=== PATIENT | female | born 1955 | race Caucasian/White ===

== ENCOUNTER 2017-11-10 15:31 | Inpatient (IN) | payer BC ==
[2017-11-10] MEDS ORDERED: SODIUM CHLORIDE 0.9% 1,000 ML IV STA (15:51)
[2017-11-10] MEDS ORDERED: DILTIAZEM 50 MG in SODIUM CHLORIDE 0.9% 40 ML IV ONE (15:51)
[2017-11-10 16:08] LABS: Basophils # (A) 0.1 k/uL (0-0.2); Basophils % (A) 1 %; Eosinophils # (A) 0.2 k/uL (0-0.7); Eosinophils % (A) 2 %; HCT 36.7 % (34.0-46.0); HGB 11.8 gm/dL (11.4-16.0); Lymphocytes # (A) 2.1 k/uL (1.0-4.8); Lymphocytes % (A) 18 %; MCH 27.8 pg (25.0-35.0); MCHC 32.2 g/dL (31.0-37.0); MCV 86.5 fL (80.0-100.0); Mean Platelet Volume 8.7; Monocytes # (A) 0.6 k/uL (0-1.0); Monocytes % (A) 5 %; Neutrophils # (A) 8.8 k/uL (1.3-7.7); Neutrophils % (A) 74 %; Platelet Count 275 k/uL (150-450); RBC 4.24 m/uL (3.80-5.40); RDW 13.4 % (11.5-15.5); WBC 11.8 k/uL (3.8-10.6)
[2017-11-10 16:17] LABS: ALT 16 U/L (9-52); AST 18 U/L (14-36); Alkaline Phosphatase 79 U/L (38-126); Anion Gap 14 mmol/L; Blood Urea Nitrogen 13 mg/dL (7-17); Calcium 9.1 mg/dL (8.4-10.2); Carbon Dioxide 27 mmol/L (22-30); Chloride 103 mmol/L (98-107); Glucose 111 mg/dL (74-99); Magnesium 1.6 mg/dL (1.6-2.3); Phosphorus 4.1 mg/dL (2.5-4.5); Potassium 4.7 mmol/L (3.5-5.1); Sodium 144 mmol/L (137-145); Total Bilirubin 0.8 mg/dL (0.2-1.3); Total Protein 6.3 g/dL (6.3-8.2)
[2017-11-10 16:22] LABS: INR 1.1 (<1.2); Partial Thromboplastin Time 25.4 sec (22.0-30.0); Prothrombin Time 10.4 sec (9.0-12.0)
[2017-11-10 16:25] LABS: Creatine Kinase 123 U/L (30-135)
[2017-11-10 16:38] LABS: Creatine Kinase MB 1.6 ng/mL (0.0-2.4); Troponin I <0.012 ng/mL (0.000-0.034)
[2017-11-10 17:22] LABS: Appearance,Urine Clear (Clear); Bacteria,Urine Rare /hpf; Bilirubin,Urine Negative (Negative); Blood,Urine Large (Negative); Color,Urine Yellow; Glucose,Urine (UA) Negative (Negative); Ketones,Urine Negative (Negative); Leukocyte Esterase,Urine Small (Negative); Mucus,Urine Rare /hpf; Nitrite,Urine Negative (Negative); Protein,Urine Trace (Negative); RBC,Urine 140 /hpf (0-5); Squamous Epithelial Cell,Urine 1 /hpf (0-4); WBC,Urine 7 /hpf (0-5)
--- NOTE | 2017-11-10 17:55 | ED ---
General Adult HPI - General Chief complaint: Arrhythmia/Palpitations Stated complaint: AFIB Time Seen by Provider: 11/10/17 15:47 Source: patient, RN notes reviewed, old records reviewed Mode of arrival: EMS Limitations: no limitations - History of Present Illness Initial comments: This is a 62-year-old female to the ER for evaluation of severe shortness breath palpitations, diaphoresis. Patient states she has history of atrial fibrillation states heart rate increased significantly just prior to arrival. Patient has positive nausea no vomiting no chest pain. Patient not taking medications as prescribed. No recent fevers no nausea vomiting or diarrhea. - Related Data Home Medications Medication Instructions Recorded Confirmed Albuterol Inhaler [Ventolin Hfa 2 puff INHALATION RT-Q4H PRN 11/10/17 11/10/17 Inhaler] Albuterol Nebulized [Ventolin 2.5 mg INHALATION RT-TID 11/10/17 11/10/17 Nebulized] Apixaban [Eliquis] 5 mg PO BID 11/10/17 11/10/17 Aspirin 81 mg PO DAILY 11/10/17 11/10/17 Budesonide/Formoterol Fumarate 2 puff INHALATION RT-BID 11/10/17 11/10/17 [Symbicort 160-4.5 Mcg Inhaler] Lisinopril [Prinivil] 5 mg PO DAILY 11/10/17 11/10/17 Methimazole [Tapazole] 2.5 mg PO SUMOTUWETHFR 11/10/17 11/10/17 Metoprolol Tartrate [Lopressor] 25 mg PO BID 11/10/17 11/10/17 Omeprazole [PriLOSEC] 20 mg PO DAILY 11/10/17 11/10/17 PARoxetine HCL [Paxil Cr] 25 mg PO DAILY 11/10/17 11/10/17 Pravastatin Sodium [Pravachol] 40 mg PO DAILY 11/10/17 11/10/17 Allergies Allergy/AdvReac Type Severity Reaction Status Date / Time ciprofloxacin [From Cipro] Allergy Rash/Hives Verified 11/10/17 15:54 Penicillins Allergy Rash/Hives Verified 11/10/17 15:54 Review of Systems ROS Statement: Those systems with pertinent positive or pertinent negative responses have been documented in the HPI. ROS Other: All systems not noted in ROS Statement are negative. Past Medical History Past Medical History: Atrial Fibrillation, Asthma, CVA/TIA, Hypertension, Thyroid Disorder History of Any Multi-Drug Resistant Organisms: None Reported Past Surgical History: Ablation, Cholecystectomy, Hysterectomy Past Psychological History: No Psychological Hx Reported Smoking Status: Never smoker Past Alcohol Use History: None Reported Past Drug Use History: None Reported General Exam Limitations: no limitations General appearance: alert, in no apparent distress, anxious Head exam: Present: atraumatic, normocephalic, normal inspection Eye exam: Present: normal appearance, PERRL, EOMI. Absent: scleral icterus, conjunctival injection, periorbital swelling ENT exam: Present: normal exam, mucous membranes moist Neck exam: Present: normal inspection. Absent: tenderness, meningismus, lymphadenopathy Respiratory exam: Present: normal lung sounds bilaterally. Absent: respiratory distress, wheezes, rales, rhonchi, stridor Cardiovascular Exam: Present: tachycardia, irregular rhythm, normal heart sounds. Absent: systolic murmur, diastolic murmur, rubs, gallop, clicks GI/Abdominal exam: Present: soft, normal bowel sounds. Absent: distended, tenderness, guarding, rebound, rigid Extremities exam: Present: normal inspection, full ROM, normal capillary refill. Absent: tenderness, pedal edema, joint swelling, calf tenderness Back exam: Present: normal inspection Neurological exam: Present: alert, oriented X3, CN II-XII intact Psychiatric exam: Present: normal affect, normal mood Skin exam: Present: warm, dry, intact, normal color. Absent: rash Course Vital Signs 11/10/17 11/10/17 11/10/17 15:33 17:24 18:35 Temperature 97.2 F L Pulse Rate 113 H 141 H 88 Respiratory 22 22 18 Rate Blood Pressure 146/84 135/89 132/74 O2 Sat by Pulse 98 92 L 95 Oximetry - Reevaluation(s) Reevaluation #1: 11/10/17 19:19 Unable to control patient's heart rate well here in the emergency room, patient heart rate fluctuation 77 of the 130s. EKG Findings - EKG Comments: EKG Findings:: EKG shows a flutter rate of 135 QRS 60 QTC 516 Medical Decision Making - Medical Decision Making 62 female the ER for evaluation of severe shortness of breath and palpitations, positive dehydration, patient for ablation with RVR, underlying hyperthyroid, will admit for rate control - Lab Data Result diagrams: 11/10/17 15:38 11/10/17 15:38 Lab Results 11/10/17 11/10/17 11/10/17 Range/Units 15:38 15:38 15:38 WBC 11.8 H (3.8-10.6) k/uL RBC 4.24 (3.80-5.40) m/uL Hgb 11.8 (11.4-16.0) gm/dL Hct 36.7 (34.0-46.0) % MCV 86.5 (80.0-100.0) fL MCH 27.8 (25.0-35.0) pg MCHC 32.2 (31.0-37.0) g/dL RDW 13.4 (11.5-15.5) % Plt Count 275 (150-450) k/uL Neutrophils % 74 % Lymphocytes % 18 % Monocytes % 5 % Eosinophils % 2 % Basophils % 1 % Neutrophils # 8.8 H (1.3-7.7) k/uL Lymphocytes # 2.1 (1.0-4.8) k/uL Monocytes # 0.6 (0-1.0) k/uL Eosinophils # 0.2 (0-0.7) k/uL Basophils # 0.1 (0-0.2) k/uL PT (9.0-12.0) sec INR (<1.2) APTT (22.0-30.0) sec Sodium 144 (137-145) mmol/L Potassium 4.7 (3.5-5.1) mmol/L Chloride 103 (98-107) mmol/L Carbon Dioxide 27 (22-30) mmol/L Anion Gap 14 mmol/L BUN 13 (7-17) mg/dL Creatinine 0.80 (0.52-1.04) mg/dL Est GFR (CKD-EPI)AfAm >90 (>60 ml/min/1.73 sqM) Est GFR (CKD-EPI)NonAf 80 (>60 ml/min/1.73 sqM) Glucose 111 H (74-99) mg/dL Plasma Lactic Acid Gordon (0.7-2.0) mmol/L Calcium 9.1 (8.4-10.2) mg/dL Phosphorus 4.1 (2.5-4.5) mg/dL Magnesium 1.6 (1.6-2.3) mg/dL Total Bilirubin 0.8 (0.2-1.3) mg/dL AST 18 (14-36) U/L ALT 16 (9-52) U/L Alkaline Phosphatase 79 (38-126) U/L Total Creatine Kinase 123 (30-135) U/L CK-MB (CK-2) 1.6 (0.0-2.4) ng/mL CK-MB (CK-2) Rel Index 1.3 Troponin I <0.012 (0.000-0.034) ng/mL Total Protein 6.3 (6.3-8.2) g/dL Albumin 4.0 (3.5-5.0) g/dL TSH 0.321 L (0.465-4.680) mIU/L Urine Color Urine Appearance (Clear) Urine pH (5.0-8.0) Ur Specific [place] (1.001-1.035) Urine Protein (Negative) Urine Glucose (UA) (Negative) Urine Ketones (Negative) Urine Blood (Negative) Urine Nitrite (Negative) Urine Bilirubin (Negative) Urine Urobilinogen (<2.0) mg/dL Ur Leukocyte Esterase (Negative) Urine RBC (0-5) /hpf Urine WBC (0-5) /hpf Ur Squamous Epith Cells (0-4) /hpf Urine Bacteria (None) /hpf Urine Mucus (None) /hpf 11/10/17 11/10/17 11/10/17 Range/Units 15:38 16:56 17:04 WBC (3.8-10.6) k/uL RBC (3.80-5.40) m/uL Hgb (11.4-16.0) gm/dL Hct (34.0-46.0) % MCV (80.0-100.0) fL MCH (25.0-35.0) pg MCHC (31.0-37.0) g/dL RDW (11.5-15.5) % Plt Count (150-450) k/uL Neutrophils % % Lymphocytes % % Monocytes % % Eosinophils % % Basophils % % Neutrophils # (1.3-7.7) k/uL Lymphocytes # (1.0-4.8) k/uL Monocytes # (0-1.0) k/uL Eosinophils # (0-0.7) k/uL Basophils # (0-0.2) k/uL PT 10.4 (9.0-12.0) sec INR 1.1 (<1.2) APTT 25.4 (22.0-30.0) sec Sodium (137-145) mmol/L Potassium (3.5-5.1) mmol/L Chloride (98-107) mmol/L Carbon Dioxide (22-30) mmol/L Anion Gap mmol/L BUN (7-17) mg/dL Creatinine (0.52-1.04) mg/dL Est GFR (CKD-EPI)AfAm (>60 ml/min/1.73 sqM) Est GFR (CKD-EPI)NonAf (>60 ml/min/1.73 sqM) Glucose (74-99) mg/dL Plasma Lactic Acid Gordon 1.0 (0.7-2.0) mmol/L Calcium (8.4-10.2) mg/dL Phosphorus (2.5-4.5) mg/dL Magnesium (1.6-2.3) mg/dL Total Bilirubin (0.2-1.3) mg/dL AST (14-36) U/L ALT (9-52) U/L Alkaline Phosphatase (38-126) U/L Total Creatine Kinase (30-135) U/L CK-MB (CK-2) (0.0-2.4) ng/mL CK-MB (CK-2) Rel Index Troponin I (0.000-0.034) ng/mL Total Protein (6.3-8.2) g/dL Albumin (3.5-5.0) g/dL TSH (0.465-4.680) mIU/L Urine Color Yellow Urine Appearance Clear (Clear) Urine pH 6.0 (5.0-8.0) Ur Specific [place] 1.020 (1.001-1.035) Urine Protein Trace H (Negative) Urine Glucose (UA) Negative (Negative) Urine Ketones Negative (Negative) Urine Blood Large H (Negative) Urine Nitrite Negative (Negative) Urine Bilirubin Negative (Negative) Urine Urobilinogen 4.0 (<2.0) mg/dL Ur Leukocyte Esterase Small H (Negative) Urine RBC 140 H (0-5) /hpf Urine WBC 7 H (0-5) /hpf Ur Squamous Epith Cells 1 (0-4) /hpf Urine Bacteria Rare H (None) /hpf Urine Mucus Rare H (None) /hpf Critical Care Time Critical Care Time: Yes Total Critical Care Time: 31 Disposition Clinical Impression: Atrial fibrillation, Atrial fibrillation with RVR, Hyperthyroidism Disposition: ADMITTED IP TO THIS HOSP Condition: Fair Is patient prescribed a controlled substance at d/c from ED?: No Referrals: Alicia Isaac MD [Primary Care Provider] - 1-2 days
[2017-11-10] MEDS ORDERED: NITROGLYCERIN SL TABS 0.4 MG TAB SUBLINGUAL PRN (19:16)
[2017-11-10] MEDS ORDERED: ALBUTEROL NEBULIZED 2.5 MG/3 ML INHALATION PRN (19:51)
[2017-11-10] MEDS: METOPROLOL TARTRATE 50 MG TAB PO SCH (20:34)
[2017-11-10] MEDS: APIXABAN 5 MG TAB PO SCH (20:41)
[2017-11-10] MEDS: SODIUM CHLORIDE 0.9% 1,000 ML IV SCH (20:41)
[2017-11-10] MEDS: ALBUTEROL NEBULIZED 2.5 MG/3 ML INHALATION SCH (20:43)
[2017-11-10] MEDS: SYMBICORT 160-4.5 MCG INHALER INHALATION SCH (20:44)
[2017-11-10 21:15] VITALS: BMI 44.9
[2017-11-10] MEDS: DILTIAZEM 50 MG in SODIUM CHLORIDE 0.9% 40 ML IV SCH (21:50)
[2017-11-10 22:09] LABS: Creatine Kinase 112 U/L (30-135)
[2017-11-10 22:18] LABS: T4, Free (Free Thyroxine) 1.12 ng/dL (0.78-2.19)
[2017-11-10 22:23] LABS: Creatine Kinase MB 1.7 ng/mL (0.0-2.4); Troponin I <0.012 ng/mL (0.000-0.034)
--- NOTE | 2017-11-10 23:18 | HP ---
HISTORY AND PHYSICAL DATE OF SERVICE: 11/10/2017 CHIEF COMPLAINTS: Shortness of breath and palpitations, diaphoresis. HISTORY OF PRESENT ILLNESS: This 62-year-old woman with a past medical history of multiple medical problems, including atrial fibrillation, asthma, CVA, hypertension, hyperthyroidism, being followed by Dr. 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 The patient apparently had shortness of breath. The patient was evaluated in Dr. Isaac's office and was found to have atrial fibrillation with fast ventricular rate. The patient was sent to [facility] and the patient started on Cardizem drip. The dose was increased to 10 mg/hour bases. Rate is still fluctuating. There is no history of any fever, rigors. No history of headache, loss of consciousness, seizures. PAST MEDICAL HISTORY: History of asthma, atrial fibrillation, CVA, hypertension, hyperthyroidism. MEDICATIONS PRIOR TO ADMISSION: Include: 1. Tapazole 2.5 mg on Wednesday, Wednesday, Wednesday, Wednesday, , Wednesday. 2. Lopressor 25 mg p.o. b.i.d. 3. Ventolin 2.5 t.i.d. 4. Pravachol 40 mg p.o. daily. 5. Prilosec 20 mg p.o. daily. 6. Prinivil 5 mg p.o. daily. 7. Eliquis 5 mg p.o. b.i.d. 8. Ventolin HFA 2 puffs q.4h p.r.n. 9. Paxil 25 mg p.o. daily. 10.Symbicort 160/4.5 two puffs b.i.d. 11.Aspirin 81 mg p.o. daily. ALLERGIES: CIPRO and PENICILLIN. FAMILY HISTORY: No history of heart disease, strokes in the family. SOCIAL HISTORY: No history of smoking. No history of alcohol intake. REVIEW OF SYSTEMS: ENT: No diminished hearing, diminished vision. CARDIOVASCULAR: No angina, palpitations. RESPIRATORY: As mentioned earlier. GI: As mentioned earlier. : No dysuria. NERVOUS: No numbness or weakness. ALLERGY/IMMUNOLOGY: No asthma or hay fever. MUSCULOSKELETAL: As mentioned earlier. HEMATOLOGY/ONCOLOGY: No history of anemia. ENDOCRINE: As mentioned earlier, hypothyroidism. CONSTITUTIONAL: As mentioned earlier. DERMATOLOGY: Negative. RHEUMATOLOGY: Negative. PSYCHIATRY: As mentioned earlier. PHYSICAL EXAMINATION: Alert and oriented x3. Pulse is 126, irregular; blood pressure is 119/70, respirations 18, temperature is normal, pulse ox 94% on 2L. HEENT: Conjunctivae normal. Oral mucosa moist. NECK: No jugular venous distention. No carotid bruits. No lymph node enlargement. CARDIOVASCULAR: S1, S2 irregular. No S3, S4. RESPIRATORY: Breath sounds diminished in the bases. A few scattered rhonchi. No crackles. ABDOMEN: Soft, nontender. No mass palpable. LEGS: No edema. No swelling. NERVOUS SYSTEM: Higher functions as mentioned earlier. Moves all 4 limbs. No focal motor or sensory deficits. LYMPHATIC: No lymphadenopathy in neck or axillae. SKIN: No ulcer, rash or bleeding. LABS: WBC 7.8, hemoglobin is 11.8. Glucose 111. The TSH is 0.321, free T4 is 1.12 and free T3 at 3.9. UA noted. ASSESSMENT: 1. Atrial fibrillation with fast ventricular rate. 2. History of atrial fibrillation, paroxysmal. 3. Hyperthyroidism. 4. History of asthma. 5. History of cerebrovascular accident/transient ischemic attack. 6. Hypertension. 7. History of atrial ablation. 8. History of cholecystectomy. 9. History of anxiety. RECOMMENDATIONS AND DISCUSSION: In this 62-year-old woman who presented with multiple complex medical issues, will monitor the patient closely. Continue the current medical management with Hayley otero, cardiology evaluation, 2D echo with Doppler. I would also recommend a D-dimer and if D-dimer is positive, also recommend a spiral CT scan, CT angio. Otherwise, 2D echo with Doppler. Prognosis guarded because of multiple complex medical issues. See orders for further details. Discussed with the patient. A copy of this dictation will be forwarded to Dr. Isaac, who is the primary physician. MMODL / IJN: [id number] /
[2017-11-11 03:42] LABS: Basophils % (A) 1 %; Eosinophils # (A) 0.2 k/uL (0-0.7); Eosinophils % (A) 2 %; HCT 34.3 % (34.0-46.0); HGB 11.2 gm/dL (11.4-16.0); Lymphocytes # (A) 2.2 k/uL (1.0-4.8); Lymphocytes % (A) 22 %; MCHC 32.6 g/dL (31.0-37.0); Mean Platelet Volume 7.5; Monocytes # (A) 0.5 k/uL (0-1.0); Monocytes % (A) 5 %; Neutrophils # (A) 6.7 k/uL (1.3-7.7); Neutrophils % (A) 69 %; Platelet Count 251 k/uL (150-450); RBC 3.86 m/uL (3.80-5.40); RDW 13.2 % (11.5-15.5); WBC 9.8 k/uL (3.8-10.6)
[2017-11-11 03:52] LABS: Calcium 8.9 mg/dL (8.4-10.2); Potassium 4.2 mmol/L (3.5-5.1)
[2017-11-11] MEDS: DILTIAZEM 50 MG in SODIUM CHLORIDE 0.9% 40 ML IV SCH ×2 (04:06→07:45)
[2017-11-11 04:09] LABS: Creatine Kinase 107 U/L (30-135)
[2017-11-11 04:21] LABS: Creatine Kinase MB 2.1 ng/mL (0.0-2.4); Troponin I <0.012 ng/mL (0.000-0.034)
[2017-11-11] MEDS: SYMBICORT 160-4.5 MCG INHALER INHALATION SCH ×2 (07:01→20:11)
[2017-11-11] MEDS: ALBUTEROL NEBULIZED 2.5 MG/3 ML INHALATION SCH ×3 (07:01→20:11)
[2017-11-11] MEDS: SODIUM CHLORIDE 0.9% 1,000 ML IV SCH ×2 (07:44→17:50)
[2017-11-11] MEDS: METOPROLOL TARTRATE 50 MG TAB PO SCH ×2 (08:22→19:58)
[2017-11-11] MEDS: PANTOPRAZOLE 40 MG TABLET PO SCH (08:22)
[2017-11-11] MEDS: APIXABAN 5 MG TAB PO SCH ×2 (08:22→19:58)
[2017-11-11] MEDS: PARoxetine 20 MG TAB PO SCH (08:23)
[2017-11-11] MEDS: LISINOPRIL 5 MG TAB PO SCH (08:23)
[2017-11-11] MEDS ORDERED: ASPIRIN 325 MG TAB PO SCH (09:00)
[2017-11-11] MEDS ORDERED: METHIMAZOLE 5 MG TAB PO SCH (09:00)
--- NOTE | 2017-11-11 09:45 | P.CRDCN ---
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 She does have history of atrial arrhythmia with prior ablation in the past, history of hypertension, hyperlipidemia, asthma, prior CVA, hypothyroidism, she is a nonsmoker, nondiabetic. Patient states that she has been dealing with a bronchitis as an outpatient, her breathing became significantly worse, and she thought she may be having an asthma attack on top of her bronchitis. For this reason she went to see her primary care doctor, while there physician was concerned about her breathing and rapid heart beat and EMS was called to bring the patient here to the hospital. EKG on arrival here showed atrial flutter with a rapid ventricular response and the patient was initiated on Cardizem drip at 10 mg per hour. White blood cell count on arrival here 11.8, 9.8 this morning. Hemoglobin 11.2, platelet count 251. D- dimer negative. Sodium 142, 4.2, BUN 14, creatinine 0.9. Negative exam 1.6, troponins negative 3. TSH 0.32, free T4 1 0.1, free T3 3.9. Blood pressure 134/80 with a heart rate this morning in the 60s, 92% on 2 L of oxygen. At the time of my examination this morning, patient states that her breathing is significantly improved from arrival here. Past Medical History Past Medical History: Atrial Fibrillation, Asthma, CVA/TIA, Hypertension, Thyroid Disorder History of Any Multi-Drug Resistant Organisms: None Reported Past Surgical History: Ablation, Cholecystectomy, Hysterectomy Past Anesthesia/Blood Transfusion Reactions: Postoperative Nausea & Vomiting ( PONV) Past Psychological History: Anxiety Smoking Status: Never smoker Past Alcohol Use History: None Reported Past Drug Use History: None Reported Medications and Allergies Home Medications Medication Instructions Recorded Confirmed Type Albuterol Inhaler [Ventolin Hfa 2 puff INHALATION RT-Q4H PRN 11/10/17 11/10/17 History Inhaler] Albuterol Nebulized [Ventolin 2.5 mg INHALATION RT-TID 11/10/17 11/10/17 History Nebulized] Apixaban [Eliquis] 5 mg PO BID 11/10/17 11/10/17 History Aspirin 81 mg PO DAILY 11/10/17 11/10/17 History Budesonide/Formoterol Fumarate 2 puff INHALATION RT-BID 11/10/17 11/10/17 History [Symbicort 160-4.5 Mcg Inhaler] Lisinopril [Prinivil] 5 mg PO DAILY 11/10/17 11/10/17 History Methimazole [Tapazole] 2.5 mg PO SUMOTUWETHFR 11/10/17 11/10/17 History Metoprolol Tartrate [Lopressor] 25 mg PO BID 11/10/17 11/10/17 History Omeprazole [PriLOSEC] 20 mg PO DAILY 11/10/17 11/10/17 History PARoxetine HCL [Paxil Cr] 25 mg PO DAILY 11/10/17 11/10/17 History Pravastatin Sodium [Pravachol] 40 mg PO DAILY 11/10/17 11/10/17 History Allergies Allergy/AdvReac Type Severity Reaction Status Date / Time ciprofloxacin [From Cipro] Allergy Rash/Hives Verified 11/10/17 15:54 Penicillins Allergy Rash/Hives Verified 11/10/17 15:54 Physical Exam Vitals: Vital Signs Temp Pulse Pulse Resp BP BP Pulse Ox 11/11/17 08:00 97.5 F L 95 134/80 92 L 11/11/17 07:17 68 11/11/17 07:01 65 11/11/17 04:00 98.8 F 76 18 133/88 99 11/11/17 01:00 124 H 11/11/17 00:00 97.3 F L 97 18 129/58 97 11/10/17 21:20 126 H 119/70 11/10/17 20:58 80 11/10/17 20:48 76 18 11/10/17 20:09 80 18 134/99 94 L 11/10/17 19:23 99 F 76 20 124/69 95 11/10/17 18:35 88 18 132/74 95 11/10/17 17:24 141 H 22 135/89 92 L 11/10/17 15:33 97.2 F L 113 H 22 146/84 98 Intake and Output 11/10/17 11/11/17 11/11/17 22:59 06:59 14:59 Intake Total 100 130 36.5 Balance 100 130 36.5 Intake: IV 80 Diltiazem 50 mg In Sodium 80 Chloride 0.9% 40 ml @ 10 MG/HR 10 mls/hr IV .Q5H JA Rx#:[id number] Intake, IV Titration 50 36.5 Amount Diltiazem 50 mg In Sodium 50 36.5 Chloride 0.9% 40 ml @ 10 MG/HR 10 mls/hr IV .Q5H JA Rx#:[id number] Oral 100 Other: Voiding Method Toilet # Voids 1 2 Weight 122.47 kg 126.2 kg PHYSICAL EXAMINATION: HEENT: Head is atraumatic, normocephalic. Pupils equal, round. Neck is supple. There is no elevated jugular venous pressure. HEART EXAMINATION: Heart S1 and S2 irregularly irregular CHEST EXAMINATION: Lungs reveal some fine scattered wheezing throughout ABDOMEN: Soft, obese, nontender. Bowel sounds are heard. No organomegaly noted. EXTREMITIES: 2+ peripheral pulses with trace evidence of peripheral edema and no calf tenderness noted. NEUROLOGIC patient is awake, alert and oriented -3. . Results 11/11/17 03:29 11/11/17 03:29 Cardiac Enzymes 11/10/17 11/10/17 11/10/17 Range/Units 15:38 15:38 21:32 AST 18 (14-36) U/L CK-MB (CK-2) 1.6 1.7 (0.0-2.4) ng/mL Troponin I <0.012 <0.012 (0.000-0.034) ng/mL 11/11/17 Range/Units 03:29 AST (14-36) U/L CK-MB (CK-2) 2.1 (0.0-2.4) ng/mL Troponin I <0.012 (0.000-0.034) ng/mL Coagulation 11/10/17 Range/Units 15:38 PT 10.4 (9.0-12.0) sec APTT 25.4 (22.0-30.0) sec Lipids 11/11/17 Range/Units 03:29 Triglycerides 69 (<150) mg/dL Cholesterol 95 (<200) mg/dL HDL Cholesterol 39 L (40-60) mg/dL CBC 11/10/17 11/11/17 Range/Units 15:38 03:29 WBC 11.8 H 9.8 (3.8-10.6) k/uL RBC 4.24 3.86 (3.80-5.40) m/uL Hgb 11.8 11.2 L (11.4-16.0) gm/dL Hct 36.7 34.3 (34.0-46.0) % Plt Count 275 251 (150-450) k/uL Comprehensive Metabolic Panel 11/10/17 11/11/17 Range/Units 15:38 03:29 Sodium 144 142 (137-145) mmol/L Potassium 4.7 4.2 (3.5-5.1) mmol/L Chloride 103 105 (98-107) mmol/L Carbon Dioxide 27 25 (22-30) mmol/L BUN 13 14 (7-17) mg/dL Creatinine 0.80 0.90 (0.52-1.04) mg/dL Glucose 111 H 111 H (74-99) mg/dL Calcium 9.1 8.9 (8.4-10.2) mg/dL AST 18 (14-36) U/L ALT 16 (9-52) U/L Alkaline Phosphatase 79 (38-126) U/L Total Protein 6.3 (6.3-8.2) g/dL Albumin 4.0 (3.5-5.0) g/dL Current Medications Generic Name Dose Route Start Last Admin Trade Name Freq PRN Reason Stop Dose Admin Albuterol Sulfate 2.5 mg 11/10/17 19:51 Ventolin Nebulized INHALATION RT-Q4H PRN Shortness Of Breath Albuterol Sulfate 2.5 mg 11/10/17 20:00 11/11/17 07:01 Ventolin Nebulized INHALATION 2.5 mg RT-TID JA Administration Apixaban 5 mg 11/10/17 21:00 11/11/17 08:22 Eliquis PO 5 mg BID JA Administration Aspirin 325 mg 11/11/17 09:00 11/11/17 08:22 Aspirin PO 325 mg DAILY JA Administration Budesonide/Formoterol Fumarate 2 puff 11/10/17 20:00 11/11/17 07:01 Symbicort 160-4.5 Mcg Inhaler INHALATION 2 puff RT-BID JA Administration Sodium Chloride 1,000 mls @ 100 mls/hr 11/10/17 19:30 11/11/17 07:44 Saline 0.9% IV Not Given .Q10H JA Diltiazem HCl 50 mg/ Sodium 50 mls @ 10 mls/hr 11/10/17 21:15 11/11/17 07:45 Chloride IV 10 mg/hr .Q5H JA 10 mls/hr 10 MG/HR Administration Lisinopril 5 mg 11/11/17 09:00 11/11/17 08:23 Zestril PO 5 mg DAILY JA Administration Methimazole 2.5 mg 11/11/17 09:00 11/11/17 08:23 Tapazole PO 2.5 mg [id number] JA Administration Metoprolol Tartrate 50 mg 11/10/17 21:00 11/11/17 08:22 Lopressor PO 50 mg BID JA Administration Nitroglycerin 0.4 mg 11/10/17 19:16 Nitrostat SUBLINGUAL Q5M PRN Chest Pain Pantoprazole Sodium 40 mg 11/11/17 07:30 11/11/17 08:22 Protonix PO 40 mg [id number] JA Administration Paroxetine HCl 20 mg 11/11/17 09:00 11/11/17 08:23 Paxil PO 20 mg DAILY JA Administration Pravastatin Sodium 40 mg 11/11/17 09:00 Pravachol PO DAILY [facility] Intake and Output 11/10/17 11/11/17 11/11/17 22:59 06:59 14:59 Intake Total 100 130 36.5 Balance 100 130 36.5 Intake: IV 80 Diltiazem 50 mg In Sodium 80 Chloride 0.9% 40 ml @ 10 MG/HR 10 mls/hr IV .Q5H JA Rx#:[id number] Intake, IV Titration 50 36.5 Amount Diltiazem 50 mg In Sodium 50 36.5 Chloride 0.9% 40 ml @ 10 MG/HR 10 mls/hr IV .Q5H JA Rx#:[id number] Oral 100 Other: Voiding Method Toilet # Voids 1 2 Weight 122.47 kg 126.2 kg 11/11/17 03:29 11/11/17 03:29 EKG Interpretations (text) EKG shows atrial flutter with a rapid ventricular response Assessment and Plan Plan: Assessment and plan #1 atrial flutter with rapid ventricular response #2 history of atrial arrhythmia with prior ablation. On Eliquis for anticoagulation. #2 history of CVA #3 hypertension #4 hyperlipidemia #5 hypothyroidism #6 asthma #7 obesity #8 recent bronchitis Plan We will obtain an echocardiogram with Doppler study. We will also obtain records of patient's of prior procedures performed at [facility]. Increase beta molly to 50 mg by mouth twice a day and discontinue Cardizem drip. Continue anticoagulation with Eliquis. Further recommendations to follow. DNP note has been reviewed, I agree with a documented findings and plan of care. Patient was seen and examined.
--- NOTE | 2017-11-11 09:59 | P.PN ---
Progress Note - Text This is an addendum to the dictated cardiology consultation. The patient presents with exacerbation of her bronchial asthma and when she was seen at Dr. Isaac yesterday she was noted to be tachycardic. Patient has a prior history of atrial fibrillation ablation, done in 2016 but she is unaware of the arrhythmia and does not feel any associated palpitations, dizziness or syncope. She was told initially that her left ventricle systolic function was mildly impaired but subsequently improved. She has no history of CAD by stress testing according to her. She has no history of PND, orthopnea or peripheral edema. She has a chronic history of asthma with recent exacerbation. On presentation she was in atrial flutter with rapid ventricular rate and subsequently converted to sinus mechanism. She has been anticoagulated. On physical examination she has no rales or wheezes, she is in sinus mechanism and there is no evidence of significant edema. Her EKG shows atrial flutter with variable AV conduction, she is now in sinus mechanism with no acute ST segment changes. I will continue on anticoagulation, increase the dose of the beta molly and stop Cardizem. 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 Thank you for this consult we will follow with you.
--- NOTE | 2017-11-11 10:35 | ECHOF ---
Referral Reason:afib/RVR MEASUREMENTS -------- HEIGHT: 165.1 cm WEIGHT: 126.1 kg BP: 133/88 RVIDd: 3.3 cm (< 3.3) IVSd: 1.3 cm (0.6 - 1.1) LVIDd: 4.4 cm (3.9 - 5.3) LVPWd: 1.3 cm (0.6 - 1.1) IVSs: 1.6 cm LVIDs: 2.8 cm LVPWs: 1.6 cm LAESV Index (A-L): 40.86 ml/m Ao Diam: 3.3 cm (2.0 - 3.7) AV Cusp: 1.8 cm (1.5 - 2.6) LA Diam: 5.4 cm (2.7 - 3.8) EPSS: 1.2 cm MV E Alberto: 1.44 m/s MV DecT: 248 ms MV A Alberto: 0.72 m/s MV E/A Ratio: 2.14 RAP: 5.00 mmHg RVSP: 41.57 mmHg MV EF SLOPE: 45.58 mm/s (70 - 150) MV EXCURSION: 1.56 cm (> 18.000) FINDINGS -------- Atrial fibrillation. This was a technically difficult study with suboptimal views. The left ventricular size is normal. There is mild concentric left ventricular hypertrophy. Overa ll left ventricular systolic function is normal with, an EF between 55 - 60 %. The right ventricle is mildly enlarged. LA is severely dilated >40 ml/m2 RA appears enlarged. 3ml of Lumason was utilized for enhancement of images. Aortic valve is trileaflet and is mildly thickened. There is no evidence of aortic regurgitation. There is no evidence of aortic stenosis. The mitral valve leaflets are mildly thickened. Mild mitral annular calcification present. There is trace to mild mitral regurgitation. Mild tricuspid regurgitation present. There is mild pulmonary hypertension. The right ventricular systolic pressure, as measured by Doppler, is 41.57mmHg. Trace/mild (physiologic) pulmonic regurgitation. The aortic root size is normal. IVC Not well visulized. There is no pericardial effusion. CONCLUSIONS -------- 1. Atrial fibrillation. 2. This was a technically difficult study with suboptimal views. 3. The left ventricular size is normal. 4. There is mild concentric left ventricular hypertrophy. 5. Overall left ventricular systolic function is normal with, an EF between 55 - 60 %. 6. The right ventricle is mildly enlarged. 7. LA is severely dilated >40 ml/m2 8. RA appears enlarged. 9. 3ml of Lumason was utilized for enhancement of images. 10. Aortic valve is trileaflet and is mildly thickened. 11. The mitral valve leaflets are mildly thickened. 12. Mild mitral annular calcification present. 13. There is trace to mild mitral regurgitation. 14. Mild tricuspid regurgitation present. 15. There is mild pulmonary hypertension. 16. The right ventricular systolic pressure, as measured by Doppler, is 41.57mmHg. 17. Trace/mild (physiologic) pulmonic regurgitation. 18. The aortic root size is normal. 19. IVC Not well visulized. 20. There is no pericardial effusion. DELICATESSEN CLERK: Claude Hyman RDCS
[2017-11-11] MEDS: MAGNESIUM SULFATE-D5W PMX 1 GM in DEXTROSE/WATER 1 100ML.BAG IVPB SCH ×2 (13:00→14:43)
[2017-11-11] MEDS: PRAVASTATIN SODIUM 40 MG TAB PO SCH (13:52)
--- NOTE | 2017-11-11 14:47 | XR ---
EXAMINATION TYPE: XR chest 2V DATE OF EXAM: 11/11/2017 COMPARISON: NONE HISTORY: Shortness of breath TECHNIQUE: Frontal and lateral views of the chest are obtained. FINDINGS: There is no focal air space opacity, pleural effusion, or pneumothorax seen. The cardiac silhouette size is enlarged. The osseous structures are intact. There is mild bilateral acromioclav icular arthropathy noted. IMPRESSION: No acute cardiopulmonary process.
--- NOTE | 2017-11-11 18:13 | P.CNEND ---
History of Present Illness Consult date: 11/11/17 Consult reason: other (Hyperthyroidism) Requesting physician: Arnoldo Noble History of present illness: Patient is a 62-year-old female with a history of multinodular goiter and hyperthyroidism. Patient has partial thyroidectomy done in 1982 for multinodular goiter. She was diagnosed with hyperthyroidism 2 years ago when she suffered a stroke. Since then patient has been on antithyroid medications. Patient was taking 2.5 mg of methimazole 3 days a week which was increased to 2.5 mg methimazole 6 days a week by her sleep lab technician. She is admitted in the hospital with atrial fibrillation. She was seen at primary care physician office with shortness of breath and tachycardia and was transferred to emergency room. Currently patient is on beta blockers. Review of Systems Constitutional: Denies chills, Denies fever Eyes: denies blurred vision, denies pain Ears, nose, mouth and throat: Denies headache, Denies sore throat Cardiovascular: Reports dyspnea on exertion, Reports edema, Reports irregular heart beat, Denies chest pain, Denies shortness of breath Respiratory: Reports dyspnea Gastrointestinal: Denies abdominal pain, Denies diarrhea, Denies nausea, Denies vomiting Genitourinary: Denies dysuria, Denies hematuria Musculoskeletal: Denies myalgias Neurological: Denies numbness, Denies weakness Endocrine: Reports fatigue, Reports palpitations, Reports thyroid mass Past Medical History Past Medical History: Atrial Fibrillation, Asthma, CVA/TIA, Hypertension, Thyroid Disorder History of Any Multi-Drug Resistant Organisms: None Reported Past Surgical History: Ablation, Cholecystectomy, Hysterectomy Past Anesthesia/Blood Transfusion Reactions: Postoperative Nausea & Vomiting ( PONV) Past Psychological History: Anxiety Smoking Status: Never smoker Past Alcohol Use History: None Reported Past Drug Use History: None Reported Medications and Allergies Home Medications Medication Instructions Recorded Confirmed Type Albuterol Inhaler [Ventolin Hfa 2 puff INHALATION RT-Q4H PRN 11/10/17 11/10/17 History Inhaler] Albuterol Nebulized [Ventolin 2.5 mg INHALATION RT-TID 11/10/17 11/10/17 History Nebulized] Apixaban [Eliquis] 5 mg PO BID 11/10/17 11/10/17 History Aspirin 81 mg PO DAILY 11/10/17 11/10/17 History Budesonide/Formoterol Fumarate 2 puff INHALATION RT-BID 11/10/17 11/10/17 History [Symbicort 160-4.5 Mcg Inhaler] Lisinopril [Prinivil] 5 mg PO DAILY 11/10/17 11/10/17 History Methimazole [Tapazole] 2.5 mg PO SUMOTUWETHFR 11/10/17 11/10/17 History Metoprolol Tartrate [Lopressor] 25 mg PO BID 11/10/17 11/10/17 History Omeprazole [PriLOSEC] 20 mg PO DAILY 11/10/17 11/10/17 History PARoxetine HCL [Paxil Cr] 25 mg PO DAILY 11/10/17 11/10/17 History Pravastatin Sodium [Pravachol] 40 mg PO DAILY 11/10/17 11/10/17 History Allergies Allergy/AdvReac Type Severity Reaction Status Date / Time ciprofloxacin [From Cipro] Allergy Rash/Hives Verified 11/10/17 15:54 Penicillins Allergy Rash/Hives Verified 11/10/17 15:54 Physical Exam Vitals: Vital Signs Temp Pulse Pulse Resp BP BP Pulse Ox 11/11/17 16:00 55 L 134/75 97 11/11/17 13:24 68 11/11/17 13:12 72 11/11/17 12:00 77 116/64 96 11/11/17 08:00 97.5 F L 95 134/80 92 L 11/11/17 07:17 68 11/11/17 07:01 65 11/11/17 04:00 98.8 F 76 18 133/88 99 11/11/17 01:00 124 H 11/11/17 00:00 97.3 F L 97 18 129/58 97 11/10/17 21:20 126 H 119/70 11/10/17 20:58 80 11/10/17 20:48 76 18 11/10/17 20:09 80 18 134/99 94 L 11/10/17 19:23 99 F 76 20 124/69 95 11/10/17 18:35 88 18 132/74 95 Intake and Output 11/11/17 11/11/17 11/11/17 06:59 14:59 22:59 Intake Total 130 396.5 Balance 130 396.5 Intake: IV 80 Diltiazem 50 mg In Sodium 80 Chloride 0.9% 40 ml @ 10 MG/HR 10 mls/hr IV .Q5H [facility] Rx#:[id number] Intake, IV Titration 50 36.5 Amount Diltiazem 50 mg In Sodium 50 36.5 Chloride 0.9% 40 ml @ 10 MG/HR 10 mls/hr IV .Q5H [facility] Rx#:[id number] Oral 360 Other: Voiding Method Toilet # Voids 2 3 # Bowel Movements 1 Weight 126.2 kg - Constitutional General appearance: no acute distress - EENT Eyes: EOMI - Neck Thyroid: right: enlarged - Respiratory Respiratory: bilateral: wheezing - Cardiovascular Rhythm: irregularly irregular Heart sounds: normal: S1, S2 - Gastrointestinal General gastrointestinal: no organomegaly, soft, no tenderness - Neurologic Neurologic: CNII-XII intact - Psychiatric Psychiatric: A&O x's 3, appropriate affect, intact judgment & insight Results - Labs Result Diagrams: 11/11/17 03:29 11/11/17 03:29 Abnormal Lab Results - Last 24 Hours (Table) 11/11/17 11/11/17 Range/Units 03:29 03:29 Hgb 11.2 L (11.4-16.0) gm/dL Glucose 111 H (74-99) mg/dL HDL Cholesterol 39 L (40-60) mg/dL Diabetes panel 11/11/17 Range/Units 03:29 Sodium 142 (137-145) mmol/L Potassium 4.2 (3.5-5.1) mmol/L Chloride 105 (98-107) mmol/L Carbon Dioxide 25 (22-30) mmol/L BUN 14 (7-17) mg/dL Creatinine 0.90 (0.52-1.04) mg/dL Glucose 111 H (74-99) mg/dL Calcium 8.9 (8.4-10.2) mg/dL Triglycerides 69 (<150) mg/dL HDL Cholesterol 39 L (40-60) mg/dL Calcium panel 11/11/17 Range/Units 03:29 Calcium 8.9 (8.4-10.2) mg/dL Pituitary panel 11/11/17 Range/Units 03:29 Sodium 142 (137-145) mmol/L Potassium 4.2 (3.5-5.1) mmol/L Chloride 105 (98-107) mmol/L Carbon Dioxide 25 (22-30) mmol/L BUN 14 (7-17) mg/dL Creatinine 0.90 (0.52-1.04) mg/dL Glucose 111 H (74-99) mg/dL Calcium 8.9 (8.4-10.2) mg/dL Adrenal panel 11/11/17 Range/Units 03:29 Sodium 142 (137-145) mmol/L Potassium 4.2 (3.5-5.1) mmol/L Chloride 105 (98-107) mmol/L Carbon Dioxide 25 (22-30) mmol/L BUN 14 (7-17) mg/dL Creatinine 0.90 (0.52-1.04) mg/dL Glucose 111 H (74-99) mg/dL Calcium 8.9 (8.4-10.2) mg/dL Assessment and Plan (1) Hyperthyroidism Current Visit: Yes Status: Acute Code(s): E05.90 - THYROTOXICOSIS, UNSP WITHOUT THYROTOXIC CRISIS OR STORM SNOMED Code(s): 57639184 Plan: Patient with history of multinodular goiter and hyperthyroidism. Currently taking 2.5 mg of methimazole 6 days a week Labs reviewed Patient has TSH of 0.3 with normal T3 and T4. 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 Treatment with radioactive iodine versus surgery was discussed with patient and family Thank you for consultation we will follow the patient Time with Patient: Greater than 30
[2017-11-11 23:34] VITALS: RESP 18
[2017-11-12] MEDS: PANTOPRAZOLE 40 MG TABLET PO SCH (06:14)
[2017-11-12 07:15] LABS: Basophils % (A) 1 %; Eosinophils # (A) 0.2 k/uL (0-0.7); Eosinophils % (A) 3 %; HCT 35.4 % (34.0-46.0); HGB 11.6 gm/dL (11.4-16.0); Lymphocytes # (A) 1.4 k/uL (1.0-4.8); Lymphocytes % (A) 19 %; MCH 28.7 pg (25.0-35.0); MCHC 32.8 g/dL (31.0-37.0); MCV 87.5 fL (80.0-100.0); Mean Platelet Volume 7.7; Monocytes # (A) 0.4 k/uL (0-1.0); Monocytes % (A) 5 %; Neutrophils # (A) 5.2 k/uL (1.3-7.7); Neutrophils % (A) 72 %; Platelet Count 245 k/uL (150-450); RBC 4.04 m/uL (3.80-5.40); RDW 13.2 % (11.5-15.5); WBC 7.2 k/uL (3.8-10.6)
[2017-11-12 07:36] LABS: Calcium 9.1 mg/dL (8.4-10.2); Potassium 4.5 mmol/L (3.5-5.1)
[2017-11-12] MEDS ORDERED: METHIMAZOLE 5 MG TAB PO SCH (09:00)
[2017-11-12] MEDS: PARoxetine 20 MG TAB PO SCH (09:09)
[2017-11-12] MEDS: APIXABAN 5 MG TAB PO SCH (09:09)
[2017-11-12] MEDS: METOPROLOL TARTRATE 50 MG TAB PO SCH (09:09)
[2017-11-12] MEDS: LISINOPRIL 5 MG TAB PO SCH (09:10)
[2017-11-12] MEDS: PRAVASTATIN SODIUM 40 MG TAB PO SCH (09:10)
[2017-11-12 09:12] VITALS: BP 126/65; TEMP 97.1
[2017-11-12] MEDS: ALBUTEROL NEBULIZED 2.5 MG/3 ML INHALATION SCH ×2 (09:13→13:12)
[2017-11-12] MEDS: SYMBICORT 160-4.5 MCG INHALER INHALATION SCH (09:13)
[2017-11-12 14:47] VITALS: PULSE 60
--- NOTE | 2017-11-12 14:56 | P.PN ---
Subjective Progress Note Date: 11/12/17 This is a pleasant 62-year-old female who follows with a child day care provider in [place]. She does have history of atrial arrhythmia with prior ablation in the past, history of hypertension, hyperlipidemia, asthma, prior CVA, hypothyroidism, she is a nonsmoker, nondiabetic. Patient states that she has been dealing with a bronchitis as an outpatient, her breathing became significantly worse, and she thought she may be having an asthma attack on top of her bronchitis. For this reason she went to see her primary care doctor, while there physician was concerned about her breathing and rapid heart beat and EMS was called to bring the patient here to the hospital. EKG on arrival here showed atrial flutter with a rapid ventricular response and the patient was initiated on Cardizem drip at 10 mg per hour. White blood cell count on arrival here 11.8, 9.8 this morning. Hemoglobin 11.2, platelet count 251. D- dimer negative. Sodium 142, 4.2, BUN 14, creatinine 0.9. Negative exam 1.6, troponins negative 3. TSH 0.32, free T4 1 0.1, free T3 3.9. Blood pressure 134/80 with a heart rate this morning in the 60s, 92% on 2 L of oxygen. At the time of my examination this morning, patient states that her breathing is significantly improved from arrival here. 11/12/2017 Patient seen and examined this morning, continues to be in and out of atrial fibrillation, hemodynamically stable. Echocardiogram with Doppler study was performed which revealed an ejection fraction of 55-60%. Objective - Vital Signs Vital signs: Vital Signs Temp 97.1 F L 11/12/17 08:00 Pulse 76 11/12/17 13:23 Resp 18 11/12/17 04:00 BP 126/65 11/12/17 12:00 Pulse Ox 95 11/12/17 12:00 Intake & Output 11/11/17 11/12/17 11/12/17 18:59 06:59 18:59 Intake Total 756.5 200 480 Balance 756.5 200 480 Weight 126.2 kg Intake: Intake, IV Titration 36.5 Amount Diltiazem 50 mg In Sodium 36.5 Chloride 0.9% 40 ml @ 10 MG/HR 10 mls/hr IV .Q5H [facility] Rx#:[id number] Oral 720 200 480 Other: Voiding Method Toilet # Voids 3 1 # Bowel Movements 1 - Exam PHYSICAL EXAMINATION: HEENT: Head is atraumatic, normocephalic. Pupils equal, round. Neck is supple. There is no elevated jugular venous pressure. HEART EXAMINATION: Heart S1 and S2 irregularly irregular CHEST EXAMINATION: Lungs reveal some fine scattered wheezing throughout ABDOMEN: Soft, obese, nontender. Bowel sounds are heard. No organomegaly noted. EXTREMITIES: 2+ peripheral pulses with trace evidence of peripheral edema and no calf tenderness noted. NEUROLOGIC patient is awake, alert and oriented -3. . - Labs CBC & Chem 7: 11/12/17 06:58 11/12/17 06:58 Labs: Abnormal Lab Results - Last 24 Hours (Table) 11/12/17 Range/Units 06:58 Glucose 100 H (74-99) mg/dL Assessment and Plan Plan: Assessment and plan #1 atrial flutter with rapid ventricular response #2 history of atrial arrhythmia with prior ablation. On Eliquis for anticoagulation. #2 history of CVA #3 hypertension #4 hyperlipidemia #5 hypothyroidism #6 asthma #7 obesity #8 recent bronchitis Plan From cardiology's perspective, patient may be able to be discharged home once cleared by primary. She has been instructed to make a follow-up appointment with her child day care provider, Dr. Bridgette Angeles, within the next couple of weeks. DNP note has been reviewed, I agree with a documented findings and plan of care. Patient was seen and examined.
--- NOTE | 2017-11-12 19:47 | PN ---
PROGRESS NOTE DATE OF SERVICE: 11/11/2017 This 62-year-old woman who was admitted with atrial fibrillation with fast ventricular response has been closely monitored. The patient also had hyperthyroidism. No chest pain. No palpitations. No fever. On exam, alert oriented x3. The pulse is 100, blood pressure 162/92, respiration 16, temperature 97.2, pulse ox 97% on room air. HEENT: Conjunctivae normal. NECK: No jugular venous distention. CARDIOVASCULAR SYSTEM: S1, S2 muffled. RESPIRATORY SYSTEM: Breath sounds diminished at the bases. A few scattered rhonchi. No crackles. ABDOMEN: Soft, non-tender. LEGS: No edema. No swelling. NERVOUS SYSTEM: No focal deficit. Labs are noted. TSH and free T4 are noted. UA noted. ASSESSMENT: 1. History of atrial fibrillation with fast ventricular rate. 2. History of paroxysmal atrial fibrillation. 3. Hyperthyroidism. 4. History of asthma. 5. History of cerebrovascular accident, transient ischemic attack. 6. Hypertension. RECOMMENDATIONS AND DISCUSSION: I recommend to continue current medication, continue symptomatic treatment. Continue with monitoring. Endocrine evaluation. Guarded prognosis. Further recommendations to follow. MMODL / IJN: [id number] /
--- NOTE | 2017-11-13 07:42 | DS ---
DISCHARGE SUMMARY DATE OF SERVICE: 11/12/2017. FINAL DIAGNOSES: 1. Atrial ablation with fast ventricular rate. 2. History of paroxysmal atrial fibrillation. 3. Hyperthyroidism. 4. History of asthma. 5. History of cerebrovascular accident. 6. Hypertension. DISCHARGE DISPOSITION: Patient being discharged in stable condition with guarded prognosis. HISTORY OF PRESENT ILLNESS: This 62-year-old woman with a past medical history of multiple medical problems was admitted with shortness of breath and palpitations. Patient was seen by Cardiology and Endocrinology. Patient improved significantly. Methimazole dose was adjusted by Endocrinology. Lopressor dose also increased. Patient improved significantly. On exam, vitals are stable. Cardiovascular: S1, S2. Abdomen is soft. Nervous system: No focal deficits. DISCHARGE ADVICE AND MEDICATION: 1. Diet is cardiac diet. 2. Activity limited until followup. MEDICATIONS: 1. Ventolin HFA 2 puffs q.i.d. p.r.n. and updrafts q.i.d. and p.r.n. 2. Eliquis 5 mg p.o. b.i.d. 3. Aspirin 81 mg p.o. daily. 4. Symbicort 1-2 puffs b.i.d. 5. Prinivil 5 mg p.o. daily. 6. Tapazole 2.5 and 5 mg on alternate days. 7. Lopressor 50 mg p.o. b.i.d. 8. Prilosec 20 mg p.o. daily. 9. Paxil CR 25 mg p.o. daily. 10.Pravachol 40 mg p.o. daily. Follow up with Dr. Isaac in 2 to 3 days. Follow up with as advised. Follow up with the patient's own steam hammer operator in 1-2 weeks. Once again, the patient is being discharged in stable condition with guarded prognosis. MMODL / IJN: [id number] /
== END 2017-11-12 16:59 | disposition home or self-care (01) | DRG 309 ==
LOC: EC 15:31 → 6SEL 19:16
PROVIDERS: ADMIT Hospitalist; ATTEND Hospitalist
DX: I48.0 Paroxysmal atrial fibrillation (principal); J45.901 Unspecified asthma with (acute) exacerbation; E05.90 Thyrotoxicosis, unspecified without thyrotoxic crisis or storm; I10 Essential (primary) hypertension; E66.9 Obesity, unspecified; E78.5 Hyperlipidemia, unspecified; I48.92 Unspecified atrial flutter; Z79.899 Other long term (current) drug therapy; Z90.49 Acquired absence of other specified parts of digestive tract; Z86.19 Personal history of other infectious and parasitic diseases; Z86.73 Personal history of transient ischemic attack (TIA), and cerebral infarction without residual deficits; Z79.82 Long term (current) use of aspirin; Z79.51 Long term (current) use of inhaled steroids; Z79.890 Hormone replacement therapy; Z79.01 Long term (current) use of anticoagulants; Z90.710 Acquired absence of both cervix and uterus
CPT/HCPCS: 36415; 71046; 80048; 80053; 80061; 81001; 82550; 82553; 83605; 83735; 84100; 84439; 84443; 84481; 84484; 85025; 85379; 85610; 85730; 93005; 93306; 94640; 96361; 96365; 96366; 99291

== ENCOUNTER → 2018-01-04 | Outpatient (CLI) | payer BC ==
--- NOTE | 2018-01-04 12:51 | US ---
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 GLAND SIZE: Right Lobe: 6.8 x 3.5 x 3.9 cm Overall Parenchyma: heterogenous Left Lobe: Surgically absent cm Isthmus Thickness: 0.4 cm NODULES RIGHT: # of nodules measured on right: 0 LEFT: # of nodules measured on left: 0 ISTHMUS: # of nodules measured in the isthmus: 0 Bilateral neck scanned, no evidence of lymphadenopathy. IMPRESSION: Residual markedly heterogeneous enlarged right thyroid with some scattered cystic change, no worrisom e greater than 1 cm solid nodule. No suspicious recurrent tissue left thyroid bed.
== END | disposition home or self-care (01) ==
LOC: RADUSWWP 11:59
PROVIDERS: ATTEND Internal Medicine Endocrinology, Diabetes & Metabolism
DX: E04.8 Other specified nontoxic goiter (principal)
CPT/HCPCS: 76536

== ENCOUNTER → 2018-02-07 | Outpatient (CLI) | payer BC ==
[2018-02-07 08:07] LABS: Albumin 3.9 g/dL (3.5-5.0); Bilirubin, Delta 0.2 mg/dL (0.0-0.2); Bilirubin,Unconjugated 0.6 mg/dL (0.0-1.1); Total Bilirubin 0.8 mg/dL (0.2-1.3); Total Protein 6.3 g/dL (6.3-8.2)
== END | disposition home or self-care (01) ==
LOC: LABWHC1 07:32
PROVIDERS: ATTEND Internal Medicine
DX: E78.5 Hyperlipidemia, unspecified (principal)
CPT/HCPCS: 36415; 80061; 80076

== ENCOUNTER → 2018-02-07 | Outpatient (CLI) | payer BC ==
--- NOTE | 2018-02-07 10:04 | US ---
EXAMINATION TYPE: US abdomen complete DATE OF EXAM: 02/07/2018 COMPARISON: NONE CLINICAL HISTORY: 62-year-old female R10.11 Right Upper Abdominal Pain. TECHNIQUE: Multiple sonographic images of the abdomen are obtained. FINDINGS: EXAM MEASUREMENTS: Liver Length: 16.0 cm CBD: 0.6 cm Spleen: 13.0 cm Right Kidney: 9.9 x 3.7 x 3.9 cm Left Kidney: 9.7 x 4.2 x 4.4 cm LANGUAGE INSTRUCTOR NOTES: Patient of large body habitus and extensive overlying bowel gas with large abdomen . Technically difficult and limited study. Pancreas: Obscured by bowel gas Liver: Heterogeneous appearance could be technical or could represent underlying nonspecific hepatoce llular disease. Gallbladder: Surgically absent Evidence for sonographic Abad's sign: No CBD: wnl Spleen: Upper limits of normal in size. Right Kidney: Inferior pole obscured by bowel gas . No hydronephrosis. Left Kidney: Inferior pole obscured by bowel gas . No hydronephrosis. Upper IVC: wnl Abd Aorta: limited visualization, upper abdominal aorta is ectatic at 2.8 cm. IMPRESSION: 1. Limited exam due to body habitus and bowel gas. 2. Heterogeneous liver could be secondary to the technical limitations for underlying nonspecific hep atocellular disease. 3. Status post cholecystectomy. No biliary ductal dilatation.
== END | disposition home or self-care (01) ==
LOC: RADUSWWP 06:47
PROVIDERS: ATTEND Internal Medicine
DX: R10.11 Right upper quadrant pain (principal); Z90.49 Acquired absence of other specified parts of digestive tract
CPT/HCPCS: 76700

== ENCOUNTER → 2018-05-31 | Outpatient (CLI) | payer BC | END | disposition home or self-care (01) | LOC: LABWHC1 09:50 | PROVIDERS: ATTEND Internal Medicine Endocrinology, Diabetes & Metabolism | DX: E03.8 Other specified hypothyroidism (principal) | CPT/HCPCS: 36415; 84443 ==

== ENCOUNTER → 2018-11-24 | Outpatient (CLI) | payer BC | END | disposition home or self-care (01) | LOC: LABWHC1 10:27 | PROVIDERS: ATTEND Internal Medicine Endocrinology, Diabetes & Metabolism | DX: E03.8 Other specified hypothyroidism (principal) | CPT/HCPCS: 36415; 84443 ==

== ENCOUNTER → 2019-05-26 | Outpatient (CLI) | payer BC | END | disposition home or self-care (01) | LOC: LABWHC1 12:34 | PROVIDERS: ATTEND Internal Medicine Endocrinology, Diabetes & Metabolism | DX: E03.8 Other specified hypothyroidism (principal) | CPT/HCPCS: 36415; 84443 ==

== ENCOUNTER → 2020-05-13 | Outpatient (CLI) | payer BC | END | disposition home or self-care (01) | LOC: LABWHC1 12:07 | PROVIDERS: ATTEND Internal Medicine Endocrinology, Diabetes & Metabolism | DX: E03.8 Other specified hypothyroidism (principal) | CPT/HCPCS: 36415; 84443 ==

== ENCOUNTER 2022-07-10 01:56 | Inpatient (IN) | payer BC, MEDICARE ==
[2022-07-10] MEDS ORDERED: MORPHINE SULFATE 2 MG/ML SYRINGE IVP STA (02:03)
[2022-07-10] MEDS ORDERED: SODIUM CHLORIDE 0.9% 1,000 ML IV STA (02:03)
--- NOTE | 2022-07-10 02:26 | ED ---
SOB HPI - General Chief Complaint: Shortness of Breath Stated Complaint: NATALIYA Time Seen by Provider: 07/10/22 02:02 Source: patient, RN notes reviewed, old records reviewed, Caregiver Mode of arrival: wheelchair Limitations: no limitations - History of Present Illness Initial Comments: This is a 66-year-old female to the emergency department for evaluation. Patient severely short of breath today. Patient has not been feeling well., Severely elevated heart rate tachycardia palpitations. Shortness of breath cough and congestion. No fevers. Symptoms are significantly increased over the past hour MD Complaint: shortness of breath, "asthma attack", anxiety -: hour(s) Severity: severe Severity scale (1-10): 9 Consistency: constant Improves With: rest Worsens With: exertion, movement Known History Of: COPD, asthma Context: recent URI, recent illness Associated Symptoms: chest pain, cough Treatments Prior to Arrival: none - Related Data Home Oxygen Therapy: No Home Medications Medication Instructions Recorded Confirmed Albuterol Inhaler [Ventolin Hfa 2 puff INHALATION RT-Q4H PRN 11/10/17 11/10/17 Inhaler] Albuterol Nebulized [Ventolin 2.5 mg INHALATION RT-TID 11/10/17 11/10/17 Nebulized] Apixaban [Eliquis] 5 mg PO BID 11/10/17 11/10/17 Aspirin 81 mg PO DAILY 11/10/17 11/10/17 Budesonide/Formoterol Fumarate 2 puff INHALATION RT-BID 11/10/17 11/10/17 [Symbicort 160-4.5 Mcg Inhaler] Omeprazole [PriLOSEC] 20 mg PO DAILY 11/10/17 11/10/17 PARoxetine HCL [Paxil Cr] 25 mg PO DAILY 11/10/17 11/10/17 Pravastatin Sodium [Pravachol] 40 mg PO DAILY 11/10/17 11/10/17 lisinopriL [Prinivil] 5 mg PO DAILY 11/10/17 11/10/17 Previous Rx's Medication Instructions Recorded Metoprolol Tartrate [Lopressor] 50 mg PO BID #60 tab 11/12/17 methIMAzole [Tapazole] 2.5 mg PO DAILY #30 tab 11/12/17 methIMAzole [Tapazole] 2.5 mg PO DAILY #30 tab 11/12/17 Allergies Allergy/AdvReac Type Severity Reaction Status Date / Time ciprofloxacin [From Cipro] Allergy Rash/Hives Verified 07/10/22 02:01 Penicillins Allergy Rash/Hives Verified 07/10/22 02:01 Review of Systems ROS Statement: Those systems with pertinent positive or pertinent negative responses have been documented in the HPI. ROS Other: All systems not noted in ROS Statement are negative. Past Medical History Past Medical History: Atrial Fibrillation, Asthma, CVA/TIA, Hypertension, Thyroid Disorder History of Any Multi-Drug Resistant Organisms: None Reported Past Surgical History: Ablation, Cholecystectomy, Hysterectomy Past Anesthesia/Blood Transfusion Reactions: Postoperative Nausea & Vomiting (PONV) Past Psychological History: Anxiety Smoking Status: Never smoker Past Alcohol Use History: None Reported Past Drug Use History: None Reported General Exam Limitations: no limitations General appearance: alert, in no apparent distress Head exam: Present: atraumatic, normocephalic, normal inspection Eye exam: Present: normal appearance, PERRL, EOMI. Absent: scleral icterus, conjunctival injection, periorbital swelling ENT exam: Present: normal exam, mucous membranes moist Neck exam: Present: normal inspection. Absent: tenderness, meningismus, lymphadenopathy Respiratory exam: Present: respiratory distress, wheezes, accessory muscle use, decreased breath sounds, prolonged expiratory. Absent: normal lung sounds bilaterally, rales, rhonchi, stridor Cardiovascular Exam: Present: regular rate, tachycardia, irregular rhythm, normal heart sounds. Absent: systolic murmur, diastolic murmur, rubs, gallop, clicks GI/Abdominal exam: Present: soft, normal bowel sounds. Absent: distended, tenderness, guarding, rebound, rigid Extremities exam: Present: normal inspection, full ROM, normal capillary refill. Absent: tenderness, pedal edema, joint swelling, calf tenderness Back exam: Present: normal inspection Neurological exam: Present: alert, oriented X3, CN II-XII intact Psychiatric exam: Present: normal affect, normal mood Skin exam: Present: warm, dry, intact, normal color. Absent: rash Course Vital Signs 07/10/22 01:59 Temperature 98.6 F Pulse Rate 152 H Respiratory 24 Rate Blood Pressure 121/70 O2 Sat by Pulse 95 Oximetry - Reevaluation(s) Reevaluation #1: 07/10/22 04:52 Medical record is reviewed Reevaluation #2: 07/10/22 04:53 Patient symptoms are significant, remain here in the ER Reevaluation #3: 07/10/22 04:53 Patient informed of results and questions answered Medical Decision Making - Medical Decision Making 66 female to the emergency department for evaluation persistent atrial fibrillation with RVR. Patient will be admitted for cardiology evaluation management difficult to control heart rate. - Lab Data Result diagrams: 07/10/22 02:27 07/10/22 02:27 Lab Results 07/10/22 07/10/22 07/10/22 Range/Units 02:27 02:27 02:27 WBC 11.8 H (3.8-10.6) k/uL RBC 3.66 L (3.80-5.40) m/uL Hgb 11.2 L (11.4-16.0) gm/dL Hct 33.3 L (34.0-46.0) % MCV 91.1 (80.0-100.0) fL MCH 30.7 (25.0-35.0) pg MCHC 33.7 (31.0-37.0) g/dL RDW 14.3 (11.5-15.5) % Plt Count 301 (150-450) k/uL MPV 8.7 Neutrophils % 80 % Lymphocytes % 13 % Monocytes % 5 % Eosinophils % 1 % Basophils % 0 % Neutrophils # 9.5 H (1.3-7.7) k/uL Lymphocytes # 1.5 (1.0-4.8) k/uL Monocytes # 0.5 (0-1.0) k/uL Eosinophils # 0.1 (0-0.7) k/uL Basophils # 0.0 (0-0.2) k/uL PT 10.6 (9.0-12.0) sec INR 1.0 (<1.2) APTT 26.0 (22.0-30.0) sec Sodium 133 L (137-145) mmol/L Potassium 3.1 L (3.5-5.1) mmol/L Chloride 99 (98-107) mmol/L Carbon Dioxide 27 (22-30) mmol/L Anion Gap 7 mmol/L BUN 9 (7-17) mg/dL Creatinine 0.94 (0.52-1.04) mg/dL Est GFR (CKD-EPI)AfAm 73 (>60 ml/min/1.73 sqM) Est GFR (CKD-EPI)NonAf 64 (>60 ml/min/1.73 sqM) Glucose 115 H (74-99) mg/dL Calcium 8.1 L (8.4-10.2) mg/dL Total Bilirubin 1.2 (0.2-1.3) mg/dL AST 24 (14-36) U/L ALT 12 (4-34) U/L Alkaline Phosphatase 99 (38-126) U/L Troponin I (0.000-0.034) ng/mL NT-Pro-B Natriuret Pep pg/mL Total Protein 6.5 (6.3-8.2) g/dL Albumin 3.6 (3.5-5.0) g/dL 07/10/22 07/10/22 Range/Units 02:27 02:27 WBC (3.8-10.6) k/uL RBC (3.80-5.40) m/uL Hgb (11.4-16.0) gm/dL Hct (34.0-46.0) % MCV (80.0-100.0) fL MCH (25.0-35.0) pg MCHC (31.0-37.0) g/dL RDW (11.5-15.5) % Plt Count (150-450) k/uL MPV Neutrophils % % Lymphocytes % % Monocytes % % Eosinophils % % Basophils % % Neutrophils # (1.3-7.7) k/uL Lymphocytes # (1.0-4.8) k/uL Monocytes # (0-1.0) k/uL Eosinophils # (0-0.7) k/uL Basophils # (0-0.2) k/uL PT (9.0-12.0) sec INR (<1.2) APTT (22.0-30.0) sec Sodium (137-145) mmol/L Potassium (3.5-5.1) mmol/L Chloride (98-107) mmol/L Carbon Dioxide (22-30) mmol/L Anion Gap mmol/L BUN (7-17) mg/dL Creatinine (0.52-1.04) mg/dL Est GFR (CKD-EPI)AfAm (>60 ml/min/1.73 sqM) Est GFR (CKD-EPI)NonAf (>60 ml/min/1.73 sqM) Glucose (74-99) mg/dL Calcium (8.4-10.2) mg/dL Total Bilirubin (0.2-1.3) mg/dL AST (14-36) U/L ALT (4-34) U/L Alkaline Phosphatase (38-126) U/L Troponin I <0.012 (0.000-0.034) ng/mL NT-Pro-B Natriuret Pep 1510 pg/mL Total Protein (6.3-8.2) g/dL Albumin (3.5-5.0) g/dL - EKG Data -: EKG Interpreted by Me (EKG shows afibr rvr 143 QRS 66 QTc 395) Critical Care Time Critical Care Time: Yes Total Critical Care Time: 31 Disposition Clinical Impression: Atrial fibrillation with RVR, Atrial fibrillation, Acute exacerbation of chronic obstructive pulmonary disease, Weakness, Chest pain Disposition: ADMITTED IP TO THIS HOSP Condition: Serious Is patient prescribed a controlled substance at d/c from ED?: No Referrals: Alicia Isaac MD [Primary Care Provider] - 1-2 days Time of Disposition: 04:55
--- NOTE | 2022-07-10 02:48 | XR ---
EXAMINATION TYPE: XR chest 1V portable DATE OF EXAM: 07/10/2022 2:36 AM COMPARISON: Chest radiographs from 11/11/2017 TECHNIQUE: XR chest 1V portable Portable AP radiograph of the chest. CLINICAL INDICATION:Female, 66 years old with history of sob; FINDINGS: Lungs/Pleura: There is no evidence of pleural effusion, focal consolidation, or pneumothorax. Pulmonary vascularity: Unremarkable. Heart/mediastinum: Cardiomediastinal silhouette is enlarged and stable. Atherosclerotic calcificatio ns are seen in the aorta. Musculoskeletal: No acute osseous pathology. IMPRESSION: No acute cardiopulmonary disease/process.
[2022-07-10 02:51] LABS: Basophils % (A) 0 %; Eosinophils # (A) 0.1 k/uL (0-0.7); Eosinophils % (A) 1 %; HCT 33.3 % (34.0-46.0); HGB 11.2 gm/dL (11.4-16.0); Lymphocytes # (A) 1.5 k/uL (1.0-4.8); Lymphocytes % (A) 13 %; MCH 30.7 pg (25.0-35.0); MCHC 33.7 g/dL (31.0-37.0); MCV 91.1 fL (80.0-100.0); Mean Platelet Volume 8.7; Monocytes # (A) 0.5 k/uL (0-1.0); Monocytes % (A) 5 %; Neutrophils # (A) 9.5 k/uL (1.3-7.7); Neutrophils % (A) 80 %; Platelet Count 301 k/uL (150-450); RBC 3.66 m/uL (3.80-5.40); RDW 14.3 % (11.5-15.5); WBC 11.8 k/uL (3.8-10.6)
[2022-07-10 03:06] LABS: Prothrombin Time 10.6 sec (9.0-12.0)
[2022-07-10 03:08] LABS: Albumin 3.6 g/dL (3.5-5.0); Calcium 8.1 mg/dL (8.4-10.2); Potassium 3.1 mmol/L (3.5-5.1); Total Bilirubin 1.2 mg/dL (0.2-1.3); Total Protein 6.5 g/dL (6.3-8.2)
[2022-07-10] MEDS ORDERED: POTASSIUM BICARBONATE/CIT AC 20 MEQ TABLET.EFF PO STA ×2 (03:56)
[2022-07-10] MEDS ORDERED: DILTIAZEM DRIP BOLUS FROM BAG 1 MG SOLN IV ONE (03:56)
[2022-07-10] MEDS ORDERED: MORPHINE SULFATE 4 MG/ML SYRINGE IV PRN (04:50)
[2022-07-10] MEDS ORDERED: NALOXONE 0.4 MG/ML 1 ML VIAL IV PRN (04:50)
[2022-07-10] MEDS ORDERED: SODIUM CHLORIDE 0.9% 1,000 ML IV SCH (05:00)
[2022-07-10] MEDS: DILTIAZEM 125 MG in SODIUM CHLORIDE 0.9% 100 ML IV SCH ×2 (05:12→22:29)
[2022-07-10] MEDS: ONDANSETRON 4 MG/2 ML VIAL IVP PRN ×2 (05:34→15:24)
[2022-07-10] MEDS ORDERED: ONDANSETRON ODT 4 MG TAB PO PRN (11:21)
[2022-07-10] MEDS ORDERED: ALBUTEROL NEBULIZED 2.5 MG/3 ML INHALATION PRN (11:21)
[2022-07-10] MEDS ORDERED: BETAMETHASONE DIPROPIONATE 0.05% CREAM 15 GM TUBE TOPICAL PRN (11:21)
[2022-07-10] MEDS ORDERED: METOPROLOL TARTRATE 25 MG TAB PO SCH (11:30)
[2022-07-10] MEDS: PARoxetine 20 MG TAB PO SCH (11:52)
[2022-07-10] MEDS: lisinopriL 5 MG TAB PO SCH (11:52)
[2022-07-10] MEDS: APIXABAN 5 MG TAB PO SCH ×2 (11:53→21:19)
[2022-07-10] MEDS: PANTOPRAZOLE 40 MG TABLET PO SCH (11:53)
[2022-07-10] MEDS: LEVOTHYROXINE 75 MCG TAB PO SCH (11:53)
[2022-07-10] MEDS: PRAVASTATIN SODIUM 20 MG TAB PO SCH (11:53)
--- NOTE | 2022-07-10 13:57 | P.CRDCN ---
History of Present Illness History of present illness: HISTORY OF PRESENTING ILLNESS This is a pleasant 66-year-old with past medical history significant for persistent atrial fibrillation. She follows in the office with Dr Hsu. She admits that over last 2-3 weeks she has been having increased lower extremity edema and at first once the PCP were performed lower extremity ultrasound looking for DVT. Over last 2 days however she has been having increased dyspnea and feeling more short of breath. She does admit to continued increased lower extremity edema. She cannot really feel her heart racing however was noted to have A. fib with RVR with heart rates in the 140s. She admits she had an ablation in the past however is normally in A. fib. HEENT his to medications other than mild decrease in Synthroid from 175-150. Denies chest pain REVIEW OF SYSTEMS At the time of my exam: CONSTITUTIONAL: Denies fever or chills. CARDIOVASCULAR: Denies chest pain, +shortness of breath, +orthopnea, no PND or palpitations. RESPIRATORY: Denies cough. GASTROINTESTINAL: Denies abdominal pain, diarrhea, constipation, nausea or vomiting. MUSCULOSKELETAL: Denies myalgias. NEUROLOGIC: Denies numbness, tingling or weakness. ENDOCRINE: Denies fatigue, weight change, polydipsia or polyurina. GENITOURINARY: Denies burning, hematuria or urgency with micturation. HEMATOLOGIC: Denies history of anemia or bleeding. PHYSICAL EXAMINATION Vital signs reviewed. CONSTITUTIONAL: No apparent distress. HEENT: Head is normocephalic. Pupils are equal, round. Sclerae anicteric. Mucous membranes of the mouth are moist. No JVD. No carotid bruit. CHEST EXAMINATION: Lungs are clear to auscultation. No chest wall tenderness is noted on palpation or with deep breathing. HEART EXAMINATION: Irregular rate and rhythm. S1, S2 heard. No murmurs, gallops or rub. ABDOMEN: Soft, nontender. Positive bowel sounds. EXTREMITIES: 2+ peripheral pulses, 2+ lower extremity edema and no calf tenderness. NEUROLOGIC EXAMINATION: Patient is awake, alert and oriented x3. ASSESSMENT 1. Acute on chronic diastolic heart failure 2. Persistent atrial fibrillation with RVR 3. Lower extremity edema related to heart failure 4. Hypertension 5. Hyponatremia related to volume overload PLAN Patient with presentation of increased lower extremity edema and shortness of breath was found to be in A. fib with RVR. Increase metoprolol from 25-50 mg twice a day for better rate control. Appears she has undergone rhythm control with failed A. fib ablation and predominantly in A. fib. Continue with rate control. Check 2-D echo. Monitor response of diuretics. Possible discharge in 24-48 hours pending progress. Past Medical History Past Medical History: Atrial Fibrillation, Asthma, CVA/TIA, Hypertension, Thyroid Disorder History of Any Multi-Drug Resistant Organisms: None Reported Past Surgical History: Ablation, Cholecystectomy, Hysterectomy Past Anesthesia/Blood Transfusion Reactions: Postoperative Nausea & Vomiting (PONV) Past Psychological History: Anxiety Smoking Status: Never smoker Past Alcohol Use History: None Reported Past Drug Use History: None Reported Medications and Allergies Home Medications Medication Instructions Recorded Confirmed Type Albuterol Inhaler [Ventolin Hfa 2 puff INHALATION RT-Q4H PRN 11/10/17 07/10/22 History Inhaler] Apixaban [Eliquis] 5 mg PO BID 11/10/17 07/10/22 History Aspirin 81 mg PO DAILY 11/10/17 07/10/22 History Budesonide/Formoterol Fumarate 2 puff INHALATION RT-BID 11/10/17 07/10/22 History [Symbicort 160-4.5 Mcg Inhaler] Omeprazole [PriLOSEC] 20 mg PO DAILY 11/10/17 07/10/22 History PARoxetine HCL [Paxil Cr] 25 mg PO DAILY 11/10/17 07/10/22 History Pravastatin Sodium [Pravachol] 20 mg PO DAILY 11/10/17 07/10/22 History lisinopriL [Prinivil] 5 mg PO DAILY 11/10/17 07/10/22 History Betamethasone Dipropionate 1 applic TOPICAL DAILY PRN 07/10/22 07/10/22 History [Diprolene AF 0.05% Cream] Furosemide [Lasix] 40 mg PO DAILY 07/10/22 07/10/22 History Levothyroxine Sodium [Synthroid] 150 mcg PO DIRECTED 07/10/22 07/10/22 History Metoprolol Tartrate [Lopressor] 25 mg PO BID 07/10/22 07/10/22 History Ondansetron Odt [Zofran ODT] 4 mg PO DAILY PRN 07/10/22 07/10/22 History Allergies Allergy/AdvReac Type Severity Reaction Status Date / Time ciprofloxacin [From Cipro] Allergy Rash/Hives Verified 07/10/22 02:01 Penicillins Allergy Rash/Hives Verified 07/10/22 09:55 Physical Exam Vitals: Vital Signs Temp Pulse Pulse Resp BP BP Pulse Ox 07/10/22 11:51 118 H 20 111/67 100 07/10/22 10:27 117 H 19 07/10/22 09:24 97.7 F 117 H 19 99/66 100 07/10/22 06:04 98.1 F 107 H 20 92/55 99 07/10/22 05:41 117 H 19 105/74 98 07/10/22 05:18 111 H 17 111/64 98 07/10/22 01:59 98.6 F 152 H 24 121/70 95 Intake and Output 07/09/22 07/10/22 07/10/22 22:59 06:59 14:59 Other: Weight 106.594 kg Results 07/10/22 02:27 07/10/22 02:27 Cardiac Enzymes 07/10/22 07/10/22 Range/Units 02:27 02:27 AST 24 (14-36) U/L Troponin I <0.012 (0.000-0.034) ng/mL Coagulation 07/10/22 Range/Units 02:27 PT 10.6 (9.0-12.0) sec APTT 26.0 (22.0-30.0) sec CBC 07/10/22 Range/Units 02:27 WBC 11.8 H (3.8-10.6) k/uL RBC 3.66 L (3.80-5.40) m/uL Hgb 11.2 L (11.4-16.0) gm/dL Hct 33.3 L (34.0-46.0) % Plt Count 301 (150-450) k/uL Comprehensive Metabolic Panel 07/10/22 Range/Units 02:27 Sodium 133 L (137-145) mmol/L Potassium 3.1 L (3.5-5.1) mmol/L Chloride 99 (98-107) mmol/L Carbon Dioxide 27 (22-30) mmol/L BUN 9 (7-17) mg/dL Creatinine 0.94 (0.52-1.04) mg/dL Glucose 115 H (74-99) mg/dL Calcium 8.1 L (8.4-10.2) mg/dL AST 24 (14-36) U/L ALT 12 (4-34) U/L Alkaline Phosphatase 99 (38-126) U/L Total Protein 6.5 (6.3-8.2) g/dL Albumin 3.6 (3.5-5.0) g/dL Current Medications Generic Name Dose Route Start Last Admin Trade Name Freq PRN Reason Stop Dose Admin Albuterol Sulfate 2.5 mg 07/10/22 11:21 Albuterol Nebulized 2.5 Mg/3 Ml INHALATION RT-Q4H PRN Shortness Of Breath Apixaban 5 mg 07/10/22 11:30 07/10/22 11:53 Apixaban 5 Mg Tab PO 5 mg BID JA Administration Protocol Aspirin 81 mg 07/11/22 09:00 Aspirin 81 Mg PO DAILY [facility] Betamethasone Dipropionate 1 applic 07/10/22 11:21 Betamethasone Dipropionate 0.05% Cream 15 Gm Tube TOPICAL DAILY PRN eczema Protocol Budesonide/Formoterol Fumarate 2 puff 07/10/22 20:00 Symbicort 160-4.5 Mcg Inhaler INHALATION RT-BID [facility] Diltiazem HCl 125 mg/ Sodium 125 mls @ 5 mls/hr 07/10/22 04:15 07/10/22 05:12 Chloride IV 5 mg/hr .Q24H JA 5 mls/hr Administration 5 MG/HR Levothyroxine Sodium 150 mcg 07/10/22 11:30 07/10/22 11:53 Levothyroxine 75 Mcg Tab PO 150 mcg 0630 JA Administration Lisinopril 5 mg 07/10/22 11:30 07/10/22 11:52 Lisinopril 5 Mg Tab PO 5 mg DAILY JA Administration Morphine Sulfate 4 mg 07/10/22 04:50 Morphine Sulfate 4 Mg/Ml Syringe IV Q4HR PRN Severe Pain (Scale 7 to 10) Naloxone HCl 0.2 mg 07/10/22 04:50 Naloxone 0.4 Mg/Ml 1 Ml Vial IV Q2M PRN Opioid Reversal Ondansetron HCl 4 mg 07/10/22 04:50 07/10/22 05:34 Ondansetron 4 Mg/2 Ml Vial IVP 4 mg Q8HR PRN Administration Nausea And Vomiting Ondansetron HCl 4 mg 07/10/22 11:21 Ondansetron Odt 4 Mg Tab PO DAILY PRN Nausea Pantoprazole Sodium 40 mg 07/10/22 11:30 07/10/22 11:53 Pantoprazole 40 Mg Tablet PO 40 mg DAILY JA Administration Paroxetine HCl 20 mg 07/10/22 11:30 07/10/22 11:52 Paroxetine 20 Mg Tab PO 20 mg DAILY JA Administration Pravastatin Sodium 20 mg 07/10/22 11:30 07/10/22 11:53 Pravastatin Sodium 20 Mg Tab PO 20 mg DAILY JA Administration Intake and Output 07/09/22 07/10/22 07/10/22 22:59 06:59 14:59 Other: Weight 106.594 kg 07/10/22 02:27 07/10/22 02:27
[2022-07-10] MEDS: FUROSEMIDE 10 MG/ML 4 ML VIAL IV SCH ×2 (14:18→22:09)
[2022-07-10] MEDS: METOPROLOL TARTRATE 50 MG TAB PO SCH ×2 (14:26→21:19)
[2022-07-10] MEDS ORDERED: METOPROLOL TARTRATE 25 MG TAB PO STA (14:26)
[2022-07-10 16:45] LABS: Glucose,Whole Blood 120 mg/dL (70-110)
[2022-07-10] MEDS ORDERED: METOCLOPRAMIDE 5 MG/ML 2 ML VIAL IVP PRN (18:25)
[2022-07-10] MEDS: SYMBICORT 160-4.5 MCG INHALER INHALATION SCH (19:12)
--- NOTE | 2022-07-10 23:24 | P.HPIM ---
History of Present Illness H&P Date: 07/10/22 Chief Complaint: leg swelling Patient is a 66-year-old female with a known history of atrial fibrillation, on anticoagulation with Eliquis, with history of ablation, COPD, hypertension, hypothyroidism, anxiety presents to ER with complaints of worsening bilateral lower extremity swelling for the past 2 days. Patient was seen by her primary care physician and had Doppler scan for possible DVT. Presents to ER due to worsening shortness of breath and leg swelling. Otherwise denies any complaints of chest pain/pressure. No complaints of palpitations otherwise. Denies any fever or chills. Denies any recent illnesses. EKG showed atrial fibrillation with rapid regular rate 143 Chest x-ray showed no acute cardiopulmonary process Laboratory data WBC 11.8, hemoglobin 11.1 platelets 301 Sodium 133 potassium 3.1 chloride 99 bicarb is 27 BUN 9 and creatinine 0.94 and blood sugar is 115 and calcium 8.1 liver enzymes are not elevated troponin x1 negative and proBNP is 1510. Review of Systems Constitutional: Patient denies any fever or chills . No generalized weakness or weight loss. Abdomen: Patient denied nausea vomiting and diarrhea and abdominal pain. Cardiovascular: Patient denies any chest pain. Patient does have short of chase ath no palpitations. Bilateral leg swelling. Respiratory: patient denied any cough or sputum production. No shortness of breath Neurologic: Patient denied any numbness or tingling headache. Musculoskeletal: Patient denies any complaints of joint swelling or deformity. Skin: Negative Psychiatric: Negative Endocrine: No heat or cold intolerance. No recent weight gain. Genitourinary: No dysuria or hematuria. All other 14 point ROS negative except the above Past Medical History Past Medical History: Atrial Fibrillation, Asthma, CVA/TIA, Hypertension, Thy roid Disorder History of Any Multi-Drug Resistant Organisms: None Reported Past Surgical History: Ablation, Cholecystectomy, Hysterectomy Past Anesthesia/Blood Transfusion Reactions: Postoperative Nausea & Vomiting (PONV) Past Psychological History: Anxiety Smoking Status: Never smoker Past Alcohol Use History: None Reported Past Drug Use History: None Reported Medications and Allergies Home Medications Medication Instructions Recorded Confirmed Type Albuterol Inhaler [Ventolin Hfa 2 puff INHALATION RT-Q4H PRN 11/10/17 07/10/22 History Inhaler] Apixaban [Eliquis] 5 mg PO BID 11/10/17 07/10/22 History Aspirin 81 mg PO DAILY 11/10/17 07/10/22 History Budesonide/Formoterol Fumarate 2 puff INHALATION RT-BID 11/10/17 07/10/22 History [Symbicort 160-4.5 Mcg Inhaler] Omeprazole [PriLOSEC] 20 mg PO DAILY 11/10/17 07/10/22 History PARoxetine HCL [Paxil Cr] 25 mg PO DAILY 11/10/17 07/10/22 History Pravastatin Sodium [Pravachol] 20 mg PO DAILY 11/10/17 07/10/22 History lisinopriL [Prinivil] 5 mg PO DAILY 11/10/17 07/10/22 History Betamethasone Dipropionate 1 applic TOPICAL DAILY PRN 07/10/22 07/10/22 History [Diprolene AF 0.05% Cream] Furosemide [Lasix] 40 mg PO DAILY 07/10/22 07/10/22 History Levothyroxine Sodium [Synthroid] 150 mcg PO DIRECTED 07/10/22 07/10/22 History Metoprolol Tartrate [Lopressor] 25 mg PO BID 07/10/22 07/10/22 History Ondansetron Odt [Zofran ODT] 4 mg PO DAILY PRN 07/10/22 07/10/22 History Allergies Allergy/AdvReac Type Severity Reaction Status Date / Time ciprofloxacin [From Cipro] Allergy Rash/Hives Verified 07/10/22 02:01 Penicillins Allergy Rash/Hives Verified 07/10/22 09:55 Physical Exam Vitals: Vital Signs Temp Pulse Pulse Resp BP BP Pulse Ox 07/10/22 20:00 98.0 F 68 19 107/60 96 07/10/22 18:50 97.8 F 07/10/22 16:01 93 19 103/69 98 07/10/22 15:44 118 H 20 07/10/22 11:51 118 H 20 111/67 100 07/10/22 10:27 117 H 19 07/10/22 09:24 97.7 F 117 H 19 99/66 100 07/10/22 06:04 98.1 F 107 H 20 92/55 99 07/10/22 05:41 117 H 19 105/74 98 07/10/22 05:18 111 H 17 111/64 98 07/10/22 01:59 98.6 F 152 H 24 121/70 95 Intake and Output 07/10/22 07/10/22 07/10/22 06:59 14:59 22:59 Intake Total 240 240 Output Total 150 Balance 90 240 Intake: Oral 240 240 Output: Urine 150 Other: # Voids 1 Weight 106.594 kg PHYSICAL EXAMINATION: Patient is lying in the bed comfortably, no acute distress, awake alert and oriented.. HEENT: Normocephalic. Neck is supple. Pupils reactive. Nostrils clear. Oral cavity is moist. Neck reveals no JVD, carotid bruits, or thyromegaly. CHEST EXAMINATION: Trachea is central. Symmetrical expansion. Lung prabhakar clear to auscultation and percussion. CARDIAC: Normal S1, S2 with no gallops. No murmurs. Irregularly irregular rhythm. ABDOMEN: Soft. Bowel sounds normal. No organomegaly. No abdominal bruits. Extremities: Bilateral lower extremity 2+ pedal edema. No clubbing or cyanosis Neurologically awake, alert, oriented x3 with well-coordinated movements. No focal deficits noted Skin: No rash or skin lesions. Psychiatric: Cooperative. Nonsuicidal Musculoskeletal: No joint swelling or deformity. Normal range of motion. Results CBC & Chem 7: 07/10/22 02:27 07/10/22 02:27 Labs: Abnormal Lab Results - Last 24 Hours (Table) 07/10/22 07/10/22 07/10/22 Range/Units 02:27 02:27 16:43 WBC 11.8 H (3.8-10.6) k/uL RBC 3.66 L (3.80-5.40) m/uL Hgb 11.2 L (11.4-16.0) gm/dL Hct 33.3 L (34.0-46.0) % Neutrophils # 9.5 H (1.3-7.7) k/uL Sodium 133 L (137-145) mmol/L Potassium 3.1 L (3.5-5.1) mmol/L Glucose 115 H (74-99) mg/dL POC Glucose (mg/dL) 120 H (70-110) mg/dL Calcium 8.1 L (8.4-10.2) mg/dL Thrombosis Risk Factor Assmnt - DVT/VTE Prophylaxis DVT/VTE Prophylaxis: Pharmacologic Prophylaxis ordered - Choose All That Apply Any of the Below Risk Factors Present?: Yes Each Factor Represents 1 point: Abnormal pulmonary function (COPD), Obesity (BMI >25), Swollen legs (current) Other Risk Factors: Yes Each Risk Factor Represents 2 Points: Age 61-74 years Thrombosis Risk Factor Assessment Total Risk Factor Score: 5 Thrombosis Risk Factor Assessment Level: High Risk Assessment and Plan Assessment: Persistent atrial fibrillation with rapid ventricular rate Acute on chronic CHF with preserved ejection fraction Bilateral lower extremity swelling. Hypertension Hypothyroidism History of CVA/TIA Anxiety Morbid obesity with BMI 39.1 DVT prophylaxis patient is already on Eliquis Plan: Patient was started on Cardizem drip and metoprolol dose increased to 50 mg twice daily. Titrate down Cardizem drip and continue with telemetry monitoring. Continue with Lasix 40 mg twice daily. 2D echocardiogram ordered. Cardiology is on board. Follow-up closely. Time with Patient: Greater than 30
[2022-07-11] MEDS: FUROSEMIDE 10 MG/ML 4 ML VIAL IV SCH ×3 (02:20→23:52)
[2022-07-11] MEDS: LEVOTHYROXINE 75 MCG TAB PO SCH (06:45)
[2022-07-11] MEDS: SYMBICORT 160-4.5 MCG INHALER INHALATION SCH ×2 (07:49→19:39)
[2022-07-11 08:08] LABS: Basophils % (A) 0 %; Eosinophils # (A) 0.1 k/uL (0-0.7); Eosinophils % (A) 1 %; HCT 31.4 % (34.0-46.0); HGB 10.6 gm/dL (11.4-16.0); Hypochromasia Slight; Lymphocytes # (A) 1.1 k/uL (1.0-4.8); Lymphocytes % (A) 13 %; MCH 31.7 pg (25.0-35.0); MCHC 33.7 g/dL (31.0-37.0); MCV 94.2 fL (80.0-100.0); Monocytes # (A) 0.4 k/uL (0-1.0); Monocytes % (A) 4 %; Neutrophils # (A) 6.9 k/uL (1.3-7.7); Neutrophils % (A) 81 %; Platelet Count 298 k/uL (150-450); RBC 3.33 m/uL (3.80-5.40); RDW 13.9 % (11.5-15.5); WBC 8.5 k/uL (3.8-10.6)
[2022-07-11 08:21] LABS: Albumin 3.7 g/dL (3.5-5.0); Magnesium 1.4 mg/dL (1.6-2.3); Phosphorus 4.5 mg/dL (2.5-4.5); Potassium 3.8 mmol/L (3.5-5.1); Total Bilirubin 1.6 mg/dL (0.2-1.3); Total Protein 6.3 g/dL (6.3-8.2)
[2022-07-11] MEDS: ASPIRIN 81 MG PO SCH (09:17)
[2022-07-11] MEDS: PARoxetine 20 MG TAB PO SCH (09:17)
[2022-07-11] MEDS: METOPROLOL TARTRATE 50 MG TAB PO SCH ×2 (09:17→20:00)
[2022-07-11] MEDS: APIXABAN 5 MG TAB PO SCH ×2 (09:17→20:00)
[2022-07-11] MEDS: PANTOPRAZOLE 40 MG TABLET PO SCH (09:17)
[2022-07-11] MEDS: PRAVASTATIN SODIUM 20 MG TAB PO SCH (09:17)
--- NOTE | 2022-07-11 12:03 | P.PN ---
Subjective Progress Note Date: 07/11/22 HISTORY OF PRESENTING ILLNESS This is a pleasant 66-year-old with past medical history significant for per sistent atrial fibrillation. She follows in the office with Dr Hsu. She admits that over last 2-3 weeks she has been having increased lower extremity edema and at first once the PCP were performed lower extremity ultrasound looking for DVT. Over last 2 days however she has been having increased dyspnea and feeling more short of breath. She does admit to continued increased lower extremity edema. She cannot really feel her heart racing however was noted to have A. fib with RVR with heart rates in the 140s. She admits she had an ablation in the past however is normally in A. fib. HEENT his to medications other than mild decrease in Synthroid from 175-150. Denies chest pain 07/11 Patient states that she is feeling much better from yesterday. Shortness of breath is improved, no palpitations, lower extremity edema improved. She is off Cardizem drip. Yesterday Lopressor was increased from 25 mg to 50 mg. Heart rate is in the 70s. Blood pressure 96/63 but she did have lisinopril held due to blood pressure of 83/52. Hemoglobin is 10.6, BUN 16 creatinine 1.24. Echocardiogram PHYSICAL EXAMINATION Vital signs reviewed. CONSTITUTIONAL: No apparent distress. HEENT: Head is normocephalic. Pupils are equal, round. Sclerae anicteric. Mucous membranes of the mouth are moist. No JVD. No carotid bruit. CHEST EXAMINATION: Lungs are clear to auscultation. No chest wall tenderness is noted on palpation or with deep breathing. HEART EXAMINATION: Irregular rate and rhythm. S1, S2 heard. No murmurs, gallops or rub. ABDOMEN: Soft, nontender. Positive bowel sounds. EXTREMITIES: 2+ peripheral pulses, 2+ lower extremity edema and no calf tenderness. NEUROLOGIC EXAMINATION: Patient is awake, alert and oriented x3. ASSESSMENT 1. Acute on chronic diastolic heart failure 2. Persistent atrial fibrillation with RVR 3. Lower extremity edema related to heart failure 4. Hypertension 5. Hyponatremia related to volume overload PLAN Patient with presentation of increased lower extremity edema and shortness of breath was found to be in A. fib with RVR. Continue increased dose of Lopressor 50 mg twice daily, continue IV Lasix 40 mg every 12 hours for another 24 hours Check 2-D echo. Monitor response of diuretics. Monitor electrolytes and renal function Objective - Vital Signs Vital signs: Vital Signs Temp 97.6 F 07/11/22 04:00 Pulse 71 07/11/22 04:00 Resp 18 07/11/22 04:00 BP 96/63 07/11/22 04:00 Pulse Ox 99 07/11/22 07:49 FiO2 Intake & Output 07/10/22 07/11/22 07/11/22 18:59 06:59 18:59 Intake Total 480 105.500 240 Output Total 150 400 Balance 330 -294.500 240 Weight 110.9 kg Intake: Intake, IV Titration 105.500 Amount Diltiazem 125 mg In 105.500 Sodium Chloride 0.9% 100 ml @ 5 MG/HR 5 mls/hr IV .Q24H [facility] [place] Rx#:[id number] Oral 480 240 Output: Urine 150 400 Other: Voiding Method Toilet # Voids 1 1 # Bowel Movements 1 - Labs CBC & Chem 7: 07/11/22 07:45 07/11/22 07:45 Labs: Abnormal Lab Results - Last 24 Hours (Table) 07/10/22 07/11/22 07/11/22 Range/Units 16:43 07:45 07:45 RBC 3.33 L (3.80-5.40) m/uL Hgb 10.6 L (11.4-16.0) gm/dL Hct 31.4 L (34.0-46.0) % Sodium 133 L (137-145) mmol/L Chloride 96 L (98-107) mmol/L Creatinine 1.24 H (0.52-1.04) mg/dL Glucose 134 H (74-99) mg/dL POC Glucose (mg/dL) 120 H (70-110) mg/dL Calcium 8.0 L (8.4-10.2) mg/dL Magnesium 1.4 L (1.6-2.3) mg/dL Total Bilirubin 1.6 H (0.2-1.3) mg/dL
[2022-07-11] MEDS: lisinopriL 5 MG TAB PO SCH (12:05)
[2022-07-11] MEDS: MAGNESIUM SULFATE-D5W PMX 1 GM in DEXTROSE/WATER 1 100ML.BAG IVPB SCH ×2 (15:17→16:13)
[2022-07-12] MEDS: DILTIAZEM 125 MG in SODIUM CHLORIDE 0.9% 100 ML IV SCH (06:15)
[2022-07-12] MEDS: LEVOTHYROXINE 75 MCG TAB PO SCH (06:20)
[2022-07-12 06:23] VITALS: RESP 18
[2022-07-12] MEDS: SYMBICORT 160-4.5 MCG INHALER INHALATION SCH (07:33)
[2022-07-12 07:47] LABS: Basophils % (A) 0 %; Eosinophils # (A) 0.1 k/uL (0-0.7); Eosinophils % (A) 1 %; HCT 30.5 % (34.0-46.0); HGB 10.3 gm/dL (11.4-16.0); Lymphocytes % (A) 14 %; MCH 31.2 pg (25.0-35.0); MCHC 33.9 g/dL (31.0-37.0); MCV 92.3 fL (80.0-100.0); Mean Platelet Volume 8.1; Monocytes # (A) 0.4 k/uL (0-1.0); Monocytes % (A) 5 %; Neutrophils # (A) 5.6 k/uL (1.3-7.7); Neutrophils % (A) 78 %; Platelet Count 288 k/uL (150-450); RDW 14.2 % (11.5-15.5); WBC 7.2 k/uL (3.8-10.6)
[2022-07-12 08:01] VITALS: TEMP 97.5
[2022-07-12] MEDS: METOPROLOL TARTRATE 50 MG TAB PO SCH (08:02)
[2022-07-12] MEDS: PRAVASTATIN SODIUM 20 MG TAB PO SCH (08:02)
[2022-07-12] MEDS: lisinopriL 5 MG TAB PO SCH (08:02)
[2022-07-12] MEDS: PARoxetine 20 MG TAB PO SCH (08:02)
[2022-07-12] MEDS: ASPIRIN 81 MG PO SCH (08:02)
[2022-07-12] MEDS: PANTOPRAZOLE 40 MG TABLET PO SCH (08:02)
[2022-07-12] MEDS: APIXABAN 5 MG TAB PO SCH (08:02)
[2022-07-12 08:04] LABS: Potassium 3.8 mmol/L (3.5-5.1)
[2022-07-12] MEDS ORDERED: FUROSEMIDE 40 MG TAB PO SCH (10:45)
[2022-07-12 11:23] LABS: Glucose,Whole Blood 114 mg/dL (70-110)
[2022-07-12 12:12] VITALS: BP 95/66; PULSE 87
--- NOTE | 2022-07-12 22:48 | PN ---
PROGRESS NOTE SUBJECTIVE: This is a 66-year-old lady with history of persistent atrial fibrillation, who is admitted to hospital with lower extremity edema, edema has improved. The patient had atrial fibrillation with rapid ventricular rate this morning. She is feeling better. Heart rate is well controlled, stable hemodynamically. MEDICATIONS: Currently on, 1. Eliquis 5 b.i.d. 2. Aspirin. 3. Lasix. 4. Zestril 5 mg daily. 5. Lopressor 50 b.i.d. 6. Pravachol. OBJECTIVE: GENERAL: Comfortable at rest. VITAL SIGNS: Stable. CHEST: Exam reveals good air entry bilaterally. HEART: Exam reveals first and second heart sounds, irregular rhythm. No murmur. ABDOMEN: Soft. EXTREMITIES: Revealed mild edema. Peripheral pulses are felt. ASSESSMENT: Atrial fibrillation with controlled ventricular rate. PLAN: I am going to stop the intravenous Cardizem at this time. Continue oral Lasix, metoprolol. If the heart rate goes up, I will increase the metoprolol to 100 b.i.d. AMI / MAGGIEN: [id number] /
[2022-07-13] MEDS ORDERED: FUROSEMIDE 40 MG TAB PO SCH (09:00)
== END 2022-07-12 14:55 | disposition home or self-care (01) | DRG 291 ==
LOC: EC 01:56 → 3SCARD 04:51
PROVIDERS: ADMIT Hospitalist; ATTEND Hospitalist
DX: I11.0 Hypertensive heart disease with heart failure (principal); I50.33 Acute on chronic diastolic (congestive) heart failure; E87.1 Hypo-osmolality and hyponatremia; I48.19 Other persistent atrial fibrillation; J44.1 Chronic obstructive pulmonary disease with (acute) exacerbation; E03.9 Hypothyroidism, unspecified; E66.01 Morbid (severe) obesity due to excess calories; F41.9 Anxiety disorder, unspecified; Z68.39 Body mass index [BMI] 39.0-39.9, adult; Z79.01 Long term (current) use of anticoagulants; Z79.899 Other long term (current) drug therapy; Z79.890 Hormone replacement therapy; Z79.82 Long term (current) use of aspirin; Z79.51 Long term (current) use of inhaled steroids; Z88.1 Allergy status to other antibiotic agents; Z88.0 Allergy status to penicillin; Z86.73 Personal history of transient ischemic attack (TIA), and cerebral infarction without residual deficits; Z28.310 Unvaccinated for COVID-19
CPT/HCPCS: 36415; 71045; 80048; 80053; 83735; 83880; 84100; 84484; 85025; 85610; 85730; 93005; 94640; 94760; 96365; 96375; 96376; 99291

== ENCOUNTER 2022-11-16 10:29 | Emergency (ER) | payer MEDICARE ==
[2022-11-16] MEDS ORDERED: ONDANSETRON 4 MG/2 ML VIAL IVP STA (11:20)
[2022-11-16] MEDS ORDERED: SODIUM CHLORIDE 0.9% 500 ML 500 ML IV ONE (11:21)
[2022-11-16] MEDS ORDERED: FAMOTIDINE 20 MG/2 ML VIAL IV STA (11:21)
[2022-11-16 12:09] LABS: Basophils % (A) 0 %; Eosinophils # (A) 0.1 k/uL (0-0.7); Eosinophils % (A) 1 %; HCT 36.4 % (34.0-46.0); HGB 12.3 gm/dL (11.4-16.0); Lymphocytes # (A) 1.1 k/uL (1.0-4.8); Lymphocytes % (A) 11 %; MCH 29.9 pg (25.0-35.0); MCHC 33.8 g/dL (31.0-37.0); MCV 88.6 fL (80.0-100.0); Mean Platelet Volume 7.8; Monocytes # (A) 0.4 k/uL (0-1.0); Monocytes % (A) 4 %; Neutrophils # (A) 8.1 k/uL (1.3-7.7); Neutrophils % (A) 83 %; Platelet Count 268 k/uL (150-450); RBC 4.11 m/uL (3.80-5.40); RDW 13.9 % (11.5-15.5); WBC 9.8 k/uL (3.8-10.6)
[2022-11-16 12:19] LABS: Albumin 3.2 g/dL (3.5-5.0); Potassium 4.6 mmol/L (3.5-5.1); Total Bilirubin 1.4 mg/dL (0.2-1.3); Total Protein 6.1 g/dL (6.3-8.2)
[2022-11-16 12:28] LABS: Calcium 8.3 mg/dL (8.4-10.2)
--- NOTE | 2022-11-16 12:43 | CT ---
EXAMINATION TYPE: CT abdomen pelvis wo con CT DLP: 1006.9 mGycm, Automated exposure control for dose reduction was used. DATE OF EXAM: 11/16/2022 12:32 PM COMPARISON: Abdominal ultrasound 02/07/2018 CLINICAL INDICATION:Female, 67 years old with history of LLQ pain; LLQ pain, nausea and vomiting TECHNIQUE: Standard CT of the abdomen and pelvis without IV or oral contrast. Lack of IV or oral co ntrast limits evaluation of solid and hollow organ viscera. Coronal and sagittal reformats were perfo rmed. FINDINGS: Limited examination due to beam hardening artifact from the patient's arms. LOWER CHEST: The visualized lungs are clear. Mild cardiomegaly. Mitral annulus calcifications. Lipoma tous hypertrophy of the interatrial septum. No pericardial effusion. ABDOMEN LIVER: Unremarkable noncontrast appearance. GALLBLADDER AND BILE DUCTS: The gallbladder is surgically absent. PANCREAS: Fatty atrophy. SPLEEN: Unremarkable noncontrast appearance. ADRENAL GLANDS: Unremarkable noncontrast appearance. KIDNEYS AND URETERS: No evidence of hydronephrosis or renal calculus. PELVIS BLADDER: Under distended, limiting evaluation. REPRODUCTIVE: The uterus is surgically absent. No suspicious adnexal mass. ABDOMEN & PELVIS STOMACH AND BOWEL: Stomach is unremarkable. Diverticula involving second portion the duodenum. No acu te process involving the appendix. Appendicoliths identified. Nonspecific submucosal fat deposition t hroughout the descending colon and sigmoid colon and rectum. No evidence of bowel obstruction. PERITONEUM: No evidence of pneumoperitoneum or free fluid. VASCULATURE: Mild atherosclerotic calcifications are present throughout the abdominal aorta and its b ranches. No evidence of aortic aneurysm. MUSCULOSKELETAL: No acute osseous abnormalities. Chronic appearing compression fracture of the L1 joshua tebral body with approximately 75% height loss and 4 mm retropulsion. Benign vertebral hemangioma inv olving the L3 vertebral body. LYMPH NODES: No gross evidence for lymphadenopathy. SOFT TISSUE/ABDOMINAL WALL: Diastases recti. IMPRESSION: 1. No acute intra-abdominal/pelvic process. 2. Nonspecific submucosal fat deposition throughout the descending/sigmoid colon and rectum. This can be seen with chronic inflammatory process such as Crohn's disease. 3. Chronic appearing compression deformity at L1 vertebral body with approximately 75% height loss an d 4 mm retropulsion. Correlation with point tenderness is recommended.
--- NOTE | 2022-11-16 12:50 | ED ---
General Adult HPI - General Chief complaint: Nausea/Vomiting/Diarrhea Stated complaint: NVD Time Seen by Provider: 11/16/22 10:58 Source: patient, RN notes reviewed Mode of arrival: ambulatory Limitations: no limitations - History of Present Illness Initial comments: 67-year-old female with no significant past medical history presents to the emergency department with a chief complaint of nausea vomiting and diarrhea 5 days. Patient is also reporting left lower quadrant abdominal pain that she describes as a dull ache and does not radiate. She was given Zofran on Wednesday11/13/2022 with mild relief of symptoms. She denies any dizziness, lightheadedness, chest pain, shortness of breath, palpitations, cough, fevers, flank pain, dysuria, hematuria, , melena, hematochezia. She reports to cholecystectomy however still has her appendix. - Related Data Home Medications Medication Instructions Recorded Confirmed Albuterol Inhaler [Ventolin Hfa 2 puff INHALATION RT-Q4H PRN 11/10/17 07/10/22 Inhaler] Apixaban [Eliquis] 5 mg PO BID 11/10/17 07/10/22 Aspirin 81 mg PO DAILY 11/10/17 07/10/22 Budesonide/Formoterol Fumarate 2 puff INHALATION RT-BID 11/10/17 07/10/22 [Symbicort 160-4.5 Mcg Inhaler] Omeprazole [PriLOSEC] 20 mg PO DAILY 11/10/17 07/10/22 PARoxetine HCL [Paxil Cr] 25 mg PO DAILY 11/10/17 07/10/22 Pravastatin Sodium [Pravachol] 20 mg PO DAILY 11/10/17 07/10/22 lisinopriL [Prinivil] 5 mg PO DAILY 11/10/17 07/10/22 Betamethasone Dipropionate 1 applic TOPICAL DAILY PRN 07/10/22 07/10/22 [Diprolene AF 0.05% Cream] Furosemide [Lasix] 40 mg PO DAILY 07/10/22 07/10/22 Levothyroxine Sodium [Synthroid] 150 mcg PO DIRECTED 07/10/22 07/10/22 Ondansetron Odt [Zofran ODT] 4 mg PO DAILY PRN 07/10/22 07/10/22 Previous Rx's Medication Instructions Recorded Metoprolol Tartrate [Lopressor] 50 mg PO BID #60 tab 07/12/22 Allergies Allergy/AdvReac Type Severity Reaction Status Date / Time ciprofloxacin [From Cipro] Allergy Rash/Hives Verified 11/16/22 10:48 Penicillins Allergy Rash/Hives Verified 11/16/22 10:48 Review of Systems ROS Statement: Those systems with pertinent positive or pertinent negative responses have been documented in the HPI. ROS Other: All systems not noted in ROS Statement are negative. Past Medical History Past Medical History: Atrial Fibrillation, Asthma, CVA/TIA, Hypertension, Thyroid Disorder History of Any Multi-Drug Resistant Organisms: None Reported Past Surgical History: Ablation, Cholecystectomy, Hysterectomy Past Anesthesia/Blood Transfusion Reactions: Postoperative Nausea & Vomiting (PONV) Past Psychological History: Anxiety Smoking Status: Never smoker Past Alcohol Use History: None Reported Past Drug Use History: None Reported General Exam - General Exam Comments Initial Comments: General: Alert, in no acute distress Head: atraumatic normocephalic. Eyes PERRL, EOMI intact, mucous membranes moist Respiratory: Lungs clear to auscultation bilaterally Cardiovascular: Heart rate regular rate and rhythm Abdominal: Soft without guarding or rebound, mild left upper quadrant and left lower quadrant tenderness Extremities: Normal inspection with full range of motion and normal capillary refill Neuroogic: alert and oriented 3, CN II-XII intact, able to ambulate with steady gait Skin: warm dry and intact with normal color Limitations: no limitations Course Vital Signs 11/16/22 11/16/22 11/16/22 10:46 12:08 16:07 Temperature 98.5 F 97.7 F Pulse Rate 90 98 93 Respiratory 18 20 18 Rate Blood Pressure 121/84 152/83 130/91 O2 Sat by Pulse 96 97 97 Oximetry EKG Findings - EKG Comments: EKG Findings:: I interpreted the following: EKG performed at 12:03. Rate 89 bpm and patient is in atrial fibrillation. *MD, QRS duration 66, QT/QTc 364/411 Medical Decision Making - Medical Decision Making Was pt. sent in by a medical professional or institution (, PA, CONTRACT LOADER, urgent care, hospital, or detention...) When possible be specific @ -[No] Did you speak to anyone other than the patient for history (EMS, parent, family, police, friend...)? What history was obtained from this source @ -[No] Did you review nursing and triage notes (agree or disagree)? Why? @ -[I reviewed and agree with nursing and triage notes] Were old charts reviewed (outside hosp., previous admission, EMS record, old EKG, old radiological studies, urgent care reports/EKG's, detention records)? Report findings @ -[No old charts were reviewed] Differential Diagnosis (chest pain, altered mental status, abdominal pain women, abdominal pain men, vaginal bleeding, weakness, fever, dyspnea, syncope, headache, dizziness, GI bleed, back pain, seizure, CVA, palpatations, mental health, musculoskeletal)? @ -[not applicable] EKG interpreted by me (3pts min.). @ -[As above] X-rays interpreted by me (1pt min.). @ -[None done] CT interpreted by me (1pt min.). @ -CT abdomen and pelvis is without any acute intra-abdominal process U/S interpreted by me (1pt. min.). @ -[None done] What testing was considered but not performed or refused? (CT, X-rays, U/S, labs)? Why? @ -[None] What meds were considered but not given or refused? Why? @ -[None] Did you discuss the management of the patient with other professionals (professionals i.e. , PA, CONTRACT LOADER, lab, RT, psych nurse, forensic social worker, customer sales consultant, teacher, air intelligence officer, rifle case repairer)? Give summary @ -[No] Was smoking cessation discussed for >3mins.? @ -[No] Was critical care preformed (if so, how long)? @ -[No] Were there social determinants of health that impacted care today? How? (Homelessness, low income, unemployed, alcoholism, drug addiction, transportation, low edu. Level, literacy, decrease access to med. care, skilled nursing, rehab)? @ -[No] Was there de-escalation of care discussed even if they declined (Discuss DNR or withdrawal of care, Hospice)? DNR status @ -[No] What co-morbidities impacted this encounter? (DM, HTN, Smoking, COPD, CAD, Cancer, CVA, ARF, Chemo, Hep., AIDS, mental health diagnosis, sleep apnea, morbid obesity)? @ -[None] Was patient admitted / discharged? Hospital course, mention meds given and route, prescriptions, significant lab abnormalities, going to OR and other pertinent info. @ -Discharged. This is a 67-year-old female presents emergency Department nausea, vomiting, diarrhea. Patient had a thorough history and physical exam performed on the ED. Heart rate regular rate and rhythm, lungs clear to auscultation bilaterally, abdomen is soft with mild left upper quadrant. Lab work and imaging performed is essentially unremarkable. She was given Pepcid, Zofran, and 500 mL of IV fluids with symptomatic relief. I discussed the results in detail with the patient verbalized understanding and all questions were addressed. Return precautions were discussed at length. She was discharged in stable condition. Case discussed with Dr. Shaffer [facility] who agrees with plan of care Undiagnosed new problem with uncertain prognosis? @ -[No] Drug Therapy requiring intensive monitoring for toxicity (Heparin, Nitro, Insulin, Cardizem)? @ -[No] Were any procedures done? @ -[No] Diagnosis/symptom? @ -Nausea and Vomiting -Diarrhea Acute, or Chronic, or Acute on Chronic? @ -acute Uncomplicated (without systemic symptoms) or Complicated (systemic symptoms)? @ -uncomplicated Side effects of treatment? @ -[No] Exacerbation, Progression, or Severe Exacerbation? @ -[No] Poses a threat to life or bodily function? How? (Chest pain, USA, ID, pneumonia, PE, COPD, DKA, ARF, appy, cholecystitis, CVA, Diverticulitis, Homicidal, Suicidal, threat to staff... and all critical care pts) @ -low likleihood - Lab Data Result diagrams: 11/16/22 11:58 11/16/22 12:08 Lab Results 11/16/22 11/16/22 11/16/22 Range/Units 11:58 12:08 13:52 WBC 9.8 (3.8-10.6) k/uL RBC 4.11 (3.80-5.40) m/uL Hgb 12.3 (11.4-16.0) gm/dL Hct 36.4 (34.0-46.0) % MCV 88.6 (80.0-100.0) fL MCH 29.9 (25.0-35.0) pg MCHC 33.8 (31.0-37.0) g/dL RDW 13.9 (11.5-15.5) % Plt Count 268 (150-450) k/uL MPV 7.8 Neutrophils % 83 % Lymphocytes % 11 % Monocytes % 4 % Eosinophils % 1 % Basophils % 0 % Neutrophils # 8.1 H (1.3-7.7) k/uL Lymphocytes # 1.1 (1.0-4.8) k/uL Monocytes # 0.4 (0-1.0) k/uL Eosinophils # 0.1 (0-0.7) k/uL Basophils # 0.0 (0-0.2) k/uL Sodium 132 L (137-145) mmol/L Potassium 4.6 (3.5-5.1) mmol/L Chloride 96 L (98-107) mmol/L Carbon Dioxide 29 (22-30) mmol/L Anion Gap 7 mmol/L BUN 7 (7-17) mg/dL Creatinine 0.90 (0.52-1.04) mg/dL Est GFR (CKD-EPI)AfAm 77 (>60 ml/min/1.73 sqM) Est GFR (CKD-EPI)NonAf 67 (>60 ml/min/1.73 sqM) Glucose 93 (74-99) mg/dL Calcium 8.3 L (8.4-10.2) mg/dL Total Bilirubin 1.4 H (0.2-1.3) mg/dL AST 15 (14-36) U/L ALT 11 (4-34) U/L Alkaline Phosphatase 86 (38-126) U/L Total Protein 6.1 L (6.3-8.2) g/dL Albumin 3.2 L (3.5-5.0) g/dL Amylase 31 (30-110) U/L Lipase 17 L (23-300) U/L Urine Color Yellow Urine Appearance Clear (Clear) Urine pH 6.5 (5.0-8.0) Ur Specific [place] 1.009 (1.001-1.035) Urine Protein Negative (Negative) Urine Glucose (UA) Negative (Negative) Urine Ketones Negative (Negative) Urine Blood Moderate H (Negative) Urine Nitrite Negative (Negative) Urine Bilirubin Negative (Negative) Urine Urobilinogen 2.0 (<2.0) mg/dL Ur Leukocyte Esterase Negative (Negative) Urine RBC 22 H (0-5) /hpf Urine WBC 4 (0-5) /hpf Ur Squamous Epith Cells 1 (0-4) /hpf Amorphous Sediment Occasional H (None) /hpf Urine Bacteria Occasional H (None) /hpf Hyaline Casts 1 (0-2) /lpf Urine Mucus Rare H (None) /hpf Disposition Clinical Impression: Nausea & vomiting, Diarrhea Disposition: HOME SELF-CARE Condition: Stable Instructions (If sedation given, give patient instructions): Acute Nausea and Vomiting (ED) Additional Instructions: These return to the nearest emergency department symptoms worsen or persist Is patient prescribed a controlled substance at d/c from ED?: No Referrals: Alicia Isaac MD [Primary Care Provider] - 1-2 days Time of Disposition: 15:34
[2022-11-16 14:46] LABS: Amorphous Sediment,Urine Occasional /hpf; Appearance,Urine Clear (Clear); Bacteria,Urine Occasional /hpf; Bilirubin,Urine Negative (Negative); Blood,Urine Moderate (Negative); Color,Urine Yellow; Glucose,Urine (UA) Negative (Negative); Hyaline Casts,Urine 1 /lpf (0-2); Ketones,Urine Negative (Negative); Leukocyte Esterase,Urine Negative (Negative); Mucus,Urine Rare /hpf; Nitrite,Urine Negative (Negative); PH, Urine 6.5 (5.0-8.0); Protein,Urine Negative (Negative); RBC,Urine 22 /hpf (0-5); Specific Gravity,Urine 1.009 (1.001-1.035); Squamous Epithelial Cell,Urine 1 /hpf (0-4); WBC,Urine 4 /hpf (0-5)
[2022-11-16 16:11] VITALS: BP 130/91; PULSE 93; RESP 18; TEMP 97.7
== END 2022-11-16 16:12 | disposition home or self-care (01) ==
LOC: EC 10:29
DX: R11.2 Nausea with vomiting, unspecified (principal); R19.7 Diarrhea, unspecified; I48.91 Unspecified atrial fibrillation; J45.909 Unspecified asthma, uncomplicated; I10 Essential (primary) hypertension; Z86.73 Personal history of transient ischemic attack (TIA), and cerebral infarction without residual deficits; E07.9 Disorder of thyroid, unspecified; F41.9 Anxiety disorder, unspecified; Z88.0 Allergy status to penicillin; Z88.1 Allergy status to other antibiotic agents; Z79.01 Long term (current) use of anticoagulants; Z79.51 Long term (current) use of inhaled steroids; Z79.890 Hormone replacement therapy; Z79.899 Other long term (current) drug therapy
CPT/HCPCS: 36415; 93005; 80053; 82150; 83690; 85025; 81001; 74176; 99284; 96374; 96375; 96361; J2405

== ENCOUNTER → 2022-12-21 | Outpatient (CLI) | payer MEDICARE ==
--- NOTE | 2022-12-21 15:54 | XR ---
EXAMINATION TYPE: XR tibia fibula RT DATE OF EXAM: 12/21/2022 3:48 PM INDICATION: Patient age:Female; 67 years old; Reason for study: [id number] PAIN RT LEG; Y[facility]. COMPARISON: None TECHNIQUE: The right tibia/fibula was examined in AP and lateral projections. FINDINGS: No evidence of any acute osseous pathology, joint dislocation. No osseous erosions. Moderat e size plantar calcaneal enthesophyte. Diffuse soft tissue edema of the visualized right lower extrem ity. IMPRESSION: 1. No evidence of acute fracture. 2. Diffuse soft tissue edema of the visualized right lower extremity.
== END | disposition home or self-care (01) ==
LOC: RADXRYALE 15:29
PROVIDERS: ATTEND Internal Medicine
DX: M79.89 Other specified soft tissue disorders (principal); R60.0 Localized edema

== ENCOUNTER 2023-06-11 17:14 | Inpatient (IN) | payer MEDICARE ==
--- NOTE | 2023-06-11 17:32 | ED ---
General Adult HPI - General Chief complaint: Extremity Injury, Lower Stated complaint: Left ankle pain Time Seen by Provider: 06/11/23 17:21 Source: patient, EMS, RN notes reviewed, old records reviewed Mode of arrival: EMS - History of Present Illness Initial comments: 67 yo female presenting with nontraumatic left ankle pain. Symptoms have progressed over the last 24 hours. Patient is unable to bear weight secondary to pain. She denies fever or systemic symptoms. Pain is isolated to the left leg. Dad noticed increased swelling associated with her pain. - Related Data Home Medications Medication Instructions Recorded Confirmed Albuterol Inhaler [Ventolin Hfa 2 puff INHALATION RT-Q4H PRN 11/10/17 07/10/22 Inhaler] Apixaban [Eliquis] 5 mg PO BID 11/10/17 07/10/22 Aspirin 81 mg PO DAILY 11/10/17 07/10/22 Budesonide/Formoterol Fumarate 2 puff INHALATION RT-BID 11/10/17 07/10/22 [Symbicort 160-4.5 Mcg Inhaler] Omeprazole [PriLOSEC] 20 mg PO DAILY 11/10/17 07/10/22 PARoxetine HCL [Paxil Cr] 25 mg PO DAILY 11/10/17 07/10/22 Pravastatin Sodium [Pravachol] 20 mg PO DAILY 11/10/17 07/10/22 lisinopriL [Prinivil] 5 mg PO DAILY 11/10/17 07/10/22 Betamethasone Dipropionate 1 applic TOPICAL DAILY PRN 07/10/22 07/10/22 [Diprolene AF 0.05% Cream] Furosemide [Lasix] 40 mg PO DAILY 07/10/22 07/10/22 Levothyroxine Sodium [Synthroid] 150 mcg PO DIRECTED 07/10/22 07/10/22 Ondansetron Odt [Zofran ODT] 4 mg PO DAILY PRN 07/10/22 07/10/22 Previous Rx's Medication Instructions Recorded Metoprolol Tartrate [Lopressor] 50 mg PO BID #60 tab 07/12/22 Allergies Allergy/AdvReac Type Severity Reaction Status Date / Time ciprofloxacin [From Cipro] Allergy Rash/Hives Verified 06/11/23 17:26 Penicillins Allergy Rash/Hives Verified 06/11/23 17:26 Review of Systems ROS Statement: Those systems with pertinent positive or pertinent negative responses have been documented in the HPI. ROS Other: All systems not noted in ROS Statement are negative. Past Medical History Past Medical History: Atrial Fibrillation, Asthma, CVA/TIA, Hypertension, Thyroid Disorder History of Any Multi-Drug Resistant Organisms: None Reported Past Surgical History: Ablation, Cholecystectomy, Hysterectomy, Pacemaker Past Anesthesia/Blood Transfusion Reactions: Postoperative Nausea & Vomiting (PONV) Past Psychological History: Anxiety Smoking Status: Never smoker Past Alcohol Use History: None Reported Past Drug Use History: None Reported General Exam General appearance: alert, in no apparent distress Head exam: Present: atraumatic, normocephalic Eye exam: Present: normal appearance, PERRL ENT exam: Present: normal exam Neck exam: Present: normal inspection Respiratory exam: Present: normal lung sounds bilaterally. Absent: respiratory distress, wheezes Cardiovascular Exam: Present: regular rate, normal rhythm GI/Abdominal exam: Present: soft. Absent: distended, tenderness Extremities exam: Present: pedal edema, other (Erythema and warmth throughout the bilateral lower extremity is, significantly worse on the left.). Absent: full ROM (Severe pain with range of motion of the left ankle), calf tenderness Neurological exam: Present: alert, oriented X3, CN II-XII intact Skin exam: Present: warm, dry Course Vital Signs 06/11/23 17:18 Temperature 98.5 F Pulse Rate 81 Respiratory 20 Rate Blood Pressure 115/52 O2 Sat by Pulse 95 Oximetry EKG Findings - EKG Comments: EKG Findings:: EKG: Paced rhythm rate of 60, QRS duration 154, QTC 406 Medical Decision Making - Medical Decision Making Was pt. sent in by a medical professional or institution (, PA, [employer], urgent care, hospital, or penitentiary...) When possible be specific @ -No Did you speak to anyone other than the patient for history (EMS, parent, family, police, friend...)? What history was obtained from this source @ -No Did you review nursing and triage notes (agree or disagree)? Why? @ -I reviewed and agree with nursing and triage notes Were old charts reviewed (outside hosp., previous admission, EMS record, old EKG, old radiological studies, urgent care reports/EKG's, penitentiary records)? Report findings @ -No old charts were reviewed Differential Diagnosis (chest pain, altered mental status, abdominal pain women, abdominal pain men, vaginal bleeding, weakness, fever, dyspnea, syncope, headache, dizziness, GI bleed, back pain, seizure, CVA, palpatations, mental health, musculoskeletal)? @DVT, cellulitis, septic arthritis. EKG interpreted by me (3pts min.). @ -Paced rhythm as above X-rays interpreted by me (1pt min.). @ -None done CT interpreted by me (1pt min.). @ -None done U/S interpreted by me (1pt. min.). @ -None done What testing was considered but not performed or refused? (CT, X-rays, U/S, labs)? Why? @ -None What meds were considered but not given or refused? Why? @ -None Did you discuss the management of the patient with other professionals (eve pastrana i.e. , PA, [employer], lab, RT, psych nurse, forensic social worker, risk specialist, teacher, chairman president and chief executive officer, piano case and bench assembler)? Give summary @ -[emh Was smoking cessation discussed for >3mins.? @ -No Was critical care preformed (if so, how long)? @ -No Were there social determinants of health that impacted care today? How? (Homelessness, low income, unemployed, alcoholism, drug addiction, transp ortation, low edu. Level, literacy, decrease access to med. care, correction, rehab)? @ -No Was there de-escalation of care discussed even if they declined (Discuss DNR or withdrawal of care, Hospice)? DNR status @ -No What co-morbidities impacted this encounter? (DM, HTN, Smoking, COPD, CAD, Cancer, CVA, ARF, Chemo, Hep., AIDS, mental health diagnosis, sleep apnea, morbid obesity)? @ -[Diabetes, hypertension Was patient admitted / discharged? Hospital course, mention meds given and rout e, prescriptions, significant lab abnormalities, going to OR and other pertinent info. @ -[67-year-old female with left leg and ankle pain, unable to ambulate. Leg is erythematous, swollen, warm to the touch. According to the patient's she's had recurrent episodes of this and has been admitted at outside hospital with similar pain and swelling. No fever. No white count. She has anemia with hemoglobin of 9, no active bleeding. She has mild electrolyte abnormalities. Lactic is normal. Blood cultures are obtained and the patient is started on antibiotics she will be admitted due to her inability to ambulate. Undiagnosed new problem with uncertain prognosis? @ -No Drug Therapy requiring intensive monitoring for toxicity (Heparin, Nitro, Insulin, Cardizem)? @ -No Were any procedures done? @ -No Diagnosis/symptom? @ -[Cellulitis, debility, unable to ambulate Acute, or Chronic, or Acute on Chronic? @ -Acute on chronic Uncomplicated (without systemic symptoms) or Complicated (systemic symptoms)? @ -default Side effects of treatment? @ -No Exacerbation, Progression, or Severe Exacerbation? @ -No Poses a threat to life or bodily function? How? (Chest pain, [place], [place], pneumonia, PE, COPD, DKA, ARF, appy, cholecystitis, CVA, Diverticulitis, Homicidal, Suicidal, threat to staff... and all critical care pts) @ -[Yes, sepsis - Lab Data Result diagrams: 06/11/23 17:49 06/11/23 17:49 Lab Results 06/11/23 06/11/23 06/11/23 Range/Units 17:49 17:49 17:49 WBC 9.5 (3.8-10.6) k/uL RBC 3.06 L (3.80-5.40) m/uL Hgb 9.1 L (11.4-16.0) gm/dL Hct 27.8 L (34.0-46.0) % MCV 90.8 (80.0-100.0) fL MCH 29.6 (25.0-35.0) pg MCHC 32.6 (31.0-37.0) g/dL RDW 15.2 (11.5-15.5) % Plt Count 288 (150-450) k/uL MPV 7.6 Neutrophils % 76 % Lymphocytes % 15 % Monocytes % 5 % Eosinophils % 2 % Basophils % 0 % Neutrophils # 7.3 (1.3-7.7) k/uL Lymphocytes # 1.4 (1.0-4.8) k/uL Monocytes # 0.5 (0-1.0) k/uL Eosinophils # 0.2 (0-0.7) k/uL Basophils # 0.0 (0-0.2) k/uL Sodium 133 L (137-145) mmol/L Potassium 3.2 L (3.5-5.1) mmol/L Chloride 99 (98-107) mmol/L Carbon Dioxide 27 (22-30) mmol/L Anion Gap 7 mmol/L BUN 9 (7-17) mg/dL Creatinine 0.87 (0.52-1.04) mg/dL Est GFR (CKD-EPI)AfAm 80 (>60 ml/min/1.73 sqM) Est GFR (CKD-EPI)NonAf 69 (>60 ml/min/1.73 sqM) Glucose 94 (74-99) mg/dL Plasma Lactic Acid Gordon 0.8 (0.7-2.0) mmol/L Calcium 7.6 L (8.4-10.2) mg/dL Magnesium 1.5 L (1.6-2.3) mg/dL Total Bilirubin 1.2 (0.2-1.3) mg/dL AST 14 (14-36) U/L ALT 9 (4-34) U/L Alkaline Phosphatase 98 (38-126) U/L Total Protein 5.3 L (6.3-8.2) g/dL Albumin 2.5 L (3.5-5.0) g/dL Disposition Clinical Impression: Cellulitis, Unable to ambulate Disposition: ADMITTED IP TO THIS HOSP Condition: Stable Is patient prescribed a controlled substance at d/c from ED?: No Referrals: Alicia Isaac MD [Primary Care Provider] - 1-2 days Time of Disposition: 20:30
[2023-06-11 18:08] LABS: Basophils % (A) 0 %; Eosinophils # (A) 0.2 k/uL (0-0.7); Eosinophils % (A) 2 %; HCT 27.8 % (34.0-46.0); HGB 9.1 gm/dL (11.4-16.0); Lymphocytes # (A) 1.4 k/uL (1.0-4.8); Lymphocytes % (A) 15 %; MCH 29.6 pg (25.0-35.0); MCHC 32.6 g/dL (31.0-37.0); MCV 90.8 fL (80.0-100.0); Mean Platelet Volume 7.6; Monocytes # (A) 0.5 k/uL (0-1.0); Monocytes % (A) 5 %; Neutrophils # (A) 7.3 k/uL (1.3-7.7); Neutrophils % (A) 76 %; Platelet Count 288 k/uL (150-450); RBC 3.06 m/uL (3.80-5.40); RDW 15.2 % (11.5-15.5); WBC 9.5 k/uL (3.8-10.6)
[2023-06-11 18:20] LABS: ALT 9 U/L (4-34); AST 14 U/L (14-36); African American GFR (CKD) 80 (>60 ml/min/1.73 sqM); Albumin 2.5 g/dL (3.5-5.0); Alkaline Phosphatase 98 U/L (38-126); Anion Gap 7 mmol/L; Blood Urea Nitrogen 9 mg/dL (7-17); Calcium 7.6 mg/dL (8.4-10.2); Carbon Dioxide 27 mmol/L (22-30); Chloride 99 mmol/L (98-107); Glucose 94 mg/dL (74-99); Magnesium 1.5 mg/dL (1.6-2.3); Non-African American GFR(CKD) 69 (>60 ml/min/1.73 sqM); Potassium 3.2 mmol/L (3.5-5.1); Sodium 133 mmol/L (137-145); Total Bilirubin 1.2 mg/dL (0.2-1.3); Total Protein 5.3 g/dL (6.3-8.2)
[2023-06-11] MEDS ORDERED: POTASSIUM CHLORIDE ER 20 MEQ TAB.ER PO STA (19:10)
[2023-06-11] MEDS ORDERED: MAGNESIUM SULFATE-D5W PMX 1 GM in DEXTROSE/WATER 1 100ML.BAG IVPB ONE (19:10)
--- NOTE | 2023-06-11 19:21 | US ---
EXAMINATION TYPE: US venous doppler duplex LE LT DATE OF EXAM: 06/11/2023 6:39 PM COMPARISON: NONE CLINICAL INDICATION: Female, 67 years old with history of pain,swelling; Left ankle pain and edema. P atient on blood thinner due to history of stroke SIDE PERFORMED: left TECHNIQUE: The lower extremity deep venous system is examined utilizing real time linear array sonog eddie with graded compression, doppler sonography and color-flow sonography. VESSELS IMAGED: Common Femoral Vein Deep Femoral Vein Greater Saphenous Vein * Femoral Vein Popliteal Vein Small Saphenous Vein * Proximal Calf Veins (* superficial vessels) Left Leg: *Extreme technical limitations due to patient's body habitus. No evidence of DVT as visual ized IMPRESSION: Limited examination however no evidence for DVT at this time.
[2023-06-11] MEDS ORDERED: NALOXONE 0.4 MG/ML 1 ML VIAL IV PRN (20:26)
[2023-06-11] MEDS ORDERED: HYDROcodone/APAP 5-325MG 1 EACH TAB PO PRN (20:26)
[2023-06-11] MEDS ORDERED: ACETAMINOPHEN TAB 325 MG TAB PO PRN (20:26)
--- NOTE | 2023-06-11 21:00 | XR ---
EXAMINATION TYPE: XR ankle complete LT DATE OF EXAM: 06/11/2023 COMPARISON: NONE HISTORY: Pain TECHNIQUE: 3 views of the left ankle are submitted for evaluation. FINDINGS: There is mildly displaced calcaneal body fracture extending obliquely from the anterior ronaldo ar calcaneal region of posteriorly to the plantar aspect of the posterior os calcis. Surrounding soft tissue swelling seen. Ankle mortise is intact. IMPRESSION: 1. Fracture of the left os calcis as discussed.
[2023-06-11] MEDS ORDERED: ALBUTEROL NEBULIZED 2.5 MG/3 ML INHALATION PRN (21:53)
[2023-06-11] MEDS ORDERED: ONDANSETRON 4 MG/2 ML VIAL IVP PRN (21:58)
[2023-06-12] MEDS: lisinopriL 5 MG TAB PO SCH ×2 (00:32→20:34)
[2023-06-12] MEDS: LEVOTHYROXINE 125 MCG TAB PO SCH (06:34)
[2023-06-12] MEDS: PANTOPRAZOLE 40 MG TABLET PO SCH (08:10)
[2023-06-12] MEDS: FOLIC ACID 1 MG TAB PO SCH (08:10)
[2023-06-12] MEDS: FERROUS SULFATE 325 MG TAB PO SCH (08:10)
[2023-06-12] MEDS: ATORVASTATIN 20 MG TAB PO SCH (08:10)
[2023-06-12] MEDS: FUROSEMIDE 40 MG TAB PO SCH (08:10)
[2023-06-12] MEDS: ASPIRIN 81 MG PO SCH (08:10)
[2023-06-12] MEDS: PARoxetine 10 MG TAB PO SCH ×2 (08:11→20:33)
[2023-06-12] MEDS: CYANOCOBALAMIN 500 MCG TAB PO SCH (08:11)
[2023-06-12] MEDS: MONTELUKAST 10 MG TAB PO SCH (08:11)
[2023-06-12] MEDS: SYMBICORT 160-4.5 MCG INHALER INHALATION SCH ×2 (08:41→20:44)
[2023-06-12 09:39] LABS: HCT 25.1 % (37.2-46.3); HGB 7.8 g/dL (12.0-15.0); MCH 28.7 pg (27.0-32.0); MCHC 31.1 g/dL (32.0-37.0); MCV 92.3 FL (80.0-97.0); Mean Platelet Volume 10.1 FL (9.5-12.2); NRBC Per 100 WBC 0 X 10*3/uL (0.00-0.01); Platelet Count 258 X 10*3/uL (140-440); RBC 2.72 X 10*6/uL (4.10-5.20); RDW 15.3 % (11.5-14.5); WBC 7.63 X 10*3/uL (4.50-10.00)
[2023-06-12 10:09] LABS: BUN/Creat Ratio 7.45 Ratio (12.00-20.00); Blood Urea Nitrogen 8.2 mg/dL (9.0-27.0); Calcium 7.6 mg/dL (8.7-10.3); Carbon Dioxide 26.1 mmol/L (21.6-31.8); Chloride 103 mmol/L (96-109); Glucose 92 mg/dL (70-110); Magnesium 1.8 mg/dL (1.5-2.4); Potassium 2.9 mmol/L (3.5-5.5); Sodium 139 mmol/L (135-145)
--- NOTE | 2023-06-12 11:51 | P.HPIM ---
History of Present Illness H&P Date: 06/12/23 Chief Complaint: Left ankle pain * 67-year-old patient with past medical history significant for atrial fibrillation, asthma, history of hypertension, thyroid disorder, pacemaker in place history of CVA/TIA presents to the emergency department with complains of left ankle pain. Patient said her symptoms progress over the last 24 hours to the point she was unable to bear weight. denies any trauma. She denies, fever, chills, nausea, vomiting. Patient did notice she had increase swelling with pain around left ankle. * Workup initiated in ER included venous ultrasound left lower extremity which was negative for DVT however limited study * X-ray ankle obtained showed fracture of left on Os-Calcis mildly displaced calcaneal body fracture extending obliquely from the interior tablet calcaneal region to the plantar aspect of posterior os calcis. * During the encounter patient adamantly denies trauma him a sheet does mention that she is unable to bear weight * Patient admitted to medical floor with consultation from orthopedic REVIEW OF SYSTEMS: Left ankle pain, swelling, impaired ambulation CONSTITUTIONAL: No fever, no malaise, no fatigue. HEENT: No recent visual problems or hearing problems. Denied any sore throat. CARDIOVASCULAR: No chest pain, orthopnea, PND, no palpitations, no syncope. PULMONARY: No shortness of breath, no cough, no hemoptysis. GASTROINTESTINAL: No diarrhea, no nausea, no vomiting, no abdominal pain. NEUROLOGICAL: No headaches, no weakness, no numbness. HEMATOLOGICAL: Denies any bleeding or petechiae. GENITOURINARY: Denies any burning micturition, frequency, or urgency. MUSCULOSKELETAL/RHEUMATOLOGICAL: Denies any joint pain, swelling, or any muscle pain. ENDOCRINE: Denies any polyuria or polydipsia. PHYSICAL EXAMINATION: GENERAL: The patient is alert and oriented x3, not in any acute distress. Well developed, well nourished. , Obese HEENT: Pupils are round and equally reacting to light. EOMI. CARDIOVASCULAR: S1 and S2 present. No murmurs, rubs, or gallops. PULMONARY: Chest is clear to auscultation, no wheezing or crackles. ABDOMEN: Soft, nontender, nondistended, normoactive bowel sounds. No palpable organomegaly. MUSCULOSKELETAL: , Left ankle pain, swelling, tenderness, EXTREMITIES: Bilateral lower extremity edema NEUROLOGICAL: Gross neurological examination did not reveal any focal deficits. SKIN: No rashes. Past Medical History Past Medical History: Atrial Fibrillation, Asthma, CVA/TIA, Hypertension, Thyroid Disorder Additional Past Medical History / Comment(s): cellulitis of bilateral legs History of Any Multi-Drug Resistant Organisms: None Reported Past Surgical History: Ablation, Cholecystectomy, Hysterectomy, Pacemaker Past Anesthesia/Blood Transfusion Reactions: Postoperative Nausea & Vomiting (PONV) Type of Cardiac Device: Permanent Pacemaker Device Placement Date:: 04/2023 Past Psychological History: Anxiety Smoking Status: Never smoker Past Alcohol Use History: None Reported Past Drug Use History: None Reported - Past Family History Mother Family Medical History: Unable to Obtain Medications and Allergies Home Medications Medication Instructions Recorded Confirmed Type Albuterol Inhaler [Ventolin Hfa 2 puff INHALATION RT-Q6H PRN 11/10/17 06/11/23 History Inhaler] Apixaban [Eliquis] 5 mg PO AC-BID 11/10/17 06/11/23 History Budesonide/Formoterol Fumarate 2 puff INHALATION RT-BID 11/10/17 06/11/23 History [Symbicort 160-4.5 Mcg Inhaler] PARoxetine HCL [Paxil Cr] 25 mg PO DAILY 11/10/17 06/11/23 History lisinopriL [Prinivil] 5 mg PO HS 11/10/17 06/11/23 History Furosemide [Lasix] 40 mg PO DAILY 07/10/22 06/11/23 History Aspirin EC [Ecotrin Low Dose] 81 mg PO DAILY 06/11/23 06/11/23 History Atorvastatin [Lipitor] 20 mg PO DAILY 06/11/23 06/11/23 History Cyanocobalamin [Vitamin B-12] 500 mcg PO DAILY 06/11/23 06/11/23 History Ferrous Sulfate [Feosol] 325 mg PO DAILY 06/11/23 06/11/23 History Folic Acid 1 mg PO DAILY 06/11/23 06/11/23 History Levothyroxine Sodium [Synthroid] 125 mcg PO DAILY 06/11/23 06/11/23 History Miconazole 2% Powder 1 applic TOPICAL BID 06/11/23 06/11/23 History Montelukast [Singulair] 10 mg PO DAILY 06/11/23 06/11/23 History Omeprazole 40 mg PO DAILY 06/11/23 06/11/23 History Potassium Chloride ER [K-Dur 20] 20 meq PO DAILY 06/11/23 06/11/23 History Allergies Allergy/AdvReac Type Severity Reaction Status Date / Time ciprofloxacin [From Cipro] Allergy Rash/Hives Verified 06/11/23 21:18 Penicillins Allergy Rash/Hives Verified 06/11/23 21:18 all over body Physical Exam Vitals: Vital Signs Temp Pulse Pulse Resp BP BP Pulse Ox 06/12/23 07:00 98.6 F 65 16 118/63 96 06/12/23 05:38 68 108/58 06/12/23 00:04 98.5 F 60 16 94/55 100 06/11/23 22:35 97.7 F 60 16 116/64 98 06/11/23 21:58 54 L 20 112/48 99 06/11/23 17:18 98.5 F 81 20 115/52 95 Intake and Output 06/11/23 06/12/23 06/12/23 22:59 06:59 14:59 Other: Voiding Method Incontinent External Catheter # Voids 1 Weight 106.594 kg 106.594 kg Results CBC & Chem 7: 06/12/23 04:24 06/12/23 04:24 Labs: Abnormal Lab Results - Last 24 Hours (Table) 06/11/23 06/11/23 Range/Units 17:49 17:49 RBC 3.06 L (3.80-5.40) m/uL Hgb 9.1 L (11.4-16.0) gm/dL Hct 27.8 L (34.0-46.0) % Sodium 133 L (137-145) mmol/L Potassium 3.2 L (3.5-5.1) mmol/L Calcium 7.6 L (8.4-10.2) mg/dL Magnesium 1.5 L (1.6-2.3) mg/dL Total Protein 5.3 L (6.3-8.2) g/dL Albumin 2.5 L (3.5-5.0) g/dL Thrombosis Risk Factor Assmnt - Choose All That Apply Any of the Below Risk Factors Present?: Yes Each Factor Represents 1 point: Swollen legs (current) Other Risk Factors: Yes Each Risk Factor Represents 2 Points: Age 61-74 years Other congenital or acquired thrombophilia - If yes, enter type in comment: No Thrombosis Risk Factor Assessment Total Risk Factor Score: 3 Thrombosis Risk Factor Assessment Level: Moderate Risk Assessment and Plan Assessment: Assessment and plan * Acute left ankle pain with calcaneal body mildly displaced fracture * History of atrial fibrillation * Chronic congestive heart failure with preserved ejection fraction * Hypertension * History of CVA/TIA * Morbid obesity * Hypothyroid * History of anxiety * In regards to acute left ankle pain/fracture orthopedic consulted, continue pain control, physical therapy occupational therapy consulted * In regards to history of atrial fibrillation, anticoagulation placed briefly on hold in anticipation of orthopedic evaluation. Patient on Eliquis, resumed after clearance from surgery * In regards to hypertension continue lisinopril, Lasix * In regards to hypothyroid continue Synthyroid * In regards to dyslipidemia continue Lipitor * In regards to history of CHF continue patient on Lasix * CODE STATUS full code Time with Patient: Greater than 30
[2023-06-12] MEDS: APIXABAN 5 MG TAB PO SCH ×2 (12:18→17:11)
[2023-06-12] MEDS: POTASSIUM CHLORIDE ER 20 MEQ TAB.ER PO SCH ×3 (12:18→22:56)
--- NOTE | 2023-06-12 13:10 | P.CNOR ---
History of Present Illness - [facility] Consult date: 06/12/23 Consult reason: fracture History of present illness: Patient is a 67 yo female seen at bedside today in consultation for left foot pain/calcaneus fracture. She presented to the ED yesterday 06/11/23 with nontraumatic left ankle pain. She states that her pain started when she went to stand on . She denies injury. Symptoms have progressed over the last 24-28 hours. Patient is unable to bear weight secondary to pain. She denies fever or systemic symptoms. Pain is isolated to the left leg. She also noticed increased swelling associated with her pain. She denies numbness or calf pain. No other complaints Review of Systems All systems: negative Constitutional: Denies chills, Denies fever Eyes: denies blurred vision, denies pain Ears, nose, mouth and throat: Denies headache, Denies sore throat Cardiovascular: Denies chest pain, Denies shortness of breath Respiratory: Denies cough Gastrointestinal: Denies abdominal pain, Denies diarrhea, Denies nausea, Denies vomiting Genitourinary: Denies dysuria, Denies hematuria Musculoskeletal: Denies myalgias Integumentary: Denies pruritus, Denies rash Neurological: Denies numbness, Denies weakness Psychiatric: Denies anxiety, Denies depression Endocrine: Denies fatigue, Denies weight change Past Medical History Past Medical History: Atrial Fibrillation, Asthma, CVA/TIA, Hypertension, Thyroid Disorder Additional Past Medical History / Comment(s): cellulitis of bilateral legs History of Any Multi-Drug Resistant Organisms: None Reported Past Surgical History: Ablation, Cholecystectomy, Hysterectomy, Pacemaker Past Anesthesia/Blood Transfusion Reactions: Postoperative Nausea & Vomiting (PONV) Type of Cardiac Device: Permanent Pacemaker Device Placement Date:: 04/2023 Past Psychological History: Anxiety Smoking Status: Never smoker Past Alcohol Use History: None Reported Past Drug Use History: None Reported - Past Family History Mother Family Medical History: Unable to Obtain Medications and Allergies Home Medications Medication Instructions Recorded Confirmed Type Albuterol Inhaler [Ventolin Hfa 2 puff INHALATION RT-Q6H PRN 11/10/17 06/11/23 History Inhaler] Apixaban [Eliquis] 5 mg PO AC-BID 11/10/17 06/11/23 History Budesonide/Formoterol Fumarate 2 puff INHALATION RT-BID 11/10/17 06/11/23 History [Symbicort 160-4.5 Mcg Inhaler] PARoxetine HCL [Paxil Cr] 25 mg PO DAILY 11/10/17 06/11/23 History lisinopriL [Prinivil] 5 mg PO HS 11/10/17 06/11/23 History Furosemide [Lasix] 40 mg PO DAILY 07/10/22 06/11/23 History Aspirin EC [Ecotrin Low Dose] 81 mg PO DAILY 06/11/23 06/11/23 History Atorvastatin [Lipitor] 20 mg PO DAILY 06/11/23 06/11/23 History Cyanocobalamin [Vitamin B-12] 500 mcg PO DAILY 06/11/23 06/11/23 History Ferrous Sulfate [Feosol] 325 mg PO DAILY 06/11/23 06/11/23 History Folic Acid 1 mg PO DAILY 06/11/23 06/11/23 History Levothyroxine Sodium [Synthroid] 125 mcg PO DAILY 06/11/23 06/11/23 History Miconazole 2% Powder 1 applic TOPICAL BID 06/11/23 06/11/23 History Montelukast [Singulair] 10 mg PO DAILY 06/11/23 06/11/23 History Omeprazole 40 mg PO DAILY 06/11/23 06/11/23 History Potassium Chloride ER [K-Dur 20] 20 meq PO DAILY 06/11/23 06/11/23 History Allergies Allergy/AdvReac Type Severity Reaction Status Date / Time ciprofloxacin [From Cipro] Allergy Rash/Hives Verified 06/11/23 21:18 Penicillins Allergy Rash/Hives Verified 06/11/23 21:18 all over body Physical Examination Inspection shows chronic appearing edema of left lower extremity and foot. No acute wounds. No erythema. Very sore over the heel directly over the calcaneus. No midfoot or forefoot tenderness on palpation. No medial or lateral ankle pain. Achilles is intact with no palpable deformity and nontender throughout its length. Full inversion, eversion, plantar flexion, dorsiflexion, of the foot. Intact lateral, medial, plantar first dorsal web space sensation an d 2+ posterior tibial pulse with adequate capillary refill in all digits. Results - Labs Labs: Abnormal Lab Results - Last 24 Hours (Table) 06/11/23 06/11/23 06/12/23 Range/Units 17:49 17:49 04:24 RBC 3.06 L 2.72 L (3.80-5.40) m/uL Hgb 9.1 L 7.8 L (11.4-16.0) gm/dL Hct 27.8 L 25.1 L (34.0-46.0) % MCHC 31.1 L (32.0-37.0) g/dL RDW 15.3 H (11.5-14.5) % Sodium 133 L (137-145) mmol/L Potassium 3.2 L (3.5-5.1) mmol/L BUN (9.0-27.0) mg/dL Est GFR (CKD-EPI) (>=60) BUN/Creatinine Ratio (12.00-20.00) Ratio Calcium 7.6 L (8.4-10.2) mg/dL Magnesium 1.5 L (1.6-2.3) mg/dL C-Reactive Protein (0.00-0.80) mg/dL Total Protein 5.3 L (6.3-8.2) g/dL Albumin 2.5 L (3.5-5.0) g/dL Vitamin D 25-Hydroxy (30.0-100.0) ng/mL 06/12/23 Range/Units 04:24 RBC (3.80-5.40) m/uL Hgb (11.4-16.0) gm/dL Hct (34.0-46.0) % MCHC (32.0-37.0) g/dL RDW (11.5-14.5) % Sodium (137-145) mmol/L Potassium 2.9 L (3.5-5.1) mmol/L BUN 8.2 L (9.0-27.0) mg/dL Est GFR (CKD-EPI) 55 L (>=60) BUN/Creatinine Ratio 7.45 L (12.00-20.00) Ratio Calcium 7.6 L (8.4-10.2) mg/dL Magnesium (1.6-2.3) mg/dL C-Reactive Protein 2.50 H (0.00-0.80) mg/dL Total Protein (6.3-8.2) g/dL Albumin (3.5-5.0) g/dL Vitamin D 25-Hydroxy <5.0 L (30.0-100.0) ng/mL H & H 06/11/23 06/12/23 Range/Units 17:49 04:24 Hgb 9.1 L 7.8 L (11.4-16.0) gm/dL Hct 27.8 L 25.1 L (34.0-46.0) % Result Diagrams: 06/12/23 04:24 06/12/23 04:24 - Diagnostic results Ankle/Foot x-ray: report reviewed, image reviewed Assessment and Plan (1) Calcaneus fracture, left Narrative/Plan: No plans for immediate surgical intervention. Recommend continue pain management, ice, elevaton to heel. Walking boot while mobilizing/ambulating. She may be touchdown weightbearing with boot. She may f/u as an outpatient for management. Current Visit: Yes Status: Acute Priority: Medium Code(s): S92.002A - UNSP FRACTURE OF LEFT CALCANEUS, INIT FOR CLOS FX SNOMED Code(s): 349459069 Time with Patient: Less than 30
[2023-06-12] MEDS ORDERED: POTASSIUM CHLORIDE ER 20 MEQ TAB.ER PO STA (15:25)
[2023-06-12] MEDS ORDERED: Potassium Replacement Protocol 1 EACH MISC MISCELLANE PRN (21:41)
[2023-06-13] MEDS: POTASSIUM CHLORIDE ER 20 MEQ TAB.ER PO SCH ×3 (00:08→07:47)
[2023-06-13] MEDS: LEVOTHYROXINE 125 MCG TAB PO SCH (06:19)
[2023-06-13] MEDS: PANTOPRAZOLE 40 MG TABLET PO SCH (07:46)
[2023-06-13] MEDS: APIXABAN 5 MG TAB PO SCH ×2 (07:46→17:46)
[2023-06-13] MEDS: FOLIC ACID 1 MG TAB PO SCH (07:46)
[2023-06-13] MEDS: MONTELUKAST 10 MG TAB PO SCH (07:46)
[2023-06-13] MEDS: PARoxetine 10 MG TAB PO SCH ×2 (07:47→20:04)
[2023-06-13] MEDS: FERROUS SULFATE 325 MG TAB PO SCH (07:47)
[2023-06-13] MEDS: CYANOCOBALAMIN 500 MCG TAB PO SCH (07:47)
[2023-06-13] MEDS: ATORVASTATIN 20 MG TAB PO SCH (07:47)
[2023-06-13] MEDS: FUROSEMIDE 40 MG TAB PO SCH (07:47)
[2023-06-13] MEDS: ASPIRIN 81 MG PO SCH (07:47)
[2023-06-13] MEDS: SYMBICORT 160-4.5 MCG INHALER INHALATION SCH ×2 (08:34→18:21)
[2023-06-13 09:49] LABS: HCT 25.7 % (37.2-46.3); HGB 7.7 g/dL (12.0-15.0); MCH 28.1 pg (27.0-32.0); MCV 93.8 FL (80.0-97.0); Mean Platelet Volume 10.1 FL (9.5-12.2); NRBC Per 100 WBC 0 X 10*3/uL (0.00-0.01); Platelet Count 254 X 10*3/uL (140-440); RBC 2.74 X 10*6/uL (4.10-5.20); RDW 15.1 % (11.5-14.5); WBC 8.52 X 10*3/uL (4.50-10.00)
[2023-06-13 10:05] LABS: BUN/Creat Ratio 7.75 Ratio (12.00-20.00); Blood Urea Nitrogen 6.2 mg/dL (9.0-27.0); Calcium 7.6 mg/dL (8.7-10.3); Chloride 104 mmol/L (96-109); Glucose 99 mg/dL (70-110); Potassium 3.3 mmol/L (3.5-5.5); Sodium 139 mmol/L (135-145)
[2023-06-13] MEDS: POTASSIUM CHLORIDE 10 MEQ in WATER FOR INJECTION 1 100ML.BAG IVPB SCH ×2 (10:14→11:36)
--- NOTE | 2023-06-13 12:54 | P.PN ---
Subjective Progress Note Date: 06/13/23 * 52-year-old patient with past medical history significant for dysmenorrhea, menorrhagia, presents to the emergency department with complains of chest pain, right upper quadrant abdominal pain. * Upon presentation patient complained of retrosternal burning sensation, patient also had an episode of vomiting. Patient states symptom onset has been for the last 4 days * Workup initiated in ER included comprehensive metabolic panel which showed normal liver profile, normal bilirubin, d-dimer within normal limits * Serum chemistry obtained showed essentially negative CBC * While in ED patient also had right upper quadrant ultrasound obtained * Chest x-ray obtained at the time of admission was negative for acute intra- cardiopulmonary process * EKG obtained in ER showed sinus rhythm without significant ST segment changes * Initial troponin obtained was negative * 06/13/23: Patient seen and evaluated bedside, patient also noted to have drop in hemoglobin, 9.1 upon admission noted to be 7.7, fecal occult blood tests ordered,, continue patient on proton REVIEW OF SYSTEMS: Chest pain, retrosternal, abdominal, vomiting resolved CONSTITUTIONAL: No fever, no malaise, no fatigue. HEENT: No recent visual problems or hearing problems. Denied any sore throat. CARDIOVASCULAR: Chest pain, retrosternal, abdominal PULMONARY: No shortness of breath, no cough, no hemoptysis. GASTROINTESTINAL: Chest pain, retrosternal, abdominal, vomiting resolved NEUROLOGICAL: No headaches, no weakness, no numbness. HEMATOLOGICAL: Denies any bleeding or petechiae. GENITOURINARY: Denies any burning micturition, frequency, or urgency. MUSCULOSKELETAL/RHEUMATOLOGICAL: Left foot pain ENDOCRINE: Denies any polyuria or polydipsia. PHYSICAL EXAMINATION: GENERAL: The patient is alert and oiented x3, not in any acute distress. Well developed, well nourished. Pale HEENT: Pupils are round and equally reacting to light. EOMI. CARDIOVASCULAR: S1 and S2 present. No murmurs, rubs, or gallops. PULMONARY: Chest is clear to auscultation, no wheezing or crackles. ABDOMEN: Soft, nontender, nondistended, normoactive bowel sounds. No palpable organomegaly. MUSCULOSKELETAL: Left foot is tender on palpation EXTREMITIES: No cyanosis, clubbing, or pedal edema. NEUROLOGICAL: Gross neurological examination did not reveal any focal deficits. Objective - Vital Signs Vital signs: Vital Signs Temp 98.3 F 06/13/23 07:00 Pulse 55 L 06/13/23 08:00 Resp 16 06/13/23 08:00 BP 130/56 06/13/23 07:00 Pulse Ox 95 06/13/23 07:00 FiO2 Intake & Output 06/12/23 06/13/23 06/13/23 18:59 06:59 18:59 Intake Total 960 118 Output Total 400 Balance 560 118 Intake: Oral 960 118 Output: Urine 400 Other: Voiding Method Incontinent Incontinent Incontinent External Catheter External Catheter External Catheter # Voids 2 - Labs CBC & Chem 7: 06/13/23 04:35 06/13/23 04:35 Labs: Abnormal Lab Results - Last 24 Hours (Table) 06/12/23 06/13/23 06/13/23 Range/Units 20:58 04:35 04:35 RBC 2.74 L (4.10-5.20) X 10*6/uL Hgb 7.7 L (12.0-15.0) g/dL Hct 25.7 L (37.2-46.3) % MCHC 30.0 L (32.0-37.0) g/dL RDW 15.1 H (11.5-14.5) % Potassium 2.8 L 3.3 L (3.5-5.1) mmol/L BUN 6.2 L (9.0-27.0) mg/dL BUN/Creatinine Ratio 7.75 L (12.00-20.00) Ratio Calcium 7.6 L (8.7-10.3) mg/dL Microbiology - Last 24 Hours (Table) 06/11/23 21:35 Blood Culture Gram Stain - Preliminary Blood 06/11/23 21:50 Blood Culture Gram Stain - Preliminary Blood Assessment and Plan Assessment: Assessment and plan * Acute left ankle pain with calcaneal body mildly displaced fracture * History of atrial fibrillation * Chronic congestive heart failure with preserved ejection fraction * Acute anemia rule out gastrointestinal bleed * Hypertension * History of CVA/TIA * Morbid obesity * Hypothyroid * History of anxiety * In regards to acute left ankle pain/fracture orthopedic consulted, continue pain control, physical therapy occupational therapy consulted * In regards to history of atrial fibrillation, anticoagulation placed briefly on hold in anticipation of orthopedic evaluation. Patient on Eliquis, resumed after clearance from surgery * In regards to anemia, continue to monitor CBC, aspirin placed on hold, continue Eliquis. Fecal occult blood tests ordered, * In regards to hypertension continue lisinopril, Lasix * In regards to hypothyroid continue Synthyroid * In regards to dyslipidemia continue Lipitor * In regards to history of CHF continue patient on Lasix * CODE STATUS full code
[2023-06-13] MEDS: lisinopriL 5 MG TAB PO SCH (20:04)
[2023-06-14] MEDS: LEVOTHYROXINE 125 MCG TAB PO SCH (05:49)
[2023-06-14] MEDS: APIXABAN 5 MG TAB PO SCH ×2 (05:49→17:51)
[2023-06-14] MEDS: SYMBICORT 160-4.5 MCG INHALER INHALATION SCH ×2 (08:45→19:50)
[2023-06-14] MEDS: FERROUS SULFATE 325 MG TAB PO SCH (09:24)
[2023-06-14] MEDS: PANTOPRAZOLE 40 MG TABLET PO SCH (09:24)
[2023-06-14] MEDS: PARoxetine 10 MG TAB PO SCH ×2 (09:24→21:26)
[2023-06-14] MEDS: MONTELUKAST 10 MG TAB PO SCH (09:24)
[2023-06-14] MEDS: CYANOCOBALAMIN 500 MCG TAB PO SCH (09:24)
[2023-06-14] MEDS: POTASSIUM CHLORIDE ER 20 MEQ TAB.ER PO SCH (09:24)
[2023-06-14] MEDS: FUROSEMIDE 40 MG TAB PO SCH (09:24)
[2023-06-14] MEDS: ATORVASTATIN 20 MG TAB PO SCH (09:24)
[2023-06-14] MEDS: FOLIC ACID 1 MG TAB PO SCH (09:24)
[2023-06-14 10:57] LABS: BUN/Creat Ratio 7.75 Ratio (12.00-20.00); Blood Urea Nitrogen 6.2 mg/dL (9.0-27.0); Calcium 7.9 mg/dL (8.7-10.3); Carbon Dioxide 27.1 mmol/L (21.6-31.8); Chloride 103 mmol/L (96-109); Glucose 86 mg/dL (70-110); HCT 27.9 % (37.2-46.3); HGB 8.4 g/dL (12.0-15.0); MCH 28.2 pg (27.0-32.0); MCHC 30.1 g/dL (32.0-37.0); MCV 93.6 FL (80.0-97.0); NRBC Per 100 WBC 0 X 10*3/uL (0.00-0.01); Platelet Count 301 X 10*3/uL (140-440); Potassium 3.7 mmol/L (3.5-5.5); RBC 2.98 X 10*6/uL (4.10-5.20); RDW 15.4 % (11.5-14.5); Sodium 139 mmol/L (135-145); WBC 6.62 X 10*3/uL (4.50-10.00)
--- NOTE | 2023-06-14 14:29 | PN ---
PROGRESS NOTE DATE OF SERVICE: 06/14/2023 SUBJECTIVE: This is a 67-year-old woman, who was admitted with acute left ankle pain and calcaneal body mildly displaced fracture, also had CHF and leg cellulitis, also awaiting Infectious Disease evaluation. PHYSICAL EXAMINATION: VITAL SIGNS: Pulse is 62, blood pressure 140/60, respirations 18. CHEST: Clear. CARDIOVASCULAR: S1 and S2. ABDOMEN: Soft. NERVOUS SYSTEM: Nonfocal. LEGS: Bilateral leg edema. LABORATORY DATA: Reviewed. Labs are also showing Strep viridans from the blood culture. PAST MEDICAL HISTORY: Reviewed. REVIEW OF SYSTEMS: Fourteen-point review is negative except as mentioned earlier. CURRENT MEDICATIONS: Reviewed include Eliquis. ASSESSMENT: 1. Streptococcus viridans sepsis. 2. Acute left ankle pain with calcaneal body mildly displaced fracture. 3. Bilateral leg swelling. 4. Chronic congestive heart failure with preserved ejection fraction. 5. Hypertension. 6. History of cerebrovascular accident/transient ischemic attack. 7. Obesity. 8. Hypothyroidism. RECOMMENDATIONS: Recommend to continue current medications. Continue symptomatic treatment. Otherwise, I would also recommend Infectious Disease evaluation and repeat cultures. I also recommend a 2D echo with Doppler. Continue to monitor. Guarded prognosis because of multiple complex medical issues. See orders for details. MMODL / IJN: [id number] /
[2023-06-14 16:23] LABS: Appearance,Urine Clear (Clear); Bilirubin,Urine Negative (Negative); Blood,Urine Negative (Negative); Color,Urine Colorless; Glucose,Urine (UA) Negative (Negative); Ketones,Urine Negative (Negative); Leukocyte Esterase,Urine Negative (Negative); Nitrite,Urine Negative (Negative); Protein,Urine Negative (Negative); Specific Gravity,Urine 1.006 (1.001-1.035); Urobilinogen,Urine <2.0 mg/dL (<2.0)
[2023-06-14] MEDS: lisinopriL 5 MG TAB PO SCH (21:26)
[2023-06-14] MEDS: NYSTATIN 100,000 UNIT/GM POWD 15 GM TOPICAL SCH (21:26)
[2023-06-15] MEDS: APIXABAN 5 MG TAB PO SCH ×2 (06:23→20:37)
[2023-06-15] MEDS: LEVOTHYROXINE 125 MCG TAB PO SCH (06:23)
[2023-06-15 07:32] LABS: ALT 8 U/L (4-34); AST 14 U/L (14-36); African American GFR (CKD) >90 (>60 ml/min/1.73 sqM); Albumin 2.4 g/dL (3.5-5.0); Albumin/Globulin Ratio 0.9; Alkaline Phosphatase 88 U/L (38-126); Anion Gap 6 mmol/L; Blood Urea Nitrogen 7 mg/dL (7-17); Calcium 7.9 mg/dL (8.4-10.2); Carbon Dioxide 29 mmol/L (22-30); Chloride 100 mmol/L (98-107); Globulin 2.8 g/dL; Glucose 87 mg/dL (74-99); Non-African American GFR(CKD) 88 (>60 ml/min/1.73 sqM); Sodium 135 mmol/L (137-145); Total Bilirubin 0.7 mg/dL (0.2-1.3); Total Protein 5.2 g/dL (6.3-8.2)
[2023-06-15] MEDS: FERROUS SULFATE 325 MG TAB PO SCH (08:50)
[2023-06-15] MEDS: NYSTATIN 100,000 UNIT/GM POWD 15 GM TOPICAL SCH ×2 (08:50→20:38)
[2023-06-15] MEDS: FOLIC ACID 1 MG TAB PO SCH (08:50)
[2023-06-15] MEDS: PANTOPRAZOLE 40 MG TABLET PO SCH (08:50)
[2023-06-15] MEDS: CYANOCOBALAMIN 500 MCG TAB PO SCH (08:50)
[2023-06-15] MEDS: PARoxetine 10 MG TAB PO SCH ×2 (08:50→20:37)
[2023-06-15] MEDS: ATORVASTATIN 20 MG TAB PO SCH (08:50)
[2023-06-15] MEDS: POTASSIUM CHLORIDE ER 20 MEQ TAB.ER PO SCH (08:50)
[2023-06-15] MEDS: FUROSEMIDE 40 MG TAB PO SCH (08:50)
[2023-06-15] MEDS: MONTELUKAST 10 MG TAB PO SCH (08:50)
--- NOTE | 2023-06-15 08:58 | P.CONS ---
History of Present Illness - Reason for Consult Consult date: 06/14/23 - History of Present Illness Patient is a 67-year-old female with a past medical history significant for atrial fibrillation asthma CVA TIA hypertension history of thyroid disorder , patient did have a chronic swelling to bilateral extremity and apparently was recently admitted at [facility] for left lower extremity cellulitis treated with IV followed by oral antibiotic therapy, patient may has been brought to the ER on 06/11/2023 for evaluation of left ankle pain that has progressed over 24 hours patient denies any history of any fall or trauma patient mention unable to bear weight secondary to the pain she was describing the pain to be more of a sharp moderate intensity without any radiation also noticed to have increasing swelling to the left ankle area but no redness patient on presentation to the hospital was afebrile and no fever has been recorded during this hospital stay over the last 3 days patient did have normal white count with no left shift creatinine has been normal liver enzymes are normal urine has been negative patient did have a ankle x-ray fracture of the left os calcis, patient has been eval by orthopedics recommending nonsurgical treatment patient did have blood cultures drawn came back positive with coagulase-negative staph and Streptococcus viridans 2 different sets that has prompted this infectious disease consultation, the patient pain to the left ankle area has slightly decreased in intensity with the pain medication currently do not have any open wound to the left ankle area some swelling but no redness and denies having any fever and chills as mentioned earlier Past Medical History Past Medical History: Atrial Fibrillation, Asthma, CVA/TIA, Hypertension, Thyroid Disorder Additional Past Medical History / Comment(s): cellulitis of bilateral legs History of Any Multi-Drug Resistant Organisms: None Reported Past Surgical History: Ablation, Cholecystectomy, Hysterectomy, Pacemaker Past Anesthesia/Blood Transfusion Reactions: Postoperative Nausea & Vomiting (PONV) Type of Cardiac Device: Permanent Pacemaker Device Placement Date:: 04/2023 Past Psychological History: Anxiety Smoking Status: Never smoker Past Alcohol Use History: None Reported Past Drug Use History: None Reported - Past Family History Mother Family Medical History: Unable to Obtain Medications and Allergies Home Medications Medication Instructions Recorded Confirmed Type Albuterol Inhaler [Ventolin Hfa 2 puff INHALATION RT-Q6H PRN 11/10/17 06/11/23 History Inhaler] Apixaban [Eliquis] 5 mg PO AC-BID 11/10/17 06/11/23 History Budesonide/Formoterol Fumarate 2 puff INHALATION RT-BID 11/10/17 06/11/23 History [Symbicort 160-4.5 Mcg Inhaler] PARoxetine HCL [Paxil Cr] 25 mg PO DAILY 11/10/17 06/11/23 History lisinopriL [Prinivil] 5 mg PO HS 11/10/17 06/11/23 History Furosemide [Lasix] 40 mg PO DAILY 07/10/22 06/11/23 History Aspirin EC [Ecotrin Low Dose] 81 mg PO DAILY 06/11/23 06/11/23 History Atorvastatin [Lipitor] 20 mg PO DAILY 06/11/23 06/11/23 History Cyanocobalamin [Vitamin B-12] 500 mcg PO DAILY 06/11/23 06/11/23 History Ferrous Sulfate [Feosol] 325 mg PO DAILY 06/11/23 06/11/23 History Folic Acid 1 mg PO DAILY 06/11/23 06/11/23 History Levothyroxine Sodium [Synthroid] 125 mcg PO DAILY 06/11/23 06/11/23 History Miconazole 2% Powder 1 applic TOPICAL BID 06/11/23 06/11/23 History Montelukast [Singulair] 10 mg PO DAILY 06/11/23 06/11/23 History Omeprazole 40 mg PO DAILY 06/11/23 06/11/23 History Potassium Chloride ER [K-Dur 20] 20 meq PO DAILY 06/11/23 06/11/23 History Allergies Allergy/AdvReac Type Severity Reaction Status Date / Time ciprofloxacin [From Cipro] Allergy Rash/Hives Verified 06/11/23 21:18 Penicillins Allergy Rash/Hives Verified 06/11/23 21:18 all over body Physical Exam Vitals: Vital Signs Temp Pulse Resp BP Pulse Ox 06/14/23 08:00 18 06/14/23 07:10 97.5 F L 62 18 144/68 96 06/14/23 02:00 98.4 F 60 16 119/70 93 L 06/13/23 19:58 98.5 F 62 16 112/54 93 L 06/13/23 15:00 97.4 F L 60 16 112/58 95 06/13/23 13:52 55 L 16 Intake and Output 06/13/23 06/14/23 06/14/23 22:59 06:59 14:59 Intake Total 358 236 Balance 358 236 Intake: Oral 358 236 Other: Voiding Method Incontinent Incontinent External Catheter External Catheter # Voids 450 # Bowel Movements 2 0 Results CBC & Chem 7: 06/15/23 06:33 06/15/23 06:33 Labs: Microbiology - Last 24 Hours (Table) 06/11/23 21:35 Blood Culture Gram Stain - Preliminary Blood Blood Culture - Preliminary Streptococcus viridans group 06/11/23 21:50 Blood Culture Gram Stain - Preliminary Blood Blood Culture - Preliminary Streptococcus viridans group Assessment and Plan Plan: 1patient with a positive blood culture x2 growing coagulase-negative staph and strep viridans likely contaminant as the patient did not have any fever and did have a normal white count, patient admitted to hospital with left ankle fracture did have some swelling but no redness no wound or any drainage was noticed 2we will repeat the blood cultures and check inflammatory markers 3we will monitor the patient closely off antibiotic therapy while awaiting further work-up to be completed We will follow on clinical condition and cultures to further adjust medication if needed Thank you for this consultation we will follow the patient along with you Dictation was produced using [employer] dictation software. please excuse any grammatical, word or spelling errors. Time with Patient: Greater than 30
[2023-06-15] MEDS: SYMBICORT 160-4.5 MCG INHALER INHALATION SCH ×2 (09:40→20:10)
[2023-06-15 11:06] LABS: Basophils # (A) 0.06 X 10*3/uL (0.00-0.10); Basophils % (A) 0.9 %; Eosinophils # (A) 0.25 X 10*3/uL (0.04-0.35); Eosinophils % (A) 3.9 %; HCT 31.4 % (37.2-46.3); HGB 9.1 g/dL (12.0-15.0); Lymphocytes # (A) 0.91 X 10*3/uL (0.90-5.00); Lymphocytes % (A) 14.4 %; MCH 28.5 pg (27.0-32.0); MCV 98.4 FL (80.0-97.0); Mean Platelet Volume 9.9 FL (9.5-12.2); Monocytes # (A) 0.38 X 10*3/uL (0.20-1.00); NRBC Per 100 WBC 0 X 10*3/uL (0.00-0.01); Neutrophils # (A) 4.71 X 10*3/uL (1.80-7.70); Neutrophils % (A) 74.5 %; Platelet Count 289 X 10*3/uL (140-440); RBC 3.19 X 10*6/uL (4.10-5.20); RDW 15.4 % (11.5-14.5); WBC 6.33 X 10*3/uL (4.50-10.00)
--- NOTE | 2023-06-15 12:29 | CA ---
Transthoracic Echo Report Name: Kay Barry Age: 67 Gender: F : 1955 Exam Date: 06/14/2023 15:08 Exam Location: [facility] Ht (in): 65 Wt (lb): 235 Ordering Physician: Arnoldo Noble MD Attending/Referring Phys: Wildlife Science Professor Shannan Baeza [facility] Procedure CPT: Indications: IE? Cardiac Hx: Technical Quality: Technically difficult study Contrast 1: Definity Total Dose (mL): 5 Contrast 2: Total Dose (mL): MEASUREMENTS (Male / Female) Normal Values 2D ECHO LV Diastolic Diameter PLAX 4.6 cm 4.2 - 5.9 / 3.9 - 5.3 cm LV Systolic Diameter PLAX 2.7 cm IVS Diastolic Thickness 1.1 cm 0.6 - 1.0 / 0.6 - 0.9 cm LVPW Diastolic Thickness 1.1 cm 0.6 - 1.0 / 0.6 - 0.9 cm LV Relative Wall Thickness 0.5 LVOT Diameter 2.0 cm M-MODE Aortic Root Diameter MM 3.0 cm LA Systolic Diameter MM 6.3 cm LA Ao Ratio MM 2.1 AV Cusp Separation MM 1.8 cm DOPPLER AV Peak Velocity 209.4 cm/s AV Peak Gradient 17.5 mmHg AV Mean Velocity 148.4 cm/s AV Mean Gradient 10.0 mmHg AV Velocity Time Integral 48.6 cm LVOT Peak Velocity 150.0 cm/s LVOT Peak Gradient 9.0 mmHg LVOT Velocity Time Integral 32.8 cm LVOT Stroke Volume 99.7 cm??? LVOT Stroke Volume Index 47.1 ml/m??? LVOT Cardiac Index 2644.8 cm???/min???m??? AV Area Cont Eq vti 2.1 cm??? AV Area Cont Eq pk 2.2 cm??? MV Peak Velocity 165.4 cm/s MV Peak Gradient 10.9 mmHg MV Mean Velocity 83.4 cm/s MV Mean Gradient 3.6 mmHg MV Velocity Time Integral 45.8 cm MV Area PHT 2.1 cm??? Mitral E Point Velocity 141.6 cm/s MV Deceleration Time 325.3 ms LV E' Lateral Velocity 8.2 cm/s Mitral E to LV E' Lateral Ratio 17.2 LV E' Septal Velocity 8.1 cm/s Mitral E to LV E' Septal Ratio 17.5 TR Peak Velocity 280.2 cm/s TR Peak Gradient 31.4 mmHg Right Atrial Pressure 15.0 mmHg Pulmonary Artery Systolic Pressu 46.4 mmHg Right Ventricular Systolic Press 46.4 mmHg FINDINGS Left Ventricle Mildly increased left ventricular wall thickness. Left ventricular cavity size normal. Normal left ventricular systolic function with no obvious regional wall motion abnormalities. Left ventricular ejection fraction is estimated at 60- 65%. Right Ventricle Severe right ventricular dilatation. Catheter/pacemaker wire in the right ventricular cavity. Moderate pulmonary hypertension. Right Atrium Severe right atrial dilatation. Left Atrium Severe left atrial dilatation. Mitral Valve Mitral valve thickened. Mild mitral annular calcification. [id number] mitral regurgitation. Aortic Valve Aortic valve not well visualized. Aortic valve sclerosis. No aortic regurgitation. Tricuspid Valve Tricuspid valve not well visualized. Mild tricuspid regurgitation. Pulmonic Valve Pulmonic valve not well visualized. Pericardium Minimal pericardial effusion (normal variant). Aorta Normal size aortic root. CONCLUSIONS Normal LV function Mild to moderate mitral regurgitation Previewed by: Dr. Pepito Cross MD (Electronically Signed) Final Date: 15 June 2023 12:28
--- NOTE | 2023-06-15 15:51 | CT ---
EXAMINATION TYPE: CT foot LT wo con DATE OF EXAM: 06/15/2023 COMPARISON: None HISTORY: left foot cellulitis CT DLP: 301.3 mGycm Automated exposure control for dose reduction was used. Unenhanced CT of the left foot and ankle was performed with bone and soft tissue settings submitted in the axial, coronal and sagittal planes. FINDINGS: There is fracture of the os calcis with mild comminution seen involving the posterior body extending to the subtalar joint posteriorly. Displacement is noted at approximately 5 mm. No additional fractur es are seen with certainty within the [id number]. Ankle mortise is intact. There is diffuse soft t issue swelling noted about the left heel extending into the left ankle and distal tibiofibular region . Findings could simply be related to edema related to the aforementioned fracture however underlying cellulitis is not excluded. For drainable collection to suggest abscess. Ligamentous and tendinous s tructures appear grossly unremarkable on CT evaluation. IMPRESSION: 1. Mildly comminuted minimally displaced fracture of the body of the os calcis with surrounding soft tissue edema could be posttraumatic in nature and/or related to cellulitis. No evidence for abscess.
--- NOTE | 2023-06-15 16:41 | PN ---
PROGRESS NOTE DATE OF SERVICE: 06/15/2023 SUBJECTIVE: This is a 67-year-old woman, who was admitted with Strep viridans sepsis, also had a calcaneal fracture. The patient is closely monitored at this time. Most recent cultures are negative. A CAT scan of the foot is requested. PAST MEDICAL HISTORY: Reviewed. REVIEW OF SYSTEMS: Fourteen-point review is negative except as mentioned earlier. CURRENT MEDICATIONS: Reviewed include Eliquis. Doses and rest of the medications are noted. PHYSICAL EXAMINATION: VITAL SIGNS: Pulse is 61, blood pressure 122/65, respirations 20. HEENT: Conjunctivae are normal. NECK: No jugular venous distention. CARDIOVASCULAR: S1 and S2. RESPIRATORY: Breath sounds diminished at the bases. ABDOMEN: Soft and nontender. LEGS: No edema. NERVOUS SYSTEM: Nonfocal. LABORATORY DATA: Sodium 135. Rest of the labs are noted. Cultures with Strep viridans. A 2D echo read by Cardiology shows only [id number] mitral regurgitation. Other labs are noted. ASSESSMENT: 1. Streptococcus viridans sepsis. 2. Acute left ankle pain and calcaneus fracture. 3. Bilateral leg swelling. 4. Chronic congestive heart failure with preserved ejection fraction. 5. Hypertension. 6. History of cerebrovascular accident/transient ischemic attack. 7. Obesity. 8. Hypothyroidism. 9. Gait dysfunction. RECOMMENDATIONS: Recommend to continue current medications. Continue symptomatic treatment. Otherwise, most recent cultures are negative as mentioned earlier. I would recommend to repeat blood cultures and closely follow with Infectious Disease. Guarded prognosis. Further recommendations to follow. MMODL / IJN: [id number] /
--- NOTE | 2023-06-15 16:46 | P.PN ---
Subjective Progress Note Date: 06/15/23 Principal diagnosis: Reason for follow-up is a positive blood culture Patient is a 67-year-old female with a past medical history significant for atrial fibrillation asthma CVA TIA hypertension history of thyroid disorder , patient did have a chronic swelling to bilateral extremity and apparently was recently admitted at [facility] for left lower extremity cellulitis, now presented to hospital with acute left ankle pain has been diagnosed with a fracture also have a positive blood culture obtained this infectious disease consultation On today's evaluation that is06/15/2023, the patient denies any fever or any chills, the patient is breathing comfortably on room air without the need for supplemental oxygen, patient denies chest pain shortness of breath, the patient denies cough or sputum production, patient denies Abdominal pain, no nausea/vom iting or diarrhea, the patient pain to the left ankle area has decreased in intensity Patient did have a white count of 6.33 creatinine 0.72, blood culture repeat So far pending Objective - Vital Signs Vital signs: Vital Signs Temp 98.1 F 06/15/23 07:48 Pulse 61 06/15/23 08:00 Resp 20 06/15/23 08:00 BP 122/65 06/15/23 07:48 Pulse Ox 96 06/15/23 07:48 FiO2 Intake & Output 06/14/23 06/15/23 06/15/23 18:59 06:59 18:59 Intake Total 824 500 118 Output Total 500 Balance 824 0 118 Intake: Oral 824 500 118 Output: Urine 500 Other: Voiding Method Incontinent Incontinent Incontinent External Catheter External Catheter External Catheter - Exam GENERAL DESCRIPTION: An elderly female up in the bed in no distress RESPIRATORY SYSTEM: Unlabored breathing , clear to auscultation anteriorly HEART: S1 S2 regular rate and rhythm , ABDOMEN: Soft , no tenderness EXTREMITIES: Left ankle some swelling no redness no open wound - Labs CBC & Chem 7: 06/15/23 06:33 06/15/23 06:33 Labs: Abnormal Lab Results - Last 24 Hours (Table) 06/15/23 06/15/23 Range/Units 06:33 06:33 RBC 3.19 L (4.10-5.20) X 10*6/uL Hgb 9.1 L (12.0-15.0) g/dL Hct 31.4 L (37.2-46.3) % MCV 98.4 H (80.0-97.0) FL MCHC 29.0 L (32.0-37.0) g/dL RDW 15.4 H (11.5-14.5) % Sodium 135 L (137-145) mmol/L Calcium 7.9 L (8.4-10.2) mg/dL Total Protein 5.2 L (6.3-8.2) g/dL Albumin 2.4 L (3.5-5.0) g/dL Microbiology - Last 24 Hours (Table) 06/11/23 21:35 Blood Culture Gram Stain - Final Blood Blood Culture - Final Streptococcus viridans group Coagulase Negative Staph 06/11/23 21:50 Blood Culture Gram Stain - Final Blood Blood Culture - Final Viridans streptococcus group Assessment and Plan (1) Positive blood culture Current Visit: Yes Status: Acute Code(s): R78.81 - BACTEREMIA SNOMED Code(s): 920442515 Plan: 1patient with a positive blood culture x2 growing coagulase-negative staph and strep viridans likely contaminant as the patient did not have any fever and did have a normal white count, patient admitted to hospital with left ankle fracture did have some swelling but no redness no wound or any drainage was noticed 2blood culture had been repeated currently pending inflammatory markers are pending 3as the patient does not look toxic and no clinical evidence of infection we'll monitor the patient closely off antibiotic Dictation was produced using [employer] dictation software. please excuse any grammatical, word or spelling errors. Time with Patient: Less than 30
--- NOTE | 2023-06-15 19:50 | XR ---
EXAMINATION TYPE: XR chest 1V portable DATE OF EXAM: 06/15/2023 COMPARISON: 07/10/2022 INDICATION: Short of breath TECHNIQUE: Single frontal view of the chest is obtained. FINDINGS: The heart size is enlarged. Pacemaker overlies left chest. The pulmonary vasculature is upper limits of normal. The lungs are clear. IMPRESSION: 1. Cardiomegaly with borderline prominent pulmonary vascular markings. Correlate for volume overload.
[2023-06-15] MEDS: lisinopriL 5 MG TAB PO SCH (20:37)
[2023-06-16] MEDS: APIXABAN 5 MG TAB PO SCH ×2 (05:41→18:26)
[2023-06-16] MEDS: LEVOTHYROXINE 125 MCG TAB PO SCH (05:41)
[2023-06-16] MEDS: SYMBICORT 160-4.5 MCG INHALER INHALATION SCH ×2 (08:39→20:17)
[2023-06-16] MEDS: FUROSEMIDE 40 MG TAB PO SCH (09:07)
[2023-06-16] MEDS: FOLIC ACID 1 MG TAB PO SCH (09:07)
[2023-06-16] MEDS: ATORVASTATIN 20 MG TAB PO SCH (09:07)
[2023-06-16] MEDS: CYANOCOBALAMIN 500 MCG TAB PO SCH (09:07)
[2023-06-16] MEDS: FERROUS SULFATE 325 MG TAB PO SCH (09:07)
[2023-06-16] MEDS: MONTELUKAST 10 MG TAB PO SCH (09:08)
[2023-06-16] MEDS: PARoxetine 10 MG TAB PO SCH ×2 (09:08→20:25)
[2023-06-16] MEDS: POTASSIUM CHLORIDE ER 20 MEQ TAB.ER PO SCH (09:08)
[2023-06-16] MEDS: PANTOPRAZOLE 40 MG TABLET PO SCH (09:08)
[2023-06-16] MEDS: NYSTATIN 100,000 UNIT/GM POWD 15 GM TOPICAL SCH ×2 (09:09→20:25)
[2023-06-16] MEDS: lisinopriL 5 MG TAB PO SCH (20:25)
[2023-06-17] MEDS: APIXABAN 5 MG TAB PO SCH (05:48)
[2023-06-17] MEDS: LEVOTHYROXINE 125 MCG TAB PO SCH (05:48)
--- NOTE | 2023-06-17 06:15 | P.PN ---
Subjective Progress Note Date: 06/16/23 This is a 67-year-old female who was admitted with increased left lower extremity swelling in foot pain with concerns of initially cellulitis and unable to bear weight on the left lower extremity. Patient seen and evaluated by orthopedics with concerns of calcaneal fracture recommend using the specialty boot with no immediate plans for surgical intervention. Infectious disease also following as blood culture showing strep viridians with no white count of surrounding redness of the left lower extremity feels the blood cultures may be contaminant and being closely monitored off antibiotics. Repeat blood cultures pending. Patient with extreme weakness with inability to place weight on lower extremity recommending rehab and patient is now agreeable. Patient will be going to [place] and currently awaiting insurance authorization. Patient is currently afebrile with no reports of chest pain or shortness of breath. Review of systems: Constitutional: No reports of fatigue, fever, or chills Cardiovascular: No reports of chest pain or palpitations Respiratory: No reports of shortness of breath or cough GI: No reports of nausea, no reports of vomiting, no diarrhea : No reports of dysuria or retention Neurovascular: reports of generalized weakness, reports continued left lower extremity pain and swelling although slightly improved on swelling All medications have been reviewed PHYSICAL EXAMINATION: GENERAL: The patient is alert and oriented x4, Well developed, well nourished. Obese HEENT: Pupils are round and equally reacting to light. EOMI. no scleral icterus. No conjunctival pallor. Normocephalic, atraumatic. No pharyngeal erythema. No thyromegaly. CARDIOVASCULAR: S1 and S2 muffled PULMONARY: diminished breath sounds bilaterally with no wheezing or rhonchi noted. ABDOMEN: soft. Nontender on exam. obese. non-distended, normoactive bowel sounds. No palpable organomegaly. MUSCULOSKELETAL: No joint swelling or deformity. EXTREMITIES: No cyanosis, clubbing, left lower extremity somewhat more swollen with no surrounding redness and swelling slightly improved NEUROLOGICAL: Gross neurological examination did not reveal any focal deficits. Diffuse weakness SKIN: No rashes. Assessment: Streptococcus viridans sepsis, present on admission, possible contamination Acute left ankle pain and calcaneus fracture Bilateral leg swelling Chronic congestive heart failure with preserved EF Hypertension History of CVA/TIA Obesity with BMI of 39.1 Hypothyroidism history Gait dysfunction with generalized weakness GI prophylaxis DVT prophylaxis Full code Plan: Recommend to continue with current medications and management with orthopedics and infectious disease following. Orthopedics has evaluated with no plans of immediate surgical intervention recommending outpatient follow-up. CT of the left foot obtained showing a mildly comminuted minimally displaced fracture of the body of the os calcis with surrounding soft tissue edema that could be posttraumatic in nature with no evidence of abscess. Specialty boot was ordered and will follow-up with orthopedics recommending discharge weightbearing restrictions of the left lower extremity Infectious disease following with repeat blood cultures ordered and feels initial blood cultures were likely contaminated as patient is afebrile with no white count and there is no increased redness of the left lower extremity. Patient currently being maintained and closely monitored off antibiotic therapy Will follow-up with repeat labs Social work following and has submitted for insurance authorization is patient has been accepted at her left ECF Recommend PT/OT therapy daily Will add Os-Jonatan plus vitamin D twice daily. Due to multiple complex medical issues, prognosis is guarded Possible discharge planning in the next 24-48 hours The impression and plan of care has been dictated by Gi Noriega, nurse practitioner as directed. Dr. Real MD I have performed a history and examination and MDM of this patient, discussed the same with the dictator, and agree with the dictator's assessment and plan as written ,documented as a scribe. Based on total visit time, I have performed more than 50% of the visit. Any additional findings or plans will be noted. Objective - Vital Signs Vital signs: Vital Signs Temp 97.9 F 06/17/23 01:55 Pulse 61 06/17/23 01:55 Resp 15 06/17/23 01:55 BP 145/82 06/17/23 01:55 Pulse Ox 95 06/17/23 01:55 FiO2 Intake & Output 06/16/23 06/16/23 06/17/23 06:59 18:59 06:59 Intake Total 236 Output Total 750 200 Balance -750 36 Intake: Oral 236 Output: Urine 750 200 Other: Voiding Method Incontinent Incontinent Incontinent External Catheter External Catheter External Catheter - Labs CBC & Chem 7: 06/15/23 06:33 06/15/23 06:33 Labs: Microbiology - Last 24 Hours (Table) 06/14/23 06:21 Blood Culture - Preliminary Blood 06/14/23 14:30 Urine Culture - Final Urine,Voided
[2023-06-17] MEDS ORDERED: CALCIUM CARB-VIT D 500 MG-5 MCG TAB PO SCH (07:30)
[2023-06-17 08:03] VITALS: RESP 16
[2023-06-17] MEDS: SYMBICORT 160-4.5 MCG INHALER INHALATION SCH (08:31)
[2023-06-17] MEDS: FOLIC ACID 1 MG TAB PO SCH (10:21)
[2023-06-17] MEDS: PANTOPRAZOLE 40 MG TABLET PO SCH (10:21)
[2023-06-17] MEDS: FERROUS SULFATE 325 MG TAB PO SCH (10:21)
[2023-06-17] MEDS: PARoxetine 10 MG TAB PO SCH (10:21)
[2023-06-17] MEDS: CYANOCOBALAMIN 500 MCG TAB PO SCH (10:22)
[2023-06-17] MEDS: FUROSEMIDE 40 MG TAB PO SCH (10:22)
[2023-06-17] MEDS: ATORVASTATIN 20 MG TAB PO SCH (10:22)
[2023-06-17] MEDS: NYSTATIN 100,000 UNIT/GM POWD 15 GM TOPICAL SCH (10:22)
[2023-06-17] MEDS: MONTELUKAST 10 MG TAB PO SCH (10:22)
[2023-06-17] MEDS: POTASSIUM CHLORIDE ER 20 MEQ TAB.ER PO SCH (10:22)
[2023-06-17] MEDS ORDERED: FUROSEMIDE 10 MG/ML 4 ML VIAL IV STA (12:34)
--- NOTE | 2023-06-17 12:44 | P.DS ---
Providers Date of admission: 06/13/23 12:54 Expected date of discharge: 06/17/23 Attending physician: Arnoldo Noble Consults: 06/12/23 08:47 Consult Physician Routine Consulting Provider: Hong Abad Consult Reason/Comments: left ankle fracture Do you want consulting provider notified?: Yes 06/13/23 23:51 Consult Physician Routine Consulting Provider: Jewel Wright Consult Reason/Comments: Strep Bacteremia,Con vs true infevtion Do you want consulting provider notified?: Yes Primary care physician: Alicia Isaac Hospital Course: Final diagnosis Streptococcus viridans sepsis, present on admission, most likely contamination with repeat cultures being negative Acute left ankle pain and calcaneus fracture Bilateral leg swelling Chronic congestive heart failure with preserved EF Hypertension History of CVA/TIA Obesity with BMI of 39.1 Hypothyroidism history Gait dysfunction with generalized weakness GI prophylaxis DVT prophylaxis Full code Discharge disposition Patient is being discharged in a stable condition with guarded prognosis to [facility]. Patient will follow-up with Dr. Isaac in the outpatient setting upon discharge. Patient is to continue with nonweightbearing to the left lower extremity along with the boot and close outpatient follow-up with surgeon Dr. Ritter in one week as scheduled. Total time taken is greater than 35 minutes. Hospital course This is a 67-year-old female who was recently admitted with left foot pain and swelling and unable to bear weight with fall also with concerns of cellulitis. Patient with significant swelling and was found to have a calcaneal fracture on the left and was seen and evaluated by orthopedics recommend no immediate surgical intervention and nonweightbearing with outpatient follow-up. Patient had CT of the left foot showing mildly comminuted minimally displaced fracture of the body of the os calcis along with soft tissue edema that could be posttraumatic. Patient was a concern for cellulitis of that left lower extremity with a significant swelling although there is no redness and patient did have initial positive blood cultures that were likely contaminated with infectious disease following. Patient is being monitored off IV antibiotics and will follow-up in the outpatient setting. Patient has been instructed to elevate lower extremity while at rest and follow-up with podiatry surgeon in the outpatient setting in 1 week. Please refer to the consultation notes for further HPI. Patient with significant weakness initially wanting to go home although agreeable to rehab as physical therapy evaluated her recommending rehab. Patient was accepted with insurance authorization obtained for [facility]. Currently no reports of chest pain, shortness of breath, or palpita tions. Patient is afebrile. No reports of nausea or vomiting and patient is tolerating diet. Patient will be going to [facility] today. Guarded prognosis Physical exam: Gen: This is a 67-year-old female who is awake, alert and oriented 3, well- developed, well-nourished, obese HEENT: Head is atraumatic, normocephalic. Pupils equal, round. Sclerae is anicteric. NECK: Supple. No JVD. No lymphadenopathy. No thyromegaly. LUNGS: Clear to auscultation. No wheezes or rhonchi. No intercostal retractions. HEART: Regular rate and rhythm. No murmur. ABDOMEN: Soft. Bowel sounds are present. No masses. No tenderness. EXTREMITIES: No pedal edema. No calf tenderness. Left lower extremity swelling although improved with no significant redness or breaks in the skin noted diffusely weak NEUROLOGICAL: Patient is awake, alert and oriented x3. Cranial nerves 2 through 12 are grossly intact. Please refer to medication reconciliation sheet for a list of medications. The impression and plan of care has been dictated by Gi Noriega, Nurse Practitioner as directed. Dr. Real MD I have performed a history and examination and MDM of this patient, discussed the same with the dictator, and agree with the dictator's assessment and plan as written ,documented as a scribe. Based on total visit time, I have performed more than 50% of the visit. Patient Condition at Discharge: Stable Plan - Discharge Summary New Discharge Prescriptions: New Acetaminophen Tab [Tylenol] 650 mg PO Q6HR PRN tab PRN Reason: Mild Pain Or Fever > 100.5 Albuterol Nebulized [Ventolin Nebulized] 2.5 mg INHALATION RT-Q6H PRN ml PRN Reason: Shortness Of Breath Multivitamins, Thera [Multivitamin] 1 tab PO DAILY #30 tablet Calcium Carb-Vit D 500Mg-5Mcg [Oscal 500+D 5 Mcg (200 Iu)] 1 each PO BID- W/MEALS tab Continue lisinopriL [Prinivil] 5 mg PO HS Apixaban [Eliquis] 5 mg PO AC-BID Albuterol Inhaler [Ventolin Hfa Inhaler] 2 puff INHALATION RT-Q6H PRN PRN Reason: Shortness Of Breath PARoxetine HCL [Paxil Cr] 25 mg PO DAILY Budesonide/Formoterol Fumarate [Symbicort 160-4.5 Mcg Inhaler] 2 puff INHALATION RT-BID Miconazole 2% Powder 1 applic TOPICAL BID Folic Acid 1 mg PO DAILY Levothyroxine Sodium [Synthroid] 125 mcg PO DAILY Furosemide [Lasix] 40 mg PO DAILY Montelukast [Singulair] 10 mg PO DAILY Ferrous Sulfate [Iron (65 MG Elemental)] 325 mg PO DAILY Potassium Chloride ER [K-Dur 20] 20 meq PO DAILY Cyanocobalamin [Vitamin B-12] 500 mcg PO DAILY Atorvastatin [Lipitor] 20 mg PO DAILY Omeprazole 40 mg PO DAILY Aspirin EC [Ecotrin Low Dose] 81 mg PO DAILY Discharge Medication List Albuterol Inhaler [Ventolin Hfa Inhaler] 2 puff INHALATION RT-Q6H PRN 11/10/17 [History] Apixaban [Eliquis] 5 mg PO AC-BID 11/10/17 [History] Budesonide/Formoterol Fumarate [Symbicort 160-4.5 Mcg Inhaler] 2 puff INHALATION RT-BID 11/10/17 [History] PARoxetine HCL [Paxil Cr] 25 mg PO DAILY 11/10/17 [History] lisinopriL [Prinivil] 5 mg PO HS 11/10/17 [History] Furosemide [Lasix] 40 mg PO DAILY 07/10/22 [History] Aspirin EC [Ecotrin Low Dose] 81 mg PO DAILY 06/11/23 [History] Atorvastatin [Lipitor] 20 mg PO DAILY 06/11/23 [History] Cyanocobalamin [Vitamin B-12] 500 mcg PO DAILY 06/11/23 [History] Ferrous Sulfate [Iron (65 MG Elemental)] 325 mg PO DAILY 06/11/23 [History] Folic Acid 1 mg PO DAILY 06/11/23 [History] Levothyroxine Sodium [Synthroid] 125 mcg PO DAILY 06/11/23 [History] Miconazole 2% Powder 1 applic TOPICAL BID 06/11/23 [History] Montelukast [Singulair] 10 mg PO DAILY 06/11/23 [History] Omeprazole 40 mg PO DAILY 06/11/23 [History] Potassium Chloride ER [K-Dur 20] 20 meq PO DAILY 06/11/23 [History] Acetaminophen Tab [Tylenol] 650 mg PO Q6HR PRN tab 06/17/23 [Rx] Albuterol Nebulized [Ventolin Nebulized] 2.5 mg INHALATION RT-Q6H PRN ml 06/17/23 [Rx] Calcium Carb-Vit D 500Mg-5Mcg [Oscal 500+D 5 Mcg (200 Iu)] 1 each PO BID-W/MEALS tab 06/17/23 [Rx] Multivitamins, Thera [Multivitamin] 1 tab PO DAILY #30 tablet 06/17/23 [Rx] Follow up Appointment(s)/Referral(s): Nico Ritter DPM [Doctor of Osteopathic Medicine] - 1 Week Alicia Isaac MD [Primary Care Provider] - 1-2 days Activity/Diet/Wound Care/Special Instructions: walking boot, ice, elevate Nonweightbearing F/U with Dr. Ritter in office Patient is going to [facility] Activity as tolerated with restrictions per orthopedics Continue to elevate left lower extremity Continue medication as prescribed Discharge Disposition: TRANSFER TO SNF/ECF
--- NOTE | 2023-06-17 15:16 | P.PN ---
Subjective Progress Note Date: 06/16/23 Principal diagnosis: Reason for follow-up is a positive blood culture Patient is a 67-year-old female with a past medical history significant for atrial fibrillation asthma CVA TIA hypertension history of thyroid disorder , patient did have a chronic swelling to bilateral extremity and apparently was recently admitted at [facility] for left lower extremity cellulitis, now presented to hospital with acute left ankle pain has been diagnosed with a fracture also have a positive blood culture obtained this infectious disease consultation On today's evaluation that is 06/16/2023, the patient remains to be febrile, the patient is breathing comfortably on room air. The patient denies having any shortness of breath no chest pain or cough, patient denies Abdominal pain, no nausea/vomiting or diarrhea the patient pain to the left ankle area has decrea sed in intensity Patient did have a white count of 6.33 creatinine 0.72 as of 06/15/2023, blood culture repeat 06/15/2023 as well as 06/14/2023 So far pending Objective - Vital Signs Vital signs: Vital Signs Temp 98.4 F 06/16/23 08:00 Pulse 65 06/16/23 08:00 Resp 20 06/16/23 08:00 BP 147/73 06/16/23 08:00 Pulse Ox 97 06/16/23 08:00 FiO2 Intake & Output 06/15/23 06/16/23 06/16/23 18:59 06:59 18:59 Intake Total 236 Output Total 200 750 Balance 36 -750 Intake: Oral 236 Output: Urine 200 750 Other: Voiding Method Incontinent Incontinent Incontinent External Catheter External Catheter External Catheter # Bowel Movements 1 - Exam GENERAL DESCRIPTION: An elderly female up in the bed in no distress RESPIRATORY SYSTEM: Unlabored breathing , clear to auscultation anteriorly HEART: S1 S2 regular rate and rhythm , ABDOMEN: Soft , no tenderness EXTREMITIES: Left ankle some swelling no redness no open wound - Labs CBC & Chem 7: 06/15/23 06:33 06/15/23 06:33 Labs: Abnormal Lab Results - Last 24 Hours (Table) 06/15/23 06/15/23 Range/Units 06:33 15:28 RBC 3.19 L (4.10-5.20) X 10*6/uL Hgb 9.1 L (12.0-15.0) g/dL Hct 31.4 L (37.2-46.3) % MCV 98.4 H (80.0-97.0) FL MCHC 29.0 L (32.0-37.0) g/dL RDW 15.4 H (11.5-14.5) % C-Reactive Protein 1.8 H (<1.0) mg/dL Microbiology - Last 24 Hours (Table) 06/14/23 14:30 Urine Culture - Final Urine,Voided 06/14/23 06:21 Blood Culture - Preliminary Blood Assessment and Plan (1) Positive blood culture Current Visit: Yes Status: Acute Code(s): R78.81 - BACTEREMIA SNOMED Code(s): 581016929 Plan: 1patient with a positive blood culture x2 growing coagulase-negative staph and strep viridans likely contaminant as the patient did not have any fever and did have a normal white count, patient admitted to hospital with left ankle fracture did have some swelling but no redness no wound or any drainage was noticed 2blood culture had been repeated currently pending, patient did have a normal sed rate of 13 that would go against Osteomyelitis CT of the foot was negative for any abscess 3we will continue to monitor the patient closely off antibiotic Dictation was produced using [employer] dictation software. please excuse any grammatical, word or spelling errors. Time with Patient: Less than 30
--- NOTE | 2023-06-17 15:17 | P.PN ---
Subjective Progress Note Date: 06/17/23 Principal diagnosis: Reason for follow-up is a positive blood culture Patient is a 67-year-old female with a past medical history significant for atrial fibrillation asthma CVA TIA hypertension history of thyroid disorder , patient did have a chronic swelling to bilateral extremity and apparently was recently admitted at [facility] for left lower extremity cellulitis, now presented to hospital with acute left ankle pain has been diagnosed with a fracture also have a positive blood culture obtained this infectious disease consultation On today's evaluation that is 06/17/2023, the patient denies any fever or any chills, the patient is breathing comfortably on room air and denies any shortness of breath, the patient denies any chest pain, no cough or sputum production, patient denies nausea/vomiting /diarrhea and no abdominal pain, the patient pain to the left ankle area has decreased in intensity and feeling better Patient did have a white count of 6.33 creatinine 0.72 as of 06/15/2023, blood culture repeat 06/15/2023 as well as 06/14/2023 So far negative Objective - Vital Signs Vital signs: Vital Signs Temp 98.1 F 06/17/23 07:40 Pulse 58 L 06/17/23 07:40 Resp 16 06/17/23 07:40 BP 117/72 06/17/23 07:40 Pulse Ox 94 L 06/17/23 07:40 FiO2 Intake & Output 06/16/23 06/17/23 06/17/23 18:59 06:59 18:59 Intake Total 236 240 Output Total 200 300 Balance 36 -300 240 Intake: Oral 236 240 Output: Urine 200 300 Other: Voiding Method Incontinent Incontinent Incontinent External Catheter External Catheter External Catheter - Exam GENERAL DESCRIPTION: An elderly female up in the bed in no distress RESPIRATORY SYSTEM: Unlabored breathing , clear to auscultation anteriorly HEART: S1 S2 regular rate and rhythm , ABDOMEN: Soft , no tenderness EXTREMITIES: Left ankle some swelling no redness no open wound - Labs CBC & Chem 7: 06/15/23 06:33 06/15/23 06:33 Labs: Microbiology - Last 24 Hours (Table) 06/14/23 06:21 Blood Culture - Preliminary Blood Assessment and Plan (1) Positive blood culture Current Visit: Yes Status: Acute Code(s): R78.81 - BACTEREMIA SNOMED Code(s): 604676280 Plan: 1patient with a positive blood culture x2 growing coagulase-negative staph and strep viridans likely contaminant as the patient did not have any fever and did have a normal white count, patient admitted to hospital with left ankle fracture did have some swelling but no redness no wound or any drainage was noticed 2blood culture repeat has been negative, patient did have a normal sed rate of 13 that would go against Osteomyelitis , CT of the foot was negative for any abscess 3no need for antibiotics on discharge Dictation was produced using [employer] dictation software. please excuse any grammatical, word or spelling errors. Time with Patient: Less than 30
[2023-06-17 16:06] VITALS: BP 147/73; PULSE 66; TEMP 98.4
== END 2023-06-17 16:25 | disposition swing bed (61) | DRG 563 ==
LOC: EC 17:14 → 6NMEDSUR 20:26 → OBSVTOIN 06-13 12:54
PROVIDERS: ADMIT Hospitalist; ATTEND Hospitalist
DX: S92.002A Unspecified fracture of left calcaneus, initial encounter for closed fracture (principal); I50.32 Chronic diastolic (congestive) heart failure; I11.0 Hypertensive heart disease with heart failure; E03.9 Hypothyroidism, unspecified; E66.01 Morbid (severe) obesity due to excess calories; I48.91 Unspecified atrial fibrillation; Z28.310 Unvaccinated for COVID-19; F41.9 Anxiety disorder, unspecified; E78.5 Hyperlipidemia, unspecified; I25.10 Atherosclerotic heart disease of native coronary artery without angina pectoris; J45.909 Unspecified asthma, uncomplicated; R32 Unspecified urinary incontinence; Z68.39 Body mass index [BMI] 39.0-39.9, adult; Z79.01 Long term (current) use of anticoagulants; Z79.82 Long term (current) use of aspirin; Z79.51 Long term (current) use of inhaled steroids; Z79.890 Hormone replacement therapy; Z79.899 Other long term (current) drug therapy; Z95.0 Presence of cardiac pacemaker; Z86.73 Personal history of transient ischemic attack (TIA), and cerebral infarction without residual deficits; Z88.1 Allergy status to other antibiotic agents; Z88.0 Allergy status to penicillin
CPT/HCPCS: 36415; 71045; 80048; 80053; 81003; 82306; 83605; 83735; 84132; 84145; 85025; 85027; 85652; 86060; 86140; 87040; 87077; 87086; 87186; 93005; 93306; 94640; 96365; 96366; 99285

== ENCOUNTER 2024-03-13 10:27 | Inpatient (IN) | payer MEDICARE ==
[2024-03-13] MEDS ORDERED: HEPARIN SODIUM 1,000 UN/ML (10ML VL) IV PRN (10:47)
--- NOTE | 2024-03-13 10:50 | ED ---
General Adult HPI - General Chief complaint: Chest Pain Stated complaint: chest pain-transfer Time Seen by Provider: 03/13/24 10:30 Source: patient, EMS Mode of arrival: EMS Limitations: no limitations - History of Present Illness Initial comments: Dictation was produced using [employer] dictation software. please excuse any grammatical, word or spelling errors. Chief Complaint: 68-year-old female transferred from outside emergency room for NSTEMI and chest pain History of Present Illness: Patient 68-year-old female past medical history of pacemaker states that for the last several hours she has been having chest pain. Patient's describes the pain as sharp. She was seen at [facility] where she was found to have elevated troponin. She was given nitroglycerin and morphine which took the edge off the pain. 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 Patient [place] any history of coronary artery stents. She does not know of any coronary artery disease. States she had a cat at [facility] several years ago. Patient did report that her symptoms radiate down the left arm. The ROS documented in this emergency department record has been reviewed and confirmed by me. Those systems with pertinent positive or negative responses have been documented in the HPI. All other systems are other negative and/or noncontributory. - Related Data Home Medications Medication Instructions Recorded Confirmed Albuterol Inhaler [Ventolin Hfa 2 puff INHALATION RT-Q6H PRN 11/10/17 06/11/23 Inhaler] Apixaban [Eliquis] 5 mg PO AC-BID 11/10/17 06/11/23 Budesonide/Formoterol Fumarate 2 puff INHALATION RT-BID 11/10/17 06/11/23 [Symbicort 160-4.5 Mcg Inhaler] PARoxetine HCL [Paxil Cr] 25 mg PO DAILY 11/10/17 06/11/23 lisinopriL [Prinivil] 5 mg PO HS 11/10/17 06/11/23 Furosemide [Lasix] 40 mg PO DAILY 07/10/22 06/11/23 Aspirin EC [Ecotrin Low Dose] 81 mg PO DAILY 06/11/23 06/11/23 Atorvastatin [Lipitor] 20 mg PO DAILY 06/11/23 06/11/23 Cyanocobalamin [Vitamin B-12] 500 mcg PO DAILY 06/11/23 06/11/23 Ferrous Sulfate [Iron (65 MG 325 mg PO DAILY 06/11/23 06/11/23 Elemental)] Folic Acid 1 mg PO DAILY 06/11/23 06/11/23 Levothyroxine Sodium [Synthroid] 125 mcg PO DAILY 06/11/23 06/11/23 Miconazole 2% Powder 1 applic TOPICAL BID 06/11/23 06/11/23 Montelukast [Singulair] 10 mg PO DAILY 06/11/23 06/11/23 Omeprazole 40 mg PO DAILY 06/11/23 06/11/23 Potassium Chloride ER [K-Dur 20] 20 meq PO DAILY 06/11/23 06/11/23 Previous Rx's Medication Instructions Recorded Acetaminophen Tab [Tylenol] 650 mg PO Q6HR PRN tab 06/17/23 Albuterol Nebulized [Ventolin 2.5 mg INHALATION RT-Q6H PRN ml 06/17/23 Nebulized] Calcium Carb-Vit D 500Mg-5Mcg 1 each PO BID-W/MEALS tab 06/17/23 [Oscal 500+D 5 Mcg (200 Iu)] Multivitamins, Thera [Multivitamin] 1 tab PO DAILY #30 tablet 06/17/23 Allergies Allergy/AdvReac Type Severity Reaction Status Date / Time ciprofloxacin [From Cipro] Allergy Rash/Hives Verified 03/13/24 10:47 Penicillins Allergy Rash/Hives Verified 03/13/24 10:47 all over body Review of Systems ROS Statement: Those systems with pertinent positive or pertinent negative responses have been documented in the HPI. ROS Other: All systems not noted in ROS Statement are negative. Past Medical History Past Medical History: Atrial Fibrillation, Asthma, CVA/TIA, Hypertension, Thyroid Disorder Additional Past Medical History / Comment(s): cellulitis of bilateral legs History of Any Multi-Drug Resistant Organisms: None Reported Past Surgical History: Ablation, Cholecystectomy, Hysterectomy, Pacemaker Past Anesthesia/Blood Transfusion Reactions: Postoperative Nausea & Vomiting (PONV) Type of Cardiac Device: Permanent Pacemaker Device Placement Date:: 04/2023 Past Psychological History: Anxiety Smoking Status: Never smoker Past Alcohol Use History: None Reported Past Drug Use History: None Reported - Past Family History Mother Family Medical History: Unable to Obtain General Exam - General Exam Comments Initial Comments: PHYSICAL EXAM: General Impression: Alert and oriented x3, not in acute distress HEENT: Normocephalic atraumatic, extra-ocular movements intact, pupils equal and reactive to light bilaterally, mucous membranes moist. Cardiovascular: Heart regular rate and rhythm Chest: Able to complete full sentences, no retractions, no tachypnea Abdomen: abdomen soft, non-tender, non-distended, no organomegaly Musculoskeletal: Pulses present and equal in all extremities, no peripheral edema Motor: no focal deficits noted Neurological: CN II-XII grossly intact, no focal motor or sensory deficits noted Skin: Intact with no visualized rashes Psych: Normal affect and mood Limitations: no limitations Course Vital Signs 03/13/24 10:29 Pulse Rate 68 Respiratory 20 Rate Blood Pressure 119/62 O2 Sat by Pulse 100 Oximetry EKG Findings - EKG Comments: EKG Findings:: My EKG interpretation: Ventricular rate 65, ventricular paced rhythm, QRS 137, QTc 45. No UT prolongation, no QTC prolongation, no ST or T- wave changes noted. EKG compared to June 11, 2023 showing no changes. Overall, this EKG is unremarkable Medical Decision Making - Medical Decision Making Was pt. sent in by a medical professional or institution (, PA, MANAGER ANIMATION, urgent care, hospital, or jail...) When possible be specific @ -No Did you speak to anyone other than the patient for history (EMS, parent, family, police, friend...)? What history was obtained from this source @ -Spoke with transferring ER physician, Dr. Ferraro Did you review nursing and triage notes (agree or disagree)? Why? @ -I reviewed and agree with nursing and triage notes Were old charts reviewed (outside hosp., previous admission, EMS record, old EKG, old radiological studies, urgent care reports/EKG's, jail records)? Report findings @ -Chest per documentation from outside ER were reviewed Differential Diagnosis (chest pain, altered mental status, abdominal pain women, abdominal pain men, vaginal bleeding, musculoskeletal, weakness, fever, dyspnea, syncope, headache, dizziness, GI bleed, back pain, seizure, CVA, palpatations, mental health)? @ -Differential Chest Pain: Stable Angina, Unstable Angina, STEMI, NSTEMI Aortic Dissection, Pneumothorax, Musculoskeletal, Esophageal Spasm GERD, Cholecystitis, Pancreatitis, Zoster, this is not meant to be an all-inclusive list. EKG interpreted by me (3pts min.). @ -See above X-rays interpreted by me (1pt min.). @ -None done CT interpreted by me (1pt min.). @ -None done U/S interpreted by me (1pt. min.). @ -None done What testing was considered but not performed or refused? (CT, X-rays, U/S, labs)? Why? @ -None What meds were considered but not given or refused? Why? @ -None Was smoking cessation discussed for >3mins.? @ -No Were there social determinants of health that impacted care today? How? (Homelessness, low income, unemployed, alcoholism, drug addiction, transportation, low edu. Level, literacy, decrease access to med. care, long term, rehab)? @ -No Was there de-escalation of care discussed even if they declined (Discuss DNR or withdrawal of care, Hospice)? DNR status @ -No What co-morbidities impacted this encounter? (DM, HTN, Smoking, COPD, CAD, Cancer, CVA, ARF, Chemo, Hep., AIDS, mental health diagnosis, sleep apnea, morbid obesity)? @ -None Was patient admitted / discharged? Hospital course, mention meds given and route, prescriptions, significant lab abnormalities, going to OR and other pertinent info. @ -68-year-old female transferred from outside emergency room for NSTEMI/unstable angina. Vital signs upon arrival within acceptable limits. Patient well-appearing at the bedside. She is in no acute distress. Patient transferred on nitroglycerin. Patient started heparin. Transfer documentation was reviewed. Case discussed in detail with Dr. Cross at approximately 11:00 AM. Patient will be admitted to [facility] hospitalist group Did you discuss the management of the patient with other professionals (professionals i.e. , PA, MANAGER ANIMATION, lab, RT, psych nurse, health care social worker, electronics technology department chair, teacher, diplomatic officer, correctional case records supervisor)? Give summary @ -See above Was critical care preformed (if so, how long)? @ -Yes, 33 minutes Undiagnosed new problem with uncertain prognosis? @ -No Drug Therapy requiring intensive monitoring for toxicity (Heparin, Nitro, Insulin, Cardizem)? @ -No Were any procedures done? @ -No Diagnosis/symptom? Acute, or Chronic, or Acute on Chronic? Uncomplicated (without systemic symptoms) or Complicated (systemic symptoms)? @ -NSTEMI Side effects of treatment? @ -No Exacerbation, Progression, or Severe Exacerbation? @ -No Poses a threat to life or bodily function? How? (Chest pain, [place], [place], pneumonia, PE, COPD, DKA, ARF, appy, cholecystitis, CVA, Diverticulitis, Homicidal, Suicidal, threat to staff... and all critical care pts) @ -yes Disposition Clinical Impression: Chest pain Disposition: ADMITTED IP TO THIS HOSP Condition: Serious Referrals: Alicia sIaac MD [Primary Care Provider] - 1-2 days Decision Time: 11:20
[2024-03-13] MEDS: NITROGLYCERIN-D5W PMX 50 MG in DEXTROSE/WATER 1 250ML.BAG IV ONE (11:15)
[2024-03-13] MEDS ORDERED: NITROGLYCERIN SL TABS 0.4 MG TAB SUBLINGUAL PRN ×2 (11:16→11:53)
[2024-03-13] MEDS: HEPARIN SODIUM 1,000 UN/ML (10ML VL) IV ONE ×2 (11:23→12:59)
[2024-03-13] MEDS: HEPARIN SOD,PORK IN 0.45% NACL 25,000 UNIT in 0.45% NACL 1 250ML.BAG IV SCH (11:24)
[2024-03-13] MEDS ORDERED: ALPRAZolam 0.5 MG TAB PO PRN (11:53)
[2024-03-13] MEDS ORDERED: ALPRAZolam 0.25 MG TAB PO PRN (11:53)
[2024-03-13] MEDS: ASPIRIN 325 MG TAB PO STA (12:02)
--- NOTE | 2024-03-13 12:02 | P.CRDCN ---
History of Present Illness Consult date: 03/13/24 Consult reason: chest pain History of present illness: This is a 68-year-old female patient of Dr. Velázquez with past medical history of permanent atrial fibrillation on oral anticoagulation with Eliquis, permanent pacemaker, hypertension, valvular heart disease, overweight, left lower extremity chronic lymphedema. Patient was recently established with Dr. Velázquez in October of this year. She was previously seen by photographer still in [place] and had previous cardiac cath and stress testing done and results are unknown. Patient developed chest pain with radiation to the left arm and back that started around 4 AM today. She states she still has some but less severe. Her last Eliquis was taken last evening. Patient was initially seen at [facility] and lab work as follows: Troponin 0.58, BUN 0.9, potassium 4.3, sodium 136. WBC 6.5, hemoglobin 12.2, platelet count 218. CT of the head and neck showed no acute abnormality. Blood pressure 106/65, heart rate 60, pulse ox 100% on 2 L nasal cannula. Patient has been started on nitroglycerin drip and heparin drip. EKG: Ventricularly paced rhythm Home cardiac medications based on office note dated 10/22/2023: Eliquis 5 mg twice daily, pravastatin 20 mg daily, also on levothyroxine 150 mcg daily. Echocardiogram performed 06/14/2023 revealed EF of 60 to 65%, mild to moderate mitral regurgitation. Review Of Systems: At the time of my exam: CONSTITUTIONAL: Denies fever or chills. HEENT: Denies blurred vision, vision changes, or eye pain. Denies hemoptysis CARDIOVASCULAR: Reports chest pain. Denies orthopnea. Denies PND. Denies palpitations RESPIRATORY: Denies shortness of breath. GASTROINTESTINAL: Denies abdominal pain. Denies nausea or vomiting. HEMATOLOGIC: Denies bleeding disorders. GENITOURINARY: Denies any blood in urine. SKIN: Denies puritis. Denies rash. Physical examination: Gen: This is a 68-year-old female in no acute distress VS: reviewed HEENT: Head is atraumatic, normocephalic. Pupils equal, round. Sclerae is anicteric. NECK: Supple. No JVD. LUNGS: Clear to auscultation. No wheezes or rhonchi. No intercostal retractions. HEART: Regular rate and rhythm. Systolic murmur. ABDOMEN: Soft No tenderness. EXTREMITIES: Chronic left lower extremity lymphedema. No calf tenderness. NEUROLOGICAL: Patient is awake, alert and oriented x3. Assessment: Non-ST elevated myocardial infarction Permanent atrial fibrillation Permanent pacemaker Hypertension Valvular heart disease Chronic left lower extremity lymphedema Plan: Resume patient's home cardiac medications Schedule patient for left heart cath with Dr. Velázquez today at noon Discontinue heparin drip Obtain 2-D echocardiogram and Doppler study to assess cardiac structure and function Further recommendations to follow based upon clinical course Thank you kindly for this consultation. Nurse practitioner note has been reviewed, I agree with documented findings and plan of care. Patient was seen and examined. Past Medical History Past Medical History: Atrial Fibrillation, Asthma, CVA/TIA, Hypertension, Thyroid Disorder Additional Past Medical History / Comment(s): cellulitis of bilateral legs History of Any Multi-Drug Resistant Organisms: None Reported Past Surgical History: Ablation, Cholecystectomy, Hysterectomy, Pacemaker Past Anesthesia/Blood Transfusion Reactions: Postoperative Nausea & Vomiting (PONV) Type of Cardiac Device: Permanent Pacemaker Device Placement Date:: 04/2023 Past Psychological History: Anxiety Smoking Status: Never smoker Past Alcohol Use History: None Reported Past Drug Use History: None Reported - Past Family History Mother Family Medical History: Unable to Obtain Medications and Allergies Home Medications Medication Instructions Recorded Confirmed Type Albuterol Inhaler [Ventolin Hfa 2 puff INHALATION RT-Q6H PRN 11/10/17 06/11/23 History Inhaler] Apixaban [Eliquis] 5 mg PO AC-BID 11/10/17 06/11/23 History Budesonide/Formoterol Fumarate 2 puff INHALATION RT-BID 11/10/17 06/11/23 History [Symbicort 160-4.5 Mcg Inhaler] PARoxetine HCL [Paxil Cr] 25 mg PO DAILY 11/10/17 06/11/23 History lisinopriL [Prinivil] 5 mg PO HS 11/10/17 06/11/23 History Furosemide [Lasix] 40 mg PO DAILY 07/10/22 06/11/23 History Aspirin EC [Ecotrin Low Dose] 81 mg PO DAILY 06/11/23 06/11/23 History Atorvastatin [Lipitor] 20 mg PO DAILY 06/11/23 06/11/23 History Cyanocobalamin [Vitamin B-12] 500 mcg PO DAILY 06/11/23 06/11/23 History Ferrous Sulfate [Iron (65 MG 325 mg PO DAILY 06/11/23 06/11/23 History Elemental)] Folic Acid 1 mg PO DAILY 06/11/23 06/11/23 History Levothyroxine Sodium [Synthroid] 125 mcg PO DAILY 06/11/23 06/11/23 History Miconazole 2% Powder 1 applic TOPICAL BID 06/11/23 06/11/23 History Montelukast [Singulair] 10 mg PO DAILY 06/11/23 06/11/23 History Omeprazole 40 mg PO DAILY 06/11/23 06/11/23 History Potassium Chloride ER [K-Dur 20] 20 meq PO DAILY 06/11/23 06/11/23 History Acetaminophen Tab [Tylenol] 650 mg PO Q6HR PRN tab 06/17/23 Rx Albuterol Nebulized [Ventolin 2.5 mg INHALATION RT-Q6H PRN ml 06/17/23 Rx Nebulized] Calcium Carb-Vit D 500Mg-5Mcg 1 each PO BID-W/MEALS tab 06/17/23 Rx [Oscal 500+D 5 Mcg (200 Iu)] Multivitamins, Thera [Multivitamin] 1 tab PO DAILY #30 tablet 06/17/23 Rx Allergies Allergy/AdvReac Type Severity Reaction Status Date / Time ciprofloxacin [From Cipro] Allergy Rash/Hives Verified 03/13/24 10:47 Penicillins Allergy Rash/Hives Verified 03/13/24 10:47 all over body Physical Exam Vitals: Vital Signs Pulse Resp BP Pulse Ox 03/13/24 11:49 60 20 114/59 100 03/13/24 11:15 60 19 111/56 100 03/13/24 10:29 68 20 119/62 100 Intake and Output 03/12/24 03/13/24 03/13/24 22:59 06:59 14:59 Other: Weight 83.007 kg Results Cardiac Enzymes 03/13/24 Range/Units 11:03 Troponin I <0.012 (0.000-0.034) ng/mL Current Medications Generic Name Dose Route Start Last Admin Trade Name Freq PRN Reason Stop Dose Admin Aspirin 325 mg 03/14/24 09:00 Aspirin 325 Mg Tab PO DAILY JA Heparin Sodium (Porcine) 0 unit 03/13/24 10:47 Heparin Sodium 1,000 Un/Ml (10ml Vl) IV PER PROTOCOL PRN Low PTT Protocol Nitroglycerin/Dextrose 50 mg/ 250 mls @ 1.5 mls/hr 03/13/24 10:47 03/13/24 11:15 IV Solution IV 03/14/24 10:46 5 mcg/min .Q24H ONE 1.5 mls/hr Administration Protocol 5 MCG/MIN Heparin Sodium/Sodium Chloride 250 mls @ 9.961 mls/hr 03/13/24 11:00 03/13/24 11:24 25,000 unit/ Sodium Chloride IV 12 units/kg/hr .Q24H JA 9.961 mls/hr Administration Protocol 12 UNITS/KG/HR Nitroglycerin 0.4 mg 03/13/24 11:16 Nitroglycerin Sl Tabs 0.4 Mg Tab SUBLINGUAL Q5M PRN Chest Pain Intake and Output 03/12/24 03/13/24 03/13/24 22:59 06:59 14:59 Other: Weight 83.007 kg Patient Weight 03/14/24 06:59 Weight 83.007 kg
[2024-03-13] MEDS: ATORVASTATIN 80 MG TAB PO STA (12:06)
[2024-03-13] MEDS: SODIUM CHLORIDE 0.9% 1,000 ML in EMPTY BAG 1 BAG IV ONE (12:10)
[2024-03-13] MEDS ORDERED: HYDROcodone/APAP 5-325MG 1 EACH TAB PO PRN (12:26)
[2024-03-13] MEDS ORDERED: ALBUTEROL NEBULIZED 2.5 MG/3 ML INHALATION PRN ×2 (12:26→20:19)
--- NOTE | 2024-03-13 12:27 | P.HPIM ---
History of Present Illness H&P Date: 03/13/24 History of present illness; patient is a 68-year-old lady with past medical history significant for permanent atrial fibrillation on oral anticoagulation with Eliquis, permanent pacemaker, hypertension, valvular heart disease, overweight, left lower extremity chronic lymphedema who presented to the ER because of chest pain that started this morning. Patient stated that she was all right this morning when around 4 AM she woke up with severe chest pain that was central in location, crushing, nonradiating, no aggravating or relieving factor associated with chest pain. Patient got up to use the restroom but fell hitting her head, did not lose her consciousness. There was no complaint of any shortness of breath. No complaint of lightheadedness dizziness. EMS was called and patient was brought to [facility], initial blood work done there showed patient have elevated troponins, patient was given nitroglycerin and morphine and was transferred to [facility] Patient admitted to internal medicine service REVIEW OF SYSTEMS: CONSTITUTIONAL: No fever, no malaise, no fatigue. HEENT: No recent visual problems or hearing problems. Denied any sore throat. CARDIOVASCULAR: As mentioned above PULMONARY: As mentioned above GASTROINTESTINAL: No diarrhea, no nausea, no vomiting, no abdominal pain. NEUROLOGICAL: No headaches, no weakness, no numbness. HEMATOLOGICAL: Denies any bleeding or petechiae. GENITOURINARY: Denies any burning micturition, frequency, or urgency. MUSCULOSKELETAL/RHEUMATOLOGICAL: Denies any joint pain, swelling, or any muscle pain. ENDOCRINE: Denies any polyuria or polydipsia. The rest of the 14-point review of systems is negative. PHYSICAL EXAMINATION: GENERAL: The patient is alert and oriented x3, not in any acute distress. Well developed, well nourished. HEENT: Pupils are round and equally reacting to light. EOMI. No scleral icterus. No conjunctival pallor. Normocephalic, atraumatic. No pharyngeal erythema. No thyromegaly. CARDIOVASCULAR: S1 and S2 present. No murmurs, rubs, or gallops. PULMONARY: Chest is clear to auscultation, no wheezing or crackles. ABDOMEN: Soft, nontender, nondistended, normoactive bowel sounds. No palpable organomegaly. MUSCULOSKELETAL: No joint swelling or deformity. EXTREMITIES: No cyanosis, clubbing, or pedal edema. NEUROLOGICAL: Gross neurological examination did not reveal any focal deficits. SKIN: No rashes. Assessment and plan NSTEMI Fall Chronic persistent atrial fibrillation Hypertension Valvular heart disease Chronic left lower extremity lymphedema Hyperlipidemia Monitor vital signs Monitor CBC Monitor CMP Continue telemetry monitoring Trend troponins Ordered 2D echo Continue following dose heparin Resume home med Consult cardiology Labs and medication were reviewed.. Continue same treatment. Continue with symptomatic treatment. Resume home medication. Monitor labs and vitals. DVT and GI prophylaxis. Further recommendations as per clinical course of the patient Dictation was produced using [employer] dictation software. please excuse any grammatical, word or spelling errors. Past Medical History Past Medical History: Atrial Fibrillation, Asthma, CVA/TIA, Hypertension, Thyroid Disorder Additional Past Medical History / Comment(s): cellulitis of bilateral legs History of Any Multi-Drug Resistant Organisms: None Reported Past Surgical History: Ablation, Cholecystectomy, Hysterectomy, Pacemaker Past Anesthesia/Blood Transfusion Reactions: Postoperative Nausea & Vomiting (PONV) Type of Cardiac Device: Permanent Pacemaker Device Placement Date:: 04/2023 Past Psychological History: Anxiety Smoking Status: Never smoker Past Alcohol Use History: None Reported Past Drug Use History: None Reported - Past Family History Mother Family Medical History: Unable to Obtain Medications and Allergies Home Medications Medication Instructions Recorded Confirmed Type Albuterol Inhaler [Ventolin Hfa 2 puff INHALATION RT-Q6H PRN 11/10/17 06/11/23 History Inhaler] Apixaban [Eliquis] 5 mg PO AC-BID 11/10/17 06/11/23 History Budesonide/Formoterol Fumarate 2 puff INHALATION RT-BID 11/10/17 06/11/23 History [Symbicort 160-4.5 Mcg Inhaler] PARoxetine HCL [Paxil Cr] 25 mg PO DAILY 11/10/17 06/11/23 History lisinopriL [Prinivil] 5 mg PO HS 11/10/17 06/11/23 History Atorvastatin [Lipitor] 20 mg PO DAILY 06/11/23 06/11/23 History Omeprazole 40 mg PO DAILY 06/11/23 06/11/23 History Albuterol Nebulized [Ventolin 2.5 mg INHALATION RT-Q6H PRN ml 06/17/23 Rx Nebulized] Clopidogrel [Plavix] 75 mg PO DAILY 03/13/24 03/13/24 History Furosemide [Lasix] 20 mg PO DAILY 03/13/24 03/13/24 History HYDROcodone/APAP 5-325MG [[place] 1 tab PO QID PRN 03/13/24 03/13/24 History 5-325] Ibuprofen [Motrin] 800 mg PO Q6H PRN 03/13/24 03/13/24 History Allergies Allergy/AdvReac Type Severity Reaction Status Date / Time ciprofloxacin [From Cipro] Allergy Anaphylaxis Verified 03/13/24 12:16 Penicillins Allergy Rash/Hives Verified 03/13/24 12:16 all over body Physical Exam Vitals: Vital Signs Pulse Resp BP Pulse Ox 03/13/24 11:49 60 20 114/59 100 03/13/24 11:15 60 19 111/56 100 03/13/24 10:29 68 20 119/62 100 Intake and Output 03/12/24 03/13/24 03/13/24 22:59 06:59 14:59 Other: Weight 83.007 kg
[2024-03-13] MEDS ORDERED: ONDANSETRON 4 MG/2 ML VIAL ONE (12:47)
[2024-03-13] MEDS ORDERED: HEPARIN SODIUM 1,000 UN/ML (10ML VL) ONE (12:47)
[2024-03-13] MEDS: MIDAZOLAM 2 MG/2 ML VIAL IVP ONE (12:49)
[2024-03-13] MEDS: IV FLUID CONTINUATION 1,000 ML IV ONE (12:49)
[2024-03-13] MEDS: ONDANSETRON 4 MG/2 ML VIAL IVP ONE (12:49)
[2024-03-13] MEDS: LIDOCAINE 1% INJ 10MG/ML (20 ML MDV) SQ ONE (12:50)
[2024-03-13] MEDS: VERAPAMIL SYRINGE (5 MG/10 ML) INTRAARTER ONE (12:52)
[2024-03-13] MEDS: HEPARIN SODIUM,PORCINE 10,000 UNIT in SODIUM CHLORIDE 0.9% 1,000 ML IRRIGATION PRN (13:02)
[2024-03-13] MEDS: HEPARIN SODIUM,PORCINE (1 ML) 2,500 UNIT in SODIUM CHLORIDE 0.9% 250 ML IRRIGATION PRN (13:03)
[2024-03-13] MEDS: IOPAMIDOL-370 200ML BTL INJ ONE (13:04)
[2024-03-13] MEDS ORDERED: RX INFO: IV CONTRAST WAS GIVEN 1 EACH MISC MISCELLANE PRN (13:04)
--- NOTE | 2024-03-13 13:06 | P.PCN ---
Date of Procedure: 03/13/24 Operative Findings: CARDIAC CATHETERIZATION PERFORMING PHYSICIAN: Rhett Velázquez MD, RPVI PROCEDURE PERFORMED: 1. Selective right and left coronary angiogram 2. Left heart catheterization 3. Ultrasound-guided access of the right radial artery INDICATION: Acute coronary syndrome COMPLICATION: None APPROACH: Right radial artery LEVEL OF SEDATION: Moderate with a sedation length of 12 minutes PROCEDURE DESCRIPTION: After obtaining an informed consent, the patient was brought to cardiac field laboratory operator. Local anesthesia was performed using lidocaine subcutaneously. The right radial artery was cannulated using Seldinger technique, the guidewire passed easily, following that we advanced a 5-[place] sheath dilator assembly, the wire and dilator were removed and sheath was flushed. Following that, 2 mg of verapamil along with 5000 unit heparin were given. Selective right and left coronary angiogram using a 6-[place] JR4 and JL 3.5 catheters. Following that we did left heart catheterization using 6-[place] pigtail catheter. The procedure was completed there was no complication. SELECTIVE CORONARY ANGIOGRAM: The right coronary artery: Large-caliber vessel nondominant vessel appears to be angiographically normal Left main: Is angiographically normal The left circumflex: Large caliber vessel and the dominant vessel. The first obtuse marginal branch has an ostial lesion appears to be in the range of 50%. The artery is only 2 mm in diameter The left anterior descending artery: Large caliber vessel with no high-grade stenosis was identified but VENUS II flow was identified. HEMODYNAMICS: The LVEDP was 12 mmHg with no significant gradient was identified across aortic valve CONCLUSION: 1. VENUS II flow was identified in the left anterior descending artery with no high-grade disease was identified 2. Intermediate disease involving the ostium of OM1 which is only 2 mm in judie meter POSTPROCEDURE MANAGEMENT: Medical treatment. Follow-up on the echocardiogram
[2024-03-13] MEDS: SODIUM CHLORIDE 0.9% 1,000 ML IV SCH (17:47)
[2024-03-13] MEDS: ONDANSETRON 4 MG/2 ML VIAL IVP PRN (18:13)
[2024-03-13] MEDS: PANTOPRAZOLE 40 MG TABLET PO SCH (18:13)
[2024-03-13] MEDS ORDERED: IBUPROFEN 800 MG TAB PO PRN (20:19)
[2024-03-14] MEDS ORDERED: PANTOPRAZOLE 40 MG TABLET PO SCH (07:00)
[2024-03-14] MEDS: SYMBICORT 160-4.5 MCG INHALER INHALATION SCH (08:12)
[2024-03-14] MEDS: APIXABAN 5 MG TAB PO SCH (09:01)
[2024-03-14] MEDS: ATORVASTATIN 20 MG TAB PO SCH (09:01)
[2024-03-14] MEDS: PARoxetine 20 MG TAB PO SCH (09:01)
[2024-03-14] MEDS: ASPIRIN 325 MG TAB PO SCH (09:01)
[2024-03-14] MEDS: CLOPIDOGREL 75 MG TAB PO SCH (09:01)
[2024-03-14 09:31] LABS: Basophils % (A) 0 %; Eosinophils # (A) 0.1 k/uL (0-0.7); Eosinophils % (A) 2 %; HCT 33.4 % (34.0-46.0); HGB 10.9 gm/dL (11.4-16.0); Hypochromasia Slight; Lymphocytes # (A) 0.7 k/uL (1.0-4.8); Lymphocytes % (A) 13 %; MCH 30.3 pg (25.0-35.0); MCHC 32.5 g/dL (31.0-37.0); MCV 93.1 fL (80.0-100.0); Mean Platelet Volume 7.5; Monocytes # (A) 0.3 k/uL (0-1.0); Monocytes % (A) 5 %; Neutrophils # (A) 4.3 k/uL (1.3-7.7); Neutrophils % (A) 78 %; Platelet Count 199 k/uL (150-450); RBC 3.59 m/uL (3.80-5.40); RDW 14.7 % (11.5-15.5); WBC 5.5 k/uL (3.8-10.6)
[2024-03-14 09:38] LABS: INR 1.1 (<1.2); Prothrombin Time 11.9 sec (10.0-12.5)
[2024-03-14 10:12] LABS: ALT 49 U/L (4-34); AST 48 U/L (14-36); African American GFR (CKD) 72 (>60 ml/min/1.73 sqM); Albumin 2.9 g/dL (3.5-5.0); Alkaline Phosphatase 100 U/L (38-126); Anion Gap 3 mmol/L; Blood Urea Nitrogen 14 mg/dL (7-17); Calcium 8.1 mg/dL (8.4-10.2); Carbon Dioxide 24 mmol/L (22-30); Chloride 107 mmol/L (98-107); Glucose 105 mg/dL (74-99); Non-African American GFR(CKD) 62 (>60 ml/min/1.73 sqM); Potassium 4.5 mmol/L (3.5-5.1); Sodium 134 mmol/L (137-145); Total Bilirubin 1.2 mg/dL (0.2-1.3); Total Protein 5.3 g/dL (6.3-8.2)
[2024-03-14] MEDS ORDERED: MORPHINE SULFATE 2 MG/ML SYRINGE IVP PRN (10:26)
[2024-03-14] MEDS: LEVOTHYROXINE 75 MCG TAB PO SCH (11:28)
--- NOTE | 2024-03-14 12:55 | P.PN ---
Subjective Progress Note Date: 03/14/24 68-year-old lady is admitted to the hospital with acute non-ST segment elevation [place] and underwent cardiac catheterization by Dr. Atkinson. While she had sluggish flow there was no focal hemodynamically significant lesion and patient was advised medical therapy. This morning she denies chest pain but states that she is feeling fatigued and tired and has some shortness of breath. On exam comfortable at rest vital signs are stable chest exam reveals good air entry bilaterally heart exam reveals first and second heart sounds no gallop has a systolic murmur at the left lower sternal border abdomen is soft exams extremities did not reveal any edema radial artery access site appears normal. Assessment and plan: Non-ST segment elevation AZ status post cath Atrial fibrillation Patient will be treated with Plavix continue the Eliquis that she is on continue rest of her medications increase her activity she is currently on IV nitro I am going to stop it and start her on Imdur Home tomorrow Objective - Vital Signs Vital signs: Vital Signs Temp 98.2 F 03/14/24 11:45 Pulse 66 03/14/24 11:45 Resp 18 03/14/24 11:45 BP 116/65 03/14/24 11:45 Pulse Ox 98 03/14/24 11:45 FiO2 Intake & Output 03/13/24 03/14/24 03/14/24 18:59 06:59 18:59 Intake Total 50 60 514.85 Balance 50 60 514.85 Weight 83.007 kg 85 kg Intake: IV 50 60 0.9 60 Intake, IV Titration 34.85 Amount Nitroglycerin-D5w Pmx 50 34.85 mg In Dextrose/Water 1 250ml.bag @ 5 MCG/MIN 1.5 mls/hr IV .Q24H ONE Rx#: [id number] Oral 480 Other: Voiding Method Toilet Toilet # Voids 2 - Labs CBC & Chem 7: 03/14/24 09:04 03/14/24 09:04 Labs: Abnormal Lab Results - Last 24 Hours (Table) 03/13/24 03/14/24 03/14/24 Range/Units 11:45 09:04 09:04 RBC 3.59 L (3.80-5.40) m/uL Hgb 10.9 L (11.4-16.0) gm/dL Hct 33.4 L (34.0-46.0) % Lymphocytes # 0.7 L (1.0-4.8) k/uL APTT >200.0 H* (22.0-30.0) sec Sodium 134 L (137-145) mmol/L Glucose 105 H (74-99) mg/dL Calcium 8.1 L (8.4-10.2) mg/dL AST 48 H (14-36) U/L ALT 49 H (4-34) U/L Total Protein 5.3 L (6.3-8.2) g/dL Albumin 2.9 L (3.5-5.0) g/dL
--- NOTE | 2024-03-14 13:12 | P.PN ---
Subjective Progress Note Date: 03/14/24 patient is a 68-year-old lady with past medical history significant for permanent atrial fibrillation on oral anticoagulation with Eliquis, permanent pacemaker, hypertension, valvular heart disease, overweight, left lower extremity chronic lymphedema who presented to the ER because of chest pain that started this morning. Patient stated that she was all right this morning when around 4 AM she woke up with severe chest pain that was central in location, crushing, nonradiating, no aggravating or relieving factor associated with chest pain. Patient got up to use the restroom but fell hitting her head, did not lose her consciousness. There was no complaint of any shortness of breath. No complaint of lightheadedness dizziness. EMS was called and patient was brought to [facility], initial blood work done there showed patient have elevated troponins, patient was given nitroglycerin and morphine and was transferred to [facility] Patient admitted to internal medicine service 03/14. Patient seen and examined. S/p cardiac cath on 03/13 showing VENUS II flow was identified in the left anterior descending artery with no high-grade disease was identified, Intermediate disease involving the ostium of OM1 which is only 2 mm in diameter. Still complaining of chest pain, denies any shortness of breath. Complaining of jerking movement of her hands REVIEW OF SYSTEMS: CONSTITUTIONAL: No fever, no malaise,. CARDIOVASCULAR: no palpitations, no syncope. PULMONARY: No shortness of breath, no cough, GASTROINTESTINAL: No diarrhea, no nausea, no vomiting, no abdominal pain. NEUROLOGICAL: No headaches, no weakness, PHYSICAL EXAMINATION: GENERAL: The patient is alert and oriented x3, not in any acute distress. Well developed, well nourished. HEENT: Pupils are round and equally reacting to light. EOMI. No scleral icterus. No conjunctival pallor. Normocephalic, atraumatic. No pharyngeal erythema. No thyromegaly. CARDIOVASCULAR: S1 and S2 present. No murmurs, rubs, or gallops. PULMONARY: Chest is clear to auscultation, no wheezing or crackles. ABDOMEN: Soft, nontender, nondistended, normoactive bowel sounds. No palpable organomegaly. MUSCULOSKELETAL: No joint swelling or deformity. EXTREMITIES: No cyanosis, clubbing, or pedal edema. NEUROLOGICAL: Gross neurological examination did not reveal any focal deficits. SKIN: No rashes. Assessment and plan NSTEMI Fall Chronic persistent atrial fibrillation Hypertension Valvular heart disease Chronic left lower extremity lymphedema Hyperlipidemia Monitor vital signs Monitor CBC Monitor CMP Continue telemetry monitoring S/p cardiac cath on 03/13 showing VENUS II flow was identified in the left anterio r descending artery with no high-grade disease was identified, Intermediate disease involving the ostium of OM1 which is only 2 mm in diameter. Continue aspirin, Lipitor Continue Synthroid Continue Eliquis Follow-up on 2D echo Cardiology following Neurology consulted Labs and medication were reviewed.. Continue same treatment. Continue with symptomatic treatment. Resume home medication. Monitor labs and vitals. DVT and GI prophylaxis. Further recommendations as per clinical course of the patient Dictation was produced using [employer] dictation software. please excuse any grammatical, word or spelling errors. Objective - Vital Signs Vital signs: Vital Signs Temp 97.9 F 03/14/24 08:54 Pulse 61 03/14/24 08:55 Resp 18 03/14/24 08:55 BP 111/56 03/14/24 08:54 Pulse Ox 99 03/14/24 08:54 FiO2 Intake & Output 03/13/24 03/14/24 03/14/24 18:59 06:59 18:59 Intake Total 50 60 Balance 50 60 Weight 83.007 kg 85 kg Intake: IV 50 60 0.9 60 Other: Voiding Method Toilet Toilet # Voids 2 - Labs CBC & Chem 7: 03/14/24 09:04 03/14/24 09:04 Labs: Abnormal Lab Results - Last 24 Hours (Table) 03/13/24 03/14/24 Range/Units 11:45 09:04 RBC 3.59 L (3.80-5.40) m/uL Hgb 10.9 L (11.4-16.0) gm/dL Hct 33.4 L (34.0-46.0) % Lymphocytes # 0.7 L (1.0-4.8) k/uL APTT >200.0 H* (22.0-30.0) sec
--- NOTE | 2024-03-14 14:55 | CA ---
Transthoracic Echo Report Name: Kay Barry Age: 68 Gender: F : 1955 Exam Date: 03/14/2024 09:19 Exam Location: [facility] Ht (in): 65 Wt (lb): 183 Ordering Physician: Neri Cueto MD Attending/Referring Phys: Information Writer Vandana Burkett RDCS Procedure CPT: Indications: Chest Pain Cardiac Hx: Technical Quality: Fair Contrast 1: Total Dose (mL): Contrast 2: Total Dose (mL): MEASUREMENTS (Male / Female) Normal Values 2D ECHO LV Diastolic Diameter PLAX 3.7 cm 4.2 - 5.9 / 3.9 - 5.3 cm LV Systolic Diameter PLAX 2.2 cm IVS Diastolic Thickness 2.0 cm 0.6 - 1.0 / 0.6 - 0.9 cm LVPW Diastolic Thickness 1.6 cm 0.6 - 1.0 / 0.6 - 0.9 cm LV Relative Wall Thickness 1.0 RV Internal Dim ED PLAX 4.0 cm LA Volume 183.3 cm??? 18 - 58 / 22 - 52 cm??? LA Volume Index 92.7 cm???/m??? 16 - 28 cm???/m??? M-MODE Aortic Root Diameter MM 3.7 cm LA Systolic Diameter MM 6.4 cm LA Ao Ratio MM 1.7 AV Cusp Separation MM 2.1 cm DOPPLER AV Peak Velocity 169.5 cm/s AV Peak Gradient 11.5 mmHg AV Mean Velocity 119.1 cm/s AV Mean Gradient 6.3 mmHg AV Velocity Time Integral 37.6 cm LVOT Peak Velocity 128.5 cm/s LVOT Peak Gradient 6.6 mmHg LVOT Velocity Time Integral 33.2 cm MV Peak Velocity 188.6 cm/s MV Peak Gradient 14.2 mmHg MV Mean Velocity 72.1 cm/s MV Mean Gradient 3.3 mmHg MV Velocity Time Integral 40.3 cm MV Area PHT 3.7 cm??? Mitral E Point Velocity 157.0 cm/s Mitral A Point Velocity 0.4 cm/s Mitral E to A Ratio 352.4 MV Deceleration Time 206.1 ms MV E' Velocity 7.0 cm/s Mitral E to MV E' Ratio 22.5 TR Peak Velocity 266.4 cm/s TR Peak Gradient 28.4 mmHg Right Ventricular Systolic Press 32.6 mmHg FINDINGS Left Ventricle Severely increased left ventricular wall thickness. Normal left ventricular systolic function with no obvious regional wall motion abnormalities. Left ventricular cavity size normal. Grade 1 diastolic dysfunction. Right Ventricle Right ventricular dilatation. Right ventricular systolic pressure within normal limits. Right Atrium Mild right atrial dilatation. Catheter/pacemaker wire in the right atrial cavity. Left Atrium Severely increased left atrial volume. Moderately increased left atrial area. Mitral Valve Mitral valve thickened. Moderate mitral annular calcification. Moderate mitral regurgitation. Aortic Valve Trileaflet aortic valve. No aortic valve stenosis or regurgitation. Aortic valve sclerosis. Tricuspid Valve Structurally normal tricuspid valve. Mild tricuspid regurgitation. Pulmonic Valve Trace pulmonic regurgitation. Pericardium No pericardial effusion. Aorta Normal size aortic root and proximal ascending aorta. CONCLUSIONS Severely increased left ventricular wall thickening Normal left ventricular EF 55-60% Moderate mitral regurgitation Moderate mitral annular calcification Moderately dilated left atrium Mild tricuspid regurgitation Previewed by: Dr. Keith Nelson DO (Electronically Signed) Final Date: 14 March 2024 14:54
--- NOTE | 2024-03-14 16:25 | CT ---
EXAMINATION TYPE: CT brain wo con DATE OF EXAM: 03/14/2024 COMPARISON: None INDICATION: seizure DLP: 1180 mGycm, Automated exposure control for dose reduction was used. CONTRAST: None CT of the brain is performed utilizing 3 mm thick sections through the posterior fossa and 3 mm thick sections through the remaining calvarium. Study is performed within 24 hours of arrival to the hosp ital. No abnormal hyperdensity is present to suggest an acute intracranial hemorrhage. No mass lesion is evident. No acute infarcts are evident. Very subtle subcortical white matter change may be in the centrum semi ovale posterior frontal lobes bilaterally. Sample limits series 3 image 39. Ventricles and sulci are mildly prominent for the patient age. Paranasal sinuses and mastoid air cells within the [id number] are clear. Hyperostosis frontalis internus, a normal variant is present. IMPRESSION: 1. No acute intracranial process. Follow up MRI can be performed as clinically indicated. 2. Mild age-related atrophy. Some subtle subcortical white matter change may be within the posterior frontal lobes
--- NOTE | 2024-03-14 16:54 | P.CNNES ---
History of Present Illness Consult date: 03/14/24 Requesting physician: Neri Cueto Reason for Consult: uncontrolled twitching History of Present Illness: This is a 68-year-old woman with history of TIA, seizure, fibrillation status post ablation and is on Eliquis who was transferred from [facility] because of elevated troponin. Neurology is consulted for body twitching. Patient stated that she is having body jerks since this past Wednesday morning. She stated that she does have underlying history of seizure and that remote and she was on seizure medication in the past but does not recall then was off of it since it was controlled after the thyroid was removed. There is any loss of consciousness. Urinary or bowel incontinence or tongue bite. Had cardiac cath in our facility and it is reported as VENUS flow in left anterior descending artery with no significant disease was identified with intermediate disease involving the ostium of OM1 which is only 2 mm in diameter. Patient was on a heparin drip and her PTT was elevated Some of the other workup during this hospital visit consisted of his calcium is 8.1 AST of 4 8 ALT of 49 Sodium is 134 Glucose is 105 Review of Systems The positive and negative as per HPI. Past Medical History Past Medical History: Atrial Fibrillation, Asthma, COPD, CVA/TIA, Hypertension, Thyroid Disorder Additional Past Medical History / Comment(s): cellulitis of bilateral legs History of Any Multi-Drug Resistant Organisms: None Reported Past Surgical History: Ablation, Cholecystectomy, Hysterectomy, Pacemaker Past Anesthesia/Blood Transfusion Reactions: Postoperative Nausea & Vomiting (PONV) Type of Cardiac Device: Permanent Pacemaker Device Placement Date:: 04/2023 Past Psychological History: Anxiety Smoking Status: Never smoker Past Alcohol Use History: None Reported Past Drug Use History: None Reported - Past Family History Mother Family Medical History: Unable to Obtain Medications and Allergies Home Medications Medication Instructions Recorded Confirmed Type Albuterol Inhaler [Ventolin Hfa 2 puff INHALATION RT-Q6H PRN 11/10/17 03/13/24 History Inhaler] Apixaban [Eliquis] 5 mg PO AC-BID 11/10/17 03/13/24 History Budesonide/Formoterol Fumarate 2 puff INHALATION RT-BID 11/10/17 03/13/24 History [Symbicort 160-4.5 Mcg Inhaler] PARoxetine HCL [Paxil Cr] 25 mg PO DAILY 11/10/17 03/13/24 History lisinopriL [Prinivil] 5 mg PO HS 11/10/17 03/13/24 History Atorvastatin [Lipitor] 20 mg PO DAILY 06/11/23 03/13/24 History Omeprazole 40 mg PO DAILY 06/11/23 03/13/24 History Albuterol Nebulized [Ventolin 2.5 mg INHALATION RT-Q6H PRN ml 06/17/23 03/13/24 Rx Nebulized] Clopidogrel [Plavix] 75 mg PO DAILY 03/13/24 03/13/24 History Furosemide [Lasix] 20 mg PO DAILY 03/13/24 03/13/24 History HYDROcodone/APAP 5-325MG [Ayr 1 tab PO QID PRN 03/13/24 03/13/24 History 5-325] Ibuprofen [Motrin] 800 mg PO Q6H PRN 03/13/24 03/13/24 History Levothyroxine Sodium [Synthroid] 150 mcg PO DAILY 03/14/24 03/14/24 History Allergies Allergy/AdvReac Type Severity Reaction Status Date / Time ciprofloxacin [From Cipro] Allergy Anaphylaxis Verified 03/13/24 12:16 Penicillins Allergy Rash/Hives Verified 03/13/24 12:16 all over body Physical Examination - Vital Signs Vital Signs: Vital Signs Temp Pulse Resp BP BP Pulse Ox 03/14/24 16:35 98.2 F 59 L 16 156/74 95 03/14/24 13:48 66 18 03/14/24 11:45 98.2 F 66 18 116/65 98 03/14/24 08:55 61 18 03/14/24 08:54 97.9 F 61 18 111/56 99 03/14/24 03:17 97.7 F 61 18 116/69 97 03/14/24 02:00 62 16 03/13/24 23:15 97.7 F 62 16 114/70 97 03/13/24 20:00 18 03/13/24 19:48 98.2 F 61 18 101/61 97 03/13/24 16:49 60 16 106/58 97 Intake and Output 03/14/24 03/14/24 03/14/24 06:59 14:59 22:59 Intake Total 514.85 Balance 514.85 Intake: Intake, IV Titration 34.85 Amount Nitroglycerin-D5w Pmx 50 34.85 mg In Dextrose/Water 1 250ml.bag @ 5 MCG/MIN 1.5 mls/hr IV .Q24H ONE Rx#: [id number] Oral 480 Other: Voiding Method Toilet Toilet # Voids 2 2 Weight 85 kg GENERAL: The patient is sitting in a recliner chair and is not in acute distress. NEUROLOGICAL: Higher mental function: The patient is awake, alert, oriented to self, place and time. Patient is following commands. No aphasia and no neglect. Cranial nerves: The pupils are round, equal and reactive to light and accommodation. Visual prabhakar are full to confrontation throughout. Extraocular movement is intact no nystagmus is noted. Facial sensation is normal to touch throughout. The facial strength is normal throughout. Hearing is normal bilaterally to hand rub. Tongue is midline and moved [id number] without any difficulty. No dysarthria is noted. Shoulder shrug is normal bilaterally. Motor: The strength is 5 over 5 throughout. Normal tone and bulk. Cerebellum: Normal finger to nose bilaterally. Sensation: Sensation is normal to touch throughout. Reflexes (right/left): 2+ throughout uppers while lowers are 1+. Plantars are downgoing bilaterally. Results - Laboratory Findings CBC and BMP: 03/14/24 09:04 03/14/24 09:04 Abnormal Lab Findings: Abnormal Labs 03/13/24 03/14/24 03/14/24 11:45 09:04 09:04 RBC 3.59 L Hgb 10.9 L Hct 33.4 L Lymphocytes # 0.7 L APTT >200.0 H* Sodium 134 L Glucose 105 H Calcium 8.1 L AST 48 H ALT 49 H Total Protein 5.3 L Albumin 2.9 L Assessment and Plan Assessment: This is a 68-year-old woman with history of TIA, remote seizure, atrial fibri llation status post ablation as well as pacemaker who was transferred from [facility] because chest pain with elevated troponin. It appears the troponin was 0.58. Neurology is consulted for body jerks. She stated that that this has occurred since this past Wednesday and having intermittent body jerks. She is not on any antiseizure medication since she had remote seizure which was controlled after her thyroid resection. Episode of myoclonic jerk: Rule out seizures patient with a history of seizure Acute chest pain with minimal elevated troponin and cardiac cath was unremarkable for any significant stenosis or occlusion Underlying history of seizure and not on antiseizure medication since controlled History of atrial fibrillation status post ablation as well as pacemaker and is on Eliquis History of transient ischemic attack Plan: I ordered a routine EEG, CT of the head. Unable to obtain MRI since has pacemaker. I started the patient on Keppra 500 mg twice daily especially since patient had history of seizure in the past and currently is having intermittent body jerks. Seizure precaution and pad. I ordered TSH ionized calcium and ammonia level. Upon discharge recommend the patient to follow-up with a neurologist as an outpatient within 1 to 2 weeks Notify the patient that per the [place] DMV for seizures to avoid driving for 6 months until her last episode of seizure, avoid heights, avoid swimming consider or using heavy machinery Defer the rest of the medical management to primary and other specialist The plan is discussed with patient and her nurse. Thank you for the consultation. Time with Patient: Greater than 30
[2024-03-14 17:34] LABS: Ionized Calcium 4.6 mg/dL (4.5-5.3)
--- NOTE | 2024-03-14 20:29 | EEG ---
ELECTROENCEPHALOGRAM REPORT CLINICAL HISTORY: This is a 68-year-old woman with history of seizure, who is having body jerks. The video EEG is obtained to evaluate for seizure epileptiform activity. RELEVANT MEDICATIONS: The patient is not on any antiseizure medication. EEG TYPE: This is a routine 21-channel EEG with video using the 10/20 electrode placement system. DESCRIPTION: Wakefulness is only obtained. During awake state, the posterior dominant rhythm consists of [id number] voltage of 7.5 to 8 hertz activity that is well modulated, well sustained. There is no physiological stage 2 sleep architecture. There is no focal slowing. Interictal and ictal are none. ACTIVATION PROCEDURE: Photic stimulation did not evoke a posterior driving response. There is no abnormality during the photic stimulation. Hyperventilation is not performed. CLINICAL INTERPRETATION: This is an abnormal routine EEG. The background slowing is suggestive of mild encephalopathy. There is no focal slowing, epileptiform discharge, or seizure on the EEG. Clinical correlation is recommended. MMODL / IJN: [id number] /
[2024-03-14] MEDS: levETIRAcetam 500 MG TAB PO SCH (20:45)
[2024-03-14 22:10] LABS: Chol/HDL Ratio 1.78 Ratio; LDL Cholesterol,Calculated 31.1 mg/dL (0.0-131.0)
[2024-03-15 07:01] LABS: Basophils % (A) 1 %; Eosinophils # (A) 0.2 k/uL (0-0.7); Eosinophils % (A) 3 %; Lymphocytes # (A) 0.9 k/uL (1.0-4.8); Lymphocytes % (A) 17 %; MCH 30.1 pg (25.0-35.0); MCHC 32.6 g/dL (31.0-37.0); MCV 92.4 fL (80.0-100.0); Mean Platelet Volume 7.5; Monocytes # (A) 0.3 k/uL (0-1.0); Monocytes % (A) 6 %; Neutrophils # (A) 3.9 k/uL (1.3-7.7); Neutrophils % (A) 72 %; Platelet Count 231 k/uL (150-450); RDW 14.6 % (11.5-15.5); WBC 5.5 k/uL (3.8-10.6)
[2024-03-15 07:13] LABS: ALT 42 U/L (4-34); AST 28 U/L (14-36); African American GFR (CKD) 81 (>60 ml/min/1.73 sqM); Albumin 3.3 g/dL (3.5-5.0); Alkaline Phosphatase 106 U/L (38-126); Anion Gap 2 mmol/L; Blood Urea Nitrogen 12 mg/dL (7-17); Calcium 8.6 mg/dL (8.4-10.2); Carbon Dioxide 26 mmol/L (22-30); Chloride 104 mmol/L (98-107); Glucose 89 mg/dL (74-99); Non-African American GFR(CKD) 70 (>60 ml/min/1.73 sqM); Potassium 4.5 mmol/L (3.5-5.1); Sodium 132 mmol/L (137-145); Total Bilirubin 1.5 mg/dL (0.2-1.3); Total Protein 5.9 g/dL (6.3-8.2)
[2024-03-15] MEDS: ISOSORBIDE MONONITRATE ER 30 MG TAB.ER.24H PO SCH (08:55)
[2024-03-15 08:58] VITALS: TEMP 97.6
[2024-03-15 12:02] VITALS: BP 105/64; PULSE 61; RESP 18
--- NOTE | 2024-03-15 12:34 | P.DS ---
Providers Date of admission: 03/13/24 11:17 Expected date of discharge: 03/15/24 Attending physician: Arnoldo Noble Consults: 03/13/24 11:17 Consult Physician Urgent Consulting Provider: Pepito Cross Consult Reason/Comments: chest pain Do you want consulting provider notified?: Already Contacted 03/14/24 11:48 Consult Physician Urgent Consulting Provider: Ayaan Oglesby Consult Reason/Comments: uncontrolled twitching Do you want consulting provider notified?: Yes Primary care physician: Alicia Isaac [facility] Course: Discharge diagnoses; NSTEMI Fall Chronic persistent atrial fibrillation Hypertension Valvular heart disease Chronic left lower extremity lymphedema Hyperlipidemia Episode of myoclonic jerks History of seizures Hospital course; patient is a 68-year-old lady with past medical history significant for permanent atrial fibrillation on oral anticoagulation with Eliquis, permanent pacemaker, hypertension, valvular heart disease, overweight, left lower extre mity chronic lymphedema who presented to the ER because of chest pain that started this morning. Patient stated that she was all right this morning when around 4 AM she woke up with severe chest pain that was central in location, crushing, nonradiating, no aggravating or relieving factor associated with chest pain. Patient got up to use the restroom but fell hitting her head, did not lose her consciousness. There was no complaint of any shortness of breath. No complaint of lightheadedness dizziness. EMS was called and patient was brought to [facility], initial blood work done there showed patient have elevated troponins, patient was given nitroglycerin and morphine and was transferred to [facility] Patient admitted to internal medicine service 03/14. Patient seen and examined. S/p cardiac cath on 03/13 showing VENUS II flow was identified in the left anterior descending artery with no high-grade disease was identified, Intermediate disease involving the ostium of OM1 which is only 2 mm in diameter. Still complaining of chest pain, denies any shortness of breath. Complaining of jerking movement of her hands 03/15. Patient seen and examined. CT head done showed no acute intracranial process, some subtle subcortical white matter changes within the frontal lobes. EEG done showed background slowing suggestive of mild encephalopathy. Neurology started patient on Keppra. Neurology cleared the patient for discharge PHYSICAL EXAMINATION: GENERAL: The patient is alert and oriented x3, not in any acute distress. Well developed, well nourished. HEENT: Pupils are round and equally reacting to light. EOMI. No scleral icterus. No conjunctival pallor. Normocephalic, atraumatic. No pharyngeal erythema. No thyromegaly. CARDIOVASCULAR: S1 and S2 present. No murmurs, rubs, or gallops. PULMONARY: Chest is clear to auscultation, no wheezing or crackles. ABDOMEN: Soft, nontender, nondistended, normoactive bowel sounds. No palpable organomegaly. MUSCULOSKELETAL: No joint swelling or deformity. EXTREMITIES: No cyanosis, clubbing, or pedal edema. NEUROLOGICAL: Gross neurological examination did not reveal any focal deficits. SKIN: No rashes. Dictation was produced using [email or web address] dictation software. please excuse any grammatical, word or spelling errors. Patient Condition at Discharge: Good Plan - Discharge Summary Discharge Rx Participant: Yes New Discharge Prescriptions: New levETIRAcetam [Keppra] 500 mg PO Q12HR 30 Days #60 tab Isosorbide Mononitrate ER [Imdur] 30 mg PO DAILY #30 tab Continue lisinopriL [Prinivil] 5 mg PO HS Apixaban [Eliquis] 5 mg PO AC-BID Albuterol Inhaler [Ventolin Hfa Inhaler] 2 puff INHALATION RT-Q6H PRN PRN Reason: Shortness Of Breath PARoxetine HCL [Paxil Cr] 25 mg PO DAILY Budesonide/Formoterol Fumarate [Symbicort 160-4.5 Mcg Inhaler] 2 puff INHALATION RT-BID Albuterol Nebulized [Ventolin Nebulized] 2.5 mg INHALATION RT-Q6H PRN ml PRN Reason: Shortness Of Breath HYDROcodone/APAP 5-325MG [[place] 5-325] 1 tab PO QID PRN PRN Reason: Pain Atorvastatin [Lipitor] 20 mg PO DAILY Omeprazole 40 mg PO DAILY Ibuprofen [Motrin] 800 mg PO Q6H PRN PRN Reason: Pain Furosemide [Lasix] 20 mg PO DAILY Clopidogrel [Plavix] 75 mg PO DAILY Levothyroxine Sodium [Synthroid] 150 mcg PO DAILY Discharge Medication List Albuterol Inhaler [Ventolin Hfa Inhaler] 2 puff INHALATION RT-Q6H PRN 11/10/17 [History] Apixaban [Eliquis] 5 mg PO AC-BID 11/10/17 [History] Budesonide/Formoterol Fumarate [Symbicort 160-4.5 Mcg Inhaler] 2 puff INHALATION RT-BID 11/10/17 [History] PARoxetine HCL [Paxil Cr] 25 mg PO DAILY 11/10/17 [History] lisinopriL [Prinivil] 5 mg PO HS 11/10/17 [History] Atorvastatin [Lipitor] 20 mg PO DAILY 06/11/23 [History] Omeprazole 40 mg PO DAILY 06/11/23 [History] Albuterol Nebulized [Ventolin Nebulized] 2.5 mg INHALATION RT-Q6H PRN ml 06/17/23 [Rx] Clopidogrel [Plavix] 75 mg PO DAILY 03/13/24 [History] Furosemide [Lasix] 20 mg PO DAILY 03/13/24 [History] HYDROcodone/APAP 5-325MG [[place] 5-325] 1 tab PO QID PRN 03/13/24 [History] Ibuprofen [Motrin] 800 mg PO Q6H PRN 03/13/24 [History] Levothyroxine Sodium [Synthroid] 150 mcg PO DAILY 03/14/24 [History] Isosorbide Mononitrate ER [Imdur] 30 mg PO DAILY #30 tab 03/15/24 [Rx] levETIRAcetam [Keppra] 500 mg PO Q12HR 30 Days #60 tab 03/15/24 [Rx] Follow up Appointment(s)/Referral(s): Rhett Velázquez MD [STAFF PHYSICIAN] - 1 Week Alicia Isaac MD [Primary Care Provider] - 1-2 days Monica Carlson MD [Medical Doctor] - 1 Week Activity/Diet/Wound Care/Special Instructions: for seizures to avoid driving for 6 months until her last episode of seizure, avoid heights, avoid swimming consider or using heavy machinery Discharge Disposition: HOME SELF-CARE
--- NOTE | 2024-03-15 15:14 | P.PN ---
Subjective Progress Note Date: 03/15/24 68-year-old lady is admitted to the hospital with acute non-ST segment elevation UT and underwent cardiac catheterization by Dr. Atkinson. While she had sluggish flow there was no focal hemodynamically significant lesion and patient was advised medical therapy. This morning she denies chest pain but states that she is feeling fatigued and tired and has some shortness of breath. 03/15 Patient is not on beta-molly due to heart rate in the 60s. There was concern that patient had seizure activity according to her but nursing describes it as a twitching sensation. EEG was negative for seizure activity but patient has been started on Keppra followed by neurology. Blood pressure 151/71. Heart rate is in the 60s and 70s. Repeat blood work reveals hemoglobin is 12, WBC 5.5. Creatinine 0.86, sodium 132 and potassium 4.5. Yesterday, patient was started on Imdur. On exam comfortable at rest vital signs are stable chest exam reveals good air entry bilaterally heart exam reveals first and second heart sounds no gallop has a systolic murmur at the left lower sternal border abdomen is soft exams extremities did not reveal any edema radial artery access site appears normal. Assessment and plan: Non-ST segment elevation UT status post cath Atrial fibrillation Patient will be treated with Plavix and Imdur, continue the Eliquis Patient is cleared from cardiology for discharge and may follow-up with Dr. Velázquez in 1 week. Nurse practitioner note has been reviewed, I agree with documented findings and plan of care. Patient was seen and examined. Objective - Vital Signs Vital signs: Vital Signs Temp 97.6 F 03/15/24 08:53 Pulse 70 03/15/24 08:53 Resp 20 03/15/24 08:53 BP 151/71 03/15/24 08:53 Pulse Ox 96 03/15/24 08:53 FiO2 Intake & Output 03/14/24 03/15/24 03/15/24 18:59 06:59 18:59 Intake Total 1234.85 240 Output Total 0 Balance 1234.85 0 240 Weight 84.7 kg Intake: Intake, IV Titration 34.85 Amount Nitroglycerin-D5w Pmx 50 34.85 mg In Dextrose/Water 1 250ml.bag @ 5 MCG/MIN 1.5 mls/hr IV .Q24H ONE Rx#: [id number] Oral 1200 240 Output: Urine 0 Other: Voiding Method Toilet Toilet # Voids 2 0 - Labs CBC & Chem 7: 03/15/24 06:24 03/15/24 06:24 Labs: Abnormal Lab Results - Last 24 Hours (Table) 03/14/24 03/14/24 03/15/24 Range/Units 09:04 09:04 06:24 RBC 3.59 L (3.80-5.40) m/uL Hgb 10.9 L (11.4-16.0) gm/dL Hct 33.4 L (34.0-46.0) % Lymphocytes # 0.7 L 0.9 L (1.0-4.8) k/uL Sodium 134 L (137-145) mmol/L Glucose 105 H (74-99) mg/dL Calcium 8.1 L (8.4-10.2) mg/dL Total Bilirubin (0.2-1.3) mg/dL AST 48 H (14-36) U/L ALT 49 H (4-34) U/L Total Protein 5.3 L (6.3-8.2) g/dL Albumin 2.9 L (3.5-5.0) g/dL 03/15/24 Range/Units 06:24 RBC (3.80-5.40) m/uL Hgb (11.4-16.0) gm/dL Hct (34.0-46.0) % Lymphocytes # (1.0-4.8) k/uL Sodium 132 L (137-145) mmol/L Glucose (74-99) mg/dL Calcium (8.4-10.2) mg/dL Total Bilirubin 1.5 H (0.2-1.3) mg/dL AST (14-36) U/L ALT 42 H (4-34) U/L Total Protein 5.9 L (6.3-8.2) g/dL Albumin 3.3 L (3.5-5.0) g/dL
== END 2024-03-15 13:53 | disposition home or self-care (01) | DRG 281 ==
LOC: EC 10:27 → 3SCARD 11:17
PROVIDERS: ADMIT Hospitalist; ATTEND Hospitalist
PROC: B2111ZZ Fluoroscopy of Multiple Coronary Arteries using Low Osmolar Contrast (ICD-10-PCS; 2024-03-13)
PROC: 4A023N7 Measurement of Cardiac Sampling and Pressure, Left Heart, Percutaneous Approach (ICD-10-PCS; principal; 2024-03-13 21:45)
DX: I21.4 Non-ST elevation (NSTEMI) myocardial infarction (principal); I48.19 Other persistent atrial fibrillation; G25.3 Myoclonus; I34.0 Nonrheumatic mitral (valve) insufficiency; I10 Essential (primary) hypertension; Z68.31 Body mass index [BMI] 31.0-31.9, adult; J44.89 Other specified chronic obstructive pulmonary disease; E66.3 Overweight; E07.89 Other specified disorders of thyroid; I25.10 Atherosclerotic heart disease of native coronary artery without angina pectoris; E78.5 Hyperlipidemia, unspecified; I89.0 Lymphedema, not elsewhere classified; W18.30XA Fall on same level, unspecified, initial encounter; Y92.009 Unspecified place in unspecified non-institutional (private) residence as the place of occurrence of the external cause; Z79.01 Long term (current) use of anticoagulants; Z79.02 Long term (current) use of antithrombotics/antiplatelets; Z79.82 Long term (current) use of aspirin; Z86.73 Personal history of transient ischemic attack (TIA), and cerebral infarction without residual deficits; Z95.0 Presence of cardiac pacemaker; Z79.51 Long term (current) use of inhaled steroids; Z79.899 Other long term (current) drug therapy; Z88.0 Allergy status to penicillin; Z88.1 Allergy status to other antibiotic agents; Z79.890 Hormone replacement therapy; Z90.89 Acquired absence of other organs; Z86.69 Personal history of other diseases of the nervous system and sense organs
CPT/HCPCS: 96365; 96368; 99291

== ENCOUNTER 2024-03-23 08:09 | Emergency (ER) | payer MEDICARE ==
[2024-03-23 08:35] VITALS: PULSE 61
--- NOTE | 2024-03-23 08:41 | ED ---
General Adult HPI - General Chief complaint: Recheck/Abnormal Lab/Rx Stated complaint: seizures/convulsions Time Seen by Provider: 03/23/24 08:13 Source: patient, RN notes reviewed, old records reviewed Mode of arrival: wheelchair Limitations: physical limitation - History of Present Illness Initial comments: 68-year-old female presenting with insomnia and tremor. Patient states she has had difficult time sleeping over the past several days. She is also reported a tremor which is generalized. Denies focal numbness or weakness. Denies fever. Patient was recently admitted to the hospital for cardiac issues. She states she was placed on Keppra but could not tolerate this medication due to nausea and indigestion. She discontinued this medication 1 week ago. No history of benzodiazepine use. - Related Data Home Medications Medication Instructions Recorded Confirmed Albuterol Inhaler [Ventolin Hfa 2 puff INHALATION RT-Q6H PRN 11/10/17 03/13/24 Inhaler] Apixaban [Eliquis] 5 mg PO AC-BID 11/10/17 03/13/24 Budesonide/Formoterol Fumarate 2 puff INHALATION RT-BID 11/10/17 03/13/24 [Symbicort 160-4.5 Mcg Inhaler] PARoxetine HCL [Paxil Cr] 25 mg PO DAILY 11/10/17 03/13/24 lisinopriL [Prinivil] 5 mg PO HS 11/10/17 03/13/24 Atorvastatin [Lipitor] 20 mg PO DAILY 06/11/23 03/13/24 Omeprazole 40 mg PO DAILY 06/11/23 03/13/24 Clopidogrel [Plavix] 75 mg PO DAILY 03/13/24 03/13/24 Furosemide [Lasix] 20 mg PO DAILY 03/13/24 03/13/24 HYDROcodone/APAP 5-325MG [[place] 1 tab PO QID PRN 03/13/24 03/13/24 5-325] Ibuprofen [Motrin] 800 mg PO Q6H PRN 03/13/24 03/13/24 Levothyroxine Sodium [Synthroid] 150 mcg PO DAILY 03/14/24 03/14/24 Previous Rx's Medication Instructions Recorded Albuterol Nebulized [Ventolin 2.5 mg INHALATION RT-Q6H PRN ml 06/17/23 Nebulized] Isosorbide Mononitrate ER [Imdur] 30 mg PO DAILY #30 tab 03/15/24 levETIRAcetam [Keppra] 500 mg PO Q12HR 30 Days #60 tab 03/15/24 LORazepam [Ativan] 0.5 mg PO HS 3 Days #3 tab 03/23/24 Allergies Allergy/AdvReac Type Severity Reaction Status Date / Time ciprofloxacin [From Cipro] Allergy Anaphylaxis Verified 03/23/24 08:12 levetiracetam [From Keppra] Allergy Nausea & Verified 03/23/24 08:12 Vomiting Penicillins Allergy Rash/Hives Verified 03/23/24 08:12 all over body Review of Systems ROS Statement: Those systems with pertinent positive or pertinent negative responses have been documented in the HPI. ROS Other: All systems not noted in ROS Statement are negative. Past Medical History Past Medical History: Atrial Fibrillation, Asthma, COPD, CVA/TIA, Hypertension, Thyroid Disorder Additional Past Medical History / Comment(s): cellulitis of bilateral legs History of Any Multi-Drug Resistant Organisms: None Reported Past Surgical History: Ablation, Cholecystectomy, Hysterectomy, Pacemaker Past Anesthesia/Blood Transfusion Reactions: Postoperative Nausea & Vomiting (PONV) Type of Cardiac Device: Permanent Pacemaker Device Placement Date:: 04/2023 Past Psychological History: Anxiety Smoking Status: Never smoker Past Alcohol Use History: None Reported Past Drug Use History: None Reported - Past Family History Mother Family Medical History: Unable to Obtain General Exam Limitations: physical limitation General appearance: alert, in no apparent distress Head exam: Present: atraumatic, normocephalic Eye exam: Present: normal appearance, PERRL ENT exam: Present: normal exam, mucous membranes moist Neck exam: Present: normal inspection. Absent: tenderness, meningismus Respiratory exam: Present: normal lung sounds bilaterally. Absent: respiratory distress, wheezes Cardiovascular Exam: Present: regular rate, normal rhythm GI/Abdominal exam: Present: soft. Absent: distended, tenderness, guarding Extremities exam: Present: normal inspection, normal capillary refill Neurological exam: Present: alert, oriented X3, CN II-XII intact, other (No tremor currently). Absent: motor sensory deficit Psychiatric exam: Present: normal affect, normal mood Skin exam: Present: warm, dry, intact Course Vital Signs 03/23/24 03/23/24 03/23/24 08:10 08:35 09:30 Temperature 97.7 F 97.9 F Pulse Rate 79 61 61 Respiratory 18 18 16 Rate Blood Pressure 124/82 124/68 122/54 O2 Sat by Pulse 97 100 99 Oximetry Medical Decision Making - Medical Decision Making Was pt. sent in by a medical professional or institution (, [facility], PROFESSOR OF FAMILY MEDICINE, urgent care, hospital, or skilled nursing...) When possible be specific @ -No Did you speak to anyone other than the patient for history (EMS, parent, family, police, friend...)? What history was obtained from this source @ -No Did you review nursing and triage notes (agree or disagree)? Why? @ -I reviewed and agree with nursing and triage notes Were old charts reviewed (outside hosp., previous admission, EMS record, old EKG, old radiological studies, urgent care reports/EKG's, skilled nursing records)? Report findings @ -No old charts were reviewed Differential Diagnosis (chest pain, altered mental status, abdominal pain women, abdominal pain men, vaginal bleeding, weakness, fever, dyspnea, syncope, headache, dizziness, GI bleed, back pain, seizure, CVA, palpatations, mental health, musculoskeletal)? @ -Not applicable EKG interpreted by me (3pts min.). @Paced rhythm rate of 63, QRS duration 154, QTc 487 X-rays interpreted by me (1pt min.). @ -None done CT interpreted by me (1pt min.). @ -None done U/S interpreted by me (1pt. min.). @ -None done What testing was considered but not performed or refused? (CT, X-rays, U/S, labs)? Why? @ -None What meds were considered but not given or refused? Why? @ -None Did you discuss the management of the patient with other professionals (professionals i.e. [facility] Ness, PROFESSOR OF FAMILY MEDICINE, lab, RT, psych nurse, social media job titles, corpsman, teacher, jailer/training officer, case maker)? Give summary @ -No Was smoking cessation discussed for >3mins.? @ -No Was critical care preformed (if so, how long)? @ -No Were there social determinants of health that impacted care today? How? (Homelessness, low income, unemployed, alcoholism, drug addiction, transportati on, low edu. Level, literacy, decrease access to med. care, intermediate, rehab)? @ -No Was there de-escalation of care discussed even if they declined (Discuss DNR or withdrawal of care, Hospice)? DNR status @ -No What co-morbidities impacted this encounter? (DM, HTN, Smoking, COPD, CAD, Cancer, CVA, ARF, Chemo, Hep., AIDS, mental health diagnosis, sleep apnea, morbid obesity)? @ -None Was patient admitted / discharged? Hospital course, mention meds given and route, prescriptions, significant lab abnormalities, going to OR and other pertinent info. @ -60-year-old female presenting with insomnia, tremor. Tremor resolved at the time my evaluation. No focal neurologic findings. Patient is in a paced rhythm with stable vitals. I did check laboratory test including CBC CMP, venous blood gas. She has elevated CO2 on venous gas at 52. Otherwise normal laboratory testing. She will follow-up with her primary care provider regarding this lab abnormality. Patient given 3 days of Ativan for restlessness and sleep. Undiagnosed new problem with uncertain prognosis? @ -No Drug Therapy requiring intensive monitoring for toxicity (Heparin, Nitro, Insulin, Cardizem)? @ -No Were any procedures done? @ -No Diagnosis/symptom? @ -Insomnia Acute, or Chronic, or Acute on Chronic? @ -[acute Uncomplicated (without systemic symptoms) or Complicated (systemic symptoms)? @ -Default Side effects of treatment? @ -No Exacerbation, Progression, or Severe Exacerbation? @ -No Poses a threat to life or bodily function? How? (Chest pain, [place], [place], pneumonia, PE, COPD, DKA, ARF, appy, cholecystitis, CVA, Diverticulitis, Homicidal, Suicidal, threat to staff... and all critical care pts) @ -No - Lab Data Result diagrams: 03/23/24 08:48 03/23/24 08:48 Lab Results 03/23/24 03/23/24 03/23/24 Range/Units 08:48 08:48 08:48 WBC 6.2 (3.8-10.6) k/uL RBC 4.11 (3.80-5.40) m/uL Hgb 12.3 (11.4-16.0) gm/dL Hct 37.3 (34.0-46.0) % MCV 90.7 (80.0-100.0) fL MCH 29.9 (25.0-35.0) pg MCHC 33.0 (31.0-37.0) g/dL RDW 14.5 (11.5-15.5) % Plt Count 266 (150-450) k/uL MPV 7.4 Neutrophils % 75 % Lymphocytes % 17 % Monocytes % 5 % Eosinophils % 2 % Basophils % 1 % Neutrophils # 4.7 (1.3-7.7) k/uL Lymphocytes # 1.1 (1.0-4.8) k/uL Monocytes # 0.3 (0-1.0) k/uL Eosinophils # 0.1 (0-0.7) k/uL Basophils # 0.0 (0-0.2) k/uL VBG pH 7.35 (7.31-7.41) VBG pCO2 52 H (37-51) mmHg VBG HCO3 29 H (24-28) mmol/L Sodium 137 (137-145) mmol/L Potassium 3.7 (3.5-5.1) mmol/L Chloride 101 (98-107) mmol/L Carbon Dioxide 29 (22-30) mmol/L Anion Gap 7 mmol/L BUN 11 (7-17) mg/dL Creatinine 0.80 (0.52-1.04) mg/dL Est GFR (CKD-EPI)AfAm 88 (>60 ml/min/1.73 sqM) Est GFR (CKD-EPI)NonAf 76 (>60 ml/min/1.73 sqM) Glucose 94 (74-99) mg/dL Calcium 8.8 (8.4-10.2) mg/dL Magnesium 1.7 (1.6-2.3) mg/dL Total Bilirubin 1.1 (0.2-1.3) mg/dL AST 17 (14-36) U/L ALT 11 (4-34) U/L Alkaline Phosphatase 100 (38-126) U/L Total Protein 6.4 (6.3-8.2) g/dL Albumin 3.8 (3.5-5.0) g/dL Urine Color Urine Appearance (Clear) Urine pH (5.0-8.0) Ur Specific [place] (1.001-1.035) Urine Protein (Negative) Urine Glucose (UA) (Negative) Urine Ketones (Negative) Urine Blood (Negative) Urine Nitrite (Negative) Urine Bilirubin (Negative) Urine Urobilinogen (<2.0) mg/dL Ur Leukocyte Esterase (Negative) Urine RBC (0-5) /hpf Urine WBC (0-5) /hpf Ur Squamous Epith Cells (0-4) /hpf Urine Bacteria (None) /hpf Urine Mucus (None) /hpf 03/23/24 Range/Units 08:48 WBC (3.8-10.6) k/uL RBC (3.80-5.40) m/uL Hgb (11.4-16.0) gm/dL Hct (34.0-46.0) % MCV (80.0-100.0) fL MCH (25.0-35.0) pg MCHC (31.0-37.0) g/dL RDW (11.5-15.5) % Plt Count (150-450) k/uL MPV Neutrophils % % Lymphocytes % % Monocytes % % Eosinophils % % Basophils % % Neutrophils # (1.3-7.7) k/uL Lymphocytes # (1.0-4.8) k/uL Monocytes # (0-1.0) k/uL Eosinophils # (0-0.7) k/uL Basophils # (0-0.2) k/uL VBG pH (7.31-7.41) VBG pCO2 (37-51) mmHg VBG HCO3 (24-28) mmol/L Sodium (137-145) mmol/L Potassium (3.5-5.1) mmol/L Chloride (98-107) mmol/L Carbon Dioxide (22-30) mmol/L Anion Gap mmol/L BUN (7-17) mg/dL Creatinine (0.52-1.04) mg/dL Est GFR (CKD-EPI)AfAm (>60 ml/min/1.73 sqM) Est GFR (CKD-EPI)NonAf (>60 ml/min/1.73 sqM) Glucose (74-99) mg/dL Calcium (8.4-10.2) mg/dL Magnesium (1.6-2.3) mg/dL Total Bilirubin (0.2-1.3) mg/dL AST (14-36) U/L ALT (4-34) U/L Alkaline Phosphatase (38-126) U/L Total Protein (6.3-8.2) g/dL Albumin (3.5-5.0) g/dL Urine Color Colorless Urine Appearance Clear (Clear) Urine pH 6.0 (5.0-8.0) Ur Specific [place] 1.011 (1.001-1.035) Urine Protein Negative (Negative) Urine Glucose (UA) Negative (Negative) Urine Ketones Negative (Negative) Urine Blood Large H (Negative) Urine Nitrite Negative (Negative) Urine Bilirubin Negative (Negative) Urine Urobilinogen <2.0 (<2.0) mg/dL Ur Leukocyte Esterase Negative (Negative) Urine RBC 40 H (0-5) /hpf Urine WBC <1 (0-5) /hpf Ur Squamous Epith Cells 2 (0-4) /hpf Urine Bacteria Rare H (None) /hpf Urine Mucus Rare H (None) /hpf Disposition Clinical Impression: Acute insomnia Disposition: HOME SELF-CARE Condition: Fair Instructions (If sedation given, give patient instructions): Insomnia (ED) Prescriptions: LORazepam [Ativan] 0.5 mg PO HS 3 Days #3 tab Is patient prescribed a controlled substance at d/c from ED?: No Referrals: Alicia Isaac MD [Primary Care Provider] - 1-2 days Time of Disposition: 09:37
[2024-03-23 08:57] LABS: VBG PH 7.35 (7.31-7.41)
[2024-03-23 08:59] LABS: Basophils % (A) 1 %; Eosinophils # (A) 0.1 k/uL (0-0.7); Eosinophils % (A) 2 %; HCT 37.3 % (34.0-46.0); HGB 12.3 gm/dL (11.4-16.0); Lymphocytes # (A) 1.1 k/uL (1.0-4.8); Lymphocytes % (A) 17 %; MCH 29.9 pg (25.0-35.0); MCV 90.7 fL (80.0-100.0); Mean Platelet Volume 7.4; Monocytes # (A) 0.3 k/uL (0-1.0); Monocytes % (A) 5 %; Neutrophils # (A) 4.7 k/uL (1.3-7.7); Neutrophils % (A) 75 %; Platelet Count 266 k/uL (150-450); RBC 4.11 m/uL (3.80-5.40); RDW 14.5 % (11.5-15.5); WBC 6.2 k/uL (3.8-10.6)
[2024-03-23 09:10] LABS: ALT 11 U/L (4-34); AST 17 U/L (14-36); African American GFR (CKD) 88 (>60 ml/min/1.73 sqM); Albumin 3.8 g/dL (3.5-5.0); Alkaline Phosphatase 100 U/L (38-126); Anion Gap 7 mmol/L; Blood Urea Nitrogen 11 mg/dL (7-17); Calcium 8.8 mg/dL (8.4-10.2); Carbon Dioxide 29 mmol/L (22-30); Chloride 101 mmol/L (98-107); Glucose 94 mg/dL (74-99); Magnesium 1.7 mg/dL (1.6-2.3); Non-African American GFR(CKD) 76 (>60 ml/min/1.73 sqM); Potassium 3.7 mmol/L (3.5-5.1); Sodium 137 mmol/L (137-145); Total Bilirubin 1.1 mg/dL (0.2-1.3); Total Protein 6.4 g/dL (6.3-8.2)
[2024-03-23 09:13] LABS: Appearance,Urine Clear (Clear); Bacteria,Urine Rare /hpf; Bilirubin,Urine Negative (Negative); Blood,Urine Large (Negative); Color,Urine Colorless; Glucose,Urine (UA) Negative (Negative); Ketones,Urine Negative (Negative); Leukocyte Esterase,Urine Negative (Negative); Mucus,Urine Rare /hpf; Nitrite,Urine Negative (Negative); Protein,Urine Negative (Negative); RBC,Urine 40 /hpf (0-5); Specific Gravity,Urine 1.011 (1.001-1.035); Squamous Epithelial Cell,Urine 2 /hpf (0-4); Urobilinogen,Urine <2.0 mg/dL (<2.0); WBC,Urine <1 /hpf (0-5)
[2024-03-23 09:31] VITALS: BP 122/54; RESP 16
[2024-03-23 09:58] VITALS: TEMP 97.8
== END 2024-03-23 09:58 | disposition home or self-care (01) ==
LOC: EC 08:09
CPT/HCPCS: 36415; 80053; 81001; 82803; 83735; 85025; 93005; 99283

== ENCOUNTER 2024-04-10 12:31 | Inpatient (IN) | payer MEDICARE ==
--- NOTE | 2024-04-10 12:55 | ED ---
General Adult HPI - General Chief complaint: Syncope Stated complaint: Syncope Time Seen by Provider: 04/10/24 12:35 Source: EMS Mode of arrival: EMS - History of Present Illness Initial comments: Dictation was produced using [employer] dictation software. please excuse any grammatical, word or spelling errors. Chief Complaint: 68-year-old female transferred from [place] for syncope versus seizure History of Present Illness: Patient 68-year-old female she has multiple comorbidities. Today she had a syncopal episode. Apparently patient's heard a thud saw her on the floor. According to reports patient was seen having fluttering sensation to her eyes. Patient does not recall the events. She was transferred to [place] emergency department where she was evaluated. She had workup performed with no apparent abnormalities on imaging or blood work. She was transferred here for further care. Patient states that she has some mild chest pain. Patient was prescribed Keppra at 1 point however is not compliant with this medication because she states that she cannot tolerate it due to side effects. She has not taken Keppra in several weeks. The ROS documented in this emergency department record has been reviewed and confirmed by me. Those systems with pertinent positive or negative responses have been documented in the HPI. All other systems are other negative and/or noncontributory. - Related Data Home Medications Medication Instructions Recorded Confirmed Albuterol Inhaler [Ventolin Hfa 2 puff INHALATION RT-Q6H PRN 11/10/17 03/13/24 Inhaler] Apixaban [Eliquis] 5 mg PO AC-BID 11/10/17 03/13/24 Budesonide/Formoterol Fumarate 2 puff INHALATION RT-BID 11/10/17 03/13/24 [Symbicort 160-4.5 Mcg Inhaler] PARoxetine HCL [Paxil Cr] 25 mg PO DAILY 11/10/17 03/13/24 lisinopriL [Prinivil] 5 mg PO HS 11/10/17 03/13/24 Atorvastatin [Lipitor] 20 mg PO DAILY 06/11/23 03/13/24 Omeprazole 40 mg PO DAILY 06/11/23 03/13/24 Clopidogrel [Plavix] 75 mg PO DAILY 03/13/24 03/13/24 Furosemide [Lasix] 20 mg PO DAILY 03/13/24 03/13/24 HYDROcodone/APAP 5-325MG [[place] 1 tab PO QID PRN 03/13/24 03/13/24 5-325] Ibuprofen [Motrin] 800 mg PO Q6H PRN 03/13/24 03/13/24 Levothyroxine Sodium [Synthroid] 150 mcg PO DAILY 03/14/24 03/14/24 Previous Rx's Medication Instructions Recorded Albuterol Nebulized [Ventolin 2.5 mg INHALATION RT-Q6H PRN ml 06/17/23 Nebulized] Isosorbide Mononitrate ER [Imdur] 30 mg PO DAILY #30 tab 03/15/24 levETIRAcetam [Keppra] 500 mg PO Q12HR 30 Days #60 tab 03/15/24 LORazepam [Ativan] 0.5 mg PO HS 3 Days #3 tab 03/23/24 Allergies Allergy/AdvReac Type Severity Reaction Status Date / Time ciprofloxacin [From Cipro] Allergy Anaphylaxis Verified 04/10/24 12:39 levetiracetam [From Keppra] Allergy Nausea & Verified 04/10/24 12:39 Vomiting Penicillins Allergy Rash/Hives Verified 04/10/24 12:39 all over body Review of Systems ROS Statement: Those systems with pertinent positive or pertinent negative responses have been documented in the HPI. ROS Other: All systems not noted in ROS Statement are negative. Past Medical History Past Medical History: Atrial Fibrillation, Asthma, COPD, CVA/TIA, Hypertension, Thyroid Disorder Additional Past Medical History / Comment(s): cellulitis of bilateral legs History of Any Multi-Drug Resistant Organisms: None Reported Past Surgical History: Ablation, Cholecystectomy, Hysterectomy, Pacemaker Past Anesthesia/Blood Transfusion Reactions: Postoperative Nausea & Vomiting (PONV) Type of Cardiac Device: Permanent Pacemaker Device Placement Date:: 04/2023 Past Psychological History: Anxiety Smoking Status: Never smoker Past Alcohol Use History: None Reported Past Drug Use History: None Reported - Past Family History Mother Family Medical History: Unable to Obtain General Exam - General Exam Comments Initial Comments: PHYSICAL EXAM: General Impression: Alert and oriented x3, not in acute distress HEENT: Normocephalic atraumatic, extra-ocular movements intact, pupils equal and reactive to light bilaterally, mucous membranes moist. Cardiovascular: Heart regular rate and rhythm Chest: Able to complete full sentences, no retractions, no tachypnea Abdomen: abdomen soft, non-tender, non-distended, no organomegaly Musculoskeletal: Pulses present and equal in all extremities, no peripheral edema Motor: no focal deficits noted Neurological: CN II-XII grossly intact, no focal motor or sensory deficits noted Skin: Intact with no visualized rashes Psych: Normal affect and mood Course Vital Signs 04/10/24 12:32 Temperature 97.6 F Pulse Rate 72 Respiratory 18 Rate Blood Pressure 109/78 O2 Sat by Pulse 95 Oximetry Medical Decision Making - Medical Decision Making Was pt. sent in by a medical professional or institution (, PA, SEGMENTAL WALL INSTALLER, urgent care, hospital, or prison...) When possible be specific @ -Yes outside emergency department Did you speak to anyone other than the patient for history (EMS, parent, family, police, friend...)? What history was obtained from this source @ -EMS Did you review nursing and triage notes (agree or disagree)? Why? @ -I reviewed and agree with nursing and triage notes Were old charts reviewed (outside hosp., previous admission, EMS record, old EK G, old radiological studies, urgent care reports/EKG's, prison records)? Report findings @ -Outside ER reports reviewed Differential Diagnosis (chest pain, altered mental status, abdominal pain women, abdominal pain men, vaginal bleeding, musculoskeletal, weakness, fever, dyspnea, syncope, headache, dizziness, GI bleed, back pain, seizure, CVA, palpatations, mental health)? @ -Differential Syncope: Valvular disease, hypertrophic cardiomyopathy, pulmonary embolism, tamponade, tachycardia, bradycardia, MO, hypovolemia, hemorrhage, dissection, anemia, intracranial hemorrhage, seizure, hypoglycemia, carbon monoxide poisoning, this is not meant to be an all-inclusive list. EKG interpreted by me (3pts min.). @ -Pending X-rays interpreted by me (1pt min.). @ -None done CT interpreted by me (1pt min.). @ -None done U/S interpreted by me (1pt. min.). @ -None done What testing was considered but not performed or refused? (CT, X-rays, U/S, labs)? Why? @ -None What meds were considered but not given or refused? Why? @ -None Was smoking cessation discussed for >3mins.? @ -No Were there social determinants of health that impacted care today? How? (Homelessness, low income, unemployed, alcoholism, drug addiction, transportation, low edu. Level, literacy, decrease access to med. care, fdc, rehab)? @ -No Was there de-escalation of care discussed even if they declined (Discuss DNR or withdrawal of care, Hospice)? DNR status @ -No What co-morbidities impacted this encounter? (DM, HTN, Smoking, COPD, CAD, Cancer, CVA, ARF, Chemo, Hep., AIDS, mental health diagnosis, sleep apnea, morbid obesity)? @ -Seizure disorder, cardiac disease Was patient admitted / discharged? Hospital course, mention meds given and route, prescriptions, significant lab abnormalities, going to OR and other pertinent info. @ -60-year-old female transferred from [place] emergency department for syncopal versus seizure episode. Transfer documentation was reviewed in its entirety. Patient had no lab or imaging abnormalities. Troponin negative. Vital signs stable. Patient well-appearing at the bedside. Patient will be admitted with consultation cardiology and neurology. Case discussed with Dr. Noble for admission Did you discuss the management of the patient with other professionals (professionals i.e. , PA, SEGMENTAL WALL INSTALLER, lab, RT, psych nurse, social science teacher, drafter (cad) electrical, teacher, veterans service officer, caser in)? Give summary @ -See above Was critical care preformed (if so, how long)? @ -No Undiagnosed new problem with uncertain prognosis? @ -No Drug Therapy requiring intensive monitoring for toxicity (Heparin, Nitro, Insulin, Cardizem)? @ -No Were any procedures done? @ -No Diagnosis/symptom? Acute, or Chronic, or Acute on Chronic? Uncomplicated (without systemic symptoms) or Complicated (systemic symptoms)? @ -Syncope vs. seizure Side effects of treatment? @ -No Exacerbation, Progression, or Severe Exacerbation? @ -No Poses a threat to life or bodily function? How? (Chest pain, USA, MO, pneumonia, PE, COPD, DKA, ARF, appy, cholecystitis, CVA, Diverticulitis, Homicidal, Suicidal, threat to staff... and all critical care pts) @ -Yes - Lab Data Lab Results 04/10/24 Range/Units 14:44 Troponin I <0.012 (0.000-0.034) ng/mL Disposition Clinical Impression: Syncope Disposition: ADMITTED IP TO THIS HOSP Condition: Fair Referrals: Alicia Isaac MD [Primary Care Provider] - 1-2 days Decision Time: 15:19
[2024-04-10] MEDS ORDERED: NALOXONE 0.4 MG/ML 1 ML VIAL IV PRN (15:14)
[2024-04-10] MEDS: SODIUM CHLORIDE 0.9% 1,000 ML IV SCH (15:56)
[2024-04-10 16:46] LABS: Basophils # (A) 0.1 k/uL (0-0.2); Basophils % (A) 1 %; Eosinophils # (A) 0.1 k/uL (0-0.7); Eosinophils % (A) 2 %; HCT 41.7 % (34.0-46.0); HGB 13.3 gm/dL (11.4-16.0); Hypochromasia Slight; Lymphocytes # (A) 1.3 k/uL (1.0-4.8); Lymphocytes % (A) 17 %; MCH 29.8 pg (25.0-35.0); MCHC 31.9 g/dL (31.0-37.0); MCV 93.4 fL (80.0-100.0); Mean Platelet Volume 7.9; Monocytes # (A) 0.3 k/uL (0-1.0); Monocytes % (A) 4 %; Neutrophils # (A) 5.7 k/uL (1.3-7.7); Neutrophils % (A) 75 %; Platelet Count 290 k/uL (150-450); RBC 4.46 m/uL (3.80-5.40); RDW 13.9 % (11.5-15.5); WBC 7.7 k/uL (3.8-10.6)
[2024-04-10 17:08] LABS: ALT 11 U/L (4-34); AST 16 U/L (14-36); African American GFR (CKD) 70 (>60 ml/min/1.73 sqM); Albumin 3.9 g/dL (3.5-5.0); Albumin/Globulin Ratio 1.4; Alkaline Phosphatase 95 U/L (38-126); Anion Gap 8 mmol/L; Blood Urea Nitrogen 12 mg/dL (7-17); Calcium 9.1 mg/dL (8.4-10.2); Carbon Dioxide 27 mmol/L (22-30); Chloride 103 mmol/L (98-107); Globulin 2.8 g/dL; Glucose 142 mg/dL (74-99); Non-African American GFR(CKD) 61 (>60 ml/min/1.73 sqM); Potassium 4.3 mmol/L (3.5-5.1); Sodium 138 mmol/L (137-145); Total Bilirubin 1.1 mg/dL (0.2-1.3); Total Protein 6.7 g/dL (6.3-8.2)
[2024-04-10] MEDS ORDERED: ONDANSETRON ODT 4 MG TAB PO PRN (20:27)
[2024-04-10] MEDS ORDERED: MECLIZINE 25 MG TAB PO PRN (20:28)
[2024-04-10] MEDS: APIXABAN 5 MG TAB PO SCH (20:36)
[2024-04-10] MEDS: LORazepam 0.5 MG TAB PO PRN (20:37)
[2024-04-10 20:46] LABS: Appearance,Urine Clear (Clear); Bilirubin,Urine Negative (Negative); Blood,Urine Large (Negative); Color,Urine Light Yellow; Glucose,Urine (UA) Negative (Negative); Ketones,Urine Negative (Negative); Leukocyte Esterase,Urine Negative (Negative); Mucus,Urine Rare /hpf; Nitrite,Urine Negative (Negative); PH, Urine 5.5 (5.0-8.0); Protein,Urine Negative (Negative); RBC,Urine 16 /hpf (0-5); Specific Gravity,Urine 1.038 (1.001-1.035); Squamous Epithelial Cell,Urine 4 /hpf (0-4); Urobilinogen,Urine <2.0 mg/dL (<2.0); WBC,Urine 1 /hpf (0-5)
[2024-04-10] MEDS: lisinopriL 5 MG TAB PO SCH (23:01)
[2024-04-11] MEDS: PANTOPRAZOLE 40 MG TABLET PO SCH (07:58)
[2024-04-11] MEDS: ISOSORBIDE MONONITRATE ER 30 MG TAB.ER.24H PO SCH (07:58)
[2024-04-11] MEDS: PARoxetine 20 MG TAB PO SCH (07:58)
[2024-04-11] MEDS: ASPIRIN 81 MG PO SCH (07:58)
[2024-04-11] MEDS: SYMBICORT 160-4.5 MCG INHALER INHALATION SCH (08:43)
[2024-04-11 09:04] LABS: Basophils # (A) 0.07 X 10*3/uL (0.00-0.10); Basophils % (A) 1.1 %; Eosinophils # (A) 0.15 X 10*3/uL (0.04-0.35); Eosinophils % (A) 2.3 %; HCT 38.1 % (37.2-46.3); HGB 12.3 g/dL (12.0-15.0); Lymphocytes # (A) 1.51 X 10*3/uL (0.90-5.00); Lymphocytes % (A) 22.7 %; MCH 30.3 pg (27.0-32.0); MCHC 32.3 g/dL (32.0-37.0); MCV 93.8 FL (80.0-97.0); Monocytes # (A) 0.42 X 10*3/uL (0.20-1.00); Monocytes % (A) 6.3 %; NRBC Per 100 WBC 0 X 10*3/uL (0.00-0.01); Neutrophils # (A) 4.49 X 10*3/uL (1.80-7.70); Neutrophils % (A) 67.3 %; Platelet Count 229 X 10*3/uL (140-440); RBC 4.06 X 10*6/uL (4.10-5.20); RDW 13.7 % (11.5-14.5); WBC 6.66 X 10*3/uL (4.50-10.00)
[2024-04-11 09:25] LABS: ALT 9 U/L (8-44); AST 14 U/L (13-35); Albumin 3.8 g/dL (3.8-4.9); Albumin/Globulin Ratio 1.58 Ratio (1.60-3.17); Alkaline Phosphatase 115 U/L (41-126); Blood Urea Nitrogen 12.8 mg/dL (9.0-27.0); Carbon Dioxide 23.6 mmol/L (21.6-31.8); Chloride 104 mmol/L (96-109); Globulin 2.4 g/dL (1.6-3.3); Glucose 101 mg/dL (70-110); Potassium 4.9 mmol/L (3.5-5.5); Sodium 138 mmol/L (135-145); Total Bilirubin 0.8 mg/dL (0.3-1.2); Total Protein 6.2 g/dL (6.2-8.2)
[2024-04-11] MEDS ORDERED: MECLIZINE 25 MG TAB PO PRN (09:26)
--- NOTE | 2024-04-11 10:44 | P.CRDCN ---
History of Present Illness History of present illness: HISTORY OF PRESENT ILLNESS: This is a 68-year-old female with a past medical history significant for atrial fibrillation, permanent pacemaker, hypertension, hypothyroidism, and seizure di sorder. Patient follows in the office with Dr. Velázquez. We have been asked to see the patient in consultation for syncope. Patient examined at the bedside. Patient was transferred from [facility] secondary to episode of syncope. Patient states yesterday she was using the bathroom and the next thing she knows that she was on the floor. She does report losing consciousness. She denied having any warning signs prior to this. She currently denies any chest pain, shortness of breath, lightheadedness, dizziness, nausea, or vomiting. She does report having a headache. Orthostatic blood pressures were obtained: Blood pressure sitting 122/70, blood pressure supine 105/61. Blood pressure standing 108/57. DIAGNOSTICS: - EKG not available at the time of this dictation - Laboratory data: WBC 6.66. Hemoglobin 12.3. Platelet count 229. Sodium 138. Potassium 4.9. BUN 12.8. Creatinine 1.0. Troponin negative x 1. - Current home cardiac medications include Eliquis 5 mg twice a day, Plavix 75 mg daily, Imdur 30 mg daily, lisinopril 5 mg at night, aspirin 81 mg daily - Most recent echocardiogram obtained in February 2024 revealed ejection fraction 55 to 60%, moderate MR, mild TR - Cardiac catheterization history: February 2024 revealing VENUS II flow was identified in left anterior descending artery with no high-grade disease identified. Intermediate disease involving the ostium of OM1 which is only 2 mm in diameter. Medical management was recommended. REVIEW OF SYSTEMS: At the time of my exam: CONSTITUTIONAL: Denies fever or chills. HEENT: Denies blurred vision, vision changes, or eye pain. Denies hemoptysis CARDIOVASCULAR: Denies chest pain. Denies orthopnea. Denies PND. Denies palpitations RESPIRATORY: Denies shortness of breath. GASTROINTESTINAL: Denies abdominal pain. Denies nausea or vomiting. HEMATOLOGIC: Denies bleeding disorders. GENITOURINARY: Denies any blood in urine. SKIN: Denies pruitis. Denies rash. PHYSICAL EXAM: VITAL SIGNS: Reviewed. GENERAL: Well-developed in no acute distress. HEENT: Head is normocephalic. Pupils are equal, round. Sclerae anicteric. Mucous membranes of the mouth are moist. Neck supple. No JVD or thyromegaly LUNGS: Respirations even and unlabored. Lungs essentially clear to auscultation bilaterally. HEART: Regular rate and rhythm. S1 and S2 heard. ABDOMEN: Soft. Nondistended. Nontender. EXTREMITIES: Normal range of motion. No clubbing or cyanosis. Peripheral pulses intact. No lower extremity edema NEUROLOGIC: Awake and alert. Oriented x 3. ASSESSMENT: Syncope Permanent atrial fibrillation, on Eliquis outpatient History of permanent pacemaker implantation Coronary artery disease with intermediate disease involving ostium of OM1, per cath in February 2024 History of seizure disorder, not on antiseizure medication outpatient History of TIA Hypertension Hypothyroidism PLAN: No need to repeat echocardiogram as this was performed in February 2024 Obtain additional troponin level Orthostatics obtained with minimal drop in blood pressure from SBP 122-108. Decrease lisinopril to 2.5 mg at night. Continue Eliquis and aspirin. Discontinue Plavix. Obtain EKG Interrogate pacemaker Continue telemetry monitoring Further recommendations pending patient course Nurse practitioner note has been reviewed by physician. Signing provider agrees with the documented findings, assessment, and plan of care documented by AUTO PARKER as a scribe. Past Medical History Past Medical History: Atrial Fibrillation, Asthma, COPD, CVA/TIA, Hypertension, Thyroid Disorder Additional Past Medical History / Comment(s): cellulitis of bilateral legs History of Any Multi-Drug Resistant Organisms: None Reported Past Surgical History: Ablation, Cholecystectomy, Hysterectomy, Pacemaker Past Anesthesia/Blood Transfusion Reactions: Postoperative Nausea & Vomiting (PONV) Type of Cardiac Device: Permanent Pacemaker Device Placement Date:: 04/2023 Past Psychological History: Anxiety Smoking Status: Never smoker Past Alcohol Use History: None Reported Past Drug Use History: None Reported - Past Family History Mother Family Medical History: Unable to Obtain Medications and Allergies Home Medications Medication Instructions Recorded Confirmed Type Apixaban [Eliquis] 5 mg PO BID 11/10/17 04/10/24 History Budesonide/Formoterol Fumarate 2 puff INHALATION RT-BID 11/10/17 04/10/24 History [Symbicort 160-4.5 Mcg Inhaler] PARoxetine HCL [Paxil Cr] 25 mg PO DAILY 11/10/17 04/10/24 History lisinopriL [Prinivil] 5 mg PO HS 11/10/17 04/10/24 History Omeprazole 40 mg PO DAILY 06/11/23 04/10/24 History Clopidogrel [Plavix] 75 mg PO DAILY 03/13/24 04/10/24 History Levothyroxine Sodium [Synthroid] 150 mcg PO DAILY 03/14/24 04/10/24 History Isosorbide Mononitrate ER [Imdur] 30 mg PO DAILY #30 tab 03/15/24 04/10/24 Rx Aspirin EC [Ecotrin Low Dose] 81 mg PO DAILY 04/10/24 04/10/24 History LORazepam [Ativan] 0.5 mg PO BID 04/10/24 04/10/24 History Meclizine [Antivert] 25 mg PO TID PRN 04/10/24 04/10/24 History Ondansetron Odt [Zofran Odt] 4 mg PO Q8HR PRN 04/10/24 04/10/24 History Allergies Allergy/AdvReac Type Severity Reaction Status Date / Time ciprofloxacin [From Cipro] Allergy Anaphylaxis Verified 04/10/24 12:39 levetiracetam [From Keppra] Allergy Nausea & Verified 04/10/24 12:39 Vomiting Penicillins Allergy Rash/Hives Verified 04/10/24 12:39 all over body Physical Exam Vitals: Vital Signs Temp Pulse Resp BP BP BP BP 04/11/24 06:00 60 17 143/78 04/11/24 00:45 62 18 131/69 04/10/24 22:57 60 16 108/66 04/10/24 20:40 61 16 110/65 04/10/24 18:44 68 18 146/78 04/10/24 17:13 60 18 134/70 04/10/24 17:09 122/70 108/57 105/61 04/10/24 17:08 122/70 108/57 105/61 04/10/24 15:50 60 18 129/67 04/10/24 12:32 97.6 F 72 18 109/78 Pulse Ox 04/11/24 06:00 94 L 04/11/24 00:45 04/10/24 22:57 92 L 04/10/24 20:40 95 04/10/24 18:44 95 04/10/24 17:13 95 04/10/24 17:09 04/10/24 17:08 04/10/24 15:50 94 L 04/10/24 12:32 95 Results 04/11/24 03:43 04/11/24 03:43 Cardiac Enzymes 04/10/24 04/10/24 04/11/24 Range/Units 14:44 16:25 03:43 AST 16 14 (14-36) U/L Troponin I <0.012 (0.000-0.034) ng/mL CBC 04/10/24 04/11/24 Range/Units 16:25 03:43 WBC 7.7 6.66 (3.8-10.6) k/uL RBC 4.46 4.06 L (3.80-5.40) m/uL Hgb 13.3 12.3 (11.4-16.0) gm/dL Hct 41.7 38.1 (34.0-46.0) % Plt Count 290 229 (150-450) k/uL Comprehensive Metabolic Panel 04/10/24 04/11/24 Range/Units 16:25 03:43 Sodium 138 138 (137-145) mmol/L Potassium 4.3 4.9 (3.5-5.1) mmol/L Chloride 103 104 (98-107) mmol/L Carbon Dioxide 27 23.6 (22-30) mmol/L BUN 12 12.8 (7-17) mg/dL Creatinine 0.97 1.0 (0.52-1.04) mg/dL Glucose 142 H 101 (74-99) mg/dL Calcium 9.1 9.0 (8.4-10.2) mg/dL AST 16 14 (14-36) U/L ALT 11 9 (4-34) U/L Alkaline Phosphatase 95 115 (38-126) U/L Total Protein 6.7 6.2 (6.3-8.2) g/dL Albumin 3.9 3.8 (3.5-5.0) g/dL Current Medications Generic Name Dose Route Start Last Admin Trade Name Freq PRN Reason Stop Dose Admin Apixaban 5 mg 04/10/24 21:00 04/11/24 07:59 Apixaban 5 Mg Tab PO 5 mg BID JA Administration Protocol Aspirin 81 mg 04/11/24 09:00 04/11/24 07:58 Aspirin 81 Mg PO 81 mg DAILY JA Administration Budesonide/Formoterol Fumarate 2 puff 04/11/24 08:00 04/11/24 08:43 Symbicort 160-4.5 Mcg Inhaler INHALATION 2 puff RT-BID JA Administration Clopidogrel Bisulfate 75 mg 04/12/24 09:00 Clopidogrel 75 Mg Tab PO DAILY [facility] Sodium Chloride 1,000 mls @ 20 mls/hr 04/10/24 15:15 04/10/24 15:56 Saline 0.9% IV Not Given .Q24H JA Isosorbide Mononitrate 30 mg 04/11/24 09:00 04/11/24 07:58 Isosorbide Mononitrate Er 30 Mg Tab.Er.24h PO 30 mg DAILY JA Administration Lisinopril 2.5 mg 04/11/24 21:00 Lisinopril 2.5 Mg Tab PO HS JA Lorazepam 0.5 mg 04/10/24 20:25 04/10/24 20:37 Lorazepam 0.5 Mg Tab PO 0.5 mg BID PRN Administration Anxiety Meclizine HCl 25 mg 04/10/24 20:28 Meclizine 25 Mg Tab PO TID PRN Vertigo Naloxone HCl 0.2 mg 04/10/24 15:14 Naloxone 0.4 Mg/Ml 1 Ml Vial IV Q2M PRN Opioid Reversal Ondansetron HCl 4 mg 04/10/24 15:14 Ondansetron 4 Mg/2 Ml Vial IVP Q8HR PRN Nausea And Vomiting Ondansetron HCl 4 mg 04/10/24 20:27 Ondansetron Odt 4 Mg Tab PO Q8HR PRN Nausea Pantoprazole Sodium 40 mg 04/11/24 07:30 04/11/24 07:58 Pantoprazole 40 Mg Tablet PO 40 mg AC-BRKFST JA Administration Paroxetine HCl 20 mg 04/11/24 09:00 04/11/24 07:58 Paroxetine 20 Mg Tab PO 20 mg DAILY JA Administration 04/11/24 03:43 04/11/24 03:43
--- NOTE | 2024-04-11 12:02 | P.CNNES ---
History of Present Illness Consult date: 04/11/24 Requesting physician: Errol Joe Reason for Consult: syncope vs seizure History of Present Illness: This is a 68 year-old gentleman with history of seizure, TIA atrial fibrillation s/p ablation and pacemaker who presents to the emergency department for a passing out episode. Some of the history is obtain from patient's . Seems yesterday around 6:30 PM the patient was feeling dizzy for the past couple days and she went to the bathroom and she was after using the bathroom she was trying to go to the kitchen but had to go to the living room and then all of a sudden she passed out. According to she passed out in the living room. The heard a thud and went to see her and she was having jerking of all her extremities eyes were fluttering eyes rolled back. The episode lasted few minutes with confusion afterwards for 30 minutes. Patient was not responding. Patient did not have any tongue bite, urinary or bowel incontinence. Personally seen the patient last on 03/14/2024 for episode of myoclonic jerk and at that time I started the patient on Keppra 500 mg twice a day. According patient she could not tolerate the Keppra after 2 doses since it was making her sleepy and she notified her primary care physician and according to the patient and her they are notified and had to be adjusted by her outpatient neurologist. They have upcoming appointment with Dr. Carlson's office supposedly tomorrow. According to the in the last 3 weeks she had 3 episode of passing out episodes. She continues to have body jerking episodes and she will have it at nighttime as well. Patient was feeling anxious and received Ativan as her tremor has drastically improved according to . Some of the workup during this hospital visit consisted of: Orthostatic is supine blood pressure is 105/61, sitting is 122/70 and standing is 108/57. There is a drop in blood pressure from sitting to standing and diastolic more than 10. CBC with differential and chemistry panel is unremarkable. Review of Systems The positive and negative as per HPI. Past Medical History Past Medical History: Atrial Fibrillation, Asthma, COPD, CVA/TIA, Hypertension, Thyroid Disorder Additional Past Medical History / Comment(s): cellulitis of bilateral legs History of Any Multi-Drug Resistant Organisms: None Reported Past Surgical History: Ablation, Cholecystectomy, Hysterectomy, Pacemaker Past Anesthesia/Blood Transfusion Reactions: Postoperative Nausea & Vomiting (PONV) Type of Cardiac Device: Permanent Pacemaker Device Placement Date:: 04/2023 Past Psychological History: Anxiety Smoking Status: Never smoker Past Alcohol Use History: None Reported Past Drug Use History: None Reported - Past Family History Mother Family Medical History: Unable to Obtain Medications and Allergies Home Medications Medication Instructions Recorded Confirmed Type Apixaban [Eliquis] 5 mg PO BID 11/10/17 04/10/24 History Budesonide/Formoterol Fumarate 2 puff INHALATION RT-BID 11/10/17 04/10/24 History [Symbicort 160-4.5 Mcg Inhaler] PARoxetine HCL [Paxil Cr] 25 mg PO DAILY 11/10/17 04/10/24 History lisinopriL [Prinivil] 5 mg PO HS 11/10/17 04/10/24 History Omeprazole 40 mg PO DAILY 06/11/23 04/10/24 History Clopidogrel [Plavix] 75 mg PO DAILY 03/13/24 04/10/24 History Levothyroxine Sodium [Synthroid] 150 mcg PO DAILY 03/14/24 04/10/24 History Isosorbide Mononitrate ER [Imdur] 30 mg PO DAILY #30 tab 03/15/24 04/10/24 Rx Aspirin EC [Ecotrin Low Dose] 81 mg PO DAILY 04/10/24 04/10/24 History LORazepam [Ativan] 0.5 mg PO BID 04/10/24 04/10/24 History Meclizine [Antivert] 25 mg PO TID PRN 04/10/24 04/10/24 History Ondansetron Odt [Zofran Odt] 4 mg PO Q8HR PRN 04/10/24 04/10/24 History Allergies Allergy/AdvReac Type Severity Reaction Status Date / Time ciprofloxacin [From Cipro] Allergy Anaphylaxis Verified 04/10/24 12:39 levetiracetam [From Keppra] Allergy Nausea & Verified 04/10/24 12:39 Vomiting Penicillins Allergy Rash/Hives Verified 04/10/24 12:39 all over body Physical Examination - Vital Signs Vital Signs: Vital Signs Temp Pulse Resp BP BP BP BP 04/11/24 06:00 60 17 143/78 04/11/24 00:45 62 18 131/69 04/10/24 22:57 60 16 108/66 04/10/24 20:40 61 16 110/65 04/10/24 18:44 68 18 146/78 04/10/24 17:13 60 18 134/70 04/10/24 17:09 122/70 108/57 105/61 04/10/24 17:08 122/70 108/57 105/61 04/10/24 15:50 60 18 129/67 04/10/24 12:32 97.6 F 72 18 109/78 Pulse Ox 04/11/24 06:00 94 L 04/11/24 00:45 04/10/24 22:57 92 L 04/10/24 20:40 95 04/10/24 18:44 95 04/10/24 17:13 95 04/10/24 17:09 04/10/24 17:08 04/10/24 15:50 94 L 04/10/24 12:32 95 GENERAL: The patient is sitting in a recliner chair and is not in acute distress. HENT: Has a bruise over the forehead from fall. NEUROLOGICAL: Higher mental function: The patient is awake, alert, oriented to self, place and time. Patient is following commands. No aphasia and no neglect. Cranial nerves: The pupils are round, equal and reactive to light and accommodation. Visual prabhakar are full to confrontation throughout. Extraocular movement is intact no nystagmus is noted. Facial sensation is normal to touch throughout. The facial strength is normal throughout. Hearing is normal bilaterally to hand rub. Tongue is midline and moved [id number] without any difficulty. No dysarthria is noted. Shoulder shrug is normal bilaterally. Motor: The strength is 5 over 5 throughout. Normal tone and bulk. Cerebellum: Normal finger to nose heel to wilkinson bilaterally. Sensation: Sensation is normal to touch throughout. Plantars are downgoing bilaterally. Results - Laboratory Findings CBC and BMP: 04/11/24 03:43 04/11/24 03:43 Abnormal Lab Findings: Abnormal Labs 04/10/24 04/10/24 04/11/24 16:25 18:30 03:43 RBC 4.06 L Glucose 142 H Albumin/Globulin Ratio Ur Specific [place] 1.038 H Urine Blood Large H Urine RBC 16 H Urine Mucus Rare H 04/11/24 03:43 RBC Glucose Albumin/Globulin Ratio 1.58 L Ur Specific [place] Urine Blood Urine RBC Urine Mucus Assessment and Plan Assessment: This is a 68-year-old woman with history of seizure and I started her on Keppra 500 mg twice a day on 03/14/2024 because of her myoclonic jerk concern for seizure but patient has not been taking the Keppra since it used to be insomnia who presented emergency department because of syncopal today. According to the he heard a thud and she was unresponsive had body jerking eye rolled back with eye flutter lasted few minutes and had afterward postictal confusion for 30 minutes. She has been having 3 episode of passing out and been having body jerking and nighttime. 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 Preliminary report is negative for any seizure Since the patient could not tolerate Keppra in the past I started her on Vimpat 50 mg twice daily with a loading dose of 100 mg once Seizure precautions seizure pads [place] DMV because of the seizure/syncope, to avoid driving for 6 months until seizure-free, avoid heights, avoid swimming unassisted or using heavy machinery Patient to have interrogation of her pacemaker Regarding her orthostatic vital patient had a drop of orthostatic from sitting to standing and diastolic more than 10. Recommended repeat to assess if truly positive. Cardiology is on board Will defer the rest of the medical management to primary and other specialist Patient has an appointment with Dr. Carlson supposedly tomorrow but the canceled since she is in the hospital. Upon discharge she needs to follow-up with her neurologist within 1 to 2 weeks. Recommend a prolonged EEG as an outpatient or epilepsy monitoring unit. Plan discussed with the patient and her nurse Thank for the consultation. Time with Patient: Greater than 30
--- NOTE | 2024-04-11 12:33 | CT ---
EXAMINATION TYPE: CT brain wo con CT DLP: 1154.4 mGycm, Automated exposure control for dose reduction was used. DATE OF EXAM: 04/11/2024 12:26 PM COMPARISON: Prior CT Brain from 03/14/2024, 04/10/2024. CLINICAL INDICATION:Female, 68 years old with history of head trauma from recent fall, Head trauma fr om recent fall TECHNIQUE: Brain: Multiple axial CT images of the brain were obtained without IV contrast. . Coronal and sagitta l reformats reviewed. FINDINGS: Brain: Extra-axial spaces: No abnormal extra-axial fluid collections. Ventricular system: Within normal limits Cerebral parenchyma: No acute intraparenchymal hemorrhage or mass effect. Remote lacunar injury withi n the subcortical white matter of the left frontal lobe medially. The salamanca-white junction is well dif ferentiated. Cerebellum: Unremarkable. Mass effect: No evidence of midline shift. Intracranial vasculature: unremarkable Soft tissues: Normal. Calvarium/osseous structures: No depressed skull fracture. Benign hyperostosis frontalis noted. Paranasal sinuses and mastoid air cells: Likely cerumen within the right external auditory canal. Visualized orbits: Orbital contents are intact. IMPRESSION: 1. No acute intracranial process. 2. Remote lacunar injury within the left frontal lobe. [facility], , 04/11/2024 12:31 PM
[2024-04-11] MEDS: Lacosamide IV (ages 17+ yrs) 200 MG/20 ML ML IVP STA (13:03)
[2024-04-11] MEDS: LACOSAMIDE 50 MG TABLET PO SCH (13:22)
--- NOTE | 2024-04-11 13:44 | P.HPIM ---
History of Present Illness H&P Date: 04/11/24 History of present illness; patient 68-year-old lady with past medical history significant for hypothyroidism, hyperlipidemia, COPD who presented as a transfer from [facility] for possible syncopal episode. Patient apparently had a syncopal episode. She was found lying on the floor, patient apparently had fluttering sensation in her eyes following that she passed out. Patient did hit her head. There was no complaint of fecal or urine incontinence. There was no jerking movement of any extremity. There is no complaint of facial droop or slurred speech. Patient is complaining of chest pain. Denies any shortness of breath he did not complain orthopnea or PND. Denies any fever or chills. Because of the symptoms, patient brought to the ER of [facility] from where she was transferred to [facility] Initial lab work done in the ER showed WBC 7.7, hemoglobin 13.3, platelet count 290, sodium 138, potassium 4.3, carbon 27, anion gap 8, BUN 12, creatinine 0.97 troponin 0.012 UA negative for infection Influenza A not detected Influenza B not detected RSV not detected COVID-19 not detected Patient admitted to internal medicine service REVIEW OF SYSTEMS: CONSTITUTIONAL: No fever, no malaise, no fatigue. HEENT: No recent visual problems or hearing problems. Denied any sore throat. CARDIOVASCULAR: No chest pain, orthopnea, PND, no palpitations, no syncope. PULMONARY: No shortness of breath, no cough, no hemoptysis. GASTROINTESTINAL: No diarrhea, no nausea, no vomiting, no abdominal pain. NEUROLOGICAL: As mentioned above HEMATOLOGICAL: Denies any bleeding or petechiae. GENITOURINARY: Denies any burning micturition, frequency, or urgency. MUSCULOSKELETAL/RHEUMATOLOGICAL: Denies any joint pain, swelling, or any muscle pain. ENDOCRINE: Denies any polyuria or polydipsia. The rest of the 14-point review of systems is negative. PHYSICAL EXAMINATION: GENERAL: The patient is alert and oriented x3, not in any acute distress. Well developed, well nourished. HEENT: Pupils are round and equally reacting to light. EOMI. No scleral icterus. No conjunctival pallor. Normocephalic, atraumatic. No pharyngeal erythema. No thyromegaly. CARDIOVASCULAR: S1 and S2 present. No murmurs, rubs, or gallops. PULMONARY: Chest is clear to auscultation, no wheezing or crackles. ABDOMEN: Soft, nontender, nondistended, normoactive bowel sounds. No palpable o rganomegaly. MUSCULOSKELETAL: No joint swelling or deformity. EXTREMITIES: No cyanosis, clubbing, or pedal edema. NEUROLOGICAL: Gross neurological examination did not reveal any focal deficits. SKIN: No rashes. Assessment and plan Syncope Fall Hypertension Hyperlipidemia History of atrial fibrillation history of stroke Monitor vital signs Monitor CBC Monitor CMP Continue telemetry monitoring Ordered fall precaution Ordered EEG Resume Eliquis Resume home meds Ordered orthostatics Consult neurology Consult cardiology Labs and medication were reviewed.. Continue same treatment. Continue with symptomatic treatment. Resume home medication. Monitor labs and vitals. DVT and GI prophylaxis. Further recommendations as per clinical course of the patient Dictation was produced using [employer] dictation software. please excuse any grammatical, word or spelling errors. Past Medical History Past Medical History: Atrial Fibrillation, Asthma, COPD, CVA/TIA, Hypertension, Thyroid Disorder Additional Past Medical History / Comment(s): cellulitis of bilateral legs History of Any Multi-Drug Resistant Organisms: None Reported Past Surgical History: Ablation, Cholecystectomy, Hysterectomy, Pacemaker Past Anesthesia/Blood Transfusion Reactions: Postoperative Nausea & Vomiting (PONV) Type of Cardiac Device: Permanent Pacemaker Device Placement Date:: 04/2023 Past Psychological History: Anxiety Smoking Status: Never smoker Past Alcohol Use History: None Reported Past Drug Use History: None Reported - Past Family History Mother Family Medical History: Unable to Obtain Medications and Allergies Home Medications Medication Instructions Recorded Confirmed Type Apixaban [Eliquis] 5 mg PO BID 11/10/17 04/10/24 History Budesonide/Formoterol Fumarate 2 puff INHALATION RT-BID 11/10/17 04/10/24 History [Symbicort 160-4.5 Mcg Inhaler] PARoxetine HCL [Paxil Cr] 25 mg PO DAILY 11/10/17 04/10/24 History lisinopriL [Prinivil] 5 mg PO HS 11/10/17 04/10/24 History Omeprazole 40 mg PO DAILY 06/11/23 04/10/24 History Clopidogrel [Plavix] 75 mg PO DAILY 03/13/24 04/10/24 History Levothyroxine Sodium [Synthroid] 150 mcg PO DAILY 03/14/24 04/10/24 History Isosorbide Mononitrate ER [Imdur] 30 mg PO DAILY #30 tab 03/15/24 04/10/24 Rx Aspirin EC [Ecotrin Low Dose] 81 mg PO DAILY 04/10/24 04/10/24 History LORazepam [Ativan] 0.5 mg PO BID 04/10/24 04/10/24 History Meclizine [Antivert] 25 mg PO TID PRN 04/10/24 04/10/24 History Ondansetron Odt [Zofran Odt] 4 mg PO Q8HR PRN 04/10/24 04/10/24 History Allergies Allergy/AdvReac Type Severity Reaction Status Date / Time ciprofloxacin [From Cipro] Allergy Anaphylaxis Verified 04/10/24 12:39 levetiracetam [From Keppra] Allergy Nausea & Verified 04/10/24 12:39 Vomiting Penicillins Allergy Rash/Hives Verified 04/10/24 12:39 all over body Physical Exam Vitals: Vital Signs Temp Pulse Resp BP BP BP BP 04/11/24 06:00 60 17 143/78 04/11/24 00:45 62 18 131/69 04/10/24 22:57 60 16 108/66 04/10/24 20:40 61 16 110/65 04/10/24 18:44 68 18 146/78 04/10/24 17:13 60 18 134/70 04/10/24 17:09 122/70 108/57 105/61 04/10/24 17:08 122/70 108/57 105/61 04/10/24 15:50 60 18 129/67 04/10/24 12:32 97.6 F 72 18 109/78 Pulse Ox 04/11/24 06:00 94 L 04/11/24 00:45 04/10/24 22:57 92 L 04/10/24 20:40 95 04/10/24 18:44 95 04/10/24 17:13 95 04/10/24 17:09 04/10/24 17:08 04/10/24 15:50 94 L 04/10/24 12:32 95 Results CBC & Chem 7: 04/11/24 03:43 04/11/24 03:43 Labs: Abnormal Lab Results - Last 24 Hours (Table) 04/10/24 04/10/24 04/11/24 Range/Units 16:25 18:30 03:43 RBC 4.06 L (4.10-5.20) X 10*6/uL Glucose 142 H (74-99) mg/dL Ur Specific [place] 1.038 H (1.001-1.035) Urine Blood Large H (Negative) Urine RBC 16 H (0-5) /hpf Urine Mucus Rare H (None) /hpf
[2024-04-11] MEDS: ONDANSETRON 4 MG/2 ML VIAL IVP PRN (15:15)
[2024-04-11] MEDS: PROCHLORPERAZINE INJ 10 MG/2 ML VIAL IVP PRN (16:41)
[2024-04-11] MEDS ORDERED: SYMBICORT 160-4.5 MCG INHALER INHALATION SCH (20:00)
[2024-04-11] MEDS ORDERED: LORazepam 0.5 MG TAB PO SCH (21:00)
[2024-04-12] MEDS: ASPIRIN 81 MG PO SCH (08:07)
[2024-04-12] MEDS ORDERED: CLOPIDOGREL 75 MG TAB PO SCH (09:00)
[2024-04-12] MEDS ORDERED: NON FORMULARY DRUG (Levothyroxine Sodium [Synthroid] 150 MCG Tablet) PO SCH (09:00)
[2024-04-12] MEDS ORDERED: NON FORMULARY DRUG (Aspirin Ec 81 MG Tablet) PO SCH (09:00)
--- NOTE | 2024-04-12 10:34 | P.PN ---
Subjective HISTORY OF PRESENT ILLNESS: This is a 68-year-old female with a past medical history significant for atrial fibrillation, permanent pacemaker, hypertension, hypothyroidism, and seizure disorder. Patient follows in the office with Dr. Velázquez. We have been asked to see the patient in consultation for syncope. Patient examined at the bedside. Jessie ent was transferred from [facility] secondary to episode of syncope. Patient states yesterday she was using the bathroom and the next thing she knows that she was on the floor. She does report losing consciousness. She denied having any warning signs prior to this. She currently denies any chest pain, shortness of breath, lightheadedness, dizziness, nausea, or vomiting. She does report having a headache. Orthostatic blood pressures were obtained: Blood pressure sitting 122/70, blood pressure supine 105/61. Blood pressure standing 108/57. DIAGNOSTICS: - EKG not available at the time of this dictation - Laboratory data: WBC 6.66. Hemoglobin 12.3. Platelet count 229. Sodium 138. Potassium 4.9. BUN 12.8. Creatinine 1.0. Troponin negative x 1. - Current home cardiac medications include Eliquis 5 mg twice a day, Plavix 75 mg daily, Imdur 30 mg daily, lisinopril 5 mg at night, aspirin 81 mg daily - Most recent echocardiogram obtained in February 2024 revealed ejection fraction 55 to 60%, moderate MR, mild TR - Cardiac catheterization history: February 2024 revealing VENUS II flow was identified in left anterior descending artery with no high-grade disease identified. Intermediate disease involving the ostium of OM1 which is only 2 mm in diameter. Medical management was recommended. 04/12/2024 Patient examined this morning at the bedside. Patient denies chest pain or pressure. She denies shortness of breath. She was evaluated by neurology and thought to have had a seizure. She has been placed on antiseizure medications. EEG is pending. Patient's pacemaker was interrogated with no acute events noted. Vital signs are stable. PHYSICAL EXAM: VITAL SIGNS: Reviewed. GENERAL: Well-developed in no acute distress. HEENT: Head is normocephalic. Pupils are equal, round. Sclerae anicteric. Mucous membranes of the mouth are moist. Neck supple. No JVD or thyromegaly LUNGS: Respirations even and unlabored. Lungs essentially clear to auscultation bilaterally. HEART: Regular rate and rhythm. S1 and S2 heard. ABDOMEN: Soft. Nondistended. Nontender. EXTREMITIES: Normal range of motion. No clubbing or cyanosis. Peripheral pulses intact. No lower extremity edema NEUROLOGIC: Awake and alert. Oriented x 3. ASSESSMENT: Syncope Permanent atrial fibrillation, on Eliquis outpatient History of permanent pacemaker implantation Coronary artery disease with intermediate disease involving ostium of OM1, per cath in February 2024 History of seizure disorder, not on antiseizure medication outpatient History of TIA Hypertension Hypothyroidism PLAN: Neurology following. EEG pending. Patient has been started on antiseizure medication Continue current cardiac medications Patient is currently stable from a cardiac standpoint with no further inpatient recommendations We will sign off. Please reconsult if needed. Nurse practitioner note has been reviewed by physician. Signing provider agrees with the documented findings, assessment, and plan of care documented by DIGITAL [employer]ODUCER as a scribe. Objective - Vital Signs Vital signs: Vital Signs Temp 97.9 F 04/12/24 08:02 Pulse 61 04/12/24 08:02 Resp 16 04/12/24 08:02 BP 118/70 04/12/24 08:02 Pulse Ox 95 04/12/24 08:02 FiO2 Intake & Output 04/11/24 04/12/24 04/12/24 18:59 06:59 18:59 Output Total 400 Balance -400 Weight 82.554 kg Output: Urine 400 Other: Voiding Method Toilet Toilet # Voids 2 2 - Labs CBC & Chem 7: 04/11/24 03:43 04/11/24 03:43 Labs: Microbiology - Last 24 Hours (Table) 04/10/24 16:29 Blood Culture - Preliminary Blood
[2024-04-12] MEDS: LEVOTHYROXINE 125 MCG TAB PO SCH (11:11)
--- NOTE | 2024-04-12 16:34 | P.PN ---
Subjective Progress Note Date: 04/12/24 I am following up with the patient and she stated that she cannot tolerate the Vimpat when ever she took the Vimpat she was having episode of vomiting. Denies any further episode of seizure-like activity or syncopal episodes. Objective - Vital Signs Vital signs: Vital Signs Temp 98 F 04/12/24 14:43 Pulse 66 04/12/24 14:43 Resp 16 04/12/24 14:43 BP 116/60 04/12/24 14:43 Pulse Ox 96 04/12/24 14:43 FiO2 Intake & Output 04/11/24 04/12/24 04/12/24 18:59 06:59 18:59 Output Total 400 Balance -400 Weight 82.554 kg Output: Urine 400 Other: Voiding Method Toilet Toilet # Voids 2 2 3 - Exam GENERAL: The patient is sitting in a recliner chair and is not in acute distress. HENT: Has a bruise over the forehead from fall. NEUROLOGICAL: Higher mental function: The patient is awake, alert, oriented to self, place and time. Patient is following commands. No aphasia and no neglect. Cranial nerves: The pupils are round, equal and reactive to light and accommodation. Visual prabhakar are full to confrontation throughout. Extraocular movement is intact no nystagmus is noted. Facial sensation is normal to touch throughout. The facial strength is normal throughout. Hearing is normal bilaterally to hand rub. Tongue is midline and moved [id number] without any difficulty. No dysarthria is noted. Shoulder shrug is normal bilaterally. Motor: The strength is 5 over 5 throughout. Normal tone and bulk. Cerebellum: Normal finger to nose heel to wilkinson bilaterally. Sensation: Sensation is normal to touch throughout. Plantars are downgoing bilaterally. Some of the workup during this hospital visit consisted of: Orthostatic is supine blood pressure is 105/61, sitting is 122/70 and standing is 108/57. There is a drop in blood pressure from sitting to standing and diastolic more than 10. CBC with differential and chemistry panel is unremarkable. EEG shows suspicious rare discharges over the left temporal parietal region. There is no seizure noted during the study. The background was normal. CT of the head is reported as no acute intracranial process. Remote lacunar injury within the left frontal lobe. - Labs CBC & Chem 7: 04/11/24 03:43 04/11/24 03:43 Labs: Microbiology - Last 24 Hours (Table) 04/10/24 16:29 Blood Culture - Preliminary Blood Assessment and Plan Assessment: This is a 68-year-old woman with history of seizure and I started her on Keppra 500 mg twice a day on 03/14/2024 because of her myoclonic jerk concern for seizure but patient has not been taking the Keppra since it used to be insomnia who presented emergency department because of syncopal today. According to the he heard a thud and she was unresponsive had body jerking eye rolled back with eye flutter lasted few minutes and had afterward postictal confusion for 30 minutes. She has been having 3 episode of passing out and been having body jerking and nighttime. Likely Breakthrough seizure since the patient is not on any antiseizure medication. On EEG showed suspicious rare discharges over the left temporal/parietal but no seizure noted. History of seizure History of TIA/stroke (on CT showed old left frontal stroke) History of atrial fibrillation post ablation and pacemaker History of leukemia and patient has been in remission for 20 years Plan: Patient cannot have MRI since the patient has a pacemaker Since the patient could not tolerate Keppra in the past I started her on Vimpat 50 mg twice daily yesterday but states she cannot tolerate Vimpat as well and was having vomiting episode. The refuses to continue with trial of Vimpat so I started the patient on Lamictal with slow titration dose, started on 25mg daily and after one week go up to 25mg bid, and continue to go up 25mg each week until 100mg bid. I notified her and her of side-effects of rash/Blayne Vaughn Syndrome and if she develops rash to stop immediately and come to hospital. Seizure precautions seizure pads Per [facility] because of the seizure/syncope, to avoid driving for 6 months until seizure-free, avoid heights, avoid swimming unassisted or using heavy machinery Interrogation of her pacemaker is reported by cardiology as no events. Repeat orthostatic is negative. Cardiology is on board Will defer the rest of the medical management to primary and other specialist Patient to follow-up with her outpatient neurologist, Dr. Carlson and is reschedule for begining of April 2024. Recommend a prolonged EEG as an outpatient or epilepsy monitoring unit and that can be coordinated by her outpatient neurologist Plan discussed with the patient, her who is at bedside and her nurse If by tomorrow she feels well and continues to have no further events, then clear from neurological perspective. Time with Patient: Less than 30
[2024-04-12] MEDS: lamoTRIgine 25 MG TAB PO SCH (17:43)
--- NOTE | 2024-04-12 17:47 | P.PN ---
Subjective History of present illness; patient 68-year-old lady with past medical history significant for hypothyroidism, hyperlipidemia, COPD who presented as a transfer from [facility] for possible syncopal episode. Patient apparently had a syncopal episode. She was found lying on the floor, patient apparently had fluttering sensation in her eyes following that she passed out. Patient did hit her head. There was no complaint of fecal or urine incontinence. There was no jerking movement of any extremity. There is no complaint of facial droop or slurred speech. Patient is complaining of chest pain. Denies any shortness of breath he did not complain orthopnea or PND. Denies any fever or chills. Because of the symptoms, patient brought to the ER of [facility] from where she was transferred to [facility] Initial lab work done in the ER showed WBC 7.7, hemoglobin 13.3, platelet count 290, sodium 138, potassium 4.3, carbon 27, anion gap 8, BUN 12, creatinine 0.97 troponin 0.012 UA negative for infection Influenza A not detected Influenza B not detected RSV not detected COVID-19 not detected Patient admitted to internal medicine service 04/12 Patient denies any dizziness today. However when she got up she feels little dizzy. She walks with short steps but this is normal for her as she states. No GI symptoms. No urinary symptoms No other complaint Cardiology cleared her for pacemaker interrogation Pending EEG Neurologist on the case Orthostatic vitals was rechecked Lisinopril dose lowered to 5 down to 2.5 mg, patient informed and she agrees Objective - Vital Signs Vital signs: Vital Signs Temp 98 F 04/12/24 14:43 Pulse 66 04/12/24 14:43 Resp 16 04/12/24 14:43 BP 116/60 04/12/24 14:43 Pulse Ox 96 04/12/24 14:43 FiO2 Intake & Output 04/11/24 04/12/24 04/12/24 18:59 06:59 18:59 Output Total 400 Balance -400 Weight 82.554 kg Output: Urine 400 Other: Voiding Method Toilet Toilet # Voids 2 2 3 - Exam GENERAL: The patient is alert and oriented x3, not in any acute distress. Well developed, well nourished. HEENT: Pupils are round and equally reacting to light. EOMI. No scleral icterus. No conjunctival pallor. Normocephalic, atraumatic. No pharyngeal erythema. No thyromegaly. CARDIOVASCULAR: S1 and S2 present. No murmurs, rubs, or gallops. PULMONARY: Chest is clear to auscultation, no wheezing , no crackles. ABDOMEN: Soft, nontender, nondistended, normoactive bowel sounds. No palpable organomegaly. MUSCULOSKELETAL: No joint swelling or deformity. EXTREMITIES: No cyanosis, clubbing, or pedal edema. NEUROLOGICAL: Gross neurological examination did not reveal any focal deficits. SKIN: No rashes. no petechiae. -Gait: Normal, walks with short steps. No ataxia - Labs CBC & Chem 7: 04/11/24 03:43 04/11/24 03:43 Labs: Microbiology - Last 24 Hours (Table) 04/10/24 16:29 Blood Culture - Preliminary Blood Assessment and Plan Assessment: Assessment and plan Syncope versus seizure. Most likely breakthrough seizure. Seizure disorder with nonadherence to antiseizure medication Keppra at home. Fall Hypertension Hyperlipidemia History of atrial fibrillation history of stroke Plan: Keppra was discontinued since patient was not using it Patient was started on Vimpat by neurologist, patient informed and she agrees Lisinopril dose lowered to 2.5 mg from the home dose of 5 mg, patient improved and she agrees Continues on Eliquis, patient has it at home Patient informed with the [place] law not to drive for 6 months because she is a seizure patient till she becomes seizure-free and she agrees. Continue with [facility] Neurology and cardiology team on the case. Optoelectronic Technician sign of the case. They recommended to continue Eliquis and aspirin and discontinue Plavix. Patient informed and she agrees as well Labs and medication were reviewed.. Continue same treatment. Continue with symptomatic treatment. Resume home medication. Monitor labs and vitals. DVT and GI prophylaxis. Further recommendations as per clinical course of the patient DVT prophylaxis: Eliquis GI Prophylaxis: Protonix PT/OT: Pending Prognosis is guarded
[2024-04-13] MEDS ORDERED: LEVOTHYROXINE 125 MCG TAB PO SCH (06:30)
[2024-04-13 07:50] VITALS: BP 108/66; PULSE 62; RESP 17; TEMP 97.9
--- NOTE | 2024-04-13 12:49 | P.DS ---
Providers Date of admission: 04/10/24 15:27 Attending physician: Arnoldo Noble Consults: 04/10/24 15:14 Consult Physician Routine Consulting Provider: Ayaan Oglesby Consult Reason/Comments: syncope vs. seizure Do you want consulting provider notified?: Yes Primary care physician: Alicia Isaac Hospital Course: Diagnoses: Syncope versus seizure. Most likely breakthrough seizure related to nonadherence to seizure medication Seizure disorder with nonadherence to antiseizure medication Keppra at home. Patient started on Lamictal upon discharge Fall at home secondary to above Hypertension Hyperlipidemia History of atrial fibrillation history of stroke Hospital course: History of present illness; patient 68-year-old lady with past medical history significant for hypothyroidism, hyperlipidemia, COPD who presented as a transfer from [facility] for possible syncopal episode. Patient apparently had a syncopal episode. However description goes more with seizure-like episode. Patient last time she was discharged from the hospital on Keppra. It looks like patient could not tolerate Keppra because of his side effects and she was not taking it. Make seizure highly in the differential diagnosis and most likely the cause of the patient passing out. Patient already evaluated by intermediate project manager who recommended to lower her lisinopril 5 mg down to 2.5 mg because of her orthostatic hypotension, orthostatic hypotension improved after that. Patient already on Eliquis for her A-fib. She was on aspirin and Plavix at home. Reel Man recommended to discontinue Plavix, patient informed and she agrees Patient also evaluated by neurologist, EEG was unremarkable for epileptiform discharge. Patient was started on Vimpat but she could not tolerate that well because of the nausea and this switched to Lamictal yesterday and she could not tolerate that medicine well with no other complaint. As such neurology saw her today and cleared her for discharge with recommendation for outpatient follow-up as below. Patient denies any other new symptoms and wants to go home. Problems and management plan were discussed with the patient and he verbalized understanding and acceptance Patient was found stable and can be discharged home in guarded prognosis however he needs follow-up as an outpatient. Patient was instructed to follow up with PCP Dr. Isaac within one week and patient agrees Patient was instructed to follow-up with her intermediate project manager Dr. Atkinson and neurologist Dr. Carlson in 2 weeks after discharge and she agrees Physical exam Gen: patient is a AAOx3, no distress CVS: S1-S2, RRR, no murmur Lungs: B/L CTA, no wheezing Abdomen: soft, no distention, no tenderness, positive bowel sounds Extremity: no leg edema or induration Time spent more than 35 minutes Patient Condition at Discharge: Fair Plan - Discharge Summary Discharge Rx Participant: No New Discharge Prescriptions: New lamoTRIgine [LaMICtal] 25 mg PO DAILY #30 tab lisinopriL [Zestril] 2.5 mg PO HS #30 tab Continue Apixaban [Eliquis] 5 mg PO BID PARoxetine HCL [Paxil Cr] 25 mg PO DAILY Budesonide/Formoterol Fumarate [Symbicort 160-4.5 Mcg Inhaler] 2 puff INHALATION RT-BID Ondansetron Odt [Zofran ODT] 4 mg PO Q8HR PRN PRN Reason: Nausea Omeprazole 40 mg PO DAILY Levothyroxine Sodium [Synthroid] 150 mcg PO DAILY Isosorbide Mononitrate ER [Imdur] 30 mg PO DAILY #30 tab LORazepam [Ativan] 0.5 mg PO BID Meclizine [Antivert] 25 mg PO TID PRN PRN Reason: Vertigo Aspirin EC [Ecotrin Low Dose] 81 mg PO DAILY Discontinued lisinopriL [Prinivil] 5 mg PO HS Clopidogrel [Plavix] 75 mg PO DAILY Discharge Medication List Apixaban [Eliquis] 5 mg PO BID 11/10/17 [History] Budesonide/Formoterol Fumarate [Symbicort 160-4.5 Mcg Inhaler] 2 puff INHALATION RT-BID 11/10/17 [History] PARoxetine HCL [Paxil Cr] 25 mg PO DAILY 11/10/17 [History] Omeprazole 40 mg PO DAILY 06/11/23 [History] Levothyroxine Sodium [Synthroid] 150 mcg PO DAILY 03/14/24 [History] Isosorbide Mononitrate ER [Imdur] 30 mg PO DAILY #30 tab 03/15/24 [Rx] Aspirin EC [Ecotrin Low Dose] 81 mg PO DAILY 04/10/24 [History] LORazepam [Ativan] 0.5 mg PO BID 04/10/24 [History] Meclizine [Antivert] 25 mg PO TID PRN 04/10/24 [History] Ondansetron Odt [Zofran ODT] 4 mg PO Q8HR PRN 04/10/24 [History] lisinopriL [Zestril] 2.5 mg PO HS #30 tab 04/12/24 [Rx] lamoTRIgine [LaMICtal] 25 mg PO DAILY #30 tab 04/13/24 [Rx] Follow up Appointment(s)/Referral(s): Rhett Velázquez MD [STAFF PHYSICIAN] - 2 Weeks Monica Carlson MD [Medical Doctor] - 2 Weeks Alicia Isaac MD [Primary Care Provider] - 1-2 days Patient Instructions/Handouts: Seizure/Epilepsy Discharge Instructions & Follow-Up, New-Onset Seizure in Adults (DC) Activity/Diet/Wound Care/Special Instructions: Heart healthy diet Activity is restricted till you see your doctor As per [place] law, patients with seizure disorder should avoid driving x 6 months till they are seizure-free Discharge Disposition: HOME SELF-CARE
--- NOTE | 2024-04-13 13:08 | P.PN ---
Subjective Progress Note Date: 04/13/24 I am following up with the patient the patient has been tolerating Lamictal. Denies any vomiting episode with the Lamictal. Denies any side effects with Lamictal. She feels her dizziness is improving. Denies any further seizure- like activity or syncopal episode. Denies of any new neurological issues. Objective - Vital Signs Vital signs: Vital Signs Temp 97.9 F 04/13/24 07:00 Pulse 62 04/13/24 07:00 Resp 17 04/13/24 07:00 BP 108/66 04/13/24 07:00 Pulse Ox 96 04/13/24 07:00 FiO2 Intake & Output 04/12/24 04/13/24 04/13/24 18:59 06:59 18:59 Other: Voiding Method Toilet Toilet # Voids 3 2 - Exam GENERAL: The patient is sitting in a recliner chair and is not in acute distress. HENT: Has a bruise over the forehead from fall. NEUROLOGICAL: Higher mental function: The patient is awake, alert, oriented to self, place and time. Patient is following commands. No aphasia and no neglect. Cranial nerves: The pupils are round, equal and reactive to light and accommodation. Visual prabhakar are full to confrontation throughout. Extraocular movement is intact no nystagmus is noted. Facial sensation is normal to touch throughout. The facial strength is normal throughout. Hearing is normal bilaterally to hand rub. Tongue is midline and moved [id number] without any difficulty. No dysarthria is noted. Shoulder shrug is normal bilaterally. Motor: The strength is 5 over 5 throughout. Normal tone and bulk. Cerebellum: Normal finger to nose heel to wilkinson bilaterally. Sensation: Sensation is normal to touch throughout. Plantars are downgoing bilaterally. Some of the workup during this hospital visit consisted of: Orthostatic is supine blood pressure is 105/61, sitting is 122/70 and standing is 108/57. There is a drop in blood pressure from sitting to standing and diastolic more than 10. CBC with differential and chemistry panel is unremarkable. EEG shows suspicious rare discharges over the left temporal parietal region. There is no seizure noted during the study. The background was normal. CT of the head is reported as no acute intracranial process. Remote lacunar injury within the left frontal lobe. - Labs CBC & Chem 7: 04/11/24 03:43 04/11/24 03:43 Labs: Microbiology - Last 24 Hours (Table) 04/10/24 16:29 Blood Culture - Preliminary Blood Assessment and Plan Assessment: This is a 68-year-old woman with history of seizure and I started her on Keppra 500 mg twice a day on 03/14/2024 because of her myoclonic jerk concern for seizure but patient has not been taking the Keppra since it used to be insomnia who presented emergency department because of syncopal today. According to the he heard a thud and she was unresponsive had body jerking eye rolled back with eye flutter lasted few minutes and had afterward postictal confusion for 30 minutes. She has been having 3 episode of passing out and been having body jerking and nighttime. Likely Breakthrough seizure since the patient is not on any antiseizure medication. On EEG showed suspicious rare discharges over the left temp oral/parietal but no seizure noted. History of seizure History of TIA/stroke (on CT showed old left frontal stroke) History of atrial fibrillation post ablation and pacemaker History of leukemia and patient has been in remission for 20 years Plan: Patient cannot have MRI since the patient has a pacemaker Since the patient could not tolerate Keppra in the past. I started her on Vimpat 50 mg twice daily during this hospital but states she cannot tolerate Vimpat as well and was having vomiting episode. So I started her on Lamictal yesterday and is tolerating well. I started the patient on Lamictal with slow titration dose, started on 25mg daily and after one week go up to 25mg bid, and continue to go up 25mg each week until 100mg bid. I notified her and her of side-effects of rash/Blayne Vaughn Syndrome and if she develops rash to stop immediately and come to hospital. Seizure precautions seizure pads Per [facility] because of the seizure/syncope, to avoid driving for 6 months until seizure-free, avoid heights, avoid swimming unassisted or using heavy machinery Interrogation of her pacemaker is reported by cardiology as no events. Repeat orthostatic is negative. Cardiology is on board Will defer the rest of the medical management to primary and other specialist Patient to follow-up with her outpatient neurologist, Dr. Carlson and is reschedule for begining of April 2024. Recommend a prolonged EEG as an outpatient or epilepsy monitoring unit and that can be coordinated by her outpatient neurologist Plan discussed with the patient, her who is at bedside and her nurse There is no further neurological work-up. Will sign off. Please reconsult if needed. Time with Patient: Less than 30
--- NOTE | 2024-04-13 14:47 | HP ---
HISTORY AND PHYSICAL CHIEF COMPLAINT: Syncope. HISTORY OF PRESENT ILLNESS: This 68-year-old woman with a past medical history of multiple medical problems including atrial fibrillation, COPD, CVA, TIA, being followed by Dr. Isaac in the outpatient setting, had a syncopal event. The patient apparently was found lying down, unconscious, unresponsive by the , which lasted almost half an hour. The patient was taken to [facility]. A complete workup was done, which was negative, however, the patient has some bruise on the right side of the forehead. The patient is confused. The also relates some kind of abnormal movements. The patient had a previous history of myoclonic jerks and seizures also. The patient is mildly confused PAST MEDICAL HISTORY: Reviewed include atrial fibrillation, asthma, and COPD. Rest of the history and rest of the chart is also reviewed. HOME MEDICATIONS: Reviewed include Prinivil, doses and rest of medications are reviewed. ALLERGIES: Cipro. FAMILY HISTORY: No history of heart disease or strokes. SOCIAL HISTORY: No history of smoking or alcohol intake. REVIEW OF SYSTEMS: Fourteen-point review of systems negative except as mentioned earlier. PHYSICAL EXAMINATION: VITAL SIGNS: Pulse is 60, blood pressure 119/69, respirations 18. HEENT: Conjunctivae normal. NECK: No JVD. CARDIOVASCULAR: S1, S2. RESPIRATIONS: Breath sounds diminished at the bases. A few scattered rhonchi. ABDOMEN: Soft and nontender. LEGS: No edema. No swelling. NERVOUS SYSTEM: Diffusely weak and tremors. SKIN: No ulcer, rash, bleeding. JOINTS: No active deforming arthropathy. LABORATORY DATA: Reviewed. Troponins are negative. ASSESSMENT: 1. Syncope, possible seizures. 2. History of atrial fibrillation. 3. Chronic obstructive pulmonary disease. 4. Myoclonic jerks. 5. Hypertension. 6. History of asthma. 7. History of pacemaker. 8. History of cholecystectomy. RECOMMENDATION: This 68-year-old woman presented with multiple medical issues. At this time, I recommend to continue the current management that including neuro checks, Neurology and Cardiology evaluation with possible pacemaker dysfunction also to be considered. The patient was on Keppra at one point according to the family. We will continue to monitor the patient. We will check a Keppra level and the patient is also seeing Dr. Hopkins. The patient is on Eliquis, but we will hold the Eliquis for now and we will continue to monitor and restart when the patient is stable. PT and OT also will be evaluated. Overall prognosis extremely guarded because of multiple complex medical issues. I would also recommend basic labs and continue to monitor as well. Prognosis guarded. Further recommendations to follow. See orders for details. MMODL / IJN: [id number] /
--- NOTE | 2024-04-13 14:52 | EEG ---
ELECTROENCEPHALOGRAM REPORT CLINICAL HISTORY: This is a 68-year-old woman with history of seizure, who presents because of episode of syncopal episode with body jerks. The video EEG is obtained to evaluate for seizure epileptiform activity. RELEVANT MEDICATIONS: The patient is not on any antiseizure medications. EEG TYPE: A routine 21-channel EEG with video using the 10/20 electrode placement system. DESCRIPTION: Wakefulness is only obtained. During awake state, the posterior-dominant rhythm consists of [id number] voltage of 8.5 to 9 hertz activity that is well modulated and well sustained. There is no physiological stage 2 sleep architecture. There is no focal slowing. Interictal and ictal is, there is suspicious rare sharply contoured activity over left temporal/parietal region. There is no seizure noted during the study. ACTIVATION PROCEDURE: Photic stimulation did not evoke a posterior driving response. There is no abnormality during the photic stimulation. Hyperventilation is not performed. CLINICAL INTERPRETATION: Abnormal routine EEG. The background is normal. There appears to be suspicious rare epileptiform discharges over the left temporal/parietal region, which can increase the risk for focal seizure as well as status epilepticus. Otherwise, there is no seizure noted during the study. There is no focal slowing. Clinical correlation is recommended. MMODL / IJN: [id number] / [id number]
== END 2024-04-13 13:12 | disposition home or self-care (01) | DRG 101 ==
LOC: EC 12:31 → 6NMEDSUR 15:27 → 1SOBS 04-11 09:15 → OBSVTOIN 04-12 20:33 → UNDODISOB 04-13 13:12
PROVIDERS: ADMIT Hospitalist; ATTEND Hospitalist
DX: G40.909 Epilepsy, unspecified, not intractable, without status epilepticus (principal); I48.21 Permanent atrial fibrillation; I10 Essential (primary) hypertension; E03.9 Hypothyroidism, unspecified; J44.89 Other specified chronic obstructive pulmonary disease; I95.1 Orthostatic hypotension; Z91.148 Patient's other noncompliance with medication regimen for other reason; F41.9 Anxiety disorder, unspecified; I25.10 Atherosclerotic heart disease of native coronary artery without angina pectoris; E78.5 Hyperlipidemia, unspecified; W19.XXXA Unspecified fall, initial encounter; Y92.009 Unspecified place in unspecified non-institutional (private) residence as the place of occurrence of the external cause; Z11.52 Encounter for screening for COVID-19; Z85.6 Personal history of leukemia; Z86.73 Personal history of transient ischemic attack (TIA), and cerebral infarction without residual deficits; Z90.49 Acquired absence of other specified parts of digestive tract; Z95.0 Presence of cardiac pacemaker; Z79.01 Long term (current) use of anticoagulants; Z79.51 Long term (current) use of inhaled steroids; Z79.899 Other long term (current) drug therapy; Z79.02 Long term (current) use of antithrombotics/antiplatelets; Z79.82 Long term (current) use of aspirin; Z79.890 Hormone replacement therapy; Z88.1 Allergy status to other antibiotic agents; Z88.0 Allergy status to penicillin; Z90.710 Acquired absence of both cervix and uterus; Z88.8 Allergy status to other drugs, medicaments and biological substances
CPT/HCPCS: 36415; 70450; 80053; 80177; 81001; 84484; 85025; 87040; 87636; 94640; 95816; 99285

== ENCOUNTER → 2024-06-30 | Outpatient (CLI) | payer MEDICARE ==
--- NOTE | 2024-07-01 00:08 | NM ---
EXAMINATION TYPE: NM DatScan Brain SPECT DATE OF EXAM: 06/30/2024 COMPARISON: NONE CLINICAL INDICATION: Female, 68 years old with history of Z86.69 hx of tremor; abnormal gait TECHNIQUE: 10 drops of Lugol's solution was administered 1 hour prior to injection as a thyroid bloc bianca agent. After the administration of 4.32 mCi I-123 Ioflupane DaTscan. Images obtained 3 hours p ost injection. SPECT images of the brain were acquired with axial and coronal reconstructions. FINDINGS: The DaTSCAN demonstrates significantly reduced uptake of tracer to the right sided striatum IMPRESSION: This indicates the loss of the pre-synaptic dopaminergic terminals and is usually supportive of a cli nical diagnosis of either idiopathic PD or PS. However, given the marked asymmetry of the two sides, an MRI is recommended to ensure that this appearance is not due to a vascular etiology affecting the right putamen or the right thor-striatal pathways. [facility], , 07/01/2024 12:06 AM
== END | disposition home or self-care (01) ==
LOC: RADNMMAIN 10:43
PROVIDERS: ATTEND Psychiatry & Neurology Neurology
DX: R26.9 Unspecified abnormalities of gait and mobility (principal); Z86.69 Personal history of other diseases of the nervous system and sense organs
CPT/HCPCS: 78803; A9584

== ENCOUNTER 2024-07-02 07:47 | Emergency (ER) | payer MEDICARE ==
--- NOTE | 2024-07-02 08:24 | ED ---
General Adult HPI - General Chief complaint: Altered Mental Status Stated complaint: Tremors Time Seen by Provider: 07/02/24 08:06 Source: patient, family Mode of arrival: wheelchair Limitations: no limitations - History of Present Illness Initial comments: Dictation was produced using [employer] dictation software. please excuse any grammatical, word or spelling errors. Chief Complaint: 68-year-old female presents to the emergency department for insomnia secondary to tremors History of Present Illness: Patient 60-year-old female presents to the emergency department tremors. Patient sees neurologist for tremors that she has had for several months. She sees local neurologist, Dr. Carlson. She is currently being worked up had a CT performed yesterday. She has a follow-up appointment for the results of her CT. She has not been prescribed any medications for this yet. Last night she states the tremors got so bad that she was unable to sleep. States that she has had Ativan for this in the past which works well. States that she requested this medication from her primary care doctor and neurologist however has not received a prescription for it long-term. Patient denies any other issues. The ROS documented in this emergency department record has been reviewed and confirmed by me. Those systems with pertinent positive or negative responses have been documented in the HPI. All other systems are other negative and/or noncontributory. - Related Data Home Medications Medication Instructions Recorded Confirmed Apixaban [Eliquis] 5 mg PO BID 11/10/17 04/10/24 Budesonide/Formoterol Fumarate 2 puff INHALATION RT-BID 11/10/17 04/10/24 [Symbicort 160-4.5 Mcg Inhaler] PARoxetine HCL [Paxil Cr] 25 mg PO DAILY 11/10/17 04/10/24 Omeprazole 40 mg PO DAILY 06/11/23 04/10/24 Levothyroxine Sodium [Synthroid] 150 mcg PO DAILY 03/14/24 04/10/24 Aspirin EC [Ecotrin Low Dose] 81 mg PO DAILY 04/10/24 04/10/24 LORazepam [Ativan] 0.5 mg PO BID 04/10/24 04/10/24 Meclizine [Antivert] 25 mg PO TID PRN 04/10/24 04/10/24 Ondansetron Odt [Zofran ODT] 4 mg PO Q8HR PRN 04/10/24 04/10/24 Previous Rx's Medication Instructions Recorded Isosorbide Mononitrate ER [Imdur] 30 mg PO DAILY #30 tab 03/15/24 lisinopriL [Zestril] 2.5 mg PO HS #30 tab 04/12/24 lamoTRIgine [LaMICtal] 25 mg PO DAILY #30 tab 04/13/24 ALPRAZolam [Xanax] 0.5 mg PO DAILY PRN 2 Days #2 07/02/24 tablet Allergies Allergy/AdvReac Type Severity Reaction Status Date / Time ciprofloxacin [From Cipro] Allergy Anaphylaxis Verified 07/02/24 07:51 levetiracetam [From Keppra] Allergy Nausea & Verified 07/02/24 07:51 Vomiting Penicillins Allergy Rash/Hives Verified 07/02/24 07:51 all over body Review of Systems ROS Statement: Those systems with pertinent positive or pertinent negative responses have been documented in the HPI. ROS Other: All systems not noted in ROS Statement are negative. Past Medical History Past Medical History: Atrial Fibrillation, Asthma, COPD, CVA/TIA, Hypertension, Seizure Disorder, Thyroid Disorder Additional Past Medical History / Comment(s): cellulitis of bilateral legs History of Any Multi-Drug Resistant Organisms: None Reported Past Surgical History: Ablation, Cholecystectomy, Hysterectomy, Pacemaker Past Anesthesia/Blood Transfusion Reactions: Postoperative Nausea & Vomiting (PONV) Type of Cardiac Device: Permanent Pacemaker Device Placement Date:: 04/2023 Past Psychological History: Anxiety Smoking Status: Never smoker Past Alcohol Use History: None Reported Past Drug Use History: None Reported - Past Family History Mother Family Medical History: Unable to Obtain General Exam - General Exam Comments Initial Comments: PHYSICAL EXAM: General Impression: Alert and oriented x3, not in acute distress, mildly tremulous HEENT: Normocephalic atraumatic, extra-ocular movements intact, pupils equal and reactive to light bilaterally, mucous membranes moist. Cardiovascular: Heart regular rate and rhythm Chest: Able to complete full sentences, no retractions, no tachypnea Abdomen: abdomen soft, non-tender, non-distended, no organomegaly Musculoskeletal: Pulses present and equal in all extremities, no peripheral edema Motor: no focal deficits noted Neurological: CN II-XII grossly intact, no focal motor or sensory deficits noted Skin: Intact with no visualized rashes Psych: Normal affect and mood Limitations: no limitations Course Vital Signs 07/02/24 07/02/24 07:51 09:34 Temperature 97.9 F 98.1 F Pulse Rate 69 69 Respiratory 20 16 Rate Blood Pressure 124/83 129/55 O2 Sat by Pulse 97 97 Oximetry - Reevaluation(s) Reevaluation #1: 07/02/24 08:25 Chart review was performed. Patient had nuclear medicine scan of the brain. Report was reviewed by radiology showing loss of presymptomatic dopaminergic terminals. Medical Decision Making - Medical Decision Making Was pt. sent in by a medical professional or institution (, PA, FITNESS TECHNICIAN, urgent care, hospital, or snf...) When possible be specific @ -No Did you speak to anyone other than the patient for history (EMS, parent, family, police, friend...)? What history was obtained from this source @ -No Did you review nursing and triage notes (agree or disagree)? Why? @ -I reviewed and agree with nursing and triage notes Were old charts reviewed (outside hosp., previous admission, EMS record, old EKG, old radiological studies, urgent care reports/EKG's, snf records)? Report findings @ -No old charts were reviewed Differential Diagnosis (chest pain, altered mental status, abdominal pain women, abdominal pain men, vaginal bleeding, musculoskeletal, weakness, fever, dyspnea, syncope, headache, dizziness, GI bleed, back pain, seizure, CVA, palpatations, mental health)? @ -Differential Altered Mental Status: Hypoglycemia, DKA, hypercapnia, ETOH, overdose, CO poisoning, trauma, myxedema coma, HTN encephalopathy, infection, encephalitis, psychosis, intercranial hemorrhage, hepatic encephalopathy, meningitis, CVA, this is not meant to be an all-inclusive list EKG interpreted by me (3pts min.). @ -None done X-rays interpreted by me (1pt min.). @ -None done CT interpreted by me (1pt min.). @ -None done U/S interpreted by me (1pt. min.). @ -None done What testing was considered but not performed or refused? (CT, X-rays, U/S, labs)? Why? @ -None What meds were considered but not given or refused? Why? @ -None Was smoking cessation discussed for >3mins.? @ -No Were there social determinants of health that impacted care today? How? (Homelessness, low income, unemployed, alcoholism, drug addiction, transportation, low edu. Level, literacy, decrease access to med. care, nursing home, rehab)? @ -No Was there de-escalation of care discussed even if they declined (Discuss DNR or withdrawal of care, Hospice)? DNR status @ -No What co-morbidities impacted this encounter? (DM, HTN, Smoking, COPD, CAD, Cancer, CVA, ARF, Chemo, Hep., AIDS, mental health diagnosis, sleep apnea, morbid obesity)? @ -None Was patient admitted / discharged? Hospital course, mention meds given and route, prescriptions, significant lab abnormalities, going to OR and other pertinent info. @ -68-year-old female presents to the emergency department for insomnia secondary to acute on chronic tremors. Vital signs stable. Patient well- appearing. Patient has normal physical examination aside for some mild tremors at the bedside. Laboratory evaluation unremarkable. Patient given some b enzodiazepines with significant treatment of her symptoms. Patient has follow- up appointment on Wednesday with her neurologist. Patient agreeable to discharge. Return precautions discussed. Did you discuss the management of the patient with other professionals (professionals i.e. , PA, FITNESS TECHNICIAN, lab, RT, psych nurse, administrator social welfare, sap functional analyst, teacher, morale officer, case sealer)? Give summary @ -No Was critical care preformed (if so, how long)? @ -No Undiagnosed new problem with uncertain prognosis? @ -No Drug Therapy requiring intensive monitoring for toxicity (Heparin, Nitro, Insulin, Cardizem)? @ -No Were any procedures done? @ -No Diagnosis/symptom? Acute, or Chronic, or Acute on Chronic? Uncomplicated (without systemic symptoms) or Complicated (systemic symptoms)? @ -Tremors Side effects of treatment? @ -No Exacerbation, Progression, or Severe Exacerbation? @ -No Poses a threat to life or bodily function? How? (Chest pain, [place], [place], pneumonia, PE, COPD, DKA, ARF, appy, cholecystitis, CVA, Diverticulitis, Homicidal, Suicidal, threat to staff... and all critical care pts) @ -yes - Lab Data Result diagrams: 07/02/24 08:42 07/02/24 08:42 Lab Results 07/02/24 07/02/24 Range/Units 08:42 08:42 WBC 5.4 (3.8-10.6) k/uL RBC 4.21 (3.80-5.40) m/uL Hgb 12.7 (11.4-16.0) gm/dL Hct 39.4 (34.0-46.0) % MCV 93.4 (80.0-100.0) fL MCH 30.2 (25.0-35.0) pg MCHC 32.4 (31.0-37.0) g/dL RDW 13.9 (11.5-15.5) % Plt Count 255 (150-450) k/uL MPV 8.0 Neutrophils % 63 % Lymphocytes % 25 % Monocytes % 8 % Eosinophils % 1 % Basophils % 1 % Neutrophils # 3.4 (1.3-7.7) k/uL Lymphocytes # 1.4 (1.0-4.8) k/uL Monocytes # 0.4 (0-1.0) k/uL Eosinophils # 0.1 (0-0.7) k/uL Basophils # 0.1 (0-0.2) k/uL Sodium 138 (137-145) mmol/L Potassium 4.9 (3.5-5.1) mmol/L Chloride 102 (98-107) mmol/L Carbon Dioxide 30 (22-30) mmol/L Anion Gap 6 mmol/L BUN 14 (7-17) mg/dL Creatinine 0.84 (0.52-1.04) mg/dL Est GFR (CKD-EPI)AfAm 83 (>60 ml/min/1.73 sqM) Est GFR (CKD-EPI)NonAf 72 (>60 ml/min/1.73 sqM) Glucose 87 (74-99) mg/dL Calcium 8.7 (8.4-10.2) mg/dL Disposition Clinical Impression: Coarse tremors Disposition: HOME SELF-CARE Condition: Good Instructions (If sedation given, give patient instructions): Tremors (ED) Prescriptions: ALPRAZolam [Xanax] 0.5 mg PO DAILY PRN 2 Days #2 tablet PRN Reason: insomnia due to tremors Is patient prescribed a controlled substance at d/c from ED?: Yes If prescribed controlled substance>3 days was MAPS reviewed?: Prescribed <3 Days Referrals: Alicia Isaac MD [Primary Care Provider] - 1-2 days Time of Disposition: 10:09
[2024-07-02 09:13] LABS: Basophils # (A) 0.1 k/uL (0-0.2); Basophils % (A) 1 %; Eosinophils # (A) 0.1 k/uL (0-0.7); Eosinophils % (A) 1 %; HCT 39.4 % (34.0-46.0); HGB 12.7 gm/dL (11.4-16.0); Lymphocytes # (A) 1.4 k/uL (1.0-4.8); Lymphocytes % (A) 25 %; MCH 30.2 pg (25.0-35.0); MCHC 32.4 g/dL (31.0-37.0); MCV 93.4 fL (80.0-100.0); Monocytes # (A) 0.4 k/uL (0-1.0); Monocytes % (A) 8 %; Neutrophils # (A) 3.4 k/uL (1.3-7.7); Neutrophils % (A) 63 %; Platelet Count 255 k/uL (150-450); RBC 4.21 m/uL (3.80-5.40); RDW 13.9 % (11.5-15.5); WBC 5.4 k/uL (3.8-10.6)
[2024-07-02 09:36] VITALS: RESP 16; TEMP 98.1
[2024-07-02] MEDS: SODIUM CHLORIDE 0.9% 1,000 ML IV STA (09:38)
[2024-07-02] MEDS: LORazepam 2 MG/ML INJ IV STA (09:38)
[2024-07-02 09:46] LABS: African American GFR (CKD) 83 (>60 ml/min/1.73 sqM); Anion Gap 6 mmol/L; Blood Urea Nitrogen 14 mg/dL (7-17); Calcium 8.7 mg/dL (8.4-10.2); Carbon Dioxide 30 mmol/L (22-30); Chloride 102 mmol/L (98-107); Glucose 87 mg/dL (74-99); Non-African American GFR(CKD) 72 (>60 ml/min/1.73 sqM); Potassium 4.9 mmol/L (3.5-5.1); Sodium 138 mmol/L (137-145)
[2024-07-02 10:25] VITALS: BP 135/65; PULSE 68
--- NOTE | 2024-07-02 11:34 | ED ---
Medical Decision Making - Lab Data Result diagrams: 07/02/24 08:42 07/02/24 08:42 Lab Results 07/02/24 07/02/24 Range/Units 08:42 08:42 WBC 5.4 (3.8-10.6) k/uL RBC 4.21 (3.80-5.40) m/uL Hgb 12.7 (11.4-16.0) gm/dL Hct 39.4 (34.0-46.0) % MCV 93.4 (80.0-100.0) fL MCH 30.2 (25.0-35.0) pg MCHC 32.4 (31.0-37.0) g/dL RDW 13.9 (11.5-15.5) % Plt Count 255 (150-450) k/uL MPV 8.0 Neutrophils % 63 % Lymphocytes % 25 % Monocytes % 8 % Eosinophils % 1 % Basophils % 1 % Neutrophils # 3.4 (1.3-7.7) k/uL Lymphocytes # 1.4 (1.0-4.8) k/uL Monocytes # 0.4 (0-1.0) k/uL Eosinophils # 0.1 (0-0.7) k/uL Basophils # 0.1 (0-0.2) k/uL Sodium 138 (137-145) mmol/L Potassium 4.9 (3.5-5.1) mmol/L Chloride 102 (98-107) mmol/L Carbon Dioxide 30 (22-30) mmol/L Anion Gap 6 mmol/L BUN 14 (7-17) mg/dL Creatinine 0.84 (0.52-1.04) mg/dL Est GFR (CKD-EPI)AfAm 83 (>60 ml/min/1.73 sqM) Est GFR (CKD-EPI)NonAf 72 (>60 ml/min/1.73 sqM) Glucose 87 (74-99) mg/dL Calcium 8.7 (8.4-10.2) mg/dL Disposition Clinical Impression: Coarse tremors Disposition: HOME SELF-CARE Condition: Good Instructions (If sedation given, give patient instructions): Tremors (ED) Prescriptions: ALPRAZolam [Xanax] 0.5 mg PO HS PRN #2 tab PRN Reason: insomnia due to tremors Is patient prescribed a controlled substance at d/c from ED?: Yes If prescribed controlled substance>3 days was MAPS reviewed?: Prescribed <3 Days Referrals: Alicia Isaac MD [Primary Care Provider] - 1-2 days
== END 2024-07-02 10:47 | disposition home or self-care (01) ==
LOC: EC 07:47
DX: G25.2 Other specified forms of tremor (principal); Z88.0 Allergy status to penicillin; Z88.1 Allergy status to other antibiotic agents; Z88.8 Allergy status to other drugs, medicaments and biological substances
CPT/HCPCS: 36415; 80048; 85025; 99284; 96374; 96361; J2060

== ENCOUNTER 2024-07-19 09:54 | Observation (INO) | payer MEDICARE ==
--- NOTE | 2024-07-19 10:50 | ED ---
Dizziness HPI - General Chief Complaint: Dizziness Stated Complaint: Dizziness Time Seen by Provider: 07/19/24 10:26 Source: patient, RN notes reviewed Mode of arrival: EMS Limitations: no limitations - History of Present Illness Initial Comments: Patient is a 68 year old female with past medical history of Parkinson's disease, stroke, and [place] with pacemaker, presents with dizziness and fall since last night. She states she woke up to use the bathroom and felt dizzy and fell. She denies LOC or trauma to her head. She states she feels like the room is spinning, and it is worse with turning her head left to right and going from laying flat to sitting or standing. She also states she has a headache. She states that nothing helps with the dizziness. She denies vision, hearing, or strength changes. She states she thinks this dizziness may have been exacerbated by starting her medication for Parkinson's disease 2 weeks ago. - Related Data Home Medications Medication Instructions Recorded Confirmed Apixaban [Eliquis] 5 mg PO BID 11/10/17 04/10/24 Budesonide/Formoterol Fumarate 2 puff INHALATION RT-BID 11/10/17 04/10/24 [Symbicort 160-4.5 Mcg Inhaler] PARoxetine HCL [Paxil Cr] 25 mg PO DAILY 11/10/17 04/10/24 Omeprazole 40 mg PO DAILY 06/11/23 04/10/24 Levothyroxine Sodium [Synthroid] 150 mcg PO DAILY 03/14/24 04/10/24 Aspirin EC [Ecotrin Low Dose] 81 mg PO DAILY 04/10/24 04/10/24 LORazepam [Ativan] 0.5 mg PO BID 04/10/24 04/10/24 Meclizine [Antivert] 25 mg PO TID PRN 04/10/24 04/10/24 Ondansetron Odt [Zofran ODT] 4 mg PO Q8HR PRN 04/10/24 04/10/24 Previous Rx's Medication Instructions Recorded Isosorbide Mononitrate ER [Imdur] 30 mg PO DAILY #30 tab 03/15/24 lisinopriL [Zestril] 2.5 mg PO HS #30 tab 04/12/24 lamoTRIgine [LaMICtal] 25 mg PO DAILY #30 tab 09/26/24 ALPRAZolam [Xanax] 0.5 mg PO HS PRN #2 tab 07/02/24 Allergies Allergy/AdvReac Type Severity Reaction Status Date / Time ciprofloxacin [From Cipro] Allergy Anaphylaxis Verified 07/02/24 07:51 levetiracetam [From Keppra] Allergy Nausea & Verified 07/02/24 07:51 Vomiting Penicillins Allergy Rash/Hives Verified 07/02/24 07:51 all over body Review of Systems ROS Statement: Those systems with pertinent positive or pertinent negative responses have been documented in the HPI. ROS Other: All systems not noted in ROS Statement are negative. Past Medical History Past Medical History: Atrial Fibrillation, Asthma, COPD, CVA/TIA, Hypertension, Seizure Disorder, Thyroid Disorder Additional Past Medical History / Comment(s): cellulitis of bilateral legs, PARKINSON DISEASE History of Any Multi-Drug Resistant Organisms: None Reported Past Surgical History: Ablation, Cholecystectomy, Hysterectomy, Pacemaker Past Anesthesia/Blood Transfusion Reactions: Postoperative Nausea & Vomiting (PONV) Type of Cardiac Device: Permanent Pacemaker Device Placement Date:: 04/2023 Past Psychological History: Anxiety Smoking Status: Never smoker Past Alcohol Use History: None Reported Past Drug Use History: None Reported - Past Family History Mother Family Medical History: Unable to Obtain General Exam Limitations: no limitations General appearance: alert, in no apparent distress Head exam: Present: atraumatic, normocephalic, normal inspection Eye exam: Present: EOMI, nystagmus ENT exam: Present: normal exam, mucous membranes moist Neck exam: Present: normal inspection, full ROM. Absent: tenderness, meningismus, lymphadenopathy Respiratory exam: Present: normal lung sounds bilaterally. Absent: respiratory distress, wheezes, rales, rhonchi, stridor Cardiovascular Exam: Present: regular rate, normal rhythm, normal heart sounds. Absent: systolic murmur, diastolic murmur, rubs, gallop, clicks GI/Abdominal exam: Present: soft, normal bowel sounds. Absent: distended, tenderness, guarding, rebound, rigid Extremities exam: Present: normal inspection, full ROM, normal capillary refill. Absent: tenderness, pedal edema, joint swelling, calf tenderness Neurological exam: Present: alert, oriented X3, CN II-XII intact, reflexes normal, other ([id number] intact bilaterally). Absent: motor sensory deficit Skin exam: Present: warm, dry, intact, normal color. Absent: rash Course Vital Signs 07/19/24 07/19/24 10:05 12:15 Temperature 98 F Pulse Rate 86 60 Respiratory 16 20 Rate Blood Pressure 130/79 137/64 O2 Sat by Pulse 98 97 Oximetry Medical Decision Making - Medical Decision Making Was pt. sent in by a medical professional or institution (, [facility], KAYAK MAKER, urgent care, hospital, or assisted...) When possible be specific @ -No Did you speak to anyone other than the patient for history (EMS, parent, family, police, friend...)? What history was obtained from this source @ -No Did you review nursing and triage notes (agree or disagree)? Why? @ -I reviewed and agree with nursing and triage notes Were old charts reviewed (outside hosp., previous admission, EMS record, old EKG, old radiological studies, urgent care reports/EKG's, assisted records)? Report findings @ -No old charts were reviewed Differential Diagnosis (chest pain, altered mental status, abdominal pain women, abdominal pain men, vaginal bleeding, weakness, fever, dyspnea, syncope, headache, dizziness, GI bleed, back pain, seizure, CVA, palpatations, mental health, musculoskeletal)? @ -Differential Dizziness: Benign paroxysmal positional Vertigo, Meniere's disease, otitis media, acoustic neuroma, vertebrobasilar insufficiency, cerebellar stroke, encephalitis, hypovolemic, arrhythmia, coronary artery syndrome, anemia, this is not meant to be an all-inclusive list EKG interpreted by me (3pts min.). @ -As above X-rays interpreted by me (1pt min.). @ -None done CT interpreted by me (1pt min.). @ -CT brain without contrast showing no acute intracranial hemorrhage, mass effect or acute malady CT angio head neck negative for occlusion or acute process U/S interpreted by me (1pt. min.). @ -None done What testing was considered but not performed or refused? (CT, X-rays, U/S, labs)? Why? @ -None What meds were considered but not given or refused? Why? @ -None Did you discuss the management of the patient with other professionals (professionals i.e. , [facility], KAYAK MAKER, lab, RT, psych nurse, group social worker, associate consulting engineer, teacher, armor officer, bilingual patient support caseworker)? Give summary @ - Sheet for admission Was smoking cessation discussed for >3mins.? @ -No Was critical care preformed (if so, how long)? @ -No Were there social determinants of health that impacted care today? How? (H omelessness, low income, unemployed, alcoholism, drug addiction, transportation, low edu. Level, literacy, decrease access to med. care, [place] [facility], rehab)? @ -No Was there de-escalation of care discussed even if they declined (Discuss DNR or withdrawal of care, Hospice)? DNR status @ -No What co-morbidities impacted this encounter? (DM, HTN, Smoking, COPD, CAD, Cancer, CVA, ARF, Chemo, Hep., AIDS, mental health diagnosis, sleep apnea, morbid obesity)? @ -Parkinson's Was patient admitted / discharged? Hospital course, mention meds given and route, prescriptions, significant lab abnormalities, going to OR and other pertinent info. @ -[Admitted patient's had persistent dizziness unalleviated with any medications unable to ambulate due to dizziness. Patient be admitted for neurology evaluation. Undiagnosed new problem with uncertain prognosis? @ -No Drug Therapy requiring intensive monitoring for toxicity (Heparin, Nitro, Insulin, Cardizem)? @ -No Were any procedures done? @ -No Diagnosis/symptom? @ -[Intractable dizziness, difficulty ambulating Acute, or Chronic, or Acute on Chronic? @ -Acute Uncomplicated (without systemic symptoms) or Complicated (systemic symptoms)? @ -Complicated Side effects of treatment? @ -[No Exacerbation, Progression, or Severe Exacerbation? @ -No Poses a threat to life or bodily function? How? (Chest pain, [place], [place], pneumonia, PE, COPD, DKA, ARF, appy, cholecystitis, CVA, Diverticulitis, Homicidal, Suicidal, threat to staff... and all critical care pts) @ -No - Lab Data Result diagrams: 07/19/24 10:54 07/19/24 10:54 Lab Results 07/19/24 07/19/24 07/19/24 Range/Units 10:54 10:54 10:54 WBC 6.8 (3.8-10.6) k/uL RBC 4.31 (3.80-5.40) m/uL Hgb 13.4 (11.4-16.0) gm/dL Hct 39.0 (34.0-46.0) % MCV 90.4 (80.0-100.0) fL MCH 31.0 (25.0-35.0) pg MCHC 34.3 (31.0-37.0) g/dL RDW 13.8 (11.5-15.5) % Plt Count 222 (150-450) k/uL MPV 8.7 Neutrophils % 71 % Lymphocytes % 19 % Monocytes % 7 % Eosinophils % 1 % Basophils % 1 % Neutrophils # 4.8 (1.3-7.7) k/uL Lymphocytes # 1.3 (1.0-4.8) k/uL Monocytes # 0.5 (0-1.0) k/uL Eosinophils # 0.1 (0-0.7) k/uL Basophils # 0.1 (0-0.2) k/uL Sodium 136 L (137-145) mmol/L Potassium 4.7 (3.5-5.1) mmol/L Chloride 101 (98-107) mmol/L Carbon Dioxide 29 (22-30) mmol/L Anion Gap 6 mmol/L BUN 15 (7-17) mg/dL Creatinine 0.82 (0.52-1.04) mg/dL Est GFR (CKD-EPI)AfAm 85 (>60 ml/min/1.73 sqM) Est GFR (CKD-EPI)NonAf 74 (>60 ml/min/1.73 sqM) Glucose 92 (74-99) mg/dL Calcium 8.8 (8.4-10.2) mg/dL Magnesium 1.7 (1.6-2.3) mg/dL Total Bilirubin 1.4 H (0.2-1.3) mg/dL AST 22 (14-36) U/L ALT 8 (4-34) U/L Alkaline Phosphatase 83 (38-126) U/L Troponin I <0.012 (0.000-0.034) ng/mL Total Protein 6.5 (6.3-8.2) g/dL Albumin 3.9 (3.5-5.0) g/dL Urine Color Urine Appearance (Clear) Urine pH (5.0-8.0) Ur Specific [place] (1.001-1.035) Urine Protein (Negative) Urine Glucose (UA) (Negative) Urine Ketones (Negative) Urine Blood (Negative) Urine Nitrite (Negative) Urine Bilirubin (Negative) Urine Urobilinogen (<2.0) mg/dL Ur Leukocyte Esterase (Negative) Urine RBC (0-5) /hpf 07/19/24 Range/Units 13:01 WBC (3.8-10.6) k/uL RBC (3.80-5.40) m/uL Hgb (11.4-16.0) gm/dL Hct (34.0-46.0) % MCV (80.0-100.0) fL MCH (25.0-35.0) pg MCHC (31.0-37.0) g/dL RDW (11.5-15.5) % Plt Count (150-450) k/uL MPV Neutrophils % % Lymphocytes % % Monocytes % % Eosinophils % % Basophils % % Neutrophils # (1.3-7.7) k/uL Lymphocytes # (1.0-4.8) k/uL Monocytes # (0-1.0) k/uL Eosinophils # (0-0.7) k/uL Basophils # (0-0.2) k/uL Sodium (137-145) mmol/L Potassium (3.5-5.1) mmol/L Chloride (98-107) mmol/L Carbon Dioxide (22-30) mmol/L Anion Gap mmol/L BUN (7-17) mg/dL Creatinine (0.52-1.04) mg/dL Est GFR (CKD-EPI)AfAm (>60 ml/min/1.73 sqM) Est GFR (CKD-EPI)NonAf (>60 ml/min/1.73 sqM) Glucose (74-99) mg/dL Calcium (8.4-10.2) mg/dL Magnesium (1.6-2.3) mg/dL Total Bilirubin (0.2-1.3) mg/dL AST (14-36) U/L ALT (4-34) U/L Alkaline Phosphatase (38-126) U/L Troponin I (0.000-0.034) ng/mL Total Protein (6.3-8.2) g/dL Albumin (3.5-5.0) g/dL Urine Color Colorless Urine Appearance Clear (Clear) Urine pH 5.5 (5.0-8.0) Ur Specific [place] 1.009 (1.001-1.035) Urine Protein Negative (Negative) Urine Glucose (UA) Negative (Negative) Urine Ketones Negative (Negative) Urine Blood Moderate H (Negative) Urine Nitrite Negative (Negative) Urine Bilirubin Negative (Negative) Urine Urobilinogen <2.0 (<2.0) mg/dL Ur Leukocyte Esterase Negative (Negative) Urine RBC 2 (0-5) /hpf - EKG Data -: EKG Interpreted by Me EKG Comments: EKG performed at 10: 51 ventricular paced rate of 61 QRS 136 QT/QTc 456/458 Disposition Clinical Impression: Severe dizziness Disposition: ADMITTED IP TO THIS [facility] Condition: Fair Time of Disposition: 13:35
[2024-07-19 11:00] LABS: Basophils # (A) 0.1 k/uL (0-0.2); Basophils % (A) 1 %; Eosinophils # (A) 0.1 k/uL (0-0.7); Eosinophils % (A) 1 %; HGB 13.4 gm/dL (11.4-16.0); Lymphocytes # (A) 1.3 k/uL (1.0-4.8); Lymphocytes % (A) 19 %; MCHC 34.3 g/dL (31.0-37.0); MCV 90.4 fL (80.0-100.0); Mean Platelet Volume 8.7; Monocytes # (A) 0.5 k/uL (0-1.0); Monocytes % (A) 7 %; Neutrophils # (A) 4.8 k/uL (1.3-7.7); Neutrophils % (A) 71 %; Platelet Count 222 k/uL (150-450); RBC 4.31 m/uL (3.80-5.40); RDW 13.8 % (11.5-15.5); WBC 6.8 k/uL (3.8-10.6)
[2024-07-19 11:10] LABS: Carbon Dioxide 29 mmol/L (22-30); Chloride 101 mmol/L (98-107); Glucose 92 mg/dL (74-99); Sodium 136 mmol/L (137-145)
[2024-07-19] MEDS: SODIUM CHLORIDE 0.9% 1,000 ML IV STA (11:10)
[2024-07-19 11:11] LABS: ALT 8 U/L (4-34); African American GFR (CKD) 85 (>60 ml/min/1.73 sqM); Anion Gap 6 mmol/L; Blood Urea Nitrogen 15 mg/dL (7-17); Calcium 8.8 mg/dL (8.4-10.2); Non-African American GFR(CKD) 74 (>60 ml/min/1.73 sqM); Total Bilirubin 1.4 mg/dL (0.2-1.3)
[2024-07-19] MEDS: MECLIZINE 12.5 MG TAB PO STA (11:11)
--- NOTE | 2024-07-19 12:02 | CT ---
EXAMINATION TYPE: CT brain wo con DATE OF EXAM: 07/19/2024 11:31 AM COMPARISON: None. CLINICAL INDICATION: Female, 68 years old with history of Headache, dizziness, Headache, dizziness, r ecently diagnosed with Parkinsons. TECHNIQUE: CT of the brain is performed utilizing 3 mm thick sections through the posterior fossa and 3 mm thick sections through the remaining calvarium. Study is performed within 24 hours of arrival to the hospital. Contrast used: mL of , (none if empty) CT DLP: 1197.4 mGycm, Automated exposure control for dose reduction was used. FINDINGS: No abnormal hyperdensity is present to suggest an acute intracranial hemorrhage. No mass lesion is evident. No acute infarcts are evident. Ventricles and sulci are appropriate for the patient age. No significant interval change. Paranasal sinuses and mastoid air cells within the coiab-rs-ndtt are clear. There is hyperostosis fro ntalis internus, a normal variant. IMPRESSION: 1. No acute intracranial process. Follow up MRI can be performed as clinically indicated. [facility], Workstation: [facility], 07/19/2024 12:00 PM
[2024-07-19 12:04] LABS: Potassium 4.7 mmol/L (3.5-5.1)
[2024-07-19 12:05] LABS: AST 22 U/L (14-36); Albumin 3.9 g/dL (3.5-5.0); Alkaline Phosphatase 83 U/L (38-126); Magnesium 1.7 mg/dL (1.6-2.3); Total Protein 6.5 g/dL (6.3-8.2)
[2024-07-19] MEDS: METOCLOPRAMIDE 5 MG/ML 2 ML VIAL IVP STA (12:51)
--- NOTE | 2024-07-19 13:18 | CT ---
EXAMINATION TYPE: CT angio head neck DATE OF EXAM: 07/19/2024 1:00 PM COMPARISON: None. CLINICAL INDICATION: Female, 68 years old with history of Intractable headache, dizziness, HEADACHE TECHNIQUE: CTA scan is performed with axial images are obtained, coronal and sagittal reformatted jes ges are reviewed. 3-D reconstructed images are created on an independent workstation and reviewed. S our images are reviewed. NASCET criteria was used in interpretation of this exam? Contrast used:65 mL of Isovue 300 with IV Contrast, (none if empty) Oral contrast used: (none if empty) CT DLP: 406.8 mGycm, Automated exposure control for dose reduction was used. FINDINGS: Carotid/Vascular Structures: There is a 3 vessel arch. Common carotid arteries bifurcate into internal and external carotid arteries without significant hilaria w limiting stenosis. There is atheromatous calcification present at the bifurcations. Vertebral arteries are codominant. Internal carotid arteries and vertebral arteries are patent to the skull base. Cervical of [place]: Vertebral basilar system appears normal. Posterior cerebral vasculature is unrema rkable. Internal carotid arteries bifurcate normally into A1 and M1 segments. A2 segments are normal. The anterior communicating artery is patent. Posterior communicating arteries are not identified Other: IMPRESSION: 1. No flow-limiting stenosis bilateral carotid bifurcations. 2. Normal [place] [facility], Workstation: [facility], 07/19/2024 1:16 PM
[2024-07-19 13:23] LABS: Appearance,Urine Clear (Clear); Bilirubin,Urine Negative (Negative); Blood,Urine Moderate (Negative); Color,Urine Colorless; Glucose,Urine (UA) Negative (Negative); Ketones,Urine Negative (Negative); Leukocyte Esterase,Urine Negative (Negative); Nitrite,Urine Negative (Negative); PH, Urine 5.5 (5.0-8.0); Protein,Urine Negative (Negative); RBC,Urine 2 /hpf (0-5); Specific Gravity,Urine 1.009 (1.001-1.035); Urobilinogen,Urine <2.0 mg/dL (<2.0)
[2024-07-19] MEDS ORDERED: NALOXONE 0.4 MG/ML 1 ML VIAL IV PRN (13:35)
[2024-07-19] MEDS ORDERED: ACETAMINOPHEN TAB 325 MG TAB PO PRN (13:35)
[2024-07-19] MEDS: SCOPOLAMINE 1 MG/72 HR PATCH TRANSDERM STA (15:10)
[2024-07-19] MEDS: APIXABAN 5 MG TAB PO SCH (23:40)
[2024-07-20] MEDS: LEVOTHYROXINE 88 MCG TAB PO SCH (06:30)
[2024-07-20] MEDS ORDERED: MECLIZINE 25 MG TAB PO PRN (07:06)
--- NOTE | 2024-07-20 07:07 | P.HPIM ---
History of Present Illness This is a pleasant 68 years old female with past medical history of stroke with mild left hemiparesis last November. Presents because of dizziness started this morning. Patient describes the dizziness as both nonspecific and vertigo and room spinning. Also she has been complaining from headache today more frontal about 10/10 in severity close she is described associated with some chronic left-sided and arm weakness since last November also with some memory loss. She denies any specific GI/ symptoms. She feels little short of breath but no chest pain and little dry cough. No slurred speech blurred vision or double vision. No new weakness or numbness. Patient confirms to me and also that she was taking her aspirin and Eliquis at home. She says she takes Eliquis for her A-fib She denies smoking alcohol or illicit drugs. She is afebrile hemodynamically stable Labs checked and they were unremarkable including CBC, BMP, LFTs, troponin and urine analysis CT of the brain showing no acute hemorrhage mass effect or infarct CTA of the head and neck is negative for acute process Patient's was admitted with neurology been consulted Review of Systems Review of systems CONSTITUTIONAL: No fever, no malaise, no fatigue. HEENT: No recent visual problems or hearing problems. Denied any sore throat. CARDIOVASCULAR: No orthopnea, PND, no palpitations, no syncope. PULMONARY: No shortness of breath, no cough, no hemoptysis. GASTROINTESTINAL: No diarrhea, no nausea, no vomiting, no abdominal pain. Normoactive bowel sounds. NEUROLOGICAL: No headaches, no weakness, no numbness. HEMATOLOGICAL: Denies any bleeding or petechiae. GENITOURINARY: Denies any burning micturition, frequency, or urgency. MUSCULOSKELETAL/RHEUMATOLOGICAL: Denies any joint pain, swelling, or any muscle pain. ENDOCRINE: Denies any polyuria or polydipsia. Past Medical History Past Medical History: Atrial Fibrillation, Asthma, COPD, CVA/TIA, Hypertension, Seizure Disorder, Thyroid Disorder Additional Past Medical History / Comment(s): cellulitis of bilateral legs, PARKINSON DISEASE History of Any Multi-Drug Resistant Organisms: None Reported Past Surgical History: Ablation, Cholecystectomy, Hysterectomy, Pacemaker Past Anesthesia/Blood Transfusion Reactions: Postoperative Nausea & Vomiting (PONV) Type of Cardiac Device: Permanent Pacemaker Device Placement Date:: 04/2023 Past Psychological History: Anxiety Smoking Status: Never smoker Past Alcohol Use History: None Reported Past Drug Use History: None Reported - Past Family History Mother Family Medical History: Unable to Obtain Medications and Allergies Home Medications Medication Instructions Recorded Confirmed Type Apixaban [Eliquis] 5 mg PO BID 11/10/17 07/19/24 History Aspirin EC [Ecotrin Low Dose] 81 mg PO DAILY 04/10/24 07/19/24 History LORazepam [Ativan] 0.5 mg PO DAILY PRN 04/10/24 07/19/24 History Levothyroxine Sodium [Synthroid] 175 mcg PO DAILY 07/19/24 07/19/24 History Ondansetron [Zofran] 4 mg PO Q6H PRN 07/19/24 07/19/24 History SUMAtriptan succinate 100 mg PO BID PRN 07/19/24 07/19/24 History lisinopriL [Zestril] 2.5 mg PO DAILY 07/19/24 07/19/24 History rOPINIRole HCL [Requip] 0.25 mg PO TID 07/19/24 07/19/24 History Allergies Allergy/AdvReac Type Severity Reaction Status Date / Time ciprofloxacin [From Cipro] Allergy Anaphylaxis Verified 07/19/24 14:08 levetiracetam [From Keppra] Allergy Nausea & Verified 07/19/24 14:08 Vomiting Penicillins Allergy Rash/Hives Verified 07/19/24 14:08 all over body Physical Exam Vitals: Vital Signs Temp Pulse Pulse Resp BP BP Pulse Ox 07/19/24 20:00 97.8 F 61 18 100/62 97 07/19/24 16:49 97 20 117/77 97 07/19/24 15:12 60 20 112/78 96 07/19/24 12:15 60 20 137/64 97 07/19/24 10:05 98 F 86 16 130/79 98 Intake and Output 07/19/24 07/19/24 07/20/24 14:59 22:59 06:59 Intake Total 200 Output Total 0 Balance 200 Intake: Oral 200 Output: Urine 0 Other: Voiding Method Toilet Weight 83.915 kg 83.915 kg GENERAL: The patient is alert and oriented x3, not in any acute distress. Well developed, well nourished. HEENT: Pupils are round and equally reacting to light. EOMI. No scleral icterus. No conjunctival pallor. Normocephalic, atraumatic. No pharyngeal erythema. No thyromegaly. CARDIOVASCULAR: S1 and S2 present. No murmurs, rubs, or gallops. PULMONARY: Chest is clear to auscultation, no wheezing , no crackles. ABDOMEN: Soft, nontender, nondistended, normoactive bowel sounds. No palpable organomegaly. MUSCULOSKELETAL: No joint swelling or deformity. EXTREMITIES: No cyanosis, clubbing, or pedal edema. -NEUROLOGICAL: Cranial nerves are grossly intact. Chronic mild left hemiparesis of the both upper and lower extremities. Sensation is intact SKIN: No rashes. no petechiae. Results CBC & Chem 7: 07/19/24 10:54 07/19/24 10:54 Labs: Abnormal Lab Results - Last 24 Hours (Table) 07/19/24 07/19/24 Range/Units 10:54 13:01 Sodium 136 L (137-145) mmol/L Total Bilirubin 1.4 H (0.2-1.3) mg/dL Urine Blood Moderate H (Negative) Assessment and Plan Assessment: Acute vertigo associated with li frontal headache Had stroke of the brain about few months ago with residual left hemiparesis, mild Paroxysmal A-fib on Eliquis at home Assessment: Not an active issue COPD, not an active issue Hypertension Hypothyroidism History of seizureBut currently she is not on seizure medication Plan: Continue with aspirin and Eliquis Pain management Neurology team consulted Will add meclizine as needed Labs and medication were reviewed.. Continue same treatment. Continue with symptomatic treatment. Resume home medication. Monitor labs and vitals. DVT and GI prophylaxis. Further recommendations as per clinical course of the patient DVT prophylaxis: Eliquis GI Prophylaxis: Pepcid Prognosis is guarded
[2024-07-20] MEDS: LORazepam 0.5 MG TAB PO PRN (07:51)
[2024-07-20] MEDS: ASPIRIN 81 MG PO SCH (07:51)
[2024-07-20] MEDS: ONDANSETRON 4 MG TAB PO PRN (07:52)
--- NOTE | 2024-07-20 08:52 | P.PN ---
Subjective This is a pleasant 68 years old female with past medical history of stroke with mild left hemiparesis last November. Presents because of dizziness started this morning. Patient describes the dizziness as both nonspecific and vertigo and room spinning. Also she has been complaining from headache today more frontal about 10/10 in severity close she is described associated with some chronic left-sided and arm weakness since last November also with some memory loss. She denies any specific GI/ symptoms. She feels little short of breath but no chest pain and little dry cough. No slurred speech blurred vision or double vision. No new weakness or numbness. Patient confirms to me and also that she was taking her aspirin and Eliquis at home. She says she takes Eliquis for her A-fib She denies smoking alcohol or illicit drugs. She is afebrile hemodynamically stable Labs checked and they were unremarkable including CBC, BMP, LFTs, troponin and urine analysis CT of the brain showing no acute hemorrhage mass effect or infarct CTA of the head and neck is negative for acute process Patient's was admitted with neurology been consulted 07/20/2024 Patient feels much better today, her dizziness improved without medication down to 30% as she explains. Patient states that her dizziness started 2 weeks after her neurologist Dr. Talbert to ordered CT of the brain with IV contrast, patient cannot have MRI because she has pacemaker that is why she got the CT with contrast. At that time Parkinson was suspected and patient was started on Requip, then dizziness started to happen to her but yesterday was more severe so she decided to come to emergency room. Today her dizziness is back to where it was for the last 2 weeks, she feels much better, she is able to eat and ambulate. She wants to discuss her discharge planning. No other new complaint Objective - Vital Signs Vital signs: Vital Signs Temp 97.4 F L 07/20/24 02:00 Pulse 55 L 07/20/24 02:00 Resp 18 07/20/24 02:00 BP 99/62 07/20/24 02:00 Pulse Ox 97 07/20/24 02:00 FiO2 Intake & Output 07/19/24 07/20/24 07/20/24 18:59 06:59 18:59 Intake Total 400 Output Total 0 Balance 400 Weight 83.915 kg Intake: Oral 400 Output: Urine 0 Other: Voiding Method Toilet - Exam GENERAL: The patient is alert and oriented x3, not in any acute distress. Well developed, well nourished. HEENT: Pupils are round and equally reacting to light. EOMI. No scleral icterus. No conjunctival pallor. Normocephalic, atraumatic. No pharyngeal erythema. No thyromegaly. CARDIOVASCULAR: S1 and S2 present. No murmurs, rubs, or gallops. PULMONARY: Chest is clear to auscultation, no wheezing , no crackles. ABDOMEN: Soft, nontender, nondistended, normoactive bowel sounds. No palpable organomegaly. MUSCULOSKELETAL: No joint swelling or deformity. EXTREMITIES: No cyanosis, clubbing, or pedal edema. NEUROLOGICAL: Gross neurological examination did not reveal any focal deficits. SKIN: No rashes. no petechiae. - Labs CBC & Chem 7: 07/19/24 10:54 07/19/24 10:54 Labs: Abnormal Lab Results - Last 24 Hours (Table) 07/19/24 07/19/24 Range/Units 10:54 13:01 Sodium 136 L (137-145) mmol/L Total Bilirubin 1.4 H (0.2-1.3) mg/dL Urine Blood Moderate H (Negative) Assessment and Plan Assessment: Acute vertigo associated with li frontal headache Had a new diagnosis of Parkinson disease per patient, started on Requip by her neurologist 2 weeks ago an outpatient basis Had stroke of the brain about few months ago with residual left hemiparesis, mild Paroxysmal A-fib on Eliquis at home Assessment: Not an active issue COPD, not an active issue Hypertension Hypothyroidism History of seizureBut currently she is not on seizure medication Plan: Continue with aspirin and Eliquis Pain management Meclizine as needed Neurology team consulted Will add meclizine as needed Labs and medication were reviewed.. Continue same treatment. Continue with symptomatic treatment. Resume home medication. Monitor labs and vitals. DVT and GI prophylaxis. Further recommendations as per clinical course of the patient DVT prophylaxis: Eliquis GI Prophylaxis: Pepcid Prognosis is guarded Patient may be considered for discharge once cleared by neurology service
[2024-07-20] MEDS ORDERED: NON FORMULARY DRUG (Levothyroxine Sodium [Synthroid] 175 MCG Tablet) PO SCH (09:00)
--- NOTE | 2024-07-20 14:07 | P.PN ---
Progress Note - Text Progress Note Date: 07/20/24 I was consulted for Intractable dizziness but patient refused to be seen by me.
[2024-07-20] MEDS: SODIUM CHLORIDE 0.9% 1,000 ML IV SCH (14:40)
[2024-07-21 03:33] LABS: African American GFR (CKD) 72 (>60 ml/min/1.73 sqM); Anion Gap 7 mmol/L; Blood Urea Nitrogen 14 mg/dL (7-17); Calcium 8.9 mg/dL (8.4-10.2); Carbon Dioxide 26 mmol/L (22-30); Chloride 101 mmol/L (98-107); Glucose 103 mg/dL (74-99); Non-African American GFR(CKD) 62 (>60 ml/min/1.73 sqM); Potassium 4.6 mmol/L (3.5-5.1); Sodium 134 mmol/L (137-145)
--- NOTE | 2024-07-21 07:48 | P.PN ---
Subjective This is a pleasant 68 years old female with past medical history of stroke with mild left hemiparesis last November. Presents because of dizziness started this morning. Patient describes the dizziness as both nonspecific and vertigo and room spinning. Also she has been complaining from headache today more frontal about 10/10 in severity close she is described associated with some chronic left-sided and arm weakness since last November also with some memory loss. She denies any specific GI/ symptoms. She feels little short of breath but no chest pain and little dry cough. No slurred speech blurred vision or double vision. No new weakness or numbness. Patient confirms to me and also that she was taking her aspirin and Eliquis at home. She says she takes Eliquis for her A-fib She denies smoking alcohol or illicit drugs. She is afebrile hemodynamically stable Labs checked and they were unremarkable including CBC, BMP, LFTs, troponin and urine analysis CT of the brain showing no acute hemorrhage mass effect or infarct CTA of the head and neck is negative for acute process Patient's was admitted with neurology been consulted 07/20/2024 Patient feels much better today, her dizziness improved without medication down to 30% as she explains. Patient states that her dizziness started 2 weeks after her neurologist Dr. Talbert to ordered CT of the brain with IV contrast, patient cannot have MRI because she has pacemaker that is why she got the CT with contrast. At that time Parkinson was suspected and patient was started on Requip, then dizziness started to happen to her but yesterday was more severe so she decided to come to emergency room. Today her dizziness is back to where it was for the last 2 weeks, she feels much better, she is able to eat and ambulate. She wants to discuss her discharge planning. No other new complaint 1/3 Patient still complaining from dizziness about 2/10 today She is able to get up and go to the bathroom She describes her dizziness as nonspecific today not like vertigo Yesterday patient declined to see neurologist because of previous issues, he put her on seizure medication but she says she did not need that when she follow-up with her neurologist as an outpatient. I explained to the patient we do not have any other neurologist We will check orthostatic vitals We will also consult cardiology team given her history of A-fib and dizziness Continue cardiac monitoring Check orthostatic vitals Check TSH tomorrow Objective - Vital Signs Vital signs: Vital Signs Temp 98.1 F 07/20/24 15:00 Pulse 60 07/21/24 02:59 Resp 14 07/21/24 02:59 BP 120/57 07/21/24 02:59 Pulse Ox 99 07/21/24 02:59 FiO2 Intake & Output 07/20/24 07/21/24 07/21/24 18:59 06:59 18:59 Intake Total 200 Balance 200 Intake: Oral 200 Other: Voiding Method Toilet Toilet # Voids 1 - Exam GENERAL: The patient is alert and oriented x3, not in any acute distress. Well developed, well nourished. HEENT: Pupils are round and equally reacting to light. EOMI. No scleral icterus. No conjunctival pallor. Normocephalic, atraumatic. No pharyngeal erythema. No thyromegaly. CARDIOVASCULAR: S1 and S2 present. No murmurs, rubs, or gallops. PULMONARY: Chest is clear to auscultation, no wheezing , no crackles. ABDOMEN: Soft, nontender, nondistended, normoactive bowel sounds. No palpable organomegaly. MUSCULOSKELETAL: No joint swelling or deformity. EXTREMITIES: No cyanosis, clubbing, or pedal edema. NEUROLOGICAL: Gross neurological examination did not reveal any focal deficits. SKIN: No rashes. no petechiae. - Labs CBC & Chem 7: 07/19/24 10:54 07/21/24 03:05 Labs: Abnormal Lab Results - Last 24 Hours (Table) 07/21/24 Range/Units 03:05 Sodium 134 L (137-145) mmol/L Glucose 103 H (74-99) mg/dL Assessment and Plan Assessment: Acute dizziness described as vertigo by patient on admission, currently she says is nonspecific, she had some headache on admission but currently no more headache Had a new diagnosis of Parkinson disease per patient, started on Requip by her neurologist 2 weeks ago an outpatient basis Had stroke of the brain about few months ago with residual left hemiparesis, mild Paroxysmal A-fib on Eliquis at home Assessment: Not an active issue COPD, not an active issue Hypertension Hypothyroidism History of seizureBut currently she is not on seizure medication Plan: Continue with aspirin and Eliquis Pain management Neurology team consulted However patient declined to see this specific neurologist. There is no other neurologist available currently Will add meclizine as needed Labs and medication were reviewed.. Continue same treatment. Continue with symptomatic treatment. Resume home medication. Monitor labs and vitals. DVT and GI prophylaxis. Further recommendations as per clinical course of the patient DVT prophylaxis: Eliquis GI Prophylaxis: Pepcid Prognosis is guarded Patient may be considered for discharge once cleared by neurology service
--- NOTE | 2024-07-21 14:15 | P.CRDCN ---
History of Present Illness History of present illness: HISTORY OF PRESENT ILLNESS: This is a 68-year-old female with a past medical history significant for permanent pacemaker implantation, atrial fibrillation, hypertension, hyperlipidemia, CAD, valvular heart disease, and Parkinson's disease. Patient follows in the office with Dr. Velázquez. We have been asked to see the patient in consultation for dizziness. Patient examined at the bedside. Patient presented to the hospital with a chief complaint of dizziness. Patient reports she was recently diagnosed with Parkinson's disease as well. She denies having any syncopal episodes. Her family is at the bedside and states that she received a scopolamine patch which improved her symptoms. She denies having any chest pain or pressure. Denies any shortness of breath. Vital signs are stable. Orthostatic blood pressures obtained and were unremarkable. DIAGNOSTICS: - EKG reveals paced rhythm with underlying atrial fibrillation - Laboratory data: WBC 6.8. Hemoglobin of 13.4. Platelet count 222. Sodium 134. Potassium 4.6. BUN 14. Creatinine 0.95. Magnesium 1.7. Troponin negat susy x 2. - Current home cardiac medications include lisinopril 2.5 mg daily, Eliquis 5 mg twice a day, aspirin 81 mg daily - Most recent echocardiogram obtained in February 2024 revealing ejection fraction 55 to 60%, moderate MR, moderate mitral annular calcification, mild TR, and moderately dilated left atrium - Cardiac catheterization history: February 2024 revealing intermediate disease involving OM1 REVIEW OF SYSTEMS: At the time of my exam: CONSTITUTIONAL: Denies fever or chills. HEENT: Denies blurred vision, vision changes, or eye pain. Denies hemoptysis CARDIOVASCULAR: Denies chest pain. Denies orthopnea. Denies PND. Denies palpitations RESPIRATORY: Denies shortness of breath. GASTROINTESTINAL: Denies abdominal pain. Denies nausea or vomiting. HEMATOLOGIC: Denies bleeding disorders. GENITOURINARY: Denies any blood in urine. SKIN: Denies pruitis. Denies rash. PHYSICAL EXAM: VITAL SIGNS: Reviewed. GENERAL: Well-developed in no acute distress. HEENT: Head is normocephalic. Pupils are equal, round. Sclerae anicteric. Mucous membranes of the mouth are moist. Neck supple. No JVD or thyromegaly LUNGS: Respirations even and unlabored. Lungs essentially clear to auscultation bilaterally. HEART: Regular rate and rhythm. S1 and S2 heard. Systolic murmur noted ABDOMEN: Soft. Nondistended. Nontender. EXTREMITIES: Normal range of motion. No clubbing or cyanosis. Peripheral pu lses intact. No lower extremity edema NEUROLOGIC: Awake and alert. Oriented x 3. ASSESSMENT: Dizziness Recent diagnosis of Parkinson's disease History of permanent pacemaker implantation Permanent atrial fibrillation History of pacemaker implantation Hypertension Hyperlipidemia CAD with intermediate disease involving OM1, per cath 02/2024 Valvular heart disease with moderate mitral regurgitation History of seizure disorder PLAN: Continue home cardiac medications Orthostatic blood pressures obtained and unremarkable Patient's symptoms do not appear to be cardiac in etiology. However we will interrogate pacemaker to make sure there are no acute events noted If pacemaker interrogation is unremarkable, there will be no further inpatient recommendations from a cardiac standpoint Nurse practitioner note has been reviewed by physician. Signing provider agrees with the documented findings, assessment, and plan of care documented by COMMUNICATIONS PROJECT MANAGER as a scribe. Past Medical History Past Medical History: Atrial Fibrillation, Asthma, COPD, CVA/TIA, Hypertension, Seizure Disorder, Thyroid Disorder Additional Past Medical History / Comment(s): cellulitis of bilateral legs, PARKINSON DISEASE History of Any Multi-Drug Resistant Organisms: None Reported Past Surgical History: Ablation, Cholecystectomy, Hysterectomy, Pacemaker Past Anesthesia/Blood Transfusion Reactions: Postoperative Nausea & Vomiting (PONV) Type of Cardiac Device: Permanent Pacemaker Device Placement Date:: 04/2023 Past Psychological History: Anxiety Smoking Status: Never smoker Past Alcohol Use History: None Reported Past Drug Use History: None Reported - Past Family History Mother Family Medical History: Unable to Obtain Medications and Allergies Home Medications Medication Instructions Recorded Confirmed Type Apixaban [Eliquis] 5 mg PO BID 11/10/17 07/19/24 History Aspirin EC [Ecotrin Low Dose] 81 mg PO DAILY 04/10/24 07/19/24 History LORazepam [Ativan] 0.5 mg PO DAILY PRN 04/10/24 07/19/24 History Levothyroxine Sodium [Synthroid] 175 mcg PO DAILY 07/19/24 07/19/24 History Ondansetron [Zofran] 4 mg PO Q6H PRN 07/19/24 07/19/24 History SUMAtriptan succinate 100 mg PO BID PRN 07/19/24 07/19/24 History lisinopriL [Zestril] 2.5 mg PO DAILY 07/19/24 07/19/24 History rOPINIRole HCL [Requip] 0.25 mg PO TID 07/19/24 07/19/24 History Allergies Allergy/AdvReac Type Severity Reaction Status Date / Time ciprofloxacin [From Cipro] Allergy Anaphylaxis Verified 07/19/24 14:08 levetiracetam [From Keppra] Allergy Nausea & Verified 07/19/24 14:08 Vomiting Penicillins Allergy Rash/Hives Verified 07/19/24 14:08 all over body Physical Exam Vitals: Vital Signs Temp Pulse Resp BP Pulse Ox 07/21/24 08:01 80 121/82 07/21/24 07:56 82 111/69 07/21/24 07:55 97.5 F L 82 18 111/69 100 07/21/24 02:59 60 14 120/57 99 07/20/24 20:15 60 18 119/54 94 L 07/20/24 15:00 98.1 F 70 17 99/45 98 07/20/24 14:48 78 17 Intake and Output 07/20/24 07/21/24 07/21/24 22:59 06:59 14:59 Intake Total 600 Balance 600 Intake: Oral 600 Other: Voiding Method Toilet Toilet # Voids 1 2 # Bowel Movements 0 Results 07/19/24 10:54 07/21/24 03:05 Cardiac Enzymes 07/21/24 Range/Units 09:58 Troponin I <0.012 (0.000-0.034) ng/mL Comprehensive Metabolic Panel 07/21/24 Range/Units 03:05 Sodium 134 L (137-145) mmol/L Potassium 4.6 (3.5-5.1) mmol/L Chloride 101 (98-107) mmol/L Carbon Dioxide 26 (22-30) mmol/L BUN 14 (7-17) mg/dL Creatinine 0.95 (0.52-1.04) mg/dL Glucose 103 H (74-99) mg/dL Calcium 8.9 (8.4-10.2) mg/dL Current Medications Generic Name Dose Route Start Last Admin Trade Name Freq PRN Reason Stop Dose Admin Acetaminophen 650 mg 07/19/24 13:35 Acetaminophen Tab 325 Mg Tab PO Q6HR PRN Mild Pain or Fever > 100.5 Apixaban 5 mg 07/19/24 23:00 07/21/24 08:58 Apixaban 5 Mg Tab PO 5 mg BID JA Administration Protocol Aspirin 81 mg 07/20/24 09:00 07/21/24 08:58 Aspirin 81 Mg PO 81 mg DAILY JA Administration Sodium Chloride 1,000 mls @ 50 mls/hr 07/20/24 14:15 07/21/24 08:59 Saline 0.9% IV Not Given .Q20H JA Levothyroxine Sodium 176 mcg 07/20/24 06:30 07/21/24 06:07 Levothyroxine 88 Mcg Tab PO 176 mcg DAILY@0630 JA Administration Lisinopril 2.5 mg 07/20/24 09:00 07/21/24 08:58 Lisinopril 2.5 Mg Tab PO 2.5 mg DAILY JA Administration Lorazepam 0.5 mg 07/20/24 06:58 07/20/24 18:45 Lorazepam 0.5 Mg Tab PO 0.5 mg DAILY PRN Administration Anxiety/SLEEP Meclizine HCl 25 mg 07/20/24 07:06 Meclizine 25 Mg Tab PO QID PRN Vertigo Naloxone HCl 0.2 mg 07/19/24 13:35 Naloxone 0.4 Mg/Ml 1 Ml Vial IV Q2M PRN Opioid Reversal Ondansetron HCl 4 mg 07/20/24 06:58 07/20/24 07:52 Ondansetron 4 Mg Tab PO 4 mg Q6H PRN Administration Nausea Ropinirole HCl 0.25 mg 07/19/24 23:00 07/21/24 08:58 Ropinirole Hcl 0.25 Mg Tab PO 0.25 mg BID JA Administration Intake and Output 07/20/24 07/21/24 07/21/24 22:59 06:59 14:59 Intake Total 600 Balance 600 Intake: Oral 600 Other: Voiding Method Toilet Toilet # Voids 1 2 # Bowel Movements 0 07/19/24 10:54 07/21/24 03:05
--- NOTE | 2024-07-22 07:28 | XR ---
EXAMINATION TYPE: XR chest 2V DATE OF EXAM: 07/22/2024 7:10 AM COMPARISON: Chest x-ray June 15, 2023 CLINICAL INDICATION: Female, 68 years old with history of eval pacer leads, dizziness, TECHNIQUE: Frontal and lateral views of the chest are obtained. FINDINGS: There is no focal air space opacity, pleural effusion, or pneumothorax seen. Persistent ca rdiomegaly with dual lead pacemaker having leads projecting over right atrium and right ventricle. The osseous structures are demineralized. Moderate compression type fracture of the T8 level is noted on lateral view favored chronic. IMPRESSION: Cardiomegaly without acute pulmonary process. [facility], , 07/22/2024 7:26 AM
--- NOTE | 2024-07-22 10:53 | P.PN ---
Subjective Progress Note Date: 07/22/24 This is a 68-year-old female with a past medical history significant for permanent pacemaker implantation, atrial fibrillation, hypertension, hyperlipidemia, CAD, valvular heart disease, and Parkinson's disease. Patient follows in the office with Dr. Velázquez. We have been asked to see the patient in consultation for dizziness. Patient examined at the bedside. Patient presented to the hospital with a chief complaint of dizziness. Patient reports she was recently diagnosed with Parkinson's disease as well. She denies having any syncopal episodes. Her family is at the bedside and states that she received a scopolamine patch which improved her symptoms. DIAGNOSTICS: - EKG reveals paced rhythm with underlying atrial fibrillation - Laboratory data: WBC 6.8. Hemoglobin of 13.4. Platelet count 222. Sodium 134. Potassium 4.6. BUN 14. Creatinine 0.95. Magnesium 1.7. Troponin negative x 2. - Current home cardiac medications include lisinopril 2.5 mg daily, Eliquis 5 mg twice a day, aspirin 81 mg daily - Most recent echocardiogram obtained in February 2024 revealing ejection fraction 55 to 60%, moderate MR, moderate mitral annular calcification, mild TR, and moderately dilated left atrium - Cardiac catheterization history: February 2024 revealing intermediate disease involving OM1 07/22/2024 The patient was seen and examined sitting up in a chair. Pacemaker interrogation showed normal device function with 100% V pacing and chronic atrial fibrillation. Overall she is feeling much better. She has had no further dizziness. Blood pressure has been stable. She denies any shortness of breath, palpitations, or chest pain. She has had no orthopnea or edema. PHYSICAL EXAM: VITAL SIGNS: Reviewed. GENERAL: Well-developed in no acute distress. HEENT: Head is normocephalic. Pupils are equal, round. Sclerae anicteric. Mucous membranes of the mouth are moist. Neck supple. No JVD or thyromegaly LUNGS: Respirations even and unlabored. Lungs essentially clear to auscultation bilaterally. HEART: Regular rate and rhythm. S1 and S2 heard. Systolic murmur noted ABDOMEN: Soft. Nondistended. Nontender. EXTREMITIES: Normal range of motion. No clubbing or cyanosis. Peripheral pulses intact. No lower extremity edema NEUROLOGIC: Awake and alert. Oriented x 3. ASSESSMENT: Dizziness Recent diagnosis of Parkinson's disease History of permanent pacemaker implantation Permanent atrial fibrillation History of pacemaker implantation Hypertension Hyperlipidemia CAD with intermediate disease involving OM1, per cath 02/2024 Valvular heart disease with moderate mitral regurgitation History of seizure disorder PLAN: From cardiology's perspective there appears to be no cardiac etiology for patient's symptoms. Pacemaker interrogation shows normal device function. Symptoms have improved. From our standpoint no further cardiac workup at this time. She will follow-up as an outpatient with Dr. Velázquez. [employer] note has been reviewed, I agree with a documented findings and plan of care. Patient was seen and examined. Objective - Vital Signs Vital signs: Vital Signs Temp 97.6 F 07/22/24 06:51 Pulse 83 07/22/24 06:51 Resp 19 07/22/24 06:51 BP 122/80 07/22/24 06:51 Pulse Ox 97 07/22/24 06:51 FiO2 Intake & Output 07/21/24 07/22/24 07/22/24 18:59 06:59 18:59 Intake Total 600 Balance 600 Intake: Oral 600 Other: # Voids 2 5 # Bowel Movements 0 - Labs CBC & Chem 7: 07/19/24 10:54 07/21/24 03:05 Labs: Abnormal Lab Results - Last 24 Hours (Table) 07/19/24 Range/Units 10:54 TSH 0.177 L (0.350-5.500) UIU/ML Free (T4) Reflex I 2.27 H (0.80-1.80) ng/dL
[2024-07-22] MEDS: FUROSEMIDE 10 MG/ML 2 ML VIAL IV STA (14:31)
[2024-07-22 15:14] VITALS: BP 115/64; PULSE 79; RESP 18; TEMP 98.1
--- NOTE | 2024-07-25 21:46 | P.DS ---
Providers Date of admission: 07/21/24 08:07 Attending physician: Barry Lopez MD Consults: 07/19/24 13:35 Consult Physician Urgent Consulting Provider: Ayaan Oglesby Consult Reason/Comments: Intractable dizziness Do you want consulting provider notified?: Yes 07/21/24 07:46 Consult Physician Routine Consulting Provider: Nadine Calabrese Consult Reason/Comments: dizziness and a fib Do you want consulting provider notified?: Yes Primary care physician: Alicia Isaac Hospital Course: Final Diagnosis Acute dizziness described as vertigo by patient on admission, currently she says is nonspecific, she had some headache on admission but currently no more headache Had a new diagnosis of Parkinson disease per patient, started on Requip by her neurologist 2 weeks ago an outpatient basis 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 Alicia Isaac. TSH was noted to be low with T4 elevation and synthroid was decreased to 150 mcg daily. Has a follow up in Early august already with her neurologist Dr. Carlson. Hospital Course This is a pleasant 68 years old female with past medical history of stroke with mild left hemiparesis last November. Presents because of dizziness started this morning. Patient describes the dizziness as both nonspecific and vertigo and room spinning. Also she has been complaining from headache today more frontal about 10/10 in severity close she is described associated with some chronic left-sided and arm weakness since last November also with some memory loss. She denies any specific GI/ symptoms. She feels little short of breath but no chest pain and little dry cough. No slurred speech blurred vision or double vision. No new weakness or numbness. She is afebrile hemodynamically stable Labs checked and they were unremarkable including CBC, BMP, LFTs, troponin and urine analysis. CT of the brain showing no acute hemorrhage mass effect or infarct. CTA of the head and neck is negative for acute process Patient's was admitted under internal medicine with cardiology and neurology consultations. Patient does report being diagnosed with parkinsons 2 weeks ago by her neurologist Dr. Carlson for which she was started on ropinirole. She states that her dizziness is now essentially gone with monitoring. Pacemaker was interrogated had normal device functioning with 100% v pacing rhythm with underlying chronic atrial fibrillation. Patient has no chest pain, or shortness of breath. Orthostatic blood pressures are negative. She has been up ambulating without difficulty. 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 Please see medication reconciliation for a list of current medications. Thank you for allowing us to participate in the care of this patient. The impression and plan of care has been dictated by Lety Bhandari, Nurse Practitioner as directed. Dr. Ana MD I have performed a history and physical examination and medical decision making of this patient, discussed the same with the dictator, and agree with the dictators assessment and plan as written, documented as a scribe. Based on total visit time, I have performed more than 50% of this visit. Patient Condition at Discharge: Fair Plan - Discharge Summary Discharge Rx Participant: Yes New Discharge Prescriptions: New Meclizine [Antivert] 25 mg PO QID PRN #12 tab PRN Reason: Vertigo Levothyroxine Sodium [Synthroid] 150 mcg PO DAILY #60 tab Continue Apixaban [Eliquis] 5 mg PO BID lisinopriL [Zestril] 2.5 mg PO DAILY rOPINIRole HCL [Requip] 0.25 mg PO TID LORazepam [Ativan] 0.5 mg PO DAILY PRN PRN Reason: Anxiety/SLEEP Aspirin EC [Ecotrin Low Dose] 81 mg PO DAILY SUMAtriptan succinate 100 mg PO BID PRN PRN Reason: Migraine Headache Ondansetron [Zofran] 4 mg PO Q6H PRN PRN Reason: Nausea Discontinued Levothyroxine Sodium [Synthroid] 175 mcg PO DAILY Discharge Medication List Apixaban [Eliquis] 5 mg PO BID 11/10/17 [History] Aspirin EC [Ecotrin Low Dose] 81 mg PO DAILY 04/10/24 [History] LORazepam [Ativan] 0.5 mg PO DAILY PRN 04/10/24 [History] Ondansetron [Zofran] 4 mg PO Q6H PRN 07/19/24 [History] SUMAtriptan succinate 100 mg PO BID PRN 07/19/24 [History] lisinopriL [Zestril] 2.5 mg PO DAILY 07/19/24 [History] rOPINIRole HCL [Requip] 0.25 mg PO TID 07/19/24 [History] Levothyroxine Sodium [Synthroid] 150 mcg PO DAILY #60 tab 07/22/24 [Rx] Meclizine [Antivert] 25 mg PO QID PRN #12 tab 07/22/24 [Rx] Follow up Appointment(s)/Referral(s): Monica Carlson MD [Medical Doctor] - 1 Week Alicia Isaac MD [Primary Care Provider] - 1-2 days Rhett Velázquez MD [STAFF PHYSICIAN] - 1 Week Ambulatory/Diagnostic Orders: Basic Metabolic Panel [LAB.AMB] Time Frame: 3 Days, Location: None Selected Activity/Diet/Wound Care/Special Instructions: Keep your follow up with Dr. Carlson in the office Decrease levothyroxine to 150 mcg daily. Follow up with PCP. Discharge Disposition: HOME SELF-CARE
== END 2024-07-22 15:20 | disposition home or self-care (01) ==
LOC: EC 09:54 → 6NMEDSUR 13:46 → 1SOBS 16:23 → INTOOBSV 07-21 08:07 → OBSVTOIN 07-21 08:07 → 4SSUR 07-21 16:56
PROVIDERS: ADMIT Internal Medicine; ATTEND Internal Medicine
DX: R42 Dizziness and giddiness (principal); R51.9 Headache, unspecified; I48.0 Paroxysmal atrial fibrillation; I48.21 Permanent atrial fibrillation; I10 Essential (primary) hypertension; I25.2 Old myocardial infarction; E03.9 Hypothyroidism, unspecified; E78.5 Hyperlipidemia, unspecified; F41.9 Anxiety disorder, unspecified; G20.A1 Parkinson's disease without dyskinesia, without mention of fluctuations; G40.909 Epilepsy, unspecified, not intractable, without status epilepticus; I25.10 Atherosclerotic heart disease of native coronary artery without angina pectoris; I34.0 Nonrheumatic mitral (valve) insufficiency; I69.354 Hemiplegia and hemiparesis following cerebral infarction affecting left non-dominant side; J44.89 Other specified chronic obstructive pulmonary disease; Z79.01 Long term (current) use of anticoagulants; Z79.51 Long term (current) use of inhaled steroids; Z79.82 Long term (current) use of aspirin; Z79.890 Hormone replacement therapy; Z79.899 Other long term (current) drug therapy; Z95.0 Presence of cardiac pacemaker; Z88.0 Allergy status to penicillin; Z88.1 Allergy status to other antibiotic agents
CPT/HCPCS: 96375 ×2; 96361; 96374; 99285; 36415; 93005; 84439; 80053; 80048; 84443; 83735; 84484 ×2; 85025; 81001; 71046; 70496; 70450; 70498; G0378 ×6; J1940; J2765; J3360; Q9967

== ENCOUNTER → 2024-12-25 | Outpatient (CLI) | payer MEDICARE ==
--- NOTE | 2024-12-25 20:59 | CT ---
EXAMINATION TYPE: CT brain wo con DATE OF EXAM: 12/25/2024 5:01 PM COMPARISON: None. CLINICAL INDICATION: Female, 69 years old with history of I63.9 CVA, dizziness TECHNIQUE: CT of the brain is performed utilizing 3 mm thick sections through the posterior fossa and 3 mm thick sections through the remaining calvarium. Study is performed within 24 hours of arrival to the hospital. Contrast used: mL of , (none if empty) CT DLP: 1122.3 mGycm, Automated exposure control for dose reduction was used. FINDINGS: No abnormal hyperdensity is present to suggest an acute intracranial hemorrhage. No mass lesion is evident. No acute infarcts are evident. Ventricles and sulci are appropriate for the patient age. Paranasal sinuses and mastoid air cells within the [id number] are clear. Hyperostosis frontalis internus is present, normal variant IMPRESSION: 1. No acute intracranial process. Follow up MRI can be performed as clinically indicated. [facility], , 12/25/2024 8:56 PM
== END | disposition home or self-care (01) ==
LOC: RADCTMAIN 15:29
PROVIDERS: ATTEND Psychiatry & Neurology Neurology
DX: I63.9 Cerebral infarction, unspecified (principal); Z86.73 Personal history of transient ischemic attack (TIA), and cerebral infarction without residual deficits
CPT/HCPCS: 70450